=== PATIENT | male | born 1940 | race Caucasian/White ===

== ENCOUNTER 2016-08-01 16:20 | Inpatient (IN) | payer OTHER ==
[~2016-08-01] VITALS: Ht 190.5 cm; Wt 120.7 kg
[~2016-08-01 16:20] MED LIST: ACET325T96 PO; APIX1TAB3 PO; BISA1TAB15 PO; CALC0.2510 PO; CHOL2000 PO; CINA0.42 PO; CLR10 PO; CYAN500T13 PO; DOCU-94 PO; FEBU40TA PO; FRS/40 PO; FURO-85 PO; HMLNPUC INJ; HMLNPUC SC; HYDR-4079 PO; METO-217 PO; NVLGIPEN SC; OMEG10007 PO; POLY335019 PO; ROSU5TAB PO; SODI650T8 PO; VITA400C28 PO
[2016-08-01] MEDS ORDERED: MoRPHine SULFATE 4 MG/ML 1 ML CARP\\VIAL IV STA (17:16)
[2016-08-01] MEDS ORDERED: ONDANSETRON INJ 2 MG/ML 2 ML VIAL IV STA (17:16)
[2016-08-01 17:59] LABS: HEMATOCRIT 30.2 % (42-52); MEAN CELL VOLUME 81.6 fL (80-100); MEAN CORPUSCULAR HEMOGLOBIN 26.2 pg (25-34); MEAN CORPUSCULAR HGB CONC 32.1 g/dl (32-36); MEAN PLATELET VOLUME 8.9 fL (7.4-10.4); PLATELET COUNT 185 K/uL (130-400); WHITE BLOOD COUNT 4.37 K/uL (4.8-10.8)
[2016-08-01 18:07] LABS: INR 1.1 (0.9-1.1); PROTHROMBIN TIME (PATIENT) 11.9 SECONDS (9.0-12.0)
[2016-08-01] MEDS ORDERED: HYDROmorphone INJ 1 MG/ML SYR IV STA (18:24)
[2016-08-01 18:43] LABS: BASO % 0.2 %; BASO ABS # 0.01 K/uL (0-0.2); COMPLETE YES; EOS % 0.9 %; HYPOCHROMIA PRESENT; IG% 0.2 %; LYMPH % 17.8 %; LYMPH ABS # 0.78 K/uL (1.2-3.4); MONO % 12.1 %; NEUT % 68.8 %
[2016-08-01 18:52] LABS: BUN/CREATININE RATIO 12.7 (10-20); CREATININE 5.5 mg/dl (0.60-1.40); POTASSIUM 4.1 mmol/L (3.5-5.1)
[2016-08-01 19:00] LABS: CALCIUM 12.1 mg/dl (8.5-10.1)
[2016-08-01] MEDS ORDERED: KETOROLAC TROMETHAMINE 15 MG/ML VIAL IV SCH (19:00)
[2016-08-01] MEDS ORDERED: ONDANSETRON INJ 2 MG/ML 2 ML VIAL IV PRN ×2 (19:00→20:00)
[2016-08-01] MEDS ORDERED: PROMETHAZINE HCL INJ 12.5 MG in SODIUM CHLORIDE 0.9% 50ML 50 ML IV PRN (19:00)
[2016-08-01] MEDS ORDERED: SODIUM CHLORIDE 0.9% 1000ML 1,000 ML IV STA (19:01)
[2016-08-01] MEDS: HYDROmorphone INJ 1 MG/ML SYR IV PRN ×2 (19:33→23:34)
[2016-08-01] MEDS ORDERED: DEXTROSE 50% 50 ML SYR IV PRN (19:45)
[2016-08-01] MEDS ORDERED: GLUCAGON FOR INJ 1 MG VIAL SQ PRN (19:45)
[2016-08-01] MEDS ORDERED: GLUCOSE 10 TABS/TUBE PO PRN (19:45)
[2016-08-01] MEDS ORDERED: GLUCOSE 40% GEL 15 GM TUBE PO PRN (19:45)
--- NOTE | 2016-08-01 19:59 | HISTORY & PHYSICAL EXAMINATION ---
DATE OF ADMISSION: 08/01/2016 CHIEF COMPLAINT: Back pain, lower extremity difficulty, inability to walk, some difficulty with voiding. HISTORY: Reginaldo is a pleasant gentleman I am meeting for the first time. He is 76 years of age, he is a male. He is labored here a little bit with his breathing. He evidently had surgery set up with Dr. Juarez coming up in approximately 15-16 days. Because the pain overtook the gentleman, he came to our Emergency Room for evaluation and treatment, optimistic that something could be done sooner. My brief assessment here this evening is he is not tuned up or ready for surgical intervention at this point in time. MEDICAL HISTORY: Positive for obesity, hypertension, diabetes mellitus, prostate CA. No myocardial infarction. No CVA. No stroke. SURGICAL HISTORY: Negative. ALLERGIES: Denied. REVIEW OF SYSTEMS: Denies any blurred vision, double vision, tinnitus, vertigo. No chest pain, but some shortness of breath. Denies nausea or vomiting. Had some urgency. Had some retention. Has difficulty with walking. MEDICINES: We are trying to round up and summarize. They are listed on his initial patient inquiry. PHYSICAL EXAMINATION: GENERAL: He is alert, oriented. He is in distress. He has some pulmonary issues. HEENT: Essentially benign. VITAL SIGNS: Blood pressure 175/80, pulse slightly irregular at 80 beats per minute, 20 respirations for a minute. LUNGS: He has some wheezing with inhalation and exhalation. ABDOMEN: Obese, although no organomegaly, essentially nontender. EXTREMITIES: Vascular structure is intact. He has 2 or 3+ pitting edema to lower extremities. He has an ulcer on his right knee, he has an ulcer on his great toe. I left the dressings intact. LABORATORY DATA: Hemoglobin 9.7, hematocrit 30.2. INR 1.1. Images from an outpatient demonstrate severe multilevel stenosis from about 6 months ago. Chest x-ray relatively clear. ASSESSMENT: A 76-year-old male with spinal stenosis, degenerative spine disease. He is also anemic. He is also in renal failure. Appears to be possibly in heart failure with edema and some diabetic ulcers. He is also a diabetic male. DISPOSITION: At this point in time, I am admitting him to my service, orthopedic spine surgery. Surgery is contraindicated at this point in time. He is not healthy enough to undergo even a small procedure. We will have medicine see him and Dr. Sullivan has been gracious enough to see him for medical management. He may even need telemetry. We will try to control his pain as best as we can along with the medical management, surgery being on hold, and I will follow him daily.
[2016-08-01] MEDS ORDERED: ALUMINUM/MAGNESIUM/SIMETH (MAALOX MAX) 30 ML UDC PO PRN (20:00)
[2016-08-01] MEDS ORDERED: ACETAMINOPHEN 325 MG TAB PO PRN (20:00)
[2016-08-01 20:21] LABS: CKMB/CK RATIO 1.6 (0-3.0)
--- NOTE | 2016-08-01 20:36 | DIAGNOSTIC IMAGING REPORT ---
MRI LUMBAR SPINE WITHOUT IV CONTRAST CLINICAL HISTORY: Low back pain. Lower extremity numbness. COMPARISON STUDY: No priors. TECHNIQUE: MRI of lumbar spine is performed utilizing various T1 and T2 weighted sequences in the axial and sagittal planes. IV contrast was not administered for this examination. FINDINGS: Lumbar spine: Vertebral body height is maintained about the lumbar spine. There is minimal anterolisthesis at L4-L5. Alignment is otherwise preserved. Mild hyperlordosis is noted. The transverse and spinous processes are intact as visualized. There is no evidence of spondylolysis. No destructive bony lesion is seen. A small hemangioma is noted in the body of L1. Intervertebral discs: There is degenerative disc desiccation throughout the lumbar spine. Mild loss of height is noted at L4-L5 and L5-S1. Spinal cord: The visualized spinal cord is normal in morphology and signal intensity. The conus medullaris terminates at the level of L1. The nerve roots of the cauda equina are normal in morphology. Epidural lipomatosis is seen at L4 and L5. T12-L1: There is minimal posterior disc bulge and annular fissure. The central canal appears clear. L1-L2: Unremarkable. L2-L3: There is minimal posterior disc bulge with annular fissure. In conjunction with hypertrophy of the ligamentum flavum there is minimal acquired compromise of the central canal at this level with a minimum AP diameter of 9 mm. There is bilateral subarticular stenosis. There may be impingement on the transiting left-sided nerve roots and the exiting left L2 nerve root. The neural foramina are patent. L3-L4: There is minimal posterior disc bulge. In conjunction with hypertrophy of the ligamentum flavum, there is minimal acquired compromise of the central canal with a minimum AP diameter of 9.5 mm. There is bilateral subarticular stenosis with possible impingement on the exiting bilateral L3 nerve roots. This also abuts the transiting nerve roots. The neural foramina are patent. Facet arthropathy is of no consequence. L4-L5: There is posterior disc bulge eccentric to the left. In conjunction with hypertrophy of the ligamentum flavum, there is moderate central canal stenosis at this level with a minimum AP diameter of 6.5 mm. There is bilateral subarticular stenosis, with probable impingement of the exiting bilateral L4 nerve roots. This also abuts the transiting L5 nerve roots. Facet arthropathy causes mild bilateral neural foraminal stenosis. There is a left facet joint effusion at this level. L5-S1: There is minimal posterior disc bulge and annular fissure. There is no significant acquired compromise of the central canal at this level. The central canal is narrowed secondary to epidural lipomatosis. Facet arthropathy causes moderate right greater than left neural foraminal stenosis. Sacrum: Visualized sacrum is normal in morphology and signal intensity. Soft tissues: There is fatty atrophy of the paraspinous musculature. The visualized kidneys demonstrate cortical atrophy. The retroperitoneal structures are not well assessed. IMPRESSION: 1. Lumbosacral spondylosis with multilevel acquired compromise of the central canal as detailed above. This is greatest at L4-L5. See discussion for detailed level by level analysis. 2. No destructive bony lesion is seen. 3. Epidural lipomatosis is noted at L4 and L5. Dictated: 08/01/2016 8:22 PM Transcribed: 08/01/2016 8:36 PM Hossein Electronically signed by: Joseph Gonzalez M.D. 08/01/2016 8:45 PM Dictated Date/Time: 08/01/2016 8:22 PM
--- NOTE | 2016-08-01 20:38 | Medical Consult ---
Consultation Date of Consultation: Aug 01, 2016. Attending Physician: Julian Pena Reason for Consultation: Medical Management History of Present Illness Mr. Ferro is a 76 y/o male with PMHx of Atrial Fibrillation (anticoagulated), HTN, CAMI on night CPAP, T2DM, Chronic Kidney Disease with Secondary Hyperparathyroidism, and Prostate CA who presents to the ED complaining of worsening lower back pain and ambulation difficulty 2 weeks. Hospitalists consulted for medical management. HPI limited due to uncontrolled pain and difficulty hearing. 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 His PCP is Dr. Martinez with [facility]. At times, patient responds with inappropriate answers and it is hard to determine if this is due to hearing difficulty versus AMS. However, patient is alert and oriented to person , place, time. Patient does report CKD and prior history of hypercalcemia. Patient does not receive dialysis. Patient currently resides at the [facility] since his recent discharge from [facility] approximately 10 days ago. This is due to the ambulatory dysfunction. Prior to this he resides at home with his . Of note, patient was performing preoperative testing today for his back surgery scheduled with Dr. Juarez on 08/18/2016. Patient reports an intermittently productive cough with wheezing that started yesterday. Denies all other URI symptoms. He denies fever/chills, chest pain, N/V, abdominal pain, constipation/diarrhea. Past Medical/Surgical History Medical Problems: (1) Atrial fibrillation (2) Chronic kidney disease (CKD) (3) Diabetes (4) Intractable back pain (5) spinal stenosis (6) Stenosis, spinal, lumbar (7) Wears hearing aid in both ears Family History Diabetes mellitus Social History Smoking Status: Never Smoker Smokeless Tobacco Use: No Alcohol Use: none Drug Use: none Marital Status: Housing Status: lives with significant other Allergies Coded Allergies: Atorvastatin (Unverified Allergy, Unknown, UNKNOWN, 08/01/16) Gabapentin (Unverified Allergy, Unknown, UNKNOWN, 08/01/16) Pioglitazone (Unverified Allergy, Unknown, UNKNOWN, 08/01/16) Simvastatin (Unverified Allergy, Unknown, UNKNOWN, 08/01/16) Current Inpatient Medications Current Inpatient Medications Medications (Trade) Dose Ordered Sig/Elliott Route Start Time Stop Time Status Last Admin Dose Admin Acetaminophen 650 mg 650 mg Q6H PRN PO 08/01/16 19:00 4/5/17 18:59 Promethazine HCl/ Sodium Chloride (Phenergan Inj/ Nss 50ml) 50.5 ml @ 202 mls/hr Q6H PRN IV 08/01/16 19:00 08/31/16 18:59 Ondansetron HCl (Zofran Inj) 4 mg Q6H PRN IV 08/01/16 19:00 08/31/16 18:59 Lorazepam (Ativan Tab) 1 mg Q6H PRN PO 08/01/16 19:00 08/31/16 18:59 Oxycodone/ Acetaminophen (Percocet 5-325mg Tab) Moderate to Severe naseem... Q4H PRN PO 08/01/16 19:00 08/15/16 18:59 Acetaminophen/ Hydrocodone Bitart ([place] 5/325 Tab) Moderate to Severe Naseem... Q4H PRN PO 08/01/16 19:00 08/15/16 18:59 Hydromorphone HCl (Dilaudid Inj) 1 mg Q2HWA PRN IV 08/01/16 19:00 08/15/16 18:59 08/01/16 19:33 1 MG Ciprofloxacin (Cipro Tab) 500 mg BID PO 08/01/16 21:00 08/31/16 20:59 UNV Cyanocobalamin (Vitamin B-12 Tab) 1,000 mcg QAM PO 08/02/16 09:00 09/01/16 08:59 Docusate Sodium (coLACE CAP) 100 mg BID PO 08/01/16 21:00 08/31/16 20:59 Loratadine (Claritin Tab) 10 mg QAM PO 08/02/16 09:00 09/01/16 08:59 Metoprolol Succinate (Toprol Xl Tab) 50 mg BID PO 08/01/16 21:00 08/31/16 20:59 Non-Formulary Medication (Cinacalcet (Sensipar)) 30 mg QAM PO 08/02/16 09:00 09/01/16 08:59 UNV Albuterol/ Ipratropium 3 ml 3 ml QIDR INH 08/01/16 20:00 08/31/16 19:59 Sodium Chloride (Nss 1000ml) 1,000 ml @ 50 mls/hr Q20H IV 08/01/16 19:45 08/31/16 19:44 Insulin Aspart (novoLOG ASPART) SLIDING SCALE G... ACHS SC 08/01/16 21:00 08/31/16 20:59 Glucose (Glucose 40% Gel) 15-30 GRAMS 15 GRAMS... UD PRN PO 08/01/16 19:45 08/31/16 19:44 Glucose (Glucose Chew Tab) 4-8 Tablets 4 Tabl... UD PRN PO 08/01/16 19:45 08/31/16 19:44 Dextrose (Dextrose 50% 50ML Syringe) 25-50ML OF 50% DW IV FOR... UD PRN IV 08/01/16 19:45 08/31/16 19:44 Glucagon (Glucagon Inj) 1 mg UD PRN SQ 08/01/16 19:45 08/31/16 19:44 Al Hydrox/Mg Hydrox/Simethicone (Maalox Max Susp) 15 ml Q4H PRN PO 08/01/16 20:00 08/31/16 19:59 Magnesium Hydroxide (Milk Of Magnesia Susp) 30 ml Q12H PRN PO 08/01/16 20:00 08/31/16 19:59 Polyethylene (Miralax Powder Packet) 17 gm DAILY PRN PO 08/01/16 20:00 08/31/16 19:59 Review of Systems Constitutional: No chills, No fever Eyes: No worsening of vision ENT: + hearing loss (chronic), No nasal symptoms, No sore throat Respiratory: + cough, + shortness of breath (reports chronic), + sputum, + wheezing Cardiovascular: No chest pain Abdomen: No constipation, No diarrhea, No nausea, No pain, No vomiting Musculoskeletal: + swelling Genitourinary - Male: + urinary hesitancy, No dysuria Neurologic: + numbness/tingling (bilateral lower extremities), + weakness ( bilateral lower extremities) Hematologic / Lymphatic: No abnormal bleeding/bruising, No clotting problems Physical Exam Date Time Temp Pulse Resp B/P Pulse Ox O2 Delivery O2 Flow Rate FiO2 08/01/16 19:10 84 24 158/78 98 Room Air 08/01/16 18:28 138/90 08/01/16 17:56 84 20 175/81 100 08/01/16 16:30 36.3 71 20 176/76 99 Room Air General Appearance: WD/WN, + mild distress (pain) Head: normocephalic, atraumatic Eyes: sclerae normal ENT: + pertinent finding (COUNCIL; bilateral hearing aids) Neck: supple, no JVD, trachea midline Respiratory/Chest: no respiratory distress, no accessory muscle use, + rhonchi (bases bilat), + wheezing (diffuse in all lung toscano) Cardiovascular: no gallop, no murmur, + irregularly irregular Abdomen/GI: normal bowel sounds, non tender, soft Back: normal inspection, no CVA tenderness Extremities/Musculoskelatal: + swelling (bilat lower extremity edema 1+; superficial abrasions of lower extremities bilat) Neurologic/Psych: alert, oriented x 3 Skin: normal color Laboratory Results Last 24 Hours Test 08/01/16 17:44 White Blood Count 4.37 K/uL Red Blood Count 3.70 M/uL Hemoglobin 9.7 g/dL Hematocrit 30.2 % Mean Corpuscular Volume 81.6 fL Mean Corpuscular Hemoglobin 26.2 pg Mean Corpuscular Hemoglobin Concent 32.1 g/dl Platelet Count 185 K/uL Mean Platelet Volume 8.9 fL Neutrophils (%) (Auto) 68.8 % Lymphocytes (%) (Auto) 17.8 % Monocytes (%) (Auto) 12.1 % Eosinophils (%) (Auto) 0.9 % Basophils (%) (Auto) 0.2 % Neutrophils # (Auto) 3.00 K/uL Lymphocytes # (Auto) 0.78 K/uL Monocytes # (Auto) 0.53 K/uL Eosinophils # (Auto) 0.04 K/uL Basophils # (Auto) 0.01 K/uL RDW Standard Deviation 53.1 fL RDW Coefficient of Variation 17.6 % Immature Granulocyte % (Auto) 0.2 % Immature Granulocyte # (Auto) 0.01 K/uL Hypochromasia PRESENT Prothrombin Time 11.9 SECONDS Prothromb Time International Ratio 1.1 Activated Partial Thromboplast Time 26.4 SECONDS Partial Thromboplastin Ratio 1.0 Sodium Level 142 mmol/L Potassium Level 4.1 mmol/L Chloride Level 101 mmol/L Carbon Dioxide Level 27 mmol/L Anion Gap 14.0 mmol/L Blood Urea Nitrogen 70 mg/dl Creatinine 5.50 mg/dl Est Creatinine Clear Calc Drug Dose 16.0 ml/min Estimated GFR () 10.6 Estimated GFR (Non- 9.1 BUN/Creatinine Ratio 12.7 Random Glucose 159 mg/dl Calcium Level 12.1 mg/dl Total Creatine Kinase 282 U/L Creatine Kinase MB 4.5 ng/ml Creatine Kinase MB Ratio 1.6 Troponin I 0.083 ng/ml Assessment & Plan Mr. Ferro is a 76 y/o male with PMHx of Atrial Fibrillation (anticoagulated), HTN, CAMI on night CPAP, T2DM, Chronic Kidney Disease with Secondary Hyperparathyroidism, and Prostate CA who presents to the ED complaining of worsening lower back pain and ambulation difficulty 2 weeks. Mr. Ferro is a 76 y/o male with PMHx of Atrial Fibrillation (anticoagulated), HTN, CAMI on night CPAP, T2DM, Chronic Kidney Disease with Secondary Hyperparathyroidism, and Prostate CA who presents to the ED complaining of worsening lower back pain and ambulation difficulty 2 weeks. Due to severe pain, cooperation was limited in obtaining more details of PMHx Back Pain with Ambulatory Dysfunction: - Pain management and PT/OT per primary - Ciprofloxacin 500 mg twice a day initiated per primary Possible Bronchitis?: - Outpatient CXR (08/01/16) - images and report reviewed - without evidence of consolidation or pleural effusions - Duonebs QID and Q2H PRN T2DM: - HbA1c - Hold home insulin regimen - SSI with goal 120-160; correction factor 35 Acute on Chronic Kidney Disease with Secondary Hyperparathyroidism: Baseline Unknown - Creatinine 5.5 and Ca 12.1 on admission - will trend with daily BMP - Gentle hydration of NSS at 75 mL/hr -- Noted peripheral edema -will assess additional IVF in AM - Renal U/S - R/O obstruction - Sensipar 30 mg daily - Consult nephrology - appreciate recommendations Lower Extremity Edema: - Venous U/S - R/O DVT - unlikely given Eliquis - Hold Lasix due to creatinine - Echo - evaluated for CHF Atrial Fibrillation: Unknown Type: Rate Controlled - Serial cardiac enzymes - initial troponin 0.083 likely secondary to kidney function - Hold Eliquis - per primary, patient not suitable for surgery at this time however possible surgical intervention may be necessary -- May possibly reinstitute in AM - Metoprolol Succ 50 mg BID CAMI on Night CPAP: - Set up CPAP per respiratory DVT Prophylaxis: - AIDA/SCDs - Hold Eliquis - possible resume in AM pending further surgical intervention Disposition: - Patient currently at [facility] due to ambulatory dysfunction but plans to return home with - Of note, patient reports that he has a girlfriend Alicia who he allows to be updated on his current condition -- (Martita) is aware of Alicia however believes this is an old affair.
--- NOTE | 2016-08-01 20:53 | EMERGENCY ROOM VISIT NOTE ---
History Report prepared by Juli: Carol Lin Under the Supervision of: Dr. Kamron Rice M.D. First contact with patient: 16:36 Chief Complaint: PAIN (GENERALIZED) Stated Complaint: PAIN ALL OVER History of Present Illness The patient is a 76 year old male who presents to the Emergency Room with complaints of worsening lower back pain for the past 2 weeks. He had prostate cancer last spring and received radiation treatment at that time. He states that is when his back problems initially began. He started having a difficult time standing up straight. The patient had an MRI in January that revealed some bulging discs. He has been following up with Dr. Riggs in [place] for injections in his back. He has received injections twice and states that they have not been helping to manage his pain. He has back surgery scheduled with Dr. Juarez on 08/18/16, but he has not seen Dr. Juarez yet. He had pre-surgery testing today. The patient states that his pain has been worsening over the past 2 weeks. His pain radiates into both of his legs. He notes numbness in his legs for the past 2 weeks that is worse in his left leg. He states that two weeks ago he was able to ambulate with a walker. His symptoms have progressed to the point where he is no longer able to ambulate at all. His legs are much weaker. He cannot lift his legs on his own. He has been using a wheelchair for the past two weeks and currently is living in [place] [facility]. He rates his current pain as a 9/10 in severity. The patient denies fever, abdominal pain, and urinary or fecal incontinence. He does have urinary hesitancy despite being on Lasix. He has been staying in a [place] [facility] [place] for the past week due to his worsening symptoms. The patient is taking hydrocodone for pain. Source of History: patient, spouse/significant other Onset: 2 weeks ago Position: back (lower) Symptom Intensity: 9/10 Quality: other (radiating) Timing: worsening Modifying Factors (Worsening): other (ambulation) Modifying Factors (Relieving): narcotics Associated Symptoms: + numbness (bilateral legs), + weakness (bilateral legs ), No abdominal pain, No fevers, No urinary symptoms Review of Systems See HPI for pertinent positives & negatives. A total of 10 systems reviewed and were otherwise negative. Past Medical & Surgical Medical Problems: (1) Intractable back pain (2) spinal stenosis (3) Stenosis, spinal, lumbar (4) Wears hearing aid in both ears Family History Non-pertinent due to advanced age. Social History Smoking Status: Never Smoker Marital Status: Housing Status[place] [facility] Occupation Status: retired Current/Historical Medications Scheduled Apixaban (Eliquis), 5 MG PO BID Bisacodyl (Bisacodyl), 2 TAB PO UD Calcitriol (Rocaltrol Cap), 0.5 MCG PO QAM Cholecalciferol (Vitamin D3), 1 CAP PO TID Cinacalcet (Sensipar), 30 MG PO QAM Cyanocobalamin (Vitamin B12 500MCG), 1,000 MCG PO QAM Docusate Sodium (Colace), 1 CAP PO BID Febuxostat (Uloric), 1 TAB PO HS Fish Oil ([place]-3), 1 CAP PO QAM Furosemide (Lasix), 20 MG PO NOON Insulin Human NPH (Humulin N), 42 UNITS INJ QAM Insulin Human NPH (Humulin N), 78 UNITS SC HS Loratadine (Claritin), 10 MG PO QAM Metoprolol Succinate (Toprol Xl), 50 MG PO BID Polyethylene Glycol 3350 (Miralax), 17 GM PO BID Rosuvastatin Calcium (Crestor), 5 MG PO HS Vitamin E (Alph-E), 400 UNITS PO QAM Scheduled PRN Acetaminophen Tab (Tylenol), 650 MG PO Q6H PRN for RN Hydrocodone/Acetaminophen 10MG/325MG ([place] 10MG/325MG), 1 TAB PO Q4H PRN for Pain Insulin Aspart (Novolog Flexpen), 10 UNITS SC QAM PRN for PRN Sodium Bicarbonate (Sodium Bicarbonate), 1,300 MG PO QID PRN for 00 Allergies Coded Allergies: Atorvastatin (Unverified Allergy, Unknown, UNKNOWN, 08/01/16) Gabapentin (Unverified Allergy, Unknown, UNKNOWN, 08/01/16) Pioglitazone (Unverified Allergy, Unknown, UNKNOWN, 08/01/16) Simvastatin (Unverified Allergy, Unknown, UNKNOWN, 08/01/16) Physical Exam Vital Signs Date Time Temp Pulse Resp B/P Pulse Ox O2 Delivery O2 Flow Rate FiO2 08/01/16 20:47 84 26 150/74 98 08/01/16 19:10 84 24 158/78 98 Room Air 08/01/16 18:28 138/90 08/01/16 17:56 84 20 175/81 100 08/01/16 16:30 36.3 71 20 176/76 99 Room Air Physical Exam Constitutional: Vital signs reviewed. Eyes: Pupils are equal round reactive to light. Conjunctiva are noninjected. ENT: Pharynx is clear without erythema or exudate. Mucous membranes are moist. Neck supple without meningeal signs. Respiratory: Clear to auscultation bilaterally. Breath sounds are equal bilaterally. Cardiovascular: Regular rate and rhythm. No rubs or gallops. GI: Soft, nondistended and nontender. Bowel sounds are present. Musculoskeletal: Bilateral lower extremity edema. No lower extremity tenderness. Integumentary: No cyanosis. Neurological: The patient is awake and alert. He is able to flex and extend his ankles but I am unable to assess the more proximal portions of his legs secondary to pain. Sensation is intact throughout the lower extremities. Psychiatric: Normal affect. Medical Decision & Procedures Laboratory Results 08/01/16 17:44 Red Blood Count 3.70, Mean Corpuscular Volume 81.6, Mean Corpuscular Hemoglobin 26.2, Mean Corpuscular Hemoglobin Concent 32.1, Mean Platelet Volume 8.9, Neutrophils (%) (Auto) 68.8, Lymphocytes (%) (Auto) 17.8, Monocytes (%) (Auto) 12.1, Eosinophils (%) (Auto) 0.9, Basophils (%) (Auto) 0.2, Neutrophils # (Auto ) 3.00, Lymphocytes # (Auto) 0.78, Monocytes # (Auto) 0.53, Eosinophils # (Auto ) 0.04, Basophils # (Auto) 0.01 08/01/16 17:44 Test 08/01/16 17:44 White Blood Count 4.37 K/uL (4.8-10.8) Red Blood Count 3.70 M/uL (4.7-6.1) Hemoglobin 9.7 g/dL (14.0-18.0) Hematocrit 30.2 % (42-52) Mean Corpuscular Volume 81.6 fL (80-100) Mean Corpuscular Hemoglobin 26.2 pg (25-34) Mean Corpuscular Hemoglobin Concent 32.1 g/dl (32-36) Platelet Count 185 K/uL (130-400) Mean Platelet Volume 8.9 fL (7.4-10.4) Neutrophils (%) (Auto) 68.8 % Lymphocytes (%) (Auto) 17.8 % Monocytes (%) (Auto) 12.1 % Eosinophils (%) (Auto) 0.9 % Basophils (%) (Auto) 0.2 % Neutrophils # (Auto) 3.00 K/uL (1.4-6.5) Lymphocytes # (Auto) 0.78 K/uL (1.2-3.4) Monocytes # (Auto) 0.53 K/uL (0.11-0.59) Eosinophils # (Auto) 0.04 K/uL (0-0.5) Basophils # (Auto) 0.01 K/uL (0-0.2) RDW Standard Deviation 53.1 fL (36.4-46.3) RDW Coefficient of Variation 17.6 % (11.5-14.5) Immature Granulocyte % (Auto) 0.2 % Immature Granulocyte # (Auto) 0.01 K/uL (0.00-0.02) Hypochromasia PRESENT Prothrombin Time 11.9 SECONDS (9.0-12.0) Prothromb Time International Ratio 1.1 (0.9-1.1) Activated Partial Thromboplast Time 26.4 SECONDS (21.0-31.0) Partial Thromboplastin Ratio 1.0 Anion Gap 14.0 mmol/L (3-11) Est Creatinine Clear Calc Drug Dose 16.0 ml/min Estimated GFR () 10.6 Estimated GFR (Non- 9.1 BUN/Creatinine Ratio 12.7 (10-20) Calcium Level 12.1 mg/dl (8.5-10.1) Total Creatine Kinase 282 U/L (39-308) Creatine Kinase MB 4.5 ng/ml (0.5-3.6) Creatine Kinase MB Ratio 1.6 (0-3.0) Troponin I 0.083 ng/ml (0-0.045) Laboratory results as reviewed by me. Medications Administered Medications (Trade) Dose Ordered Sig/Elliott Route Start Time Stop Time Status Last Admin Dose Admin Morphine Sulfate (MoRPHine SULFATE INJ) 4 mg NOW STAT IV 08/01/16 17:16 08/01/16 17:18 DC 08/01/16 17:33 4 MG Ondansetron HCl (Zofran Inj) 4 mg NOW STAT IV 08/01/16 17:16 08/01/16 17:18 DC 08/01/16 17:33 4 MG Hydromorphone HCl (Dilaudid Inj) 0.5 mg NOW STAT IV 08/01/16 18:24 08/01/16 18:25 DC 08/01/16 18:36 0.5 MG Hydromorphone HCl (Dilaudid Inj) 1 mg Q2HWA PRN IV 08/01/16 19:00 08/15/16 18:59 08/01/16 19:33 1 MG ED Course 1636: The patient was evaluated in room A11B. A complete history and physical exam was performed. 171: At this time I spoke with Dr. Pena of [facility]. We discussed the patient's case and he will come to the ED to evaluate the patient. He agreed with the plan to get a second MRI given the patient's worsening symptoms. 1716: Zofran 4 mg IV, Morphine sulfate 4 mg IV 171: I updated the patient on the treatment plan. He verbalized agreement. 182: Dilaudid 0.5 mg IV 190: NSS 1000 ml @ 125 mls/hr IV 190: I reassessed the patient at this time. He is feeling better and resting comfortably. I updated him on the results and treatment plan. The patient expressed understanding and verbalized agreement. 1904: I spoke with Dr. Pena. He will admit the patient for further evaluation but he consulted the [facility] Hospitalist to manage the medical issues. Medical Decision This is a 76-year-old male who presents with low back pain. Differential diagnosis includes lumbar disc disease, radiculopathy, spinal stenosis, compression fracture, cauda equina syndrome. I did perform a limited focused review of portions of the patient's old chart on the electronic medical record. The patient had pre-admission blood tests earlier today which are not resulted yet. I did evaluate the patient as noted above. The patient is presenting with worsening of his chronic back pain since last year. He has recently developed numbness and worsening weakness to his legs over the past several weeks. He feels he cannot wait to see Dr. Juarez on the and requested to see possibly another surgeon that might be able to help him sooner. IV access was established. I did treat the patient with IV morphine and Zofran. He had continued pain and was given Dilaudid IV. I did order and review the patient's blood work as noted in the electronic medical record. He has anemia, and elevated creatinine and hypercalcemia. I did order an MRI of the lumbar spine. I did order a CT of the abdomen and pelvis. I did review the images myself as well as the radiology report as described above. I did discuss the case with Dr. Pena of orthopedic spine. He was kind enough to come in and see the patient. He did evaluate him in the emergency department and hospitalized him. He did consult the [facility] medical service for his medical issues. I did discuss the blood test results with the patient. Consults Time Called: 1709 Consulting Physician: Dr. Pena Returned Call: 1712 At this time I spoke with Dr. Pena of [facility]. We discussed the patient's case and he will come to the ED to evaluate the patient. He agreed with the plan to get a second MRI given the patient's worsening symptoms. Additional Consults: Time Called: 1904 Consulted Physician: Dr. Pena Returned Call: 1904 Additional Comments: I spoke with Dr. Pena. He will admit the patient for further evaluation but he consulted the [facility] Hospitalist to manage the medical issues. Impression Primary Impression: Intractable back pain Additional Impressions: BARB (acute kidney injury) Hypercalcemia Scribe Attestation The scribe's documentation has been prepared under my direct and personally reviewed by me in its entirety. I confirm that the note above accurately reflects all work, treatment, procedures, and medical decision making performed by me. Departure Information Dispostion Being Evaluated By Hospitalist Referrals No Doctor, Assigned (PCP) Patient Instructions [facility] Problem Qualifiers
--- NOTE | 2016-08-01 20:56 | DIAGNOSTIC IMAGING REPORT ---
ULTRASOUND BILATERAL LOWER EXTREMITY VENOUS CLINICAL HISTORY: Lower extremity edema. COMPARISON STUDY: No priors. TECHNIQUE: Real-time, grayscale, and color Doppler sonography of the deep veins of the right and left lower extremity was performed from the inguinal crease to the calf. Compression and augmentation were utilized. FINDINGS: There is no sonographic evidence of deep venous thrombosis identified in the right or left lower extremity. The common femoral, superficial femoral, and popliteal veins are patent and normally compressible bilaterally. The greater saphenous vein and the profunda femoris vein at the junction with the common femoral vein are clear in both legs. The visualized calf veins are patent bilaterally. Soft tissue edema is present in both legs. IMPRESSION: There is no sonographic evidence of deep venous thrombosis identified in the right or left lower extremity. Electronically signed by: Joseph Gonzalez M.D. 08/01/2016 8:54 PM Dictated Date/Time: 08/01/2016 8:54 PM
--- NOTE | 2016-08-01 20:57 | DIAGNOSTIC IMAGING REPORT ---
ULTRASOUND KIDNEYS AND BLADDER CLINICAL HISTORY: Elevated serum creatinine. COMPARISON STUDY: No priors. TECHNIQUE: Real-time, grayscale, and color flow sonography of the kidneys and bladder is performed. Images are reviewed in the transverse and longitudinal planes. FINDINGS: Kidneys: The kidneys are atrophic and demonstrate increased cortical echotexture consistent with medical renal disease. The right kidney measures 13.5 x 7.4 x 7.9 cm and the left kidney measures 10.6 x 5.3 x 4.9 cm. There is no hydronephrosis. No shadowing renal calculi are identified. There is no sonographic evidence of contour deforming renal mass lesion. No perinephric fluid is identified. Bladder: The partially decompressed bladder is grossly normal in appearance. Ureteral jets were not seen. IMPRESSION: 1. The kidneys are atrophic and echogenic consistent with medical renal disease. There is no hydronephrosis. 2. The partially decompressed bladder is grossly unremarkable. Electronically signed by: Joseph Gonzalez M.D. 08/01/2016 8:56 PM Dictated Date/Time: 08/01/2016 8:54 PM
--- NOTE | 2016-08-01 21:10 | History and Physical ---
History & Physical Date of Service Aug 01, 2016. History & Physical pt seen and examed, d/w PA about hernandez points of dignosis and care plan, agreed current management, for details please referral to PA's note S: LBP, uncomfortable, anxious, cough/wheezing, frustrated, O: VS reviewed, stable, obesity, anxious, uncomfortable, color good, no resp dystress Lungs: rhonchi, rale, wheezing in vero lower lungs, decreased breathing sound , no respiratory distress, no accessory muscle use Cardiovascular: irregular rate, rhythm, no edema, normal peripheral pulses Abdomen / GI: obesity, normal bowel sounds, non tender, soft Extremities: mild vero lower ext warmer, erythema, several area superficial skin abrasion, no calf tenderness, 2-3 + pedal edema Neurologic/Psychiatric: alert, normal mood/affect, oriented x 3, CNII-XII intact All labs, images, reviewed A/P: 76 yo new ot [facility], H&P is limited b/c no med record, and pt is a poor historian, reported was in [facility] 10 days ago, with LBP, kidney failure, was sent [facility], now "fighting out" from there to this hospital, primary team Dr. Pena will take care of LBP, MRI was done. Pulm: possible copd/bronchitis with wheezing/rale, pt is on cipro per 1st team, will order duo neb CV: afib, possible chf, mild elevated tn, pt dowd sno chest pain, likely b/c acute on chronic renal failure, tn leakage, on Lasix, will hold lasix b/c possible acute kidney failure, check ekg, f/u ce and tn, echo, very gentle ivf, watch for pulm edema, check echo Renal: possible acute kidney failure, very gentle ivf, renal US, f/u Bun/Cr, I&O , renal consult, pt's renal in [place] is Dr. Camacho, will request med record ID: possible bronchitis, and vero lower ext cellulitis, GI: PPI for px DM: ISS, and cont home meds, DVT Prophylax: is on eliquis, will hold for today has requested med record from pcp and renal
[2016-08-01] MEDS ORDERED: CIPROFLOXACIN CONSULT ACTIVE PRN ×2 (21:15)
[2016-08-01] MEDS ORDERED: CIPROFLOXACIN 500 MG TAB PO SCH (21:30)
[2016-08-01] MEDS: SODIUM CHLORIDE 0.9% 1000ML 1,000 ML IV SCH (21:39)
[2016-08-01] MEDS: DOCUSATE SODIUM 100 MG CAP PO SCH (21:40)
[2016-08-01] MEDS: METOPROLOL SUCC 50MG EXT REL TAB PO SCH (21:41)
[2016-08-01] MEDS: INSULIN ASPART 100 UNITS/ML 3 ML PEN SC SCH (21:43)
[2016-08-01 21:44] VITALS: BP 154/80; PULSE 88; TEMP 36.8; O2SAT 96; BMI 36.2
[2016-08-01] MEDS: CIPROFLOXACIN 250 MG TAB PO SCH (21:58)
[2016-08-01] MEDS: ALBUT/IPRATROP 3MG/0.5MG NEB 3 ML VIAL INH SCH (22:00)
[2016-08-01 22:02] VITALS: PULSE 84; O2SAT 100
[2016-08-01 22:04] VITALS: PULSE 80; O2SAT 98
[2016-08-01 23:25] VITALS: BP 116/63; PULSE 78; TEMP 36.5; O2SAT 98
[2016-08-02] VITALS (13 sets, daily range): BP systolic 141–175; BP diastolic 64–90; PULSE 70–80; TEMP 36–36.9; O2SAT 90–100
[2016-08-02 00:05] LABS: ALB/GLOB RATIO 0.9 (0.9-2); BUN/CREATININE RATIO 12.5 (10-20); CALCIUM 11.6 mg/dl (8.5-10.1); CREATININE 5.7 mg/dl (0.60-1.40); POTASSIUM 3.9 mmol/L (3.5-5.1)
[2016-08-02 01:25] LABS: URINE APPEARANCE CLEAR (CLEAR); URINE BILIRUBIN NEG (NEG); URINE COLOR YELLOW; URINE EPITHELIAL CELL AUTO >30 /lpf (0-5); URINE NITRITE NEG (NEG); URINE SPECIFIC GRAVITY 1.013 (1.000-1.030); UROBILINOGEN NEG (NEG); ZZUR CULT IF INDIC CLEAN CATCH NO
[2016-08-02] MEDS: HYDROmorphone INJ 1 MG/ML SYR IV PRN ×2 (01:39→10:44)
[2016-08-02 01:48] LABS: MANUAL MICROSCOPIC REQUIRED? NO; REVIEW REQ? YES
[2016-08-02 06:18] LABS: HEMATOCRIT 26.7 % (42-52); MEAN CELL VOLUME 84.5 fL (80-100); MEAN CORPUSCULAR HEMOGLOBIN 26.3 pg (25-34); MEAN CORPUSCULAR HGB CONC 31.1 g/dl (32-36); MEAN PLATELET VOLUME 9.4 fL (7.4-10.4); PLATELET COUNT 172 K/uL (130-400); RED BLOOD COUNT 3.16 M/uL (4.7-6.1); WHITE BLOOD COUNT 3.42 K/uL (4.8-10.8)
[2016-08-02 06:52] LABS: BUN/CREATININE RATIO 12.3 (10-20); CALCIUM 11.2 mg/dl (8.5-10.1); CREATININE 5.8 mg/dl (0.60-1.40); MAGNESIUM 2.9 mg/dl (1.8-2.4); PHOSPHORUS 7.9 mg/dl (2.5-4.9); POTASSIUM 4.2 mmol/L (3.5-5.1)
[2016-08-02] MEDS: ALBUT/IPRATROP 3MG/0.5MG NEB 3 ML VIAL INH SCH ×4 (07:00→21:05)
[2016-08-02] MEDS ORDERED: PERFLUTREN LIPID MICROSPHERE (DEFINITY) IV ONE (07:02)
[2016-08-02 07:47] LABS: ESTIMATED AVERAGE GLUCOSE 126 mg/dl; HA1C FLAG Normal (Normal)
[2016-08-02] MEDS ORDERED: CINACALCET 30 MG TAB PO SCH (09:00)
[2016-08-02] MEDS: METOPROLOL SUCC 50MG EXT REL TAB PO SCH ×2 (09:18→21:07)
[2016-08-02] MEDS: OXYCODONE/ACETAMINOPHEN 5-325 TAB PO PRN (09:18)
[2016-08-02] MEDS: DOCUSATE SODIUM 100 MG CAP PO SCH ×2 (09:18→21:06)
[2016-08-02] MEDS: CYANOCOBALAMIN 500 MCG TAB (VIT B-12) PO SCH (09:19)
[2016-08-02] MEDS: LORATADINE 10 MG TAB PO SCH (09:19)
[2016-08-02] MEDS: INSULIN ASPART 100 UNITS/ML 3 ML PEN SC SCH ×4 (09:21→21:02)
[2016-08-02] MEDS: CIPROFLOXACIN 250 MG TAB PO SCH ×2 (09:22→21:06)
[2016-08-02] MEDS: SODIUM CHLORIDE 0.9% 1000ML 1,000 ML IV SCH ×2 (09:26→23:14)
[2016-08-02] MEDS ORDERED: FUROSEMIDE INJ 40 MG in SYRINGE 0 ML IV ONE (10:15)
--- NOTE | 2016-08-02 10:25 | Clinical Documentation Query ---
MELLO Duarte : CLINICAL DOCUMENTATION QUERIES QUERY 1 OF 2 Patient is a 76 year old male admitted for evaluation and treatment of spinal stenosis, acute renal failure on CKD, and possible bronchitis. H&P documentation includes "appears to be possibly in heart failure " and medical consultation notes include "possible CHF". Due to BARB, no diuretics were administered initially but subsequent to this patient has been ordered IV Lasix. Records from [facility] include a diagnosis of chronic diastolic CHF. He is being monitored on telemetry is to have a repeat echocardiogram, and will be monitored with I/O, daily weights, and serial labs. In your clinical opinion is this patient being managed for: ( X ) Acute on chronic diastolic congestive heart failure ( ) Other explanation of clinical findings (Please Explain) ( ) Unable to determine (Please Define) ( ) Need to Discuss ( ) Not Agree The medical record reflects the following clinical findings, treatment, and risk factors. Clinical Indicators: As above Treatment:He is being monitored on telemetry is to have a repeat echocardiogram, and will be monitored with I/O, daily weights, and serial labs. Risk Factors: Age, CKD stage IV, hypertension QUERY 2 OF 2 Documentation includes "acute kidney failure on CKD" not otherwise specified. Documentation from [facility] records includes a history of CKD stage IV. Estimated GFR on admission < 15 ml/min, consistent then with BARB on CKD stage IV. Please clarify as clinically appropriate. Thank you. In your clinical opinion is this patient being managed for: ( X ) Chronic kidney disease, stage 4 ( ) Other explanation of clinical findings (Please Explain) ( ) Unable to determine (Please Define) ( ) Need to Discuss ( ) Not Agree The medical record reflects the following clinical findings, treatment, and risk factors. Clinical Indicators: As above Treatment: IVF, serial chemistries, nephrology consultation Risk Factors: Age, hypertension, chronic diastolic CHF. Please clarify and document your clinical opinion in the progress notes and discharge summary. Terms such as "probable", "suspected", "likely", "questionable", "possible", or "still to be ruled out" are acceptable. IF IN AGREEMENT, YOU MUST DOCUMENT ABOVE DIAGNOSTIC STATEMENT IN DAILY PROGRESS NOTES AND DISCHARGE SUMMARY. This document is not part of the patient's record. Thank You, Barney Bonilla, ERICA [id number]
--- NOTE | 2016-08-02 12:50 | ECHOCARDIOGRAM REPORT ---
*NOTICE TO RECEIVING [employer] This information is strictly Confidential and protected under [place] law. [place] law prohibits you from making any further disclosure of this information unless further disclosure is expressly permitted by the written consent of the person to whom it pertains or is authorized by law. A general authorization for the release of medical or other information is not sufficient for this purpose. Hospital accepts no responsibility if the information is made available to any other person, INCLUDING THE PATIENT. Interpretation Summary * Name: JOSE QUEEN Study Date: 08/02/2016 07:38 AM BP: 141/90 mmHg * Patient Location: .2E\S\E201\S\1 HR: 73 * : 1940 (M/d/yyyy) Gender: Male Height: 75 in * Age: 76 yrs Ethnicity: [place] Weight: 282 lb * Ordering Physician: Dylon Sullivan * Referring Physician: Self, Referred * Performed By: Negrita Murrell * * Reason For Study: EDEMA * BSA: 2.5 m2 * -- Conclusions -- * The left ventricle is hyperdynamic. * No regional wall motion abnormalities noted. * Ejection Fraction = >70 %. * There is moderate concentric left ventricular hypertrophy. * Grade I diastolic dysfunction, (abnormal relaxation pattern). * There is mild mitral regurgitation. Procedure Details * A complete two-dimensional transthoracic echocardiogram was performed (2D, M-mode, Doppler and color flow Doppler). * There were technical limitations due to patient'spoor positioning * A contrast injection of Definity was performed to improve assessment of LV function. * Contrast was injected into an intravenous site in the right arm. * One vial of Definity ultrasound contrast was diluted in normal saline to a total volume of 10 ml. A total of '2' ml of solution was administered during imaging. * Lot # [id number] of Definity utilized for procedure. * Expiration date 06/15. * The attending nurse who injected the contrast agent was GIANNA GARCIA RN. Left Ventricle * The left ventricle is normal in size. * There is moderate concentric left ventricular hypertrophy. * Ejection Fraction = >70 %. * The left ventricle is hyperdynamic. * No regional wall motion abnormalities noted. Right Ventricle * The right ventricle is not well visualized. * The right ventricular systolic function is normal as assessed by tricuspid annular plane systolic excursion (TAPSE) (normal >1.5 cm). Atria * The left atrium is moderately dilated. * Right atrium not well visualized. * No ASD detected; PFO is not assessed. Mitral Valve * The mitral valve is grossly normal. * There is mild mitral regurgitation. Tricuspid Valve * The tricuspid valve is not well visualized, but is grossly normal. * Significant tricuspid regurgitation is absent. Aortic Valve * The aortic valve is tricuspid. The leaflet thickness if normal. There is no aortic stenosis, and no significant insufficiency. * The aortic valve opens well. * Aortic valve sclerosis mild, without significant aortic valvular stenosis. * There is no significant aortic regurgitation. Pulmonic Valve * The pulmonary valve is not well seen, but the Doppler examination is normal without significant regurgitation or stenosis. Great Vessels * The aortic root is normal size. * The pulmonary is not well visualized. Pericardium/Pleural * There is no pericardial effusion. Great Vessels * IVC not well seen. Left Ventricular Diastolic Function * Grade I diastolic dysfunction, (abnormal relaxation pattern). MMode 2D Measurements and Calculations IVSd 1.9 cm IVSs 2.7 cm LVIDd 5.1 cm LVIDs 2.9 cm LVPWd 1.7 cm LVPWs 3.1 cm IVS/LVPW 1.2 FS 43.5 % EDV(Teich) 123.4 ml ESV(Teich) 31.6 ml EF(Teich) 74.4 % EDV(cubed) 132.1 ml ESV(cubed) 23.8 ml EF(cubed) 82.0 % % IVS thick 37.6 % % LVPW thick 85.1 % LV mass(C)d 435.6 grams LV mass(C)dI 171.5 grams/m\S\2 LV mass(C)s 511.3 grams LV mass(C)sI 201.4 grams/m\S\2 SV(Teich) 91.8 ml SI(Teich) 36.1 ml/m\S\2 SV(cubed) 108.3 ml SI(cubed) 42.6 ml/m\S\2 ACS 1.6 cm LA dimension 5.0 cm asc Aorta Diam 3.2 cm LVOT diam 1.9 cm LVOT area 2.7 cm\S\2 LVAd ap4 42.0 cm\S\2 LVLd ap4 9.4 cm EDV(MOD-sp4) 154.5 ml EDV(sp4-el) 158.6 ml LVAs ap4 16.2 cm\S\2 LVLs ap4 7.8 cm ESV(MOD-sp4) 27.7 ml ESV(sp4-el) 28.6 ml EF(MOD-sp4) 82.1 % EF(sp4-el) 82.0 % LVAd ap2 40.6 cm\S\2 LVLd ap2 9.2 cm EDV(MOD-sp2) 148.2 ml EDV(sp2-el) 152.2 ml LVAs ap2 18.7 cm\S\2 LVLs ap2 7.7 cm ESV(MOD-sp2) 37.4 ml ESV(sp2-el) 38.7 ml EF(MOD-sp2) 74.8 % EF(sp2-el) 74.6 % LVLd %diff -2.53 % EDV(MOD-bp) 152.9 ml LVLs %diff -1.33 % ESV(MOD-bp) 32.1 ml EF(MOD-bp) 79.0 % SV(MOD-sp4) 126.8 ml SI(MOD-sp4) 49.9 ml/m\S\2 SV(MOD-sp2) 110.8 ml SI(MOD-sp2) 43.6 ml/m\S\2 SV(MOD-bp) 120.8 ml SI(MOD-bp) 47.6 ml/m\S\2 SV(sp4-el) 130.0 ml SI(sp4-el) 51.2 ml/m\S\2 SV(sp2-el) 113.5 ml SI(sp2-el) 44.7 ml/m\S\2 Doppler Measurements and Calculations MV E max romain 79.1 cm/sec MV A max romain 96.4 cm/sec MV E/A 0.82 MV dec time 0.38 sec Ao V2 max 173.8 cm/sec Ao max PG 12.1 mmHg Ao max PG (full) 6.2 mmHg CINTHIA(V,A) 1.9 cm\S\2 CINTHIA(V,D) 1.9 cm\S\2 LV V1 max PG 5.8 mmHg LV V1 mean PG 2.5 mmHg LV V1 max 120.8 cm/sec LV V1 mean 71.0 cm/sec LV V1 VTI 31.2 cm SV(LVOT) 85.6 ml SI(LVOT) 33.7 ml/m\S\2 PA V2 max 134.3 cm/sec PA max PG 7.2 mmHg TR max romain 209.7 cm/sec
[2016-08-02 13:03] LABS: HEMATOCRIT 25.7 % (42-52)
--- NOTE | 2016-08-02 14:07 | Nephrology Consultation ---
Nephrology Consultation Date & Providers Date of Consultation: Aug 02, 2016. Primary Care Provider: No Doctor, Assigned Referring Provider: Reason for Consultation Acute on chronic kidney disease History of Present Illness Mr. Reginaldo Ferro is a 76-year-old male admitted to [facility] yesterdy with intractable back pain. Laboratory studies on admission notable for acute on chronic renal insufficiency and hypercalcemia (12.2). Mr. Ferro has baseline CKD class IV. Creatinine at the end of June 2015 was 2.6 mg/dL. [facility] July [facility]-, [facility]. Creatinine peaked at 3.68 during admission. BARB attributed to volume overload. Mr. Ferro has followed with Dr. Ivan Delcid regarding his CKD. Records have been requested. Records from hospitalization in [place] were reviewed in detail today. Transthoracic echocardiogram is notable for moderate LVH with grade 1 diastolic dysfunction. Hyperdynamic LV function noted with an EF of >70%. No significant valvular heart disease noted. Renal ultrasound shows a bilateral atrophic kidneys: 10.6 cm left kidney and 13.5 cm right kidney. Urine analysis is notable for 3+ protein. Microscopy is acellular. There were hyaline casts. The patient was in notable discomfort during my evaluation. He is very irritable and tired from chronic back pain. Jean is draining clear yellow urine. He denies shortness of breath. He has not been taking TUMs. Appetite is good. No recent weight loss. Mr. Ferro states that he has not previously discussed dialysis. His initial response was that he has several friends on dialysis and he cannot imagine the associated quality of life. His primary concern right now is to improve his back pain so he can return to his baseline activities. Past Medical/Surgical History Medical: Osteoarthritis with spinal stenosis. Iron deficiency anemia with colonoscopy in May revealing several polyps which were removed. There is a history of GI bleed in 2009. Hypertension. Obesity. Diastolic CHF. CKD IV. Atrial fibrillation. CKD/MBD with secondary hyperparathyroidism. Prostate cancer treated with radiation. Unable to tolerate Lupron due to accelerated hypertension. CAMI on nocturnal CPAP. Diabetes mellitus. Surgical: None reported Allergies Coded Allergies: Atorvastatin (Unverified Allergy, Unknown, UNKNOWN, 08/01/16) Gabapentin (Unverified Allergy, Unknown, UNKNOWN, 08/01/16) Pioglitazone (Unverified Allergy, Unknown, UNKNOWN, 08/01/16) Simvastatin (Unverified Allergy, Unknown, UNKNOWN, 08/01/16) Inpatient Medications Current Inpatient Medications Medications (Trade) Dose Ordered Sig/Elliott Route Start Time Stop Time Status Last Admin Dose Admin Acetaminophen 650 mg 650 mg Q6H PRN PO 08/01/16 19:00 08/31/16 18:59 Promethazine HCl/ Sodium Chloride (Phenergan Inj/ Nss 50ml) 50.5 ml @ 202 mls/hr Q6H PRN IV 08/01/16 19:00 08/31/16 18:59 Ondansetron HCl (Zofran Inj) 4 mg Q6H PRN IV 08/01/16 19:00 08/31/16 18:59 Lorazepam (Ativan Tab) 1 mg Q6H PRN PO 08/01/16 19:00 08/31/16 18:59 Oxycodone/ Acetaminophen (Percocet 5-325mg Tab) Moderate to Severe naseem... Q4H PRN PO 08/01/16 19:00 08/15/16 18:59 08/02/16 09:18 1 TAB Acetaminophen/ Hydrocodone Bitart ([place] 5/325 Tab) Moderate to Severe Naseem... Q4H PRN PO 08/01/16 19:00 08/15/16 18:59 Hydromorphone HCl (Dilaudid Inj) 1 mg Q2HWA PRN IV 08/01/16 19:00 08/15/16 18:59 08/02/16 10:44 1 MG Cyanocobalamin (Vitamin B-12 Tab) 1,000 mcg QAM PO 08/02/16 09:00 09/01/16 08:59 08/02/16 09:19 1,000 MCG Docusate Sodium (coLACE CAP) 100 mg BID PO 08/01/16 21:00 08/31/16 20:59 08/02/16 09:18 100 MG Loratadine (Claritin Tab) 10 mg QAM PO 08/02/16 09:00 09/01/16 08:59 08/02/16 09:19 10 MG Metoprolol Succinate (Toprol Xl Tab) 50 mg BID PO 08/01/16 21:00 08/31/16 20:59 08/02/16 09:18 50 MG Albuterol/ Ipratropium 3 ml 3 ml QIDR INH 08/01/16 20:00 08/31/16 19:59 08/02/16 11:09 3 ML Sodium Chloride (Nss 1000ml) 1,000 ml @ 75 mls/hr [id number] IV 08/01/16 19:45 08/31/16 19:44 08/02/16 09:26 75 MLS/HR Insulin Aspart (novoLOG ASPART) SLIDING SCALE G... ACHS SC 08/01/16 21:00 08/31/16 20:59 08/02/16 11:17 3 UNITS Glucose (Glucose 40% Gel) 15-30 GRAMS 15 GRAMS... UD PRN PO 08/01/16 19:45 08/31/16 19:44 Glucose (Glucose Chew Tab) 4-8 Tablets 4 Tabl... UD PRN PO 08/01/16 19:45 08/31/16 19:44 Dextrose (Dextrose 50% 50ML Syringe) 25-50ML OF 50% DW IV FOR... UD PRN IV 08/01/16 19:45 08/31/16 19:44 Glucagon (Glucagon Inj) 1 mg UD PRN SQ 08/01/16 19:45 08/31/16 19:44 Al Hydrox/Mg Hydrox/Simethicone (Maalox Max Susp) 15 ml Q4H PRN PO 08/01/16 20:00 08/31/16 19:59 Magnesium Hydroxide (Milk Of Magnesia Susp) 30 ml Q12H PRN PO 08/01/16 20:00 08/31/16 19:59 Polyethylene (Miralax Powder Packet) 17 gm DAILY PRN PO 08/01/16 20:00 08/31/16 19:59 Ciprofloxacin (Consult) 1 ea UD PRN N/A 08/01/16 21:15 08/31/16 21:14 Ciprofloxacin (Ciprofloxacin Tab) 250 mg BID PO 08/01/16 21:30 08/31/16 21:29 08/02/16 09:22 250 MG Miscellaneous Information (Order Awaiting Action) 1 ea QS N/A 08/02/16 00:00 09/01/16 00:00 Family History Diabetes mellitus Social History Smoking Status: Never Smoker Smokeless Tobacco Use: No Alcohol Use: none Drug Use: none Marital Status: Occupation: retired Review of Systems A complete review of systems was performed. Pertinent positives are noted above. All other systems are negative. Physical Exam Date Time Temp Pulse Resp B/P Pulse Ox O2 Delivery O2 Flow Rate FiO2 08/02/16 12:00 Nasal Cannula 1.0 CPAP 08/02/16 11:20 36.9 76 22 166/64 90 2.0 08/02/16 11:09 71 20 98 Nasal Cannula 2.0 08/02/16 08:00 Nasal Cannula 4.0 CPAP 08/02/16 07:58 36.8 75 22 152/85 94 08/02/16 07:02 73 20 100 BiPAP/CPAP 4.0 08/02/16 04:00 96 CPAP 4.0 08/02/16 03:13 36.0 80 22 141/90 94 CPAP 4.0 08/02/16 00:00 93 CPAP 4.0 08/01/16 23:25 36.5 78 22 116/63 98 CPAP 4.0 08/01/16 22:04 80 98 4.0 08/01/16 22:02 84 20 100 Nasal Cannula 4.0 08/01/16 21:44 36.8 88 22 154/80 96 Room Air 08/01/16 20:47 84 26 150/74 98 08/01/16 19:10 84 24 158/78 98 Room Air 08/01/16 18:28 138/90 08/01/16 17:56 84 20 175/81 100 08/01/16 16:30 36.3 71 20 176/76 99 Room Air General Appearance: + mild distress, + obese Head: normocephalic, atraumatic Eyes: normal inspection, sclerae normal ENT: normal ENT inspection, pharynx normal, + pertinent finding (oral mucosa slightly dry; hearing loss) Neck: supple, no JVD Respiratory/Chest: lungs clear, no respiratory distress, no accessory muscle use, + rales (bibasilar) Cardiovascular: no gallop, + irregularly irregular Abdomen/GI: non tender, soft Extremities/Musculoskelatal: normal inspection, + pedal edema (+2 edema to the knees bilaterally) Neurologic/Psych: alert, oriented x 3 Skin: normal color Laboratory Results Last 24 Hours Test 08/01/16 17:44 08/01/16 21:19 08/01/16 23:11 08/02/16 01:15 White Blood Count 4.37 K/uL Red Blood Count 3.70 M/uL Hemoglobin 9.7 g/dL Hematocrit 30.2 % Mean Corpuscular Volume 81.6 fL Mean Corpuscular Hemoglobin 26.2 pg Mean Corpuscular Hemoglobin Concent 32.1 g/dl Platelet Count 185 K/uL Mean Platelet Volume 8.9 fL Neutrophils (%) (Auto) 68.8 % Lymphocytes (%) (Auto) 17.8 % Monocytes (%) (Auto) 12.1 % Eosinophils (%) (Auto) 0.9 % Basophils (%) (Auto) 0.2 % Neutrophils # (Auto) 3.00 K/uL Lymphocytes # (Auto) 0.78 K/uL Monocytes # (Auto) 0.53 K/uL Eosinophils # (Auto) 0.04 K/uL Basophils # (Auto) 0.01 K/uL RDW Standard Deviation 53.1 fL RDW Coefficient of Variation 17.6 % Immature Granulocyte % (Auto) 0.2 % Immature Granulocyte # (Auto) 0.01 K/uL Hypochromasia PRESENT Prothrombin Time 11.9 SECONDS Prothromb Time International Ratio 1.1 Activated Partial Thromboplast Time 26.4 SECONDS Partial Thromboplastin Ratio 1.0 Sodium Level 142 mmol/L 147 mmol/L Potassium Level 4.1 mmol/L 3.9 mmol/L Chloride Level 101 mmol/L 102 mmol/L Carbon Dioxide Level 27 mmol/L 30 mmol/L Anion Gap 14.0 mmol/L 15.0 mmol/L Blood Urea Nitrogen 70 mg/dl 71 mg/dl Creatinine 5.50 mg/dl 5.70 mg/dl Est Creatinine Clear Calc Drug Dose 16.0 ml/min 15.4 ml/min Estimated GFR () 10.6 10.1 Estimated GFR (Non- 9.1 8.8 BUN/Creatinine Ratio 12.7 12.5 Random Glucose 159 mg/dl 156 mg/dl Calcium Level 12.1 mg/dl 11.6 mg/dl Total Creatine Kinase 282 U/L Creatine Kinase MB 4.5 ng/ml Creatine Kinase MB Ratio 1.6 Troponin I 0.083 ng/ml Bedside Glucose 168 mg/dl Total Bilirubin 0.3 mg/dl Aspartate Amino Transf (AST/SGOT) 27 U/L Alanine Aminotransferase (ALT/SGPT) 24 U/L Alkaline Phosphatase 94 U/L Total Protein 6.4 gm/dl Albumin 3.1 gm/dl Globulin 3.3 gm/dl Albumin/Globulin Ratio 0.9 Urine Color YELLOW Urine Appearance CLEAR Urine pH 7.0 Urine Specific [place] 1.013 Urine Protein 3+ Urine Glucose (UA) TRACE Urine Ketones NEG Urine Occult Blood 1+ Urine Nitrite NEG Urine Bilirubin NEG Urine Urobilinogen NEG Urine Leukocyte Esterase NEG Urine WBC (Auto) 1-5 /hpf Urine RBC (Auto) 0-4 /hpf Urine Hyaline Casts (Auto) 1-5 /lpf Urine Epithelial Cells (Auto) >30 /lpf Urine Bacteria (Auto) NEG Urine Renal Epithelial Cells /lpf Urine Random Creatinine 93.0 mg/dl Urine Random Sodium 23 mEq/L Test 08/02/16 01:49 08/02/16 05:42 08/02/16 06:56 08/02/16 10:56 Total Creatine Kinase 338 U/L Creatine Kinase MB 6.7 ng/ml Creatine Kinase MB Ratio 2.0 Troponin I 0.264 ng/ml 0.364 ng/ml White Blood Count 3.42 K/uL Red Blood Count 3.16 M/uL Hemoglobin 8.3 g/dL Hematocrit 26.7 % Mean Corpuscular Volume 84.5 fL Mean Corpuscular Hemoglobin 26.3 pg Mean Corpuscular Hemoglobin Concent 31.1 g/dl RDW Standard Deviation 55.2 fL RDW Coefficient of Variation 17.7 % Platelet Count 172 K/uL Mean Platelet Volume 9.4 fL Sodium Level 144 mmol/L Potassium Level 4.2 mmol/L Chloride Level 103 mmol/L Carbon Dioxide Level 28 mmol/L Anion Gap 13.0 mmol/L Blood Urea Nitrogen 71 mg/dl Creatinine 5.80 mg/dl Est Creatinine Clear Calc Drug Dose 15.3 ml/min Estimated GFR () 9.9 Estimated GFR (Non- 8.6 BUN/Creatinine Ratio 12.3 Random Glucose 154 mg/dl Estimated Average Glucose 126 mg/dl Hemoglobin A1c 6.0 % Calcium Level 11.2 mg/dl Phosphorus Level 7.9 mg/dl Magnesium Level 2.9 mg/dl 25-Hydroxy Vitamin D Total 37.0 ng/ml Bedside Glucose 166 mg/dl 246 mg/dl Test 08/02/16 12:55 Hemoglobin 8.1 g/dL Hematocrit 25.7 % Impression (1) Chronic kidney disease, stage IV (severe) (2) BARB (acute kidney injury) (3) Hypercalcemia (4) Stenosis, spinal, lumbar (5) Intractable back pain (6) Atrial fibrillation (7) Anemia Mr. Reginaldo FerroIs a 76-year-old male with chronic kidney disease class 4 associated with hypertension, diabetes and obesity. He has notable proteinuria. Renal ultrasound is consistent with advanced chronic kidney disease strong bilateral atrophic kidneys. There are no acute changes appreciated on this study. Urinalysis documenting proteinuria. Urine microscopy is acellular. Hyaline casts were appreciated. Metabolic profile also notable for hypercalcemia. The patient was taking senna callus that had at home. Serum calcium is improving with hydration. He has also noted that he was taking Sensipar for hyperparathyroidism. Records from the primary nephrologists have been requested. Laboratory studies are also notable for acute on chronic anemia. Patient has a longstanding history of iron deficiency anemia. Overall Mr. Ferro does not endorse any significant symptoms of renal dysfunction. He does have some evidence of fluid retention. As well as evidence of intravascular volume depletion. The like to continue IV fluids to help with serum potassium. Pending review of labs from his primary care physician also start an evaluation for hypercalcemia. SPEP and immunofixation have been requested. Cinacalcet will be held. Serum calcium will be monitored. Have additionally given a dose of furosemide this morning to help maintain an even fluid balance all encouraging improvement serum calcium level. I discussed in detail today the potential implications of his advanced renal dysfunction and the potential indications for dialysis. Specifically, we discussed potential incenter hemodialysis in [place] if there is no renal recovery. Repeat laboratory studies have been ordered for this afternoon to closely follow his renal function. Overall blood pressure volume status and electrolytes are acceptable. Certainly given his history of malignancy, intractable back pain and recent prostate cancer, I would consider checking a PSA. Recommendations 1. Medications appropriate for renal function 2. Continue IV saline @ 75 ml/hr 3. Furosemide 40 mg x 1 dose 4. Repeat metabolic profile with intact PTH this afternoon 5. Document I/O's 6. Avoid NSAIDs 7. Obtain records from Dr. Delcid 8. Consider vascular consult for vein mapping 9. Monitor metabolic profile QAM
--- NOTE | 2016-08-02 15:52 | Progress Note ---
Subjective Date of Service: Aug 02, 2016. Subjective Pt evaluation today including: conversation w/ patient, physical exam, chart review, lab review, review of studies, review of inpatient medication list Problem List Medical Problems: (1) BARB (acute kidney injury) Status: Acute (2) Hypercalcemia Status: Acute Review of Systems Constitutional: No chills, No fever Respiratory: No cough, No dyspnea on exertion, No shortness of breath, No sputum, No wheezing Cardiac: No chest pain, No orthopnea Abdomen: No constipation, No diarrhea, No nausea, No pain, No vomiting Musculoskeletal: + joint pain, No muscle pain Male : No dysuria, No urinary frequency Objective Vital Signs Date Time Temp Pulse Resp B/P Pulse Ox O2 Delivery O2 Flow Rate FiO2 08/02/16 15:09 70 20 100 Nasal Cannula 2.0 08/02/16 12:00 Nasal Cannula 1.0 CPAP 08/02/16 11:20 36.9 76 22 166/64 90 2.0 08/02/16 11:09 71 20 98 Nasal Cannula 2.0 08/02/16 08:00 Nasal Cannula 4.0 CPAP 08/02/16 07:58 36.8 75 22 152/85 94 08/02/16 07:02 73 20 100 BiPAP/CPAP 4.0 08/02/16 04:00 96 CPAP 4.0 08/02/16 03:13 36.0 80 22 141/90 94 CPAP 4.0 08/02/16 00:00 93 CPAP 4.0 08/01/16 23:25 36.5 78 22 116/63 98 CPAP 4.0 08/01/16 22:04 80 98 4.0 08/01/16 22:02 84 20 100 Nasal Cannula 4.0 08/01/16 21:44 36.8 88 22 154/80 96 Room Air 08/01/16 20:47 84 26 150/74 98 08/01/16 19:10 84 24 158/78 98 Room Air 08/01/16 18:28 138/90 08/01/16 17:56 84 20 175/81 100 08/01/16 16:30 36.3 71 20 176/76 99 Room Air Physical Exam General Appearance: WD/WN, + mild distress Neck: supple, no adenopathy Respiratory/Chest: lungs clear, normal breath sounds Cardiovascular: no gallop, no JVD Abdomen: non tender, soft Neurologic/Psychiatric: alert, normal mood/affect Laboratory Results Last 24 Hours Test 08/01/16 17:44 08/01/16 21:19 08/01/16 23:11 08/02/16 01:15 White Blood Count 4.37 K/uL Red Blood Count 3.70 M/uL Hemoglobin 9.7 g/dL Hematocrit 30.2 % Mean Corpuscular Volume 81.6 fL Mean Corpuscular Hemoglobin 26.2 pg Mean Corpuscular Hemoglobin Concent 32.1 g/dl Platelet Count 185 K/uL Mean Platelet Volume 8.9 fL Neutrophils (%) (Auto) 68.8 % Lymphocytes (%) (Auto) 17.8 % Monocytes (%) (Auto) 12.1 % Eosinophils (%) (Auto) 0.9 % Basophils (%) (Auto) 0.2 % Neutrophils # (Auto) 3.00 K/uL Lymphocytes # (Auto) 0.78 K/uL Monocytes # (Auto) 0.53 K/uL Eosinophils # (Auto) 0.04 K/uL Basophils # (Auto) 0.01 K/uL RDW Standard Deviation 53.1 fL RDW Coefficient of Variation 17.6 % Immature Granulocyte % (Auto) 0.2 % Immature Granulocyte # (Auto) 0.01 K/uL Hypochromasia PRESENT Prothrombin Time 11.9 SECONDS Prothromb Time International Ratio 1.1 Activated Partial Thromboplast Time 26.4 SECONDS Partial Thromboplastin Ratio 1.0 Sodium Level 142 mmol/L 147 mmol/L Potassium Level 4.1 mmol/L 3.9 mmol/L Chloride Level 101 mmol/L 102 mmol/L Carbon Dioxide Level 27 mmol/L 30 mmol/L Anion Gap 14.0 mmol/L 15.0 mmol/L Blood Urea Nitrogen 70 mg/dl 71 mg/dl Creatinine 5.50 mg/dl 5.70 mg/dl Est Creatinine Clear Calc Drug Dose 16.0 ml/min 15.4 ml/min Estimated GFR () 10.6 10.1 Estimated GFR (Non- 9.1 8.8 BUN/Creatinine Ratio 12.7 12.5 Random Glucose 159 mg/dl 156 mg/dl Calcium Level 12.1 mg/dl 11.6 mg/dl Total Creatine Kinase 282 U/L Creatine Kinase MB 4.5 ng/ml Creatine Kinase MB Ratio 1.6 Troponin I 0.083 ng/ml Bedside Glucose 168 mg/dl Total Bilirubin 0.3 mg/dl Aspartate Amino Transf (AST/SGOT) 27 U/L Alanine Aminotransferase (ALT/SGPT) 24 U/L Alkaline Phosphatase 94 U/L Total Protein 6.4 gm/dl Albumin 3.1 gm/dl Globulin 3.3 gm/dl Albumin/Globulin Ratio 0.9 Urine Color YELLOW Urine Appearance CLEAR Urine pH 7.0 Urine Specific [place] 1.013 Urine Protein 3+ Urine Glucose (UA) TRACE Urine Ketones NEG Urine Occult Blood 1+ Urine Nitrite NEG Urine Bilirubin NEG Urine Urobilinogen NEG Urine Leukocyte Esterase NEG Urine WBC (Auto) 1-5 /hpf Urine RBC (Auto) 0-4 /hpf Urine Hyaline Casts (Auto) 1-5 /lpf Urine Epithelial Cells (Auto) >30 /lpf Urine Bacteria (Auto) NEG Urine Renal Epithelial Cells /lpf Urine Random Creatinine 93.0 mg/dl Urine Random Sodium 23 mEq/L Test 08/02/16 01:49 08/02/16 05:42 08/02/16 06:56 08/02/16 10:56 Total Creatine Kinase 338 U/L Creatine Kinase MB 6.7 ng/ml Creatine Kinase MB Ratio 2.0 Troponin I 0.264 ng/ml 0.364 ng/ml White Blood Count 3.42 K/uL Red Blood Count 3.16 M/uL Hemoglobin 8.3 g/dL Hematocrit 26.7 % Mean Corpuscular Volume 84.5 fL Mean Corpuscular Hemoglobin 26.3 pg Mean Corpuscular Hemoglobin Concent 31.1 g/dl RDW Standard Deviation 55.2 fL RDW Coefficient of Variation 17.7 % Platelet Count 172 K/uL Mean Platelet Volume 9.4 fL Sodium Level 144 mmol/L Potassium Level 4.2 mmol/L Chloride Level 103 mmol/L Carbon Dioxide Level 28 mmol/L Anion Gap 13.0 mmol/L Blood Urea Nitrogen 71 mg/dl Creatinine 5.80 mg/dl Est Creatinine Clear Calc Drug Dose 15.3 ml/min Estimated GFR () 9.9 Estimated GFR (Non- 8.6 BUN/Creatinine Ratio 12.3 Random Glucose 154 mg/dl Estimated Average Glucose 126 mg/dl Hemoglobin A1c 6.0 % Calcium Level 11.2 mg/dl Phosphorus Level 7.9 mg/dl Magnesium Level 2.9 mg/dl 25-Hydroxy Vitamin D Total 37.0 ng/ml Bedside Glucose 166 mg/dl 246 mg/dl Test 08/02/16 12:55 08/02/16 15:10 Hemoglobin 8.1 g/dL Hematocrit 25.7 % Assessment and Plan Mr. Ferro is a 76 y/o male with PMHx of Atrial Fibrillation (anticoagulated), HTN, CAMI on night CPAP, T2DM, Chronic Kidney Disease with Secondary Hyperparathyroidism, and Prostate CA who presents to the ED complaining of worsening lower back pain and ambulation difficulty 2 weeks. Back Pain with Ambulatory Dysfunction: - Pain management and PT/OT per primary - Ciprofloxacin 500 mg twice a day initiated per primary Possible Bronchitis?: - Outpatient CXR (08/01/16) - images and report reviewed - without evidence of consolidation or pleural effusions - Duonebs QID and Q2H PRN T2DM: - HbA1c 6.0 - Hold home insulin regimen - SSI with goal 120-160; correction factor 35 Acute on Chronic Kidney Disease stage 4 with Secondary Hyperparathyroidism: Baseline Unknown - Creatinine 5.5 and Ca 12.1 on admission - will trend with daily BMP - Gentle hydration of NSS at 75 mL/hr -- Noted peripheral edema - lasix 40 mg IV x 1 dose given - Renal U/S - bilateral atrophy - Sensipar 30 mg daily - Consult nephrology - appreciate recommendations, SPEP, immunofixation ordered , ?dialysis needed Lower Extremity Edema, chronic diastolic CHF - Venous U/S - R/O DVT - unlikely given Eliquis - Hold Lasix due to creatinine - Echo - evaluated for CHF Atrial Fibrillation: Unknown Type: Rate Controlled - Serial cardiac enzymes - initial troponin 0.083 likely secondary to kidney function - Hold Eliquis - per primary, patient not suitable for surgery at this time however possible surgical intervention may be necessary -- May possibly reinstitute in AM - Metoprolol Succ 50 mg BID CAMI on Night CPAP: - Set up CPAP per respiratory DVT Prophylaxis: - AIDA/SCDs - Hold Eliquis - possible resume in AM pending further surgical intervention Disposition: - Patient currently at [facility] due to ambulatory dysfunction but plans to return home with - Of note, patient reports that he has a girlfriend Alicia who he allows to be updated on his current condition -- (Martita) is aware of Alicia however believes this is an old affair.
[2016-08-02 16:05] LABS: CALCIUM 11.3 mg/dl (8.5-10.1); CREATININE 6.2 mg/dl (0.60-1.40); PHOSPHORUS 8.3 mg/dl (2.5-4.9); POTASSIUM 4.6 mmol/L (3.5-5.1)
--- NOTE | 2016-08-02 17:54 | PROGRESS NOTE ---
DATE: 08/02/2016 SUBJECTIVE: He is improving significantly better strength to his lower extremities. Denies shortness breath or chest pain. Still is in atrial fibrillation. OBJECTIVE: Vital signs stable, afebrile. LABORATORY DATA: Hemoglobin 8.1, hematocrit 25.7 and white cell count 3.42. DATA: front desk monitor shows atrial fibrillation. IMAGING: Spine MRI review demonstrated spondylolisthesis and stenosis, lumbar spine. ASSESSMENT: A pleasant gentleman, 76 years of age, multiple medical problems including hypertension, diabetes mellitus, atrial fibrillation, earlier kidney disease, cellulitis and edema. He also from a spinal standpoint, which led to his admission with pain control and spinal stenosis. DISPOSITION: Surgery will not be done electively during this hospital stay. In my opinion, he needs to be in much better shape. Right now, the medical team is doing a superb job and I am very thankful for their efforts. I would recommend placement more than likely in a rehab type center for maybe a week or two and come back in for elective surgery, would be an appropriate pathway. The patient is a patient of Dr. Rinku Juarez so whose opinion expertise I respect. When Dr. Juarez does return town, he will probably take over care of our patient. I will get a psychiatric social worker supervisor involved to see if we can get placement for our patient.
[2016-08-02] MEDS ORDERED: PHARMACY GLYCEMIC MGMT CONSULT PRN (21:15)
[2016-08-02] MEDS ORDERED: INSULIN GLARGINE SOLOSTAR 100 UNITS/ML 3 ML PEN SC ONE (21:15)
[2016-08-02] MEDS: HYDROCODONE/ACETAMOPHEN 5/325MG TAB PO PRN (21:17)
[2016-08-03] VITALS (11 sets, daily range): BP systolic 154–176; BP diastolic 61–95; PULSE 59–73; TEMP 36.5–36.9; O2SAT 92–98; Ht 190.5 cm; Wt 120.7 kg
[2016-08-03] MEDS: HYDROmorphone INJ 1 MG/ML SYR IV PRN ×2 (00:02→23:36)
[2016-08-03] MEDS: INSULIN ASPART 100 UNITS/ML 3 ML PEN SC SCH ×6 (00:09→20:53)
[2016-08-03 06:05] LABS: MEAN CELL VOLUME 83.3 fL (80-100); MEAN CORPUSCULAR HEMOGLOBIN 25.9 pg (25-34); MEAN CORPUSCULAR HGB CONC 31.1 g/dl (32-36); MEAN PLATELET VOLUME 9.4 fL (7.4-10.4); PLATELET COUNT 185 K/uL (130-400); RED BLOOD COUNT 3.24 M/uL (4.7-6.1); WHITE BLOOD COUNT 3.94 K/uL (4.8-10.8)
[2016-08-03 06:48] LABS: BUN/CREATININE RATIO 11.5 (10-20); CALCIUM 10.7 mg/dl (8.5-10.1); CREATININE 6.5 mg/dl (0.60-1.40); MAGNESIUM 2.9 mg/dl (1.8-2.4); POTASSIUM 4.8 mmol/L (3.5-5.1)
[2016-08-03] MEDS: ALBUT/IPRATROP 3MG/0.5MG NEB 3 ML VIAL INH SCH ×4 (07:53→19:39)
[2016-08-03] MEDS ORDERED: EPOETIN ALFA 10,000 UNITS/ML VIAL IV SCH (09:00)
--- NOTE | 2016-08-03 09:03 | Pharmacy Progress Note ---
Glycemic Control Intl Consult Date of Service Aug 03, 2016. Scope Glycemic Pharmacist consulted by Dr Gamble on 08/02/16 for glycemic control and to write orders per [facility] inpatient glycemic control protocol Objective Weight (Kilograms): 134.300 Accuchecks BSG (last 24hrs): Test 08/02/16 10:56 08/02/16 15:10 08/02/16 16:08 08/02/16 20:34 Bedside Glucose 246 mg/dl (70-99) 329 mg/dl (70-99) 267 mg/dl (70-99) Random Glucose 267 mg/dl (70-99) Test 08/02/16 23:57 08/03/16 04:40 08/03/16 05:25 08/03/16 06:50 Bedside Glucose 259 mg/dl (70-99) 234 mg/dl (70-99) 202 mg/dl (70-99) Random Glucose 201 mg/dl (70-99) Laboratory Data (last 24hrs) Test 08/02/16 15:10 08/03/16 05:25 Anion Gap 14.0 mmol/L 12.0 mmol/L BUN/Creatinine Ratio 12.0 11.5 Blood Urea Nitrogen 74 mg/dl 76 mg/dl Creatinine 6.20 mg/dl 6.50 mg/dl Potassium Level 4.6 mmol/L 4.8 mmol/L Sodium Level 140 mmol/L 143 mmol/L White Blood Count 3.94 K/uL HbA1c Test 08/02/16 05:42 Hemoglobin A1c 6.0 % (4.5-5.6) H Recent Pertinent Medications Outpatient Anti-diabetic Regimen: * NPH 42 units QAM, 78 units HS * Novolog 10 units QAM prn * A1c = 6.0 % 08/02/16 The patient is currently receiving: * Basal insulin: NONE since 3/6 AM * Correctional Insulin: Novolog Correction per scale ACHS Goal Range: Low 120 mg/dL - High 160 mg/dL Correction Factor: 35 mg/dL/unit Risk Factors for Insulin Resistance: * Infection: Cipro PO * Diet: Type 2 DM Assessment & Plan ASSESSMENT: * 76 year old type 2 diabetic admitted with back pain * A1c 6% at home, unknown if due to hypoglycemia too, since patient is on NPH as outpatient. * Patient hyperglycemic when pharmacy was consulted last night due to no basal insulin for over 24 hours, will start patient on Lantus. * Patient also without prandial coverage, will add. * ADA & AACE recommend a goal blood sugar range 140-180 mg/dl for the majority of critically ill & non-critically ill patients. However, more stringent targets may be selected in individual cases. For patient's A1c, will use 120- 160mg/dL, but not as low as 100-140mg/dL for patient's age and to prevent hypoglycemia. PLAN FOR INPATIENT GLYCEMIC CONTROL: * Basal insulin with LANTUS 20 units SQ x 1 last night, then SQ BID starting this morning: * BSG < 100 - 0 units * BSG 100-180 - 20 units * BSG > 180 - 30 units * Correctional Insulin with NOVOLOG per scale ACHS or Q6hrs while NPO * Goal Range: Low 120 mg/dL - High 160 mg/dL * CHANGE: Correction Factor: 20 mg/dL/unit * ADD: Nutritional / Prandial insulin per carb ratio of 1 unit per 6 grams CHO consumed * Please note that the plan above was derived based on current level of insulin resistance and hospital stress. These recommendations are appropriate for inpatient admission only. Plan of care upon discharge will need to be reassessed to avoid potential outpatient hypo/hyperglycemia. Thank you.
[2016-08-03] MEDS: LORATADINE 10 MG TAB PO SCH (09:08)
[2016-08-03] MEDS: CIPROFLOXACIN 250 MG TAB PO SCH (09:08)
[2016-08-03] MEDS: HYDROCODONE/ACETAMOPHEN 5/325MG TAB PO PRN ×2 (09:09→18:01)
[2016-08-03] MEDS: DOCUSATE SODIUM 100 MG CAP PO SCH ×2 (09:09→20:05)
[2016-08-03] MEDS: CYANOCOBALAMIN 500 MCG TAB (VIT B-12) PO SCH (09:09)
[2016-08-03] MEDS: METOPROLOL SUCC 50MG EXT REL TAB PO SCH ×2 (09:09→20:06)
[2016-08-03] MEDS ORDERED: FUROSEMIDE INJ 40 MG in SYRINGE 0 ML IV STA (09:09)
[2016-08-03] MEDS: INSULIN GLARGINE SOLOSTAR 100 UNITS/ML 3 ML PEN SC SCH ×2 (09:12→20:55)
--- NOTE | 2016-08-03 09:23 | Nephrology Progress Note ---
Nephrology Progress Note Date of Service Aug 03, 2016. Chief Complaint Acute on chronic kidney disease Subjective No acute events overnight. Mr. Ferro is more comfortable this morning. He reports that his primary goal is to have an operation to improve his back pain. Pain control is reasonable at this time but activity tolerance is very limited. Jean is draining clear yellow urine. He denies shortness of breath. Edema is notably increasing. Appetite good. No nausea. I spoke with Dr. Delcid yesterday. Review of Systems A complete review of systems was performed. Pertinent positives are noted above. All other systems are negative. Vital Signs Last 8 Hrs Date Time Temp Pulse Resp B/P Pulse Ox O2 Delivery O2 Flow Rate FiO2 08/03/16 07:57 36.7 69 18 165/95 92 Room Air 08/03/16 07:46 63 94 21 08/03/16 07:46 63 20 94 BiPAP/CPAP 08/03/16 04:37 36.5 64 18 155/72 97 CPAP 08/03/16 04:30 Room Air I & O 24-Hour Column 08/03/16 08:00 Intake Total 2193 ml Output Total 925 ml Balance 1268 ml Last Recorded Weight Weight (Kilograms): 134.300 Physical Exam General Appearance: WD/WN, + obese Head: normocephalic, atraumatic Eyes: normal inspection, sclerae normal ENT: normal ENT inspection, pharynx normal Neck: supple, no JVD Respiratory/Chest: no respiratory distress, no accessory muscle use, + rales ( Bibasilar crackles) Cardiovascular: regular rate, rhythm, no murmur Abdomen/GI: non tender, soft Extremities/Musculoskelatal: normal inspection, + pedal edema Neurologic/Psych: alert, oriented x 3 Family History Diabetes mellitus Social History Smokeless Tobacco Use: No Alcohol Use: none Drug Use: none Marital Status: Occupation: retired Laboratory Results Past 24 Hours 08/02/16 12:55 08/03/16 05:25 08/02/16 15:10 08/03/16 05:25 Test 08/02/16 10:56 08/02/16 15:10 08/02/16 16:08 08/02/16 20:34 Bedside Glucose 246 mg/dl (70-99) 329 mg/dl (70-99) 267 mg/dl (70-99) Anion Gap 14.0 mmol/L (3-11) Est Creatinine Clear Calc Drug Dose 14.3 ml/min Estimated GFR () 9.2 Estimated GFR (Non- 7.9 BUN/Creatinine Ratio 12.0 (10-20) Calcium Level 11.3 mg/dl (8.5-10.1) Phosphorus Level 8.3 mg/dl (2.5-4.9) Albumin 2.9 gm/dl (3.4-5.0) Parathyroid Hormone (Intact) 122.0 pg/mL (11.1-79.5) Test 08/02/16 23:57 08/03/16 04:40 08/03/16 05:25 08/03/16 06:50 Bedside Glucose 259 mg/dl (70-99) 234 mg/dl (70-99) 202 mg/dl (70-99) Red Blood Count 3.24 M/uL (4.7-6.1) Mean Corpuscular Volume 83.3 fL (80-100) Mean Corpuscular Hemoglobin 25.9 pg (25-34) Mean Corpuscular Hemoglobin Concent 31.1 g/dl (32-36) RDW Standard Deviation 54.4 fL (36.4-46.3) RDW Coefficient of Variation 17.6 % (11.5-14.5) Mean Platelet Volume 9.4 fL (7.4-10.4) Anion Gap 12.0 mmol/L (3-11) Est Creatinine Clear Calc Drug Dose 13.8 ml/min Estimated GFR () 8.7 Estimated GFR (Non- 7.5 BUN/Creatinine Ratio 11.5 (10-20) Calcium Level 10.7 mg/dl (8.5-10.1) Magnesium Level 2.9 mg/dl (1.8-2.4) Allergies Coded Allergies: Atorvastatin (Unverified Allergy, Unknown, UNKNOWN, 08/01/16) Gabapentin (Unverified Allergy, Unknown, UNKNOWN, 08/01/16) Pioglitazone (Unverified Allergy, Unknown, UNKNOWN, 08/01/16) Simvastatin (Unverified Allergy, Unknown, UNKNOWN, 08/01/16) Medications Current Inpatient Medications Medications (Trade) Dose Ordered Sig/Elliott Route Start Time Stop Time Status Last Admin Dose Admin Acetaminophen 650 mg 650 mg Q6H PRN PO 08/01/16 19:00 08/31/16 18:59 Promethazine HCl/ Sodium Chloride (Phenergan Inj/ Nss 50ml) 50.5 ml @ 202 mls/hr Q6H PRN IV 08/01/16 19:00 08/31/16 18:59 Ondansetron HCl (Zofran Inj) 4 mg Q6H PRN IV 08/01/16 19:00 08/31/16 18:59 Lorazepam (Ativan Tab) 1 mg Q6H PRN PO 08/01/16 19:00 08/31/16 18:59 Oxycodone/ Acetaminophen (Percocet 5-325mg Tab) Moderate to Severe naseem... Q4H PRN PO 08/01/16 19:00 08/15/16 18:59 08/02/16 09:18 1 TAB Acetaminophen/ Hydrocodone Bitart ([place] 5/325 Tab) Moderate to Severe Naseem... Q4H PRN PO 08/01/16 19:00 08/15/16 18:59 08/02/16 21:17 1 TAB Hydromorphone HCl (Dilaudid Inj) 1 mg Q2HWA PRN IV 08/01/16 19:00 08/15/16 18:59 08/03/16 00:02 1 MG Cyanocobalamin (Vitamin B-12 Tab) 1,000 mcg QAM PO 08/02/16 09:00 09/01/16 08:59 08/02/16 09:19 1,000 MCG Docusate Sodium (coLACE CAP) 100 mg BID PO 08/01/16 21:00 08/31/16 20:59 08/02/16 21:06 100 MG Loratadine (Claritin Tab) 10 mg QAM PO 08/02/16 09:00 09/01/16 08:59 08/02/16 09:19 10 MG Metoprolol Succinate (Toprol Xl Tab) 50 mg BID PO 08/01/16 21:00 08/31/16 20:59 08/02/16 21:07 50 MG Albuterol/ Ipratropium (Duoneb) 3 ml QIDR INH 08/01/16 20:00 08/31/16 19:59 08/03/16 07:53 3 ML Insulin Aspart (novoLOG ASPART) SLIDING SCALE G... ACHS SC 08/01/16 21:00 08/31/16 20:59 08/02/16 21:02 4 UNITS Glucose (Glucose 40% Gel) 15-30 GRAMS 15 GRAMS... UD PRN PO 08/01/16 19:45 08/31/16 19:44 Glucose (Glucose Chew Tab) 4-8 Tablets 4 Tabl... UD PRN PO 08/01/16 19:45 08/31/16 19:44 Dextrose (Dextrose 50% 50ML Syringe) 25-50ML OF 50% DW IV FOR... UD PRN IV 08/01/16 19:45 08/31/16 19:44 Glucagon (Glucagon Inj) 1 mg UD PRN SQ 08/01/16 19:45 08/31/16 19:44 Al Hydrox/Mg Hydrox/Simethicone (Maalox Max Susp) 15 ml Q4H PRN PO 08/01/16 20:00 08/31/16 19:59 Magnesium Hydroxide (Milk Of Magnesia Susp) 30 ml Q12H PRN PO 08/01/16 20:00 08/31/16 19:59 Polyethylene (Miralax Powder Packet) 17 gm DAILY PRN PO 08/01/16 20:00 08/31/16 19:59 Ciprofloxacin (Consult) 1 ea UD PRN N/A 08/01/16 21:15 08/31/16 21:14 Ciprofloxacin (Ciprofloxacin Tab) 250 mg BID PO 08/01/16 21:30 08/31/16 21:29 08/02/16 21:06 250 MG Miscellaneous Information (Order Awaiting Action) 1 ea QS N/A 08/02/16 00:00 09/01/16 00:00 Miscellaneous Information (Consult Glycemic Management Pharmacy) 1 ea UD PRN N/A 08/02/16 21:15 09/01/16 21:14 Insulin Glargine SEE SCALE BID SC 08/03/16 09:00 09/02/16 08:59 Furosemide/Syringe (Lasix Inj/ Syringe) 4 ml @ 4 mls/min NOW IV 08/03/16 09:00 09/02/16 08:59 UNV Epoetin Teddy (Procrit Inj) 10,000 units ONE IV 08/03/16 09:00 09/02/16 08:59 UNV Sevelamer HCl (Renagel Tab) 800 mg TIDM PO 08/03/16 11:30 09/02/16 11:29 UNV Impression (1) Chronic kidney disease, stage IV (severe) (2) BARB (acute kidney injury) (3) Hypercalcemia (4) Stenosis, spinal, lumbar (5) Intractable back pain (6) Atrial fibrillation (7) Anemia Mr. Reginaldo Ferro is a 76-year-old male with chronic kidney disease class IV A3 associated with hypertension, diabetes and obesity. Renal ultrasound is consistent with advanced chronic kidney disease strong bilateral atrophic kidneys. Urinalysis documenting proteinuria. Urine microscopy is acellular. Hyaline casts were appreciated. Chronic hypercalcemia with hyperparathyroidism noted. Reasonable control with Sensipar at home. Serum calcium improved with hydration and furosemide. Laboratory studies are also notable for acute on chronic anemia. Patient has a longstanding history of iron deficiency anemia. He continues to deny uremic symptoms. He has increasing evidence of fluid retention. I reviewed the potential implications of his advanced renal dysfunction and the potential indications for dialysis. Specifically, we discussed potential incenter hemodialysis in [place]. Imaging studies were reviewed including MRI of the lumbar spine. No bony lesions are appreciated. SPEP and immunofixation pending. Recommendations 1. Medications appropriate for renal function 2. Stop IV saline 3. Furosemide 40 mg x 1 now 4. Start sevelamer 800 QAC for hyperphosphatemia 5. Document I/O's 6. Procrit 76858 IU for anemia x 1 dose now 7. Continue dialysis education and vascular access planning discussion 8. Check iron profile tomorrow AM
[2016-08-03] MEDS: SEVELAMER HYDROCH 800 MG TAB PO SCH ×2 (12:44→17:53)
--- NOTE | 2016-08-03 14:07 | Progress Note ---
Subjective Date of Service: Aug 03, 2016. Subjective Pt evaluation today including: conversation w/ patient, physical exam, chart review, lab review, review of studies, review of inpatient medication list Problem List Medical Problems: (1) BARB (acute kidney injury) Status: Acute (2) Hypercalcemia Status: Acute Review of Systems Constitutional: No chills, No fever Respiratory: No cough, No dyspnea on exertion, No shortness of breath, No sputum, No wheezing Cardiac: No chest pain, No orthopnea Abdomen: No constipation, No diarrhea, No nausea, No pain, No vomiting Musculoskeletal: + joint pain, No muscle pain Male : No dysuria, No urinary frequency Objective Vital Signs Date Time Temp Pulse Resp B/P Pulse Ox O2 Delivery O2 Flow Rate FiO2 08/03/16 12:00 Room Air 08/03/16 11:50 67 20 98 Room Air 08/03/16 10:58 66 18 160/74 93 Room Air 08/03/16 08:00 Room Air 08/03/16 07:57 36.7 69 18 165/95 92 Room Air 08/03/16 07:46 63 94 21 08/03/16 07:46 63 20 94 BiPAP/CPAP 08/03/16 04:37 36.5 64 18 155/72 97 CPAP 08/03/16 04:30 Room Air 08/03/16 00:15 CPAP 08/02/16 23:52 36.6 70 19 175/75 94 Room Air 08/02/16 22:27 76 98 08/02/16 21:15 Room Air 08/02/16 21:05 79 20 96 Room Air 08/02/16 19:27 36.4 77 20 167/83 91 Room Air 08/02/16 16:25 36.8 74 18 148/69 92 08/02/16 16:00 Nasal Cannula 1.0 CPAP 08/02/16 15:09 70 20 100 Nasal Cannula 2.0 Physical Exam General Appearance: WD/WN, + mild distress Neck: supple, no adenopathy Respiratory/Chest: lungs clear, normal breath sounds Cardiovascular: no edema, no gallop Abdomen: non tender, soft Neurologic/Psychiatric: alert, oriented x 3 Laboratory Results Last 24 Hours Test 08/02/16 15:10 08/02/16 16:08 08/02/16 20:34 08/02/16 23:57 Sodium Level 140 mmol/L Potassium Level 4.6 mmol/L Chloride Level 100 mmol/L Carbon Dioxide Level 26 mmol/L Anion Gap 14.0 mmol/L Blood Urea Nitrogen 74 mg/dl Creatinine 6.20 mg/dl Est Creatinine Clear Calc Drug Dose 14.3 ml/min Estimated GFR () 9.2 Estimated GFR (Non- 7.9 BUN/Creatinine Ratio 12.0 Random Glucose 267 mg/dl Calcium Level 11.3 mg/dl Phosphorus Level 8.3 mg/dl Albumin 2.9 gm/dl Parathyroid Hormone (Intact) 122.0 pg/mL Bedside Glucose 329 mg/dl 267 mg/dl 259 mg/dl Test 08/03/16 04:40 08/03/16 05:25 08/03/16 06:50 08/03/16 11:09 Bedside Glucose 234 mg/dl 202 mg/dl 247 mg/dl White Blood Count 3.94 K/uL Red Blood Count 3.24 M/uL Hemoglobin 8.4 g/dL Hematocrit 27.0 % Mean Corpuscular Volume 83.3 fL Mean Corpuscular Hemoglobin 25.9 pg Mean Corpuscular Hemoglobin Concent 31.1 g/dl RDW Standard Deviation 54.4 fL RDW Coefficient of Variation 17.6 % Platelet Count 185 K/uL Mean Platelet Volume 9.4 fL Sodium Level 143 mmol/L Potassium Level 4.8 mmol/L Chloride Level 103 mmol/L Carbon Dioxide Level 28 mmol/L Anion Gap 12.0 mmol/L Blood Urea Nitrogen 76 mg/dl Creatinine 6.50 mg/dl Est Creatinine Clear Calc Drug Dose 13.8 ml/min Estimated GFR () 8.7 Estimated GFR (Non- 7.5 BUN/Creatinine Ratio 11.5 Random Glucose 201 mg/dl Calcium Level 10.7 mg/dl Magnesium Level 2.9 mg/dl Assessment and Plan Pt is a 76 y/o male with PMHx of Atrial Fibrillation (anticoagulated), HTN, CAMI on night CPAP, T2DM, Chronic Kidney Disease with Secondary Hyperparathyroidism, and Prostate CA who presents to the ED complaining of worsening lower back pain and ambulation difficulty 2 weeks. Back Pain with Ambulatory Dysfunction: - Pain management and PT/OT per primary - WILL STOP CIPRO AT THIS TIME - Need to stabilize before surgery can be attempted - MRI neg for any metastatic lesions Possible Bronchitis: - Outpatient CXR (08/01/16) - images and report reviewed - without evidence of consolidation or pleural effusions - Duonebs QID and Q2H PRN T2DM: - HbA1c 6.0 - Hold home insulin regimen - SSI with goal 120-160; correction factor 35 Acute on Chronic Kidney Disease stage 4 with Secondary Hyperparathyroidism: Baseline Unknown - Creatinine 5.5 and Ca 12.1 on admission -worsening with daily BMP - Gentle hydration of NSS at 75 mL/hr discontinued due to worsening edema -- Noted peripheral edema - lasix 40 mg IV PRN - Renal U/S - bilateral atrophy - Sensipar 30 mg daily - Consult nephrology - appreciate recommendations, SPEP, immunofixation ordered , likely dialysis needed Lower Extremity Edema, chronic diastolic CHF - Venous U/S - R/O DVT - unlikely given Eliquis - Hold Lasix due to creatinine - Echo - evaluated for CHF Atrial Fibrillation: Unknown Type: Rate Controlled - Serial cardiac enzymes - initial troponin 0.083 likely secondary to kidney function - Hold Eliquis - per primary, patient not suitable for surgery at this time however possible surgical intervention may be necessary -- May possibly reinstitute in AM - Metoprolol Succ 50 mg BID CAMI on Night CPAP: - Set up CPAP per respiratory DVT Prophylaxis: - AIDA/SCDs - Hold Eliquis - possible resume if no further surgical intervention Disposition: - Patient currently at [facility] due to ambulatory dysfunction but plans to return home with - Of note, patient reports that he has a girlfriend Alicia who he allows to be updated on his current condition -- (Martita) is aware of Alicia however believes this is an old affair.
[2016-08-03] MEDS ORDERED: NURSING VERBAL MED ORDER ONE (19:00)
[2016-08-04] VITALS (9 sets, daily range): BP systolic 160–186; BP diastolic 70–81; PULSE 62–87; TEMP 36.4–36.9; O2SAT 93–100
[2016-08-04] MEDS ORDERED: INSULIN ASPART 100 UNITS/ML 3 ML PEN SC SCH (02:00)
[2016-08-04] MEDS: HYDROCODONE/ACETAMOPHEN 5/325MG TAB PO PRN ×2 (05:59→21:39)
[2016-08-04 06:41] LABS: MEAN CELL VOLUME 82.6 fL (80-100); MEAN CORPUSCULAR HGB CONC 31.5 g/dl (32-36); MEAN PLATELET VOLUME 9.2 fL (7.4-10.4); PLATELET COUNT 183 K/uL (130-400); RED BLOOD COUNT 3.27 M/uL (4.7-6.1); WHITE BLOOD COUNT 4.36 K/uL (4.8-10.8)
[2016-08-04 07:20] LABS: BUN/CREATININE RATIO 11.4 (10-20); CALCIUM 10.1 mg/dl (8.5-10.1); CREATININE 7.1 mg/dl (0.60-1.40); FERRITIN 91.5 ng/ml (8.0-388.0); MAGNESIUM 2.8 mg/dl (1.8-2.4); PHOSPHORUS 8.2 mg/dl (2.5-4.9); POTASSIUM 4.4 mmol/L (3.5-5.1)
[2016-08-04] MEDS: SEVELAMER HYDROCH 800 MG TAB PO SCH ×3 (07:30→17:44)
[2016-08-04] MEDS: ALBUT/IPRATROP 3MG/0.5MG NEB 3 ML VIAL INH SCH ×4 (08:02→19:54)
[2016-08-04] MEDS: INSULIN ASPART 100 UNITS/ML 3 ML PEN SC SCH ×4 (08:36→21:31)
[2016-08-04] MEDS: INSULIN GLARGINE SOLOSTAR 100 UNITS/ML 3 ML PEN SC SCH ×2 (08:40→21:32)
[2016-08-04] MEDS: METOPROLOL SUCC 50MG EXT REL TAB PO SCH ×2 (08:40→21:23)
[2016-08-04] MEDS: CYANOCOBALAMIN 500 MCG TAB (VIT B-12) PO SCH (08:40)
[2016-08-04] MEDS: LORATADINE 10 MG TAB PO SCH (08:41)
[2016-08-04] MEDS: DOCUSATE SODIUM 100 MG CAP PO SCH ×2 (08:41→21:23)
--- NOTE | 2016-08-04 09:08 | Discharge Instructions ---
Discharge Instructions Date of Service Aug 04, 2016. Admission Reason for Admission: Intractable Back Pain Discharge Discharge Diagnosis / Problem: stenosis Discharge Goals Goal(s): Improve function Activity Recommendations Activity Limitations: resume your previous activity Lifting Limitations: until after follow-up appointment Exercise/Sports Limitations: until after follow-up appointment May Resume Sexual Activity: after follow-up appointment Shower/Bathe: may shower/bathe in 3 days Driving or Machine Use: rest and recover; must see Dr. Juarez prior to surgery . Current Hospital Diet Patient's current hospital diet: Diabetes Type 2 Diet, Renal Diet Discharge Diet Recommended Diet: Diabetes Type 2 Diet Fluid Restriction: 2000 ml (8 cups) Pending Studies Studies pending at discharge: no Laboratory Results Hemoglobin A1c Test 08/02/16 05:42 Range/Units Estimated Average Glucose 126 mg/dl Hemoglobin A1c 6.0 H 4.5-5.6 % Medical Emergencies . Who to Call and When: Medical Emergencies: If at any time you feel your situation is an emergency, please call 911 immediately. . Non-Emergent Contact Non-Emergency issues call your: Surgeon Call Non-Emergent contact if: your pain is concerning you . "Provider Documentation" section prepared by Julian Pena. VTE Core Measure Inpt VTE Proph given/why not?: Treatment not indicated
--- NOTE | 2016-08-04 09:48 | Nephrology Progress Note ---
Nephrology Progress Note Date of Service Aug 04, 2016. Chief Complaint Acute on chronic kidney disease Subjective No acute events overnight. No significant interval change. Pain control reasonable. Activity tolerance poor due to pain. Denies shortness of breath. Edema increasing. Appetite is good. Denies GI symptoms. Mr. Ferro states that he is ready for dialysis. He hopes that starting dialysis will enable orthopedics to proceed with surgery for his back pain. Review of Systems A complete review of systems was performed. Pertinent positives are noted above. All other systems are negative. Vital Signs Last 8 Hrs Date Time Temp Pulse Resp B/P Pulse Ox O2 Delivery O2 Flow Rate FiO2 08/04/16 07:40 81 18 95 Room Air 08/04/16 07:07 36.6 85 18 186/78 95 Room Air 08/04/16 04:00 Room Air 08/04/16 03:20 36.7 62 18 160/70 98 CPAP I & O 24-Hour Column 08/04/16 07:59 Intake Total 1600 ml Output Total 1325 ml Balance 275 ml Last Recorded Weight Weight (Kilograms): 134.600 Physical Exam General Appearance: no apparent distress, + obese Head: normocephalic, atraumatic Eyes: normal inspection, sclerae normal ENT: normal ENT inspection, pharynx normal Neck: supple, + JVD Respiratory/Chest: lungs clear, no respiratory distress, no accessory muscle use Cardiovascular: regular rate, rhythm, no gallop Abdomen/GI: non tender, soft Extremities/Musculoskelatal: normal inspection, no pedal edema Neurologic/Psych: alert, oriented x 3 Family History Diabetes mellitus Social History Smokeless Tobacco Use: No Alcohol Use: none Drug Use: none Marital Status: Occupation: retired Laboratory Results Past 24 Hours 08/04/16 06:25 08/04/16 06:28 Test 08/03/16 11:09 08/03/16 16:05 08/03/16 20:11 08/04/16 01:58 Bedside Glucose 247 mg/dl (70-99) 251 mg/dl (70-99) 139 mg/dl (70-99) 132 mg/dl (70-99) Test 08/04/16 06:25 08/04/16 06:28 08/04/16 06:46 Red Blood Count 3.27 M/uL (4.7-6.1) Mean Corpuscular Volume 82.6 fL (80-100) Mean Corpuscular Hemoglobin 26.0 pg (25-34) Mean Corpuscular Hemoglobin Concent 31.5 g/dl (32-36) RDW Standard Deviation 53.3 fL (36.4-46.3) RDW Coefficient of Variation 17.5 % (11.5-14.5) Mean Platelet Volume 9.2 fL (7.4-10.4) Anion Gap 12.0 mmol/L (3-11) Est Creatinine Clear Calc Drug Dose 12.7 ml/min Estimated GFR () 7.8 Estimated GFR (Non- 6.7 BUN/Creatinine Ratio 11.4 (10-20) Calcium Level 10.1 mg/dl (8.5-10.1) Phosphorus Level 8.2 mg/dl (2.5-4.9) Magnesium Level 2.8 mg/dl (1.8-2.4) Iron Level 25 mcg/dl (35-175) Total Iron Binding Capacity 261 mcg/dl (250-450) Transferrin 192 mg/dl (200-360) Transferrin % Saturation 9 % (20-50) Ferritin 91.5 ng/ml (8.0-388.0) Albumin 2.8 gm/dl (3.4-5.0) Bedside Glucose 155 mg/dl (70-99) Allergies Coded Allergies: Atorvastatin (Unverified Allergy, Unknown, UNKNOWN, 08/01/16) Gabapentin (Unverified Allergy, Unknown, UNKNOWN, 08/01/16) Pioglitazone (Unverified Allergy, Unknown, UNKNOWN, 08/01/16) Simvastatin (Unverified Allergy, Unknown, UNKNOWN, 08/01/16) Medications Current Inpatient Medications Medications (Trade) Dose Ordered Sig/Elliott Route Start Time Stop Time Status Last Admin Dose Admin Acetaminophen 650 mg 650 mg Q6H PRN PO 08/01/16 19:00 08/31/16 18:59 Promethazine HCl/ Sodium Chloride (Phenergan Inj/ Nss 50ml) 50.5 ml @ 202 mls/hr Q6H PRN IV 08/01/16 19:00 08/31/16 18:59 Ondansetron HCl (Zofran Inj) 4 mg Q6H PRN IV 08/01/16 19:00 08/31/16 18:59 Lorazepam (Ativan Tab) 1 mg Q6H PRN PO 08/01/16 19:00 08/31/16 18:59 Oxycodone/ Acetaminophen (Percocet 5-325mg Tab) Moderate to Severe naseem... Q4H PRN PO 08/01/16 19:00 08/15/16 18:59 08/02/16 09:18 1 TAB Acetaminophen/ Hydrocodone Bitart ([place] 5/325 Tab) Moderate to Severe Naseem... Q4H PRN PO 08/01/16 19:00 08/15/16 18:59 08/04/16 05:59 2 TAB Hydromorphone HCl (Dilaudid Inj) 1 mg Q2HWA PRN IV 08/01/16 19:00 08/15/16 18:59 08/03/16 23:36 1 MG Cyanocobalamin (Vitamin B-12 Tab) 1,000 mcg QAM PO 08/02/16 09:00 09/01/16 08:59 08/04/16 08:40 1,000 MCG Docusate Sodium (coLACE CAP) 100 mg BID PO 08/01/16 21:00 08/31/16 20:59 08/04/16 08:41 100 MG Loratadine (Claritin Tab) 10 mg QAM PO 08/02/16 09:00 09/01/16 08:59 08/04/16 08:41 10 MG Metoprolol Succinate (Toprol Xl Tab) 50 mg BID PO 08/01/16 21:00 08/31/16 20:59 08/04/16 08:40 50 MG Albuterol/ Ipratropium (Duoneb) 3 ml QIDR INH 08/01/16 20:00 08/31/16 19:59 08/04/16 08:02 3 ML Insulin Aspart (novoLOG ASPART) SLIDING SCALE G... ACHS SC 08/01/16 21:00 08/31/16 20:59 08/04/16 08:36 6 UNITS Glucose (Glucose 40% Gel) 15-30 GRAMS 15 GRAMS... UD PRN PO 08/01/16 19:45 08/31/16 19:44 Glucose (Glucose Chew Tab) 4-8 Tablets 4 Tabl... UD PRN PO 08/01/16 19:45 08/31/16 19:44 Dextrose (Dextrose 50% 50ML Syringe) 25-50ML OF 50% DW IV FOR... UD PRN IV 08/01/16 19:45 08/31/16 19:44 Glucagon (Glucagon Inj) 1 mg UD PRN SQ 08/01/16 19:45 08/31/16 19:44 Al Hydrox/Mg Hydrox/Simethicone (Maalox Max Susp) 15 ml Q4H PRN PO 08/01/16 20:00 08/31/16 19:59 Magnesium Hydroxide (Milk Of Magnesia Susp) 30 ml Q12H PRN PO 08/01/16 20:00 08/31/16 19:59 Polyethylene (Miralax Powder Packet) 17 gm DAILY PRN PO 08/01/16 20:00 08/31/16 19:59 Ciprofloxacin (Consult) 1 ea UD PRN N/A 08/01/16 21:15 08/31/16 21:14 Miscellaneous Information (Order Awaiting Action) 1 ea QS N/A 08/02/16 00:00 09/01/16 00:00 Miscellaneous Information (Consult Glycemic Management Pharmacy) 1 ea UD PRN N/A 08/02/16 21:15 09/01/16 21:14 Insulin Glargine (Lantus Solostar Pen) SEE SCALE BID SC 08/03/16 09:00 09/02/16 08:59 08/04/16 08:40 20 UNIT Sevelamer HCl 800 mg 800 mg TIDM PO 08/03/16 11:30 09/02/16 11:29 08/03/16 17:53 800 MG Iron Sucrose/ Sodium Chloride (Venofer Inj/Nss 100ml) 110 ml @ 145 mls/hr DAILY IV 08/04/16 09:00 08/08/16 09:46 Impression (1) Chronic kidney disease, stage IV (severe) (2) BARB (acute kidney injury) (3) Hypercalcemia (4) Stenosis, spinal, lumbar (5) Intractable back pain (6) Atrial fibrillation (7) Anemia Mr. Reginaldo Ferro is a 76-year-old male with chronic kidney disease class IV A3 associated with hypertension, diabetes and obesity. He has evidence of progression of CKD in the setting of hypercalcemia and hyperglycemia. Renal ultrasound is consistent with advanced chronic kidney disease strong bilateral atrophic kidneys. Urinalysis documenting proteinuria. Urine microscopy is acellular. Hyaline casts were appreciated. Chronic hypercalcemia with hyperparathyroidism noted. Reasonable control with Sensipar at home. Serum calcium improved with hydration and furosemide. Laboratory studies are also notable for acute on chronic anemia. Patient has a longstanding history of iron deficiency anemia. He continues to deny uremic symptoms. He has increasing evidence of fluid retention. We reviewed indications for dialysis. Specifically, we discussed potential incenter hemodialysis in [place]. I will discuss with Dr. Spencer today. Ortho consult reviewed. Plan of care discussed with Dr. Ricardo. SPEP and immunofixation pending. Recommendations 1. Medications appropriate for renal function 2. Furosemide 80 mg BID to encourage negative fluid balance 3. Will discuss with vascular surgery 4. Continue sevelamer 800 QAC for hyperphosphatemia 5. Document I/O's 6. Start venofer 200 mg daily x 5 days 7. Continue dialysis education 8. Repeat renal panel tomorrow AM
--- NOTE | 2016-08-04 10:07 | PROGRESS NOTE ---
DATE: 08/04/2016 SUBJECTIVE: He is sitting in bed, he is upright. He appears to be comfortably. No bowel or bladder incontinence issues on today's rounds. He denies any shortness of breath or chest pain. He still has some atrial fibrillation. OBJECTIVE: His vital signs are stable, he is afebrile. LABORATORY DATA: His hemoglobin is 8.1, hematocrit 25.7, white cell count 3.42. rewards consultant still shows atrial fibrillation, he is being treated for that. IMAGING: MRI of his spine reviewed, demonstrates spondylolisthesis and stenosis of the lumbar spine at multiple levels. ASSESSMENT: Pleasant gentleman, 76 years of age, with multiple medical problems. He is being monitored in a tele unit for atrial fibrillation. He is being stabilized for that. He is being consulted by Dr. Hodgson with nephrology. His kidney functions are deteriorating and need to be stabilized. Talking about dialysis with vascular access here in the next day or two. DISPOSITION AND PLAN: We will just monitor him from a spinal standpoint. He is a nonsurgical case in the short-term at this point. He has been followed by nephrology by Dr. Hodsgon with regard to his knee functions. We will follow him to make sure that he is stable from a spine standpoint. At this point, we would appreciate Dr. Hodgson with nephrology take over his case for his care. We will check in every day.
[2016-08-04] MEDS: IRON SUCROSE INJ 200 MG in SODIUM CHLORIDE 0.9% 100ML 100 ML IV SCH (10:21)
--- NOTE | 2016-08-04 13:11 | Progress Note ---
Subjective Date of Service: Aug 04, 2016. Subjective Pt evaluation today including: conversation w/ patient, physical exam, chart review, lab review, review of studies, review of inpatient medication list Problem List Medical Problems: (1) BARB (acute kidney injury) Status: Acute (2) Hypercalcemia Status: Acute Review of Systems Constitutional: No chills, No fever Respiratory: No cough, No sputum Cardiac: No chest pain, No orthopnea Abdomen: No constipation, No diarrhea, No nausea, No pain, No vomiting Musculoskeletal: + joint pain, + muscle pain Male : No dysuria, No urinary frequency Objective Vital Signs Date Time Temp Pulse Resp B/P Pulse Ox O2 Delivery O2 Flow Rate FiO2 08/04/16 12:08 36.4 75 18 174/81 95 Room Air 08/04/16 12:00 Room Air 08/04/16 08:00 Room Air 08/04/16 07:40 81 18 95 Room Air 08/04/16 07:07 36.6 85 18 186/78 95 Room Air 08/04/16 04:00 Room Air 08/04/16 03:20 36.7 62 18 160/70 98 CPAP 08/03/16 23:59 CPAP 08/03/16 23:29 36.8 68 176/80 95 CPAP 08/03/16 20:00 96 Room Air 1.0 21 08/03/16 19:45 36.8 73 18 154/70 96 08/03/16 19:39 59 18 95 Room Air 08/03/16 19:00 Room Air 08/03/16 16:00 Room Air 08/03/16 15:42 36.9 68 18 156/61 96 08/03/16 15:37 66 18 97 Room Air Physical Exam General Appearance: WD/WN, + mild distress Neck: supple, no adenopathy Respiratory/Chest: lungs clear, normal breath sounds Cardiovascular: no edema, no gallop Abdomen: non tender, soft, no organomegaly Neurologic/Psychiatric: alert, oriented x 3 Laboratory Results Last 24 Hours Test 08/03/16 16:05 08/03/16 20:11 08/04/16 01:58 08/04/16 06:25 Bedside Glucose 251 mg/dl 139 mg/dl 132 mg/dl White Blood Count 4.36 K/uL Red Blood Count 3.27 M/uL Hemoglobin 8.5 g/dL Hematocrit 27.0 % Mean Corpuscular Volume 82.6 fL Mean Corpuscular Hemoglobin 26.0 pg Mean Corpuscular Hemoglobin Concent 31.5 g/dl RDW Standard Deviation 53.3 fL RDW Coefficient of Variation 17.5 % Platelet Count 183 K/uL Mean Platelet Volume 9.2 fL Test 08/04/16 06:28 08/04/16 06:46 08/04/16 11:02 Sodium Level 141 mmol/L Potassium Level 4.4 mmol/L Chloride Level 103 mmol/L Carbon Dioxide Level 26 mmol/L Anion Gap 12.0 mmol/L Blood Urea Nitrogen 81 mg/dl Creatinine 7.10 mg/dl Est Creatinine Clear Calc Drug Dose 12.7 ml/min Estimated GFR () 7.8 Estimated GFR (Non- 6.7 BUN/Creatinine Ratio 11.4 Random Glucose 130 mg/dl Calcium Level 10.1 mg/dl Phosphorus Level 8.2 mg/dl Magnesium Level 2.8 mg/dl Iron Level 25 mcg/dl Total Iron Binding Capacity 261 mcg/dl Transferrin 192 mg/dl Transferrin % Saturation 9 % Ferritin 91.5 ng/ml Albumin 2.8 gm/dl Bedside Glucose 155 mg/dl 191 mg/dl Assessment and Plan Pt is a 76 y/o male with PMHx of Atrial Fibrillation (anticoagulated), HTN, CAMI on night CPAP, T2DM, Chronic Kidney Disease with Secondary Hyperparathyroidism, and Prostate CA who presents to the ED complaining of worsening lower back pain and ambulation difficulty 2 weeks. Back Pain with Ambulatory Dysfunction: - Pain management and PT/OT per primary - WILL STOP CIPRO AT THIS TIME - Need to stabilize before surgery can be attempted - MRI neg for any metastatic lesions Possible Bronchitis: - Outpatient CXR (08/01/16) - images and report reviewed - without evidence of consolidation or pleural effusions - Duonebs QID and Q2H PRN T2DM: - HbA1c 6.0 - Hold home insulin regimen - SSI with goal 120-160; correction factor 35 Acute on Chronic Kidney Disease stage 4 with Secondary Hyperparathyroidism: Baseline Unknown - Creatinine 5.5 and Ca 12.1 on admission - Gentle hydration of NSS at 75 mL/hr discontinued due to worsening edema -- Noted peripheral edema - lasix 40 mg IV PRN - Renal U/S - bilateral atrophy - Sensipar 30 mg daily - Consult nephrology - appreciate recommendations, SPEP, immunofixation ordered , likely dialysis needed - Vascular surgery consulted for TDC placement and dialysis Lower Extremity Edema, chronic diastolic CHF - Venous U/S - R/O DVT - unlikely given Eliquis - Hold Lasix due to creatinine - Echo - evaluated for CHF Atrial Fibrillation: Unknown Type: Rate Controlled - Serial cardiac enzymes - initial troponin 0.083 likely secondary to kidney function - Hold Eliquis - per primary, patient not suitable for surgery at this time however possible surgical intervention may be necessary -- May possibly reinstitute in AM - Metoprolol Succ 50 mg BID CAMI on Night CPAP: - Set up CPAP per respiratory DVT Prophylaxis: - AIDA/SCDs - Hold Eliquis - possible resume if no further surgical intervention Disposition: - Patient currently at [facility] due to ambulatory dysfunction but plans to return home with - Of note, patient reports that he has a girlfriend Alicia who he allows to be updated on his current condition -- (Martita) is aware of Alicia however believes this is an old affair.
[2016-08-04 16:36] LABS: ALBUMIN 2.9 G/DL (3.8-4.8); GAMMA GLOBULIN 0.6 G/DL (0.8-1.7); TOTAL PROTEIN 5.4 G/DL (6.2-8.3)
[2016-08-04] MEDS: FUROSEMIDE 80 MG TAB PO SCH (17:45)
[2016-08-05] VITALS (30 sets, daily range): BP systolic 83–195; BP diastolic 52–110; PULSE 66–92; TEMP 36.7–37.1; O2SAT 92–98
[2016-08-05] MEDS: FUROSEMIDE 80 MG TAB PO SCH ×3 (04:11→18:04)
[2016-08-05 06:00] LABS: HEMATOCRIT 24.8 % (42-52); MEAN CELL VOLUME 83.2 fL (80-100); MEAN CORPUSCULAR HEMOGLOBIN 26.5 pg (25-34); MEAN CORPUSCULAR HGB CONC 31.9 g/dl (32-36); MEAN PLATELET VOLUME 9.7 fL (7.4-10.4); PLATELET COUNT 198 K/uL (130-400); RED BLOOD COUNT 2.98 M/uL (4.7-6.1); WHITE BLOOD COUNT 4.18 K/uL (4.8-10.8)
[2016-08-05] MEDS ORDERED: CEFAZOLIN IV 3,000 MG/65 ML D5W IV SCH (06:00)
[2016-08-05 06:46] LABS: BUN/CREATININE RATIO 11.5 (10-20); CREATININE 7.4 mg/dl (0.60-1.40); PHOSPHORUS 7.9 mg/dl (2.5-4.9); POTASSIUM 4.3 mmol/L (3.5-5.1)
[2016-08-05] MEDS: ALBUT/IPRATROP 3MG/0.5MG NEB 3 ML VIAL INH SCH ×3 (06:59→14:26)
[2016-08-05] MEDS: SEVELAMER HYDROCH 800 MG TAB PO SCH ×3 (07:30→18:04)
[2016-08-05] MEDS: METOPROLOL SUCC 50MG EXT REL TAB PO SCH ×2 (08:08→19:37)
[2016-08-05] MEDS: HydrALAZINE HCL 20 MG/ML VIAL IV. PRN ×2 (08:08→12:31)
[2016-08-05] MEDS: INSULIN ASPART 100 UNITS/ML 3 ML PEN SC SCH ×4 (08:15→20:20)
[2016-08-05] MEDS: INSULIN GLARGINE SOLOSTAR 100 UNITS/ML 3 ML PEN SC SCH ×2 (08:16→20:20)
--- NOTE | 2016-08-05 09:08 | Nephrology Progress Note ---
Nephrology Progress Note Date of Service Aug 05, 2016. Chief Complaint Acute on chronic kidney disease Subjective No acute events overnight. No complaints this morning. Denies shortness of breath. Pain tolerable at this time. Mr. Ferro states that he is ready for his catheter and to start dialysis. Review of Systems A complete review of systems was performed. Pertinent positives are noted above. All other systems are negative. Vital Signs Last 8 Hrs Date Time Temp Pulse Resp B/P Pulse Ox O2 Delivery O2 Flow Rate FiO2 08/05/16 08:00 94 Room Air 08/05/16 07:00 36.8 86 14 174/72 93 08/05/16 06:59 66 18 95 BiPAP/CPAP 08/05/16 04:00 CPAP 08/05/16 04:00 37.1 71 18 191/82 97 184/86 I & O 24-Hour Column 08/05/16 08:00 Intake Total 875 ml Output Total 1500 ml Balance -625 ml Last Recorded Weight Weight (Kilograms): 134.000 Physical Exam General Appearance: no apparent distress, + obese Head: normocephalic, atraumatic Eyes: normal inspection, sclerae normal ENT: normal ENT inspection, pharynx normal Neck: supple, + pertinent finding (thick, unable to appreciate JVP) Respiratory/Chest: lungs clear, no respiratory distress, no accessory muscle use, + rales (bibasilar) Cardiovascular: no gallop, no murmur, + irregularly irregular Back: normal inspection, no CVA tenderness Abdomen/GI: non tender, soft Extremities/Musculoskelatal: normal inspection, + pedal edema (+3 BL pitting) Neurologic/Psych: alert, oriented x 3 Family History Diabetes mellitus Social History Smokeless Tobacco Use: No Alcohol Use: none Drug Use: none Marital Status: Occupation: retired Laboratory Results Past 24 Hours 08/05/16 05:10 08/05/16 05:10 Test 08/04/16 11:02 08/04/16 15:54 08/04/16 20:24 08/05/16 05:10 Bedside Glucose 191 mg/dl (70-99) 203 mg/dl (70-99) 205 mg/dl (70-99) Red Blood Count 2.98 M/uL (4.7-6.1) Mean Corpuscular Volume 83.2 fL (80-100) Mean Corpuscular Hemoglobin 26.5 pg (25-34) Mean Corpuscular Hemoglobin Concent 31.9 g/dl (32-36) RDW Standard Deviation 54.5 fL (36.4-46.3) RDW Coefficient of Variation 17.6 % (11.5-14.5) Mean Platelet Volume 9.7 fL (7.4-10.4) Anion Gap 15.0 mmol/L (3-11) Est Creatinine Clear Calc Drug Dose 12.1 ml/min Estimated GFR () 7.4 Estimated GFR (Non- 6.4 BUN/Creatinine Ratio 11.5 (10-20) Calcium Level 10.0 mg/dl (8.5-10.1) Phosphorus Level 7.9 mg/dl (2.5-4.9) Albumin 2.6 gm/dl (3.4-5.0) Test 08/05/16 07:10 Bedside Glucose 182 mg/dl (70-99) Allergies Coded Allergies: Atorvastatin (Unverified Allergy, Unknown, UNKNOWN, 08/01/16) Gabapentin (Unverified Allergy, Unknown, UNKNOWN, 08/01/16) Pioglitazone (Unverified Allergy, Unknown, UNKNOWN, 08/01/16) Simvastatin (Unverified Allergy, Unknown, UNKNOWN, 08/01/16) Medications Current Inpatient Medications Medications (Trade) Dose Ordered Sig/Elliott Route Start Time Stop Time Status Last Admin Dose Admin Acetaminophen 650 mg 650 mg Q6H PRN PO 08/01/16 19:00 08/31/16 18:59 Promethazine HCl/ Sodium Chloride (Phenergan Inj/ Nss 50ml) 50.5 ml @ 202 mls/hr Q6H PRN IV 08/01/16 19:00 08/31/16 18:59 Ondansetron HCl (Zofran Inj) 4 mg Q6H PRN IV 08/01/16 19:00 08/31/16 18:59 Lorazepam (Ativan Tab) 1 mg Q6H PRN PO 08/01/16 19:00 08/31/16 18:59 Oxycodone/ Acetaminophen (Percocet 5-325mg Tab) Moderate to Severe naseem... Q4H PRN PO 08/01/16 19:00 08/15/16 18:59 08/02/16 09:18 1 TAB Acetaminophen/ Hydrocodone Bitart ([place] 5/325 Tab) Moderate to Severe Naseem... Q4H PRN PO 08/01/16 19:00 08/15/16 18:59 08/04/16 21:39 2 TAB Hydromorphone HCl (Dilaudid Inj) 1 mg Q2HWA PRN IV 08/01/16 19:00 08/15/16 18:59 08/03/16 23:36 1 MG Cyanocobalamin (Vitamin B-12 Tab) 1,000 mcg QAM PO 08/02/16 09:00 09/01/16 08:59 08/04/16 08:40 1,000 MCG Docusate Sodium (coLACE CAP) 100 mg BID PO 08/01/16 21:00 08/31/16 20:59 08/04/16 21:23 100 MG Loratadine (Claritin Tab) 10 mg QAM PO 08/02/16 09:00 09/01/16 08:59 08/04/16 08:41 10 MG Metoprolol Succinate (Toprol Xl Tab) 50 mg BID PO 08/01/16 21:00 08/31/16 20:59 08/05/16 08:08 50 MG Albuterol/ Ipratropium (Duoneb) 3 ml QIDR INH 08/01/16 20:00 08/31/16 19:59 08/05/16 06:59 3 ML Insulin Aspart (novoLOG ASPART) SLIDING SCALE G... ACHS SC 08/01/16 21:00 08/31/16 20:59 08/05/16 08:15 2 UNITS Glucose (Glucose 40% Gel) 15-30 GRAMS 15 GRAMS... UD PRN PO 08/01/16 19:45 08/31/16 19:44 Glucose (Glucose Chew Tab) 4-8 Tablets 4 Tabl... UD PRN PO 08/01/16 19:45 08/31/16 19:44 Dextrose (Dextrose 50% 50ML Syringe) 25-50ML OF 50% DW IV FOR... UD PRN IV 08/01/16 19:45 08/31/16 19:44 Glucagon (Glucagon Inj) 1 mg UD PRN SQ 08/01/16 19:45 08/31/16 19:44 Al Hydrox/Mg Hydrox/Simethicone (Maalox Max Susp) 15 ml Q4H PRN PO 08/01/16 20:00 08/31/16 19:59 Magnesium Hydroxide (Milk Of Magnesia Susp) 30 ml Q12H PRN PO 08/01/16 20:00 08/31/16 19:59 Polyethylene (Miralax Powder Packet) 17 gm DAILY PRN PO 08/01/16 20:00 08/31/16 19:59 Miscellaneous Information (Order Awaiting Action) 1 ea QS N/A 08/02/16 00:00 09/01/16 00:00 Miscellaneous Information (Consult Glycemic Management Pharmacy) 1 ea UD PRN N/A 08/02/16 21:15 09/01/16 21:14 Insulin Glargine (Lantus Solostar Pen) SEE SCALE BID SC 08/03/16 09:00 09/02/16 08:59 08/05/16 08:16 20 UNIT Sevelamer HCl 800 mg 800 mg TIDM PO 08/03/16 11:30 09/02/16 11:29 08/04/16 17:44 800 MG Iron Sucrose/ Sodium Chloride (Venofer Inj/Nss 100ml) 110 ml @ 145 mls/hr DAILY IV 08/04/16 09:00 08/08/16 09:46 08/04/16 10:21 145 MLS/HR Furosemide (Lasix Tab) 80 mg BID17 PO 08/04/16 17:00 09/03/16 16:59 08/05/16 04:11 80 MG Cefazolin Sodium (Ancef 3000 Mg/ 65 ml D5W) 3,000 mg PREOP IV 08/05/16 06:00 08/05/16 18:00 Hydralazine HCl (HydrALAZINE INJ) 10 mg Q4 PRN IV. 08/05/16 07:30 09/04/16 07:29 08/05/16 08:08 10 MG Impression (1) Chronic kidney disease, stage IV (severe) (2) BARB (acute kidney injury) (3) Hypercalcemia (4) Stenosis, spinal, lumbar (5) Intractable back pain (6) Atrial fibrillation (7) Anemia Mr. Reginaldo Ferro is a 76-year-old male with ESRD associated with hypertension, diabetes and obesity. He will start hemodialysis today for UF/ clearance. His soil conservation technician is Dr. Ivan Delcid in [place]. He would like to start outpatient HD at [facility] [place] after discharge. Renal ultrasound showed bilateral atrophic kidneys. Urinalysis documenting proteinuria. Urine microscopy is acellular. Chronic hypercalcemia with hyperparathyroidism noted. Reasonable control with Sensipar at home. Serum calcium improved with hydration and furosemide. Laboratory studies are also notable for acute on chronic anemia. Patient has a longstanding history of iron deficiency anemia. He has been started on Procrit and venofer as an inpatient. SPEP consistent with nonselective protein loss and immunofixation showed multiple indistinct bands suggestive of reactive changes or oligoclonal process. Recommendations 1. HD orders entered for today for first treatment 2. Furosemide 80 mg BID to encourage negative fluid balance 3. Plan HD permcath this morning followed by first hemodialysis treatment 4. Continue sevelamer 800 QAC for hyperphosphatemia 5. Procrit 4000 with HD 6. Venofer 200 mg daily, day 2 of 5 days 7. Medications appropriate for renal function 8. Repeat renal panel tomorrow AM
[2016-08-05] MEDS ORDERED: EPOETIN ALFA 4000 UNITS/ML VIAL IV SCH (10:00)
--- NOTE | 2016-08-05 10:01 | Surgery Consultation ---
Consultation Date of Service Aug 05, 2016. (Octavia Major, LAUREEN) Chief Complaint ESRD, need permcath for HD (Octavia Major PA-C) History of Present Illness The patient is a 76 year old male with hx of HTN, A fib, IDDM, CKD, admitted with acute on chronic renal failure, intractable back pain, and hypercalcemia, seen in consultation today for permcath insertion to initiate HD. Pt states LBP severe, but more controlled with medications since admission. Denies FORTUNE, fever, chills, chest pain, SOB, abd pain, N/V, rest pain, claudication, other complaints. Anticoagulation has been held since admission d/t anemia and possibility of back surgery. (Octavia Major, LAUREEN) Vitals Vital Signs Past 12 Hours Date Time Temp Pulse Resp B/P Pulse Ox O2 Delivery O2 Flow Rate FiO2 08/05/16 08:00 94 Room Air 08/05/16 07:00 36.8 86 14 174/72 93 08/05/16 06:59 66 18 95 BiPAP/CPAP 08/05/16 04:00 CPAP 08/05/16 04:00 37.1 71 18 191/82 97 184/86 08/05/16 00:11 36.8 77 18 177/85 96 08/05/16 00:00 CPAP (Octavia Major, LAUREEN) Allergies Coded Allergies: Atorvastatin (Unverified Allergy, Unknown, UNKNOWN, 08/01/16) Gabapentin (Unverified Allergy, Unknown, UNKNOWN, 08/01/16) Pioglitazone (Unverified Allergy, Unknown, UNKNOWN, 08/01/16) Simvastatin (Unverified Allergy, Unknown, UNKNOWN, 08/01/16) Home Medications Scheduled Apixaban (Eliquis), 5 MG PO BID Bisacodyl (Bisacodyl), 2 TAB PO UD Calcitriol (Rocaltrol Cap), 0.5 MCG PO QAM Cholecalciferol (Vitamin D3), 1 CAP PO TID Cinacalcet (Sensipar), 30 MG PO QAM Cyanocobalamin (Vitamin B12 500MCG), 1,000 MCG PO QAM Docusate Sodium (Colace), 1 CAP PO BID Febuxostat (Uloric), 1 TAB PO HS Fish Oil (Foley-3), 1 CAP PO QAM Furosemide (Lasix), 20 MG PO NOON Insulin Human NPH (Humulin N), 42 UNITS INJ QAM Insulin Human NPH (Humulin N), 78 UNITS SC HS Loratadine (Claritin), 10 MG PO QAM Metoprolol Succinate (Toprol Xl), 50 MG PO BID Polyethylene Glycol 3350 (Miralax), 17 GM PO BID Rosuvastatin Calcium (Crestor), 5 MG PO HS Vitamin E (Alph-E), 400 UNITS PO QAM Scheduled PRN Acetaminophen Tab (Tylenol), 650 MG PO Q6H PRN for RN Hydrocodone/Acetaminophen 10MG/325MG ([place] 10MG/325MG), 1 TAB PO Q4H PRN for Pain Insulin Aspart (Novolog Flexpen), 10 UNITS SC QAM PRN for PRN Sodium Bicarbonate (Sodium Bicarbonate), 1,300 MG PO QID PRN for 00 Problem List Medical Problems: (1) Anemia (2) Atrial fibrillation (3) Chronic kidney disease (CKD) (4) Chronic kidney disease, stage IV (severe) (5) Diabetes (6) Intractable back pain (7) spinal stenosis (8) Stenosis, spinal, lumbar (9) Wears hearing aid in both ears (Octavia Major PA-C) Surgical / Medical History Hx Cardiac Surgery: No Hx Abdominal Surgery: No Hx Cancer Surgery: No Hx Thoracic Surgery: No Hx Orthopedic: No Hx Urinary Tract Surgery: No Past Medical/Surgical History: Diabetes, High Cholesterol, Hypertension, Kidney Disease (Octavia Major PA-C) Family History Diabetes mellitus (Octavia Major PA-C) Diabetes mellitus (Amado Brito M.D.) Social History Smoking Status: Never Smoker Hx Tobacco Use In Past Year?: No Hx Alcohol Use - Type & Amnt: No Hx Substance Use -Type & Amnt: No (Octavia Major PA-C) Review of Systems Constitutional: + malaise, No chills, No fever Skin: No change in color Eyes: No visual changes ENMT: No sore throat Respiratory: No POWELL, No cough, No hemoptysis, No short of breath Cardiovascular: + edema (chronic), No chest pain, No intermittent claudication , No palpitations, No syncope Gastrointestinal: No abdominal pain, No nausea, No vomiting Genitourinary - Male: No hematuria Musculoskeletal: + back pain Neurologic: + numbness, + tingling, No dizziness, No headache, No lethargy ( Octavia Major, LAUREEN) Physical Exam Constitutional: General Apperance: well-nourished, well-developed, obese (morbidly) Level of Distress: NAD, chronically ill Psychiatric: Mental Status: active & alert, normal mood, normal affect Orientation: oriented except where noted, to time, to place, to person Memory: recent memory normal, remote memory normal Head: normocephalic, atraumatic Eyes: EOM: EOMI ENMT: normal ENT inspection, hearing grossly normal Neck: supple, trachea midline Lungs: Respiratory effort: no dyspnea Auscultation: no rales/crackles, no rhonchi, decreased breath sounds, expiratory wheezing Cardiovascular: Apical Impulse: not displaced Heart Auscultation: no rubs, no gallops, pertinent finding (irregular) Peripheral Pulses: Pulses: full and equal, in all extremities except if noted Bruits: none appreciated Carotid Pulse: normal on the left, normal on the right Brachial Pulses: normal on the left, normal on the right Radial Pulse: normal on the left, normal on the right Femoral Pulse: decreased on the left, decreased on the right Posterior Tibialis Pulse: pertinent finding (nonpalpable) Dorsalis Pedis Pulse: pertinent finding (nonpalpable) Abdomen: Bowel Sounds: normal Inspection & Palpation: soft, no tenderness, guarding & rebound, distended ( secondary to body habitus) Musculoskeletal: normal strength (5/5 throughout), normal tone Extremities: Upper Right: no cyanosis, no edema, no varicosities Upper Left: no cyanosis, no edema, no varicosities Lower Right: no cyanosis, no varicosities, no palpable cord, edema Lower Left: no cyanosis, no varicosities, no palpable cord, edema Neurologic: Cranial Nerves: grossly intact Sensation: grossly intact (Octavia Major, LAUREEN) Assessment and Plan ASSESSMENT and PLAN: ESRD Pt for permcath insertion later this AM by Dr Brito. Procedure, risks, benefits, and alternatives discussed with pt, he expresses understanding and agreement. (Octavia Major, PA-C) Patient was seen, examined, and chart reviewed. Agree with exam and treatment plan of the Vascular PA. Patient for insertion of permcath for dialysis I have discussed the risks options and benefits of the procedure with the patient. The patient understands the risks options and benefits and agrees to the procedure. (Amado Brito M.D.)
--- NOTE | 2016-08-05 10:30 | Procedure Note ---
Pre-Mod Sedation Assessment General Date of Moderate Sedation: Aug 05, 2016. Vital Signs: Vital Signs Past 12 Hours Date Time Temp Pulse Resp B/P Pulse Ox O2 Delivery O2 Flow Rate FiO2 08/05/16 08:00 94 Room Air 08/05/16 07:00 36.8 86 14 174/72 93 08/05/16 06:59 66 18 95 BiPAP/CPAP 08/05/16 04:00 CPAP 08/05/16 04:00 37.1 71 18 191/82 97 184/86 08/05/16 00:11 36.8 77 18 177/85 96 08/05/16 00:00 CPAP Review Cardiovascular: no gallop, no murmur, + irregularly irregular Abdomen: non tender, soft Lungs: lungs clear, no respiratory distress, no accessory muscle use, + rales ( bibasilar) Pre-Sedation Airway Assessment Oral Cavity: WNL Smoking Status: Never Smoker Mallampati Classification: Class I ASA Classification: Class II Notes The planned sedation has been discussed with the patient and consent obtained. I have identified the patient, determined the appropriateness of sedation and have assessed the patient immediately prior to the procedure. All medicine(s) and interventions are by my order.
--- NOTE | 2016-08-05 11:01 | Progress Note ---
Subjective Date of Service: Aug 05, 2016. Subjective Pt evaluation today including: conversation w/ patient, physical exam, chart review, lab review, review of studies, review of inpatient medication list Pt resting in bed comfortably Denies any worsening symptoms Problem List Medical Problems: (1) BARB (acute kidney injury) Status: Acute (2) Hypercalcemia Status: Acute Review of Systems Constitutional: No chills, No fever Respiratory: No cough, No dyspnea on exertion, No shortness of breath, No sputum, No wheezing Cardiac: + edema, No chest pain, No orthopnea Abdomen: No constipation, No nausea, No pain Musculoskeletal: + joint pain, No muscle pain Male : No dysuria, No urinary frequency Psychiatric: No anhedonism, No depression symptoms Objective Vital Signs Date Time Temp Pulse Resp B/P Pulse Ox O2 Delivery O2 Flow Rate FiO2 08/05/16 08:00 94 Room Air 08/05/16 07:00 36.8 86 14 174/72 93 08/05/16 06:59 66 18 95 BiPAP/CPAP 08/05/16 04:00 CPAP 08/05/16 04:00 37.1 71 18 191/82 97 184/86 08/05/16 00:11 36.8 77 18 177/85 96 08/05/16 00:00 CPAP 08/04/16 20:00 Room Air 08/04/16 19:05 80 18 93 Room Air 08/04/16 19:05 36.9 66 22 173/71 98 Room Air 08/04/16 16:00 95 Room Air 08/04/16 15:12 72 12 95 Room Air 08/04/16 15:00 36.8 72 20 173/80 100 Room Air 08/04/16 12:08 36.4 75 18 174/81 95 Room Air 08/04/16 12:00 Room Air 08/04/16 11:21 87 12 95 Room Air Physical Exam General Appearance: WD/WN, no apparent distress, + obese Neck: supple, no adenopathy Respiratory/Chest: lungs clear, normal breath sounds Cardiovascular: no gallop, no JVD Abdomen: non tender, soft Neurologic/Psychiatric: alert, normal mood/affect Laboratory Results Last 24 Hours Test 08/04/16 11:02 08/04/16 15:54 08/04/16 20:24 08/05/16 05:10 Bedside Glucose 191 mg/dl 203 mg/dl 205 mg/dl White Blood Count 4.18 K/uL Red Blood Count 2.98 M/uL Hemoglobin 7.9 g/dL Hematocrit 24.8 % Mean Corpuscular Volume 83.2 fL Mean Corpuscular Hemoglobin 26.5 pg Mean Corpuscular Hemoglobin Concent 31.9 g/dl RDW Standard Deviation 54.5 fL RDW Coefficient of Variation 17.6 % Platelet Count 198 K/uL Mean Platelet Volume 9.7 fL Sodium Level 142 mmol/L Potassium Level 4.3 mmol/L Chloride Level 103 mmol/L Carbon Dioxide Level 24 mmol/L Anion Gap 15.0 mmol/L Blood Urea Nitrogen 85 mg/dl Creatinine 7.40 mg/dl Est Creatinine Clear Calc Drug Dose 12.1 ml/min Estimated GFR () 7.4 Estimated GFR (Non- 6.4 BUN/Creatinine Ratio 11.5 Random Glucose 165 mg/dl Calcium Level 10.0 mg/dl Phosphorus Level 7.9 mg/dl Albumin 2.6 gm/dl Test 08/05/16 07:10 Bedside Glucose 182 mg/dl Assessment and Plan Pt is a 76 y/o male with PMHx of Atrial Fibrillation (anticoagulated), HTN, CAMI on night CPAP, T2DM, Chronic Kidney Disease with Secondary Hyperparathyroidism, and Prostate CA who presents to the ED complaining of worsening lower back pain and ambulation difficulty 2 weeks. Back Pain with Ambulatory Dysfunction: - Pain management and PT/OT per primary - Need to stabilize before surgery can be attempted, general surgery has signed off at this time - MRI neg for any metastatic lesions, back will be reevaluated at a later time Possible Bronchitis: - Outpatient CXR (08/01/16) - images and report reviewed - without evidence of consolidation or pleural effusions - Duonebs QID and Q2H PRN T2DM: - HbA1c 6.0 - Hold home insulin regimen - SSI with goal 120-160; correction factor 35 Acute on Chronic Kidney Disease stage 4 with Secondary Hyperparathyroidism: Baseline Unknown - Creatinine 5.5 and Ca 12.1 on admission and worsening with subsequent BMPs - Gentle hydration of NSS at 75 mL/hr discontinued due to worsening edema -- Noted peripheral edema - lasix PO continued - Renal U/S - bilateral atrophy - Sensipar 30 mg daily, EPO started - Consult nephrology - appreciate recommendations, SPEP, immunofixation ordered , likely dialysis needed - Vascular surgery consulted for TDC placement and dialysis - Calcium level improving HTN - Cont metoprolol and hydralazine PRN Lower Extremity Edema, chronic diastolic CHF - Venous U/S - R/O DVT - unlikely given Eliquis - Echo - * Ejection Fraction = >70 %. * There is moderate concentric left ventricular hypertrophy. * Grade I diastolic dysfunction, (abnormal relaxation pattern). * There is mild mitral regurgitation. Atrial Fibrillation: Unknown Type: Rate Controlled - Serial cardiac enzymes - initial troponin 0.083 likely secondary to kidney function - Hold Eliquis - per primary, patient not suitable for surgery at this time however possible surgical intervention may be necessary -- May possibly reinstitute in AM - Metoprolol Succ 50 mg BID Anemia multifactorial from CKD, iron and b12 def - Cont EPO, B12 and IV iron tx CAMI on Night CPAP: - Set up CPAP per respiratory DVT Prophylaxis: - AIDA/SCDs - Hold Eliquis - possible resume if no further surgical intervention Disposition: - Patient currently at [facility] due to ambulatory dysfunction but plans to return home with - Of note, patient reports that he has a girlfriend Alicia who he allows to be updated on his current condition -- (Martita) is aware of Alicia however believes this is an old affair.
[2016-08-05] MEDS ORDERED: FENTANYL CITRATE INJ 50 MCG/1 ML 2 ML VIAL ONE (11:10)
[2016-08-05] MEDS ORDERED: MIDAZOLAM HCL 1 MG/ML 2ML VIAL ONE (11:11)
[2016-08-05] MEDS ORDERED: HEPARIN SOD (PORCINE) 5000 UNIT/ML 1 ML VIAL ONE (11:12)
[2016-08-05] MEDS ORDERED: MIDAZOLAM HCL 1 MG/ML 2ML VIAL IV ONE (11:46)
[2016-08-05] MEDS ORDERED: FENTANYL CITRATE INJ 50 MCG/1 ML 2 ML VIAL IV ONE (11:47)
[2016-08-05] MEDS ORDERED: LIDOCAINE HCL 1% 20 ML VIAL INJ ONE ×2 (11:50→12:01)
--- NOTE | 2016-08-05 11:58 | Pharmacy Progress Note ---
Glycemic Control: Progress Nt Date of Service Aug 05, 2016. Scope Glycemic Pharmacist consulted by Dr Gamble on 08/02/16 for glycemic control and to write orders per [facility], [facility] inpatient glycemic control protocol. Objective Accuchecks BSG (last 24hrs): Test 08/04/16 15:54 08/04/16 20:24 08/05/16 05:10 08/05/16 07:10 Bedside Glucose 203 mg/dl (70-99) 205 mg/dl (70-99) 182 mg/dl (70-99) Random Glucose 165 mg/dl (70-99) Laboratory Data (last 24hrs) Test 08/05/16 05:10 Anion Gap 15.0 mmol/L BUN/Creatinine Ratio 11.5 Blood Urea Nitrogen 85 mg/dl Creatinine 7.40 mg/dl Potassium Level 4.3 mmol/L Sodium Level 142 mmol/L White Blood Count 4.18 K/uL HbA1c: Test 08/02/16 05:42 Hemoglobin A1c 6.0 % (4.5-5.6) H Recent Pertinent Medications Outpatient Anti-diabetic Regimen: * NPH 42 units QAM, 78 units HS * Novolog 10 units QAM prn * A1c = 6.0 % 08/02/16 Risk Factors for Insulin Resistance: * Recent Surgery: POD #0, perm cath placement * Diet: NPO this AM, likely back to T2DM this afternoon Risk Factors for Insulin Sensitivity: * Initiation of HD this afternoon Assessment & Plan ASSESSMENT: 08/03/16 * 76 year old type 2 diabetic admitted with back pain * A1c 6% at home, unknown if due to hypoglycemia too, since patient is on NPH as outpatient. * Patient hyperglycemic when pharmacy was consulted last night due to no basal insulin for over 24 hours, will start patient on Lantus. * Patient also without prandial coverage, will add. * ADA & AACE recommend a goal blood sugar range 140-180 mg/dl for the majority of critically ill & non-critically ill patients. However, more stringent targets may be selected in individual cases. For patient's A1c, will use 120- 160mg/dL, but not as low as 100-140mg/dL for patient's age and to prevent hypoglycemia. 08/05/16 * Patient received a total of 77 units of insulin over the past 24 hours * He is NPO this AM for surgery, and I assume diet should advance back to T2DM/ renal this afternoon * Plan for today is to have a PermCath placed and then receive first HD treatment * Given HD is a risk factor for increased insulin sensitivity, I hesitate to make any changes to regimen * Continue current regimen X 24 hours and see how patient tolerates HD/BSGs react PLAN FOR INPATIENT GLYCEMIC CONTROL: * Basal insulin with LANTUS SQ BID * BSG < 100 - 0 units * BSG 100-180 - 20 units * BSG > 180 - 30 units * Correctional Insulin with NOVOLOG per scale ACHS or Q6hrs while NPO * Goal Range: Low 120 mg/dL - High 160 mg/dL * Correction Factor: 20 mg/dL/unit * Nutritional / Prandial insulin per carb ratio of 1 unit per 6 grams CHO consumed * Please note that the plan above was derived based on current level of insulin resistance and hospital stress. These recommendations are appropriate for inpatient admission only. Plan of care upon discharge will need to be reassessed to avoid potential outpatient hypo/hyperglycemia. Thank you.
[2016-08-05] MEDS ORDERED: HEPARIN SOD (PORCINE) 5000 UNIT/ML 1 ML VIAL IV ONE (12:05)
--- NOTE | 2016-08-05 12:08 | [facility] Post Operative Brief Note ---
Immediate Operative Summary Operative Date Aug 05, 2016. Pre-Operative Diagnosis end stage renal disease Post-Operative Diagnosis same Procedure(s) Performed Insertion of Perm Catheter, Right Internal Jugular Approach, Ultrasound Localization Of Right Internal Jugular Vein, Fluoroscopy For Positioning, Moderate Concious Sedation [id number] Brito Machine Heddle Cleaner Surgeon(s) Dr. Reed Estimated Blood Loss 3 ml Findings tip in distal SVC Specimens none Anesthesia Local with moderate conscious sedation Complication(s) None Disposition
--- NOTE | 2016-08-05 12:09 | Procedure Note ---
Post-Moderate Sedation Plan General Date of Moderate Sedation Aug 05, 2016. Vital Signs: Vital Signs Past 12 Hours Date Time Temp Pulse Resp B/P Pulse Ox O2 Delivery O2 Flow Rate FiO2 08/05/16 11:22 36.8 86 14 174/72 94 Room Air 1.0 21 08/05/16 08:00 94 Room Air 08/05/16 07:00 36.8 86 14 174/72 93 08/05/16 06:59 66 18 95 BiPAP/CPAP 08/05/16 04:00 CPAP 08/05/16 04:00 37.1 71 18 191/82 97 184/86 08/05/16 00:11 36.8 77 18 177/85 96 Review - Discharge Plan Post Moderate Sedation Plan: On clinical assessment, the patient appears to have tolerated the conscious sedation without complications. Patient is recovering as anticipated. Patient will continue to be monitored by nursing and may be discharged when conscious sedation discharge criteria are met.
--- NOTE | 2016-08-05 12:24 | DIAGNOSTIC IMAGING REPORT ---
DATE OF PROCEDURE: 08/05/2016 PREOPERATIVE DIAGNOSIS: Endstage renal disease with impending need for dialysis. POSTOPERATIVE DIAGNOSIS: Same. PROCEDURE: Insertion of right internal jugular tunneled dialysis catheter. SURGEON: Dr. Amado Brito M.D. SEPARATOR TENDER: Dr. Tyler Reed M.D. ANESTHESIA: Local plus conscious sedation.(22min) ESTIMATED BLOOD LOSS: 5 mL. COMPLICATIONS: None. INDICATIONS: This is a 76-year-old gentleman who was planned for orthopedic spine procedure. However, he presented to Emergency Room recently with a new onset of heart failure and renal failure. He was seen by the medical service and it was deemed he would need dialysis. A tunneled infusion catheter was indicated for dialysis access. The patient understood the risks, benefits, alternatives to the above procedure and agreed to proceed. PROCEDURE: The patient was brought to the endovascular suite, placed in supine position. The right neck and chest were prepped and draped in normal sterile fashion. A time-out was performed and all parties agreed to correct patient and procedure to be performed. Under ultrasound guidance, the right internal jugular vein was accessed on the first attempt. This was done after installation of local anesthetic throughout the right chest and neck. The wire was passed to the level of the superior vena cava. An 11 blade was used to make a small counter incision in the right chest. A 19 cm tunneled dialysis catheter was brought onto the field. It was passed from the right chest out through the right neck. Next, the sheath was advanced over the guidewire in the neck under fluoroscopic guidance. The catheter was then passed through the peel away sheath. There was a small minor kink after passage of the catheter and therefore the wire was reinserted. This helped to straighten out the kink. Final fluoroscopic imaging showed the catheter to be in good position. The catheter was sutured to the chest wall. A single 4-0 stitch was placed in the neck incision. All sheaths, wires and catheters were removed. The patient was awakened and transferred to recovery room in satisfactory condition. IDr. Brito was present and scurbbed for the entire procedure. [facility]
[2016-08-05] MEDS: LORATADINE 10 MG TAB PO SCH (12:35)
[2016-08-05] MEDS: CYANOCOBALAMIN 500 MCG TAB (VIT B-12) PO SCH (12:35)
[2016-08-05] MEDS: DOCUSATE SODIUM 100 MG CAP PO SCH ×2 (12:35→19:37)
[2016-08-05] MEDS: HYDROmorphone INJ 1 MG/ML SYR IV PRN (12:42)
[2016-08-05] MEDS: IRON SUCROSE INJ 200 MG in SODIUM CHLORIDE 0.9% 100ML 100 ML IV SCH (12:49)
[2016-08-05 14:07] LABS: HEPATITIS B AB NEG
--- NOTE | 2016-08-05 22:28 | DIAGNOSTIC IMAGING REPORT ---
BILATERAL UPPER EXTREMITY VENOUS MAPPING CLINICAL HISTORY: end stage renal disease. Preop. COMPARISON STUDY: None. FINDINGS: No DVT within the right or left upper extremity. The bilateral internal jugular veins appear patent. Please refer to the dedicated worksheet provided on PACS for the sizes and depths of the cephalic and basilic veins. The cephalic and basilic veins appear to be normal in caliber. IMPRESSION: No DVT within the right or left upper extremity. Electronically signed by: Yoni Cook M.D. 08/05/2016 10:27 PM Dictated Date/Time: 08/05/2016 10:25 PM
[2016-08-06] VITALS (23 sets, daily range): BP systolic 106–169; BP diastolic 54–89; PULSE 66–95; TEMP 36.3–37.1; O2SAT 94–98
[2016-08-06] MEDS: HYDROCODONE/ACETAMOPHEN 5/325MG TAB PO PRN ×3 (01:27→17:09)
[2016-08-06] MEDS: HYDROmorphone INJ 1 MG/ML SYR IV PRN ×2 (03:55→22:10)
[2016-08-06 06:14] LABS: HEMATOCRIT 25.9 % (42-52); MEAN CELL VOLUME 80.9 fL (80-100); MEAN CORPUSCULAR HEMOGLOBIN 25.6 pg (25-34); MEAN CORPUSCULAR HGB CONC 31.7 g/dl (32-36); MEAN PLATELET VOLUME 9.9 fL (7.4-10.4); PLATELET COUNT 212 K/uL (130-400); WHITE BLOOD COUNT 4.19 K/uL (4.8-10.8)
[2016-08-06 07:01] LABS: BUN/CREATININE RATIO 9.9 (10-20); CALCIUM 9.4 mg/dl (8.5-10.1); CREATININE 6.5 mg/dl (0.60-1.40); POTASSIUM 3.7 mmol/L (3.5-5.1)
[2016-08-06 07:11] LABS: PHOSPHORUS 4.8 mg/dl (2.5-4.9)
[2016-08-06] MEDS: FUROSEMIDE 80 MG TAB PO SCH ×2 (07:11→17:06)
[2016-08-06] MEDS: DOCUSATE SODIUM 100 MG CAP PO SCH ×2 (07:11→21:00)
[2016-08-06] MEDS: LORATADINE 10 MG TAB PO SCH (07:11)
[2016-08-06] MEDS: SEVELAMER HYDROCH 800 MG TAB PO SCH ×3 (07:11→17:06)
[2016-08-06] MEDS: METOPROLOL SUCC 50MG EXT REL TAB PO SCH ×2 (07:12→20:59)
[2016-08-06] MEDS: CYANOCOBALAMIN 500 MCG TAB (VIT B-12) PO SCH (07:12)
[2016-08-06] MEDS: ALBUT/IPRATROP 3MG/0.5MG NEB 3 ML VIAL INH SCH ×4 (07:22→19:12)
[2016-08-06] MEDS: POLYETHYLENE (MIRALAX) 17 GM PACK PO PRN (07:26)
[2016-08-06] MEDS: INSULIN ASPART 100 UNITS/ML 3 ML PEN SC SCH ×4 (08:10→21:03)
[2016-08-06] MEDS: INSULIN GLARGINE SOLOSTAR 100 UNITS/ML 3 ML PEN SC SCH ×2 (08:11→21:04)
[2016-08-06] MEDS: IRON SUCROSE INJ 200 MG in SODIUM CHLORIDE 0.9% 100ML 100 ML IV SCH (08:13)
--- NOTE | 2016-08-06 09:44 | PROGRESS NOTE ---
DATE: 08/06/2016 I had an excellent conversation with the patient this morning at approximately 9 a.m. I reviewed his chart information, lab information and CT scan and MRI scan. ____ now, he was in pain about 30 minutes ago. His pain is controlled. PAST MEDICAL HISTORY: His medical problem list is significant for kidney disease, dialysis, heart failure, AFib, obesity, hyperparathyroidism, prostate CA by history, hypertension. He also has spinal stenosis of lumbar spine, a low grade spondylolisthesis of the spine but no metastatic lesions. PLAN: At this point in time, I would recommend, as we are doing here very well, medical stabilization and then may be discharged to a rehab type facility if possible. The patient is a longstanding patient of Dr. Librado Juarez and Dr. Juarez will probably see him early this coming week and he will get his opinion. It may be the kind of case where he will need surgery prior to leaving to the [facility]. In summary, although we are going to try and stabilize him medically, I would not advise any acute surgical intervention. In all likelihood, he may not be an excellent surgical candidate as we try to control his pain.
--- NOTE | 2016-08-06 12:18 | Nephrology Progress Note ---
Nephrology Progress Note Date of Service Aug 06, 2016. Chief Complaint Follow-up for end-stage renal disease on hemodialysis. Subjective Reginaldo was seen and examined during dialysis this morning, has been tolerating dialysis well, vital sign including blood pressure and heart rate normal. Denies any shortness of breath leg cramp. Has been tolerating ultra filtration. This is his 2nd treatment, 1st treatment was yesterday and had 1.5 L ultra filtration. Review of Systems A complete review of systems was performed. Pertinent positives are noted above. All other systems are negative. Vital Signs Last 8 Hrs Date Time Temp Pulse Resp B/P Pulse Ox O2 Delivery O2 Flow Rate FiO2 08/06/16 07:43 37.1 75 18 124/54 97 CPAP 08/06/16 07:22 70 18 95 Room Air 08/06/16 04:23 36.7 72 19 133/57 96 Room Air 08/06/16 04:04 Room Air CPAP I & O 24-Hour Column 08/06/16 07:59 Intake Total 595 ml Output Total 3150 ml Balance -2555 ml Last Recorded Weight Weight (Kilograms): 131.800 Physical Exam GENERAL: Elderly male, AAA x 3, obese, pleasant, healthy-appearing, not in any distress. NECK: Supple, no JVD. RESPIRATORY: Normal breathing efforts, no accessory muscle use, clear to auscultation bilaterally, no wheezes or rales. CARDIOVASCULAR: S1, S2 normal, rate rhythm regular. EXTREMITY: trace bilateral lower extremity edema NEURO: speech fluent. PSYCHIATRY: Normal mood and judgment Family History Diabetes mellitus Social History Smokeless Tobacco Use: No Alcohol Use: none Drug Use: none Marital Status: Occupation: retired Laboratory Results Past 24 Hours 08/06/16 05:26 08/06/16 05:26 Test 08/05/16 12:48 08/05/16 18:02 08/05/16 20:06 08/06/16 05:26 Bedside Glucose 179 mg/dl (70-99) 166 mg/dl (70-99) 176 mg/dl (70-99) Red Blood Count 3.20 M/uL (4.7-6.1) Mean Corpuscular Volume 80.9 fL (80-100) Mean Corpuscular Hemoglobin 25.6 pg (25-34) Mean Corpuscular Hemoglobin Concent 31.7 g/dl (32-36) RDW Standard Deviation 51.4 fL (36.4-46.3) RDW Coefficient of Variation 17.3 % (11.5-14.5) Mean Platelet Volume 9.9 fL (7.4-10.4) Anion Gap 14.0 mmol/L (3-11) Est Creatinine Clear Calc Drug Dose 13.7 ml/min Estimated GFR () 8.7 Estimated GFR (Non- 7.5 BUN/Creatinine Ratio 9.9 (10-20) Calcium Level 9.4 mg/dl (8.5-10.1) Phosphorus Level 4.8 mg/dl (2.5-4.9) Albumin 2.6 gm/dl (3.4-5.0) Test 08/06/16 06:43 Bedside Glucose 144 mg/dl (70-99) Allergies Coded Allergies: Atorvastatin (Unverified Allergy, Unknown, UNKNOWN, 08/01/16) Gabapentin (Unverified Allergy, Unknown, UNKNOWN, 08/01/16) Pioglitazone (Unverified Allergy, Unknown, UNKNOWN, 08/01/16) Simvastatin (Unverified Allergy, Unknown, UNKNOWN, 08/01/16) Medications Current Inpatient Medications Medications (Trade) Dose Ordered Sig/Elliott Route Start Time Stop Time Status Last Admin Dose Admin Acetaminophen 650 mg 650 mg Q6H PRN PO 08/01/16 19:00 08/31/16 18:59 Promethazine HCl/ Sodium Chloride (Phenergan Inj/ Nss 50ml) 50.5 ml @ 202 mls/hr Q6H PRN IV 08/01/16 19:00 08/31/16 18:59 Ondansetron HCl (Zofran Inj) 4 mg Q6H PRN IV 08/01/16 19:00 08/31/16 18:59 Lorazepam (Ativan Tab) 1 mg Q6H PRN PO 08/01/16 19:00 08/31/16 18:59 Oxycodone/ Acetaminophen (Percocet 5-325mg Tab) Moderate to Severe naseem... Q4H PRN PO 08/01/16 19:00 08/15/16 18:59 08/02/16 09:18 1 TAB Acetaminophen/ Hydrocodone Bitart ([place] 5/325 Tab) Moderate to Severe Naseem... Q4H PRN PO 08/01/16 19:00 08/15/16 18:59 08/06/16 07:12 1 TAB Hydromorphone HCl (Dilaudid Inj) 1 mg Q2HWA PRN IV 08/01/16 19:00 08/15/16 18:59 08/06/16 03:55 1 MG Cyanocobalamin (Vitamin B-12 Tab) 1,000 mcg QAM PO 08/02/16 09:00 09/01/16 08:59 08/06/16 07:12 1,000 MCG Docusate Sodium (coLACE CAP) 100 mg BID PO 08/01/16 21:00 08/31/16 20:59 08/06/16 07:11 100 MG Loratadine (Claritin Tab) 10 mg QAM PO 08/02/16 09:00 09/01/16 08:59 08/06/16 07:11 10 MG Metoprolol Succinate (Toprol Xl Tab) 50 mg BID PO 08/01/16 21:00 08/31/16 20:59 08/06/16 07:12 50 MG Albuterol/ Ipratropium (Duoneb) 3 ml QIDR INH 08/01/16 20:00 08/31/16 19:59 08/06/16 07:22 3 ML Insulin Aspart (novoLOG ASPART) SLIDING SCALE G... ACHS SC 08/01/16 21:00 08/31/16 20:59 08/06/16 08:10 12 UNITS Glucose (Glucose 40% Gel) 15-30 GRAMS 15 GRAMS... UD PRN PO 08/01/16 19:45 08/31/16 19:44 Glucose (Glucose Chew Tab) 4-8 Tablets 4 Tabl... UD PRN PO 08/01/16 19:45 08/31/16 19:44 Dextrose (Dextrose 50% 50ML Syringe) 25-50ML OF 50% DW IV FOR... UD PRN IV 08/01/16 19:45 08/31/16 19:44 Glucagon (Glucagon Inj) 1 mg UD PRN SQ 08/01/16 19:45 08/31/16 19:44 Al Hydrox/Mg Hydrox/Simethicone (Maalox Max Susp) 15 ml Q4H PRN PO 08/01/16 20:00 08/31/16 19:59 Magnesium Hydroxide (Milk Of Magnesia Susp) 30 ml Q12H PRN PO 08/01/16 20:00 08/31/16 19:59 Polyethylene (Miralax Powder Packet) 17 gm DAILY PRN PO 08/01/16 20:00 08/31/16 19:59 08/06/16 07:26 17 GM Miscellaneous Information (Order Awaiting Action) 1 ea QS N/A 08/02/16 00:00 09/01/16 00:00 Miscellaneous Information (Consult Glycemic Management Pharmacy) 1 ea UD PRN N/A 08/02/16 21:15 09/01/16 21:14 Insulin Glargine (Lantus Solostar Pen) SEE SCALE BID SC 08/03/16 09:00 09/02/16 08:59 08/06/16 08:11 20 UNIT Sevelamer HCl 800 mg 800 mg TIDM PO 08/03/16 11:30 09/02/16 11:29 08/06/16 07:11 800 MG Iron Sucrose/ Sodium Chloride (Venofer Inj/Nss 100ml) 110 ml @ 145 mls/hr DAILY IV 08/04/16 09:00 08/08/16 09:46 08/06/16 08:13 145 MLS/HR Furosemide (Lasix Tab) 80 mg BID17 PO 08/04/16 17:00 09/03/16 16:59 08/06/16 07:11 80 MG Hydralazine HCl (HydrALAZINE INJ) 10 mg Q4 PRN IV. 08/05/16 07:30 09/04/16 07:29 08/05/16 12:31 10 MG Impression (1) Chronic kidney disease, stage IV (severe) (2) BARB (acute kidney injury) (3) Hypercalcemia (4) Stenosis, spinal, lumbar (5) Intractable back pain (6) Atrial fibrillation (7) Anemia Mr. Reginaldo Ferro is a 76-year-old male with ESRD associated with hypertension, diabetes and obesity. His wood floor refinisher is Dr. Ivan Delcid in [place]. He would like to start outpatient HD at [facility] in [place] after discharge. he was started on hemodialysis yesterday has been tolerating well. Renal ultrasound showed bilateral atrophic kidneys. Urinalysis documenting proteinuria. Urine microscopy is acellular. Chronic hypercalcemia with hyperparathyroidism noted. Reasonable control with Sensipar at home. Serum calcium improved with hydration and furosemide. Laboratory studies are also notable for acute on chronic anemia. Patient has a longstanding history of iron deficiency anemia. He has been started on Procrit and venofer as an inpatient. SPEP consistent with nonselective protein loss and immunofixation showed multiple indistinct bands suggestive of reactive changes or oligoclonal process. Recommendations -- Second dialysis treatment today, plan for ultra filtration 2 L as tolerated, 3 hours treatment, next treatment on Monday for 4 hours then continue on intermittent hemodialysis. He will go to renal care in [place] for chronic intermittent hemodialysis --continue Furosemide 80 mg BID to encourage negative fluid balance --Continue sevelamer as phosphate binder, Nephrocaps daily, Venofer 200 mg daily , day 2 of 5 days --Dose medications for GFR less than 10 will follow
--- NOTE | 2016-08-06 12:45 | Progress Note ---
Subjective Date of Service: Aug 06, 2016. Subjective Pt evaluation today including: conversation w/ patient, physical exam, chart review, lab review, review of studies, review of inpatient medication list Problem List Medical Problems: (1) BARB (acute kidney injury) Status: Acute (2) Hypercalcemia Status: Acute Review of Systems Constitutional: No chills, No fever Respiratory: No cough, No shortness of breath, No sputum, No wheezing Cardiac: + edema, No chest pain, No orthopnea Abdomen: No diarrhea, No nausea, No pain, No vomiting Musculoskeletal: No joint pain, No muscle pain Male : No dysuria, No urinary frequency Objective Vital Signs Date Time Temp Pulse Resp B/P Pulse Ox O2 Delivery O2 Flow Rate FiO2 08/06/16 12:19 Room Air CPAP 08/06/16 11:44 36.9 73 22 165/79 96 CPAP 08/06/16 11:08 36.7 71 169/77 08/06/16 08:01 Room Air CPAP 08/06/16 07:43 37.1 75 18 124/54 97 CPAP 08/06/16 07:22 70 18 95 Room Air 08/06/16 04:23 36.7 72 19 133/57 96 Room Air 08/06/16 04:04 Room Air CPAP 08/05/16 23:59 Room Air CPAP 08/05/16 23:56 36.9 74 16 138/66 97 CPAP 08/05/16 20:00 Room Air CPAP 08/05/16 18:01 36.7 74 18 141/77 95 Room Air 08/05/16 18:00 78 141/77 08/05/16 18:00 94 Room Air 08/05/16 17:30 36.9 72 152/78 08/05/16 17:15 72 112/67 08/05/16 17:00 72 113/70 08/05/16 16:45 80 114/73 08/05/16 16:30 74 135/73 08/05/16 16:15 70 83/52 08/05/16 16:00 72 113/58 08/05/16 15:45 72 105/62 08/05/16 15:30 72 133/70 08/05/16 15:17 70 165/76 08/05/16 15:05 36.7 77 166/82 08/05/16 14:30 74 21 157/74 98 Room Air 08/05/16 14:26 72 18 95 Room Air 08/05/16 14:00 72 21 178/100 92 Room Air 08/05/16 13:30 73 16 138/65 94 Room Air 08/05/16 13:15 76 14 166/60 96 Room Air 08/05/16 13:00 76 16 188/100 95 Room Air 08/05/16 12:45 73 16 185/80 94 Room Air Physical Exam General Appearance: WD/WN, no apparent distress Neck: supple, no adenopathy Respiratory/Chest: lungs clear, normal breath sounds Cardiovascular: no gallop, no JVD Abdomen: non tender, soft Neurologic/Psychiatric: alert, oriented x 3 Laboratory Results Last 24 Hours Test 08/05/16 12:48 08/05/16 18:02 08/05/16 20:06 08/06/16 05:26 Bedside Glucose 179 mg/dl 166 mg/dl 176 mg/dl White Blood Count 4.19 K/uL Red Blood Count 3.20 M/uL Hemoglobin 8.2 g/dL Hematocrit 25.9 % Mean Corpuscular Volume 80.9 fL Mean Corpuscular Hemoglobin 25.6 pg Mean Corpuscular Hemoglobin Concent 31.7 g/dl RDW Standard Deviation 51.4 fL RDW Coefficient of Variation 17.3 % Platelet Count 212 K/uL Mean Platelet Volume 9.9 fL Sodium Level 141 mmol/L Potassium Level 3.7 mmol/L Chloride Level 104 mmol/L Carbon Dioxide Level 23 mmol/L Anion Gap 14.0 mmol/L Blood Urea Nitrogen 64 mg/dl Creatinine 6.50 mg/dl Est Creatinine Clear Calc Drug Dose 13.7 ml/min Estimated GFR () 8.7 Estimated GFR (Non- 7.5 BUN/Creatinine Ratio 9.9 Random Glucose 140 mg/dl Calcium Level 9.4 mg/dl Phosphorus Level 4.8 mg/dl Albumin 2.6 gm/dl Test 08/06/16 06:43 Bedside Glucose 144 mg/dl Assessment and Plan Pt is a 76 y/o male with PMHx of Atrial Fibrillation (anticoagulated), HTN, CAMI on night CPAP, T2DM, Chronic Kidney Disease with Secondary Hyperparathyroidism, and Prostate CA who presents to the ED complaining of worsening lower back pain and ambulation difficulty 2 weeks. Back Pain with Ambulatory Dysfunction: - Pain management and PT/OT per primary - Need to stabilize before surgery can be attempted, general surgery has signed off at this time - MRI neg for any metastatic lesions, back will be reevaluated at a later time Possible Bronchitis: - Outpatient CXR (08/01/16) - images and report reviewed - without evidence of consolidation or pleural effusions - Duonebs QID and Q2H PRN T2DM: - HbA1c 6.0 - Hold home insulin regimen - SSI with goal 120-160; correction factor 35 Acute on Chronic Kidney Disease stage 4 with Secondary Hyperparathyroidism: Baseline Unknown - Creatinine 5.5 and Ca 12.1 on admission and worsening with subsequent BMPs - Gentle hydration of NSS at 75 mL/hr discontinued due to worsening edema -- Noted peripheral edema - lasix PO continued - Renal U/S - bilateral atrophy - Sensipar 30 mg daily, EPO started - SPEP consistent with nonselective protein loss and immunofixation showed multiple indistinct bands suggestive of reactive changes or oligoclonal process. - Consult nephrology - appreciate recommendations, immunofixation ordered, likely dialysis needed - Vascular surgery consulted for TDC placement and dialysis, 2 sessions completed - Calcium level improving HTN - Cont metoprolol and hydralazine PRN Lower Extremity Edema, chronic diastolic CHF - Venous U/S - R/O DVT - unlikely given Eliquis - Echo - * Ejection Fraction = >70 %. * There is moderate concentric left ventricular hypertrophy. * Grade I diastolic dysfunction, (abnormal relaxation pattern). * There is mild mitral regurgitation. Atrial Fibrillation: Unknown Type: Rate Controlled - Serial cardiac enzymes - initial troponin 0.083 likely secondary to kidney function - Hold Eliquis - per primary, patient not suitable for surgery at this time however possible surgical intervention may be necessary -- May possibly reinstitute in AM - Metoprolol Succ 50 mg BID Anemia multifactorial from CKD, iron and b12 def - Cont EPO, B12 and IV iron tx CAMI on Night CPAP: - Set up CPAP per respiratory DVT Prophylaxis: - AIDA/SCDs - Hold Eliquis - possible resume if no further surgical intervention Disposition: - Patient currently at [facility] due to ambulatory dysfunction but plans to return home with - Of note, patient reports that he has a girlfriend Alicia who he allows to be updated on his current condition -- (Martita) is aware of Alicia however believes this is an old affair.
[2016-08-06] MEDS: OXYCODONE/ACETAMINOPHEN 5-325 TAB PO PRN (19:46)
[2016-08-06] MEDS: MAGNESIUM HYDROXIDE SUSP 30 ML UDC PO PRN (21:05)
[2016-08-06] MEDS: LORAZEPAM 1 MG TAB PO PRN (22:09)
[2016-08-07] VITALS (10 sets, daily range): BP systolic 116–184; BP diastolic 60–84; PULSE 71–85; TEMP 36.6–37.5; O2SAT 82–100
[2016-08-07] MEDS: HYDROCODONE/ACETAMOPHEN 5/325MG TAB PO PRN ×4 (00:06→17:21)
[2016-08-07 05:57] LABS: HEMATOCRIT 27.8 % (42-52); MEAN CELL VOLUME 82.2 fL (80-100); MEAN CORPUSCULAR HEMOGLOBIN 25.7 pg (25-34); MEAN CORPUSCULAR HGB CONC 31.3 g/dl (32-36); MEAN PLATELET VOLUME 10.7 fL (7.4-10.4); PLATELET COUNT 196 K/uL (130-400); RED BLOOD COUNT 3.38 M/uL (4.7-6.1); WHITE BLOOD COUNT 4.89 K/uL (4.8-10.8)
[2016-08-07] MEDS: ALBUT/IPRATROP 3MG/0.5MG NEB 3 ML VIAL INH SCH ×4 (07:01→19:09)
[2016-08-07 07:03] LABS: BUN/CREATININE RATIO 8.3 (10-20); CALCIUM 9.2 mg/dl (8.5-10.1); CREATININE 5.2 mg/dl (0.60-1.40); POTASSIUM 3.8 mmol/L (3.5-5.1)
[2016-08-07] MEDS: LORATADINE 10 MG TAB PO SCH (07:45)
[2016-08-07] MEDS: SEVELAMER HYDROCH 800 MG TAB PO SCH ×3 (07:45→17:21)
[2016-08-07] MEDS: FUROSEMIDE 80 MG TAB PO SCH ×2 (07:45→17:21)
[2016-08-07] MEDS: DOCUSATE SODIUM 100 MG CAP PO SCH ×2 (07:45→20:52)
[2016-08-07] MEDS: METOPROLOL SUCC 50MG EXT REL TAB PO SCH ×2 (07:45→20:52)
[2016-08-07] MEDS: NEPHROCAPS PO SCH (07:45)
[2016-08-07] MEDS: CYANOCOBALAMIN 500 MCG TAB (VIT B-12) PO SCH (07:46)
[2016-08-07] MEDS: HYDROmorphone INJ 1 MG/ML SYR IV PRN (07:46)
[2016-08-07] MEDS: IRON SUCROSE INJ 200 MG in SODIUM CHLORIDE 0.9% 100ML 100 ML IV SCH (07:48)
[2016-08-07] MEDS: MAGNESIUM HYDROXIDE SUSP 30 ML UDC PO PRN ×2 (08:45→20:55)
[2016-08-07] MEDS: INSULIN ASPART 100 UNITS/ML 3 ML PEN SC SCH ×4 (08:49→20:51)
[2016-08-07] MEDS: INSULIN GLARGINE SOLOSTAR 100 UNITS/ML 3 ML PEN SC SCH ×2 (08:49→20:55)
--- NOTE | 2016-08-07 10:50 | Nephrology Progress Note ---
Nephrology Progress Note Date of Service Aug 07, 2016. Chief Complaint Follow-up for end-stage renal disease on hemodialysis. Subjective Reginaldo was seen and examined this morning. He still ahs the back pain, but denies SOB, anorexia, nausea. Has been tolerating HD well. BP, electrolytes acceptable. Review of Systems A complete review of systems was performed. Pertinent positives are noted above. All other systems are negative. Vital Signs Last 8 Hrs Date Time Temp Pulse Resp B/P Pulse Ox O2 Delivery O2 Flow Rate FiO2 08/07/16 08:33 Room Air CPAP 08/07/16 07:41 37.2 82 18 149/68 91 Room Air 08/07/16 07:01 79 18 95 Room Air 08/07/16 04:13 94 Nasal Cannula 3.0 08/07/16 04:10 37.5 85 18 167/84 82 Room Air 08/07/16 04:00 Room Air CPAP I & O 24-Hour Column 08/07/16 08:00 Intake Total 440 ml Output Total 900 ml Balance -460 ml Last Recorded Weight Weight (Kilograms): 131.200 Physical Exam GENERAL:elderly male, , AAA x 3, pleasant, healthy-appearing, not in any distress. NECK: Supple, no JVD. RESPIRATORY: Normal breathing efforts, no accessory muscle use, clear to auscultation bilaterally, no wheezes or rales. CARDIOVASCULAR: S1, S2 normal, rate rhythm regular. EXTREMITY: 1+ B/L lower extremity edema NEURO: speech fluent. PSYCHIATRY: Normal mood and judgment Family History Diabetes mellitus Social History Smokeless Tobacco Use: No Alcohol Use: none Drug Use: none Marital Status: Occupation: retired Laboratory Results Past 24 Hours 08/07/16 05:22 08/07/16 05:22 Test 08/06/16 14:38 08/06/16 16:41 08/06/16 20:34 08/07/16 05:22 Bedside Glucose 90 mg/dl (70-99) 129 mg/dl (70-99) 166 mg/dl (70-99) Red Blood Count 3.38 M/uL (4.7-6.1) Mean Corpuscular Volume 82.2 fL (80-100) Mean Corpuscular Hemoglobin 25.7 pg (25-34) Mean Corpuscular Hemoglobin Concent 31.3 g/dl (32-36) RDW Standard Deviation 53.5 fL (36.4-46.3) RDW Coefficient of Variation 17.6 % (11.5-14.5) Mean Platelet Volume 10.7 fL (7.4-10.4) Anion Gap 13.0 mmol/L (3-11) Est Creatinine Clear Calc Drug Dose 17.1 ml/min Estimated GFR () 11.3 Estimated GFR (Non- 9.8 BUN/Creatinine Ratio 8.3 (10-20) Calcium Level 9.2 mg/dl (8.5-10.1) Phosphorus Level 4.0 mg/dl (2.5-4.9) Albumin 2.6 gm/dl (3.4-5.0) Chemistry Specimen Hemolysis Test 08/07/16 06:44 Bedside Glucose 137 mg/dl (70-99) Allergies Coded Allergies: Atorvastatin (Unverified Allergy, Unknown, UNKNOWN, 08/01/16) Gabapentin (Unverified Allergy, Unknown, UNKNOWN, 08/01/16) Pioglitazone (Unverified Allergy, Unknown, UNKNOWN, 08/01/16) Simvastatin (Unverified Allergy, Unknown, UNKNOWN, 08/01/16) Medications Current Inpatient Medications Medications (Trade) Dose Ordered Sig/Elliott Route Start Time Stop Time Status Last Admin Dose Admin Acetaminophen 650 mg 650 mg Q6H PRN PO 08/01/16 19:00 08/31/16 18:59 Promethazine HCl/ Sodium Chloride (Phenergan Inj/ Nss 50ml) 50.5 ml @ 202 mls/hr Q6H PRN IV 08/01/16 19:00 08/31/16 18:59 Ondansetron HCl (Zofran Inj) 4 mg Q6H PRN IV 08/01/16 19:00 08/31/16 18:59 Lorazepam (Ativan Tab) 1 mg Q6H PRN PO 08/01/16 19:00 08/31/16 18:59 08/06/16 22:09 1 MG Oxycodone/ Acetaminophen (Percocet 5-325mg Tab) Moderate to Severe naseem... Q4H PRN PO 08/01/16 19:00 08/15/16 18:59 08/06/16 19:46 2 TAB Acetaminophen/ Hydrocodone Bitart ([place] 5/325 Tab) Moderate to Severe Naseem... Q4H PRN PO 08/01/16 19:00 08/15/16 18:59 08/07/16 07:46 2 TAB Hydromorphone HCl (Dilaudid Inj) 1 mg Q2HWA PRN IV 08/01/16 19:00 08/15/16 18:59 08/07/16 07:46 1 MG Cyanocobalamin (Vitamin B-12 Tab) 1,000 mcg QAM PO 08/02/16 09:00 09/01/16 08:59 08/07/16 07:46 1,000 MCG Docusate Sodium (coLACE CAP) 100 mg BID PO 08/01/16 21:00 08/31/16 20:59 08/07/16 07:45 100 MG Loratadine (Claritin Tab) 10 mg QAM PO 08/02/16 09:00 09/01/16 08:59 08/07/16 07:45 10 MG Metoprolol Succinate (Toprol Xl Tab) 50 mg BID PO 08/01/16 21:00 08/31/16 20:59 08/07/16 07:45 50 MG Albuterol/ Ipratropium (Duoneb) 3 ml QIDR INH 08/01/16 20:00 08/31/16 19:59 08/07/16 07:01 3 ML Insulin Aspart (novoLOG ASPART) SLIDING SCALE G... ACHS SC 08/01/16 21:00 08/31/16 20:59 08/07/16 08:49 7 UNITS Glucose (Glucose 40% Gel) 15-30 GRAMS 15 GRAMS... UD PRN PO 08/01/16 19:45 08/31/16 19:44 Glucose (Glucose Chew Tab) 4-8 Tablets 4 Tabl... UD PRN PO 08/01/16 19:45 08/31/16 19:44 Dextrose (Dextrose 50% 50ML Syringe) 25-50ML OF 50% DW IV FOR... UD PRN IV 08/01/16 19:45 08/31/16 19:44 Glucagon (Glucagon Inj) 1 mg UD PRN SQ 08/01/16 19:45 08/31/16 19:44 Al Hydrox/Mg Hydrox/Simethicone (Maalox Max Susp) 15 ml Q4H PRN PO 08/01/16 20:00 08/31/16 19:59 Magnesium Hydroxide (Milk Of Magnesia Susp) 30 ml Q12H PRN PO 08/01/16 20:00 08/31/16 19:59 08/07/16 08:45 30 ML Polyethylene (Miralax Powder Packet) 17 gm DAILY PRN PO 08/01/16 20:00 08/31/16 19:59 08/06/16 07:26 17 GM Miscellaneous Information (Order Awaiting Action) 1 ea QS N/A 08/02/16 00:00 09/01/16 00:00 Miscellaneous Information (Consult Glycemic Management Pharmacy) 1 ea UD PRN N/A 08/02/16 21:15 09/01/16 21:14 Insulin Glargine (Lantus Solostar Pen) SEE SCALE BID SC 08/03/16 09:00 09/02/16 08:59 08/07/16 08:49 20 UNIT Sevelamer HCl 800 mg 800 mg TIDM PO 08/03/16 11:30 09/02/16 11:29 08/07/16 07:45 800 MG Iron Sucrose/ Sodium Chloride (Venofer Inj/Nss 100ml) 110 ml @ 145 mls/hr DAILY IV 08/04/16 09:00 08/08/16 09:46 08/07/16 07:48 145 MLS/HR Furosemide (Lasix Tab) 80 mg BID17 PO 08/04/16 17:00 09/03/16 16:59 08/07/16 07:45 80 MG Hydralazine HCl (HydrALAZINE INJ) 10 mg Q4 PRN IV. 08/05/16 07:30 09/04/16 07:29 08/05/16 12:31 10 MG Vitamin B Complex/ Vit C/Folic Acid (Nephrocaps) 1 cap QAM PO 08/07/16 09:00 09/06/16 08:59 08/07/16 07:45 1 CAP Impression (1) Chronic kidney disease, stage IV (severe) (2) BARB (acute kidney injury) (3) Hypercalcemia (4) Stenosis, spinal, lumbar (5) Intractable back pain (6) Atrial fibrillation (7) Anemia Mr. Reginaldo Ferro is a 76-year-old male with ESRD associated with hypertension, diabetes and obesity. His teacher hearing impaired is Dr. Ivan Delcid in [place]. He would like to start outpatient HD at [facility] in [place] after discharge. He was started on hemodialysis on Monday ( 08/05/16 ) has been tolerating well. Renal ultrasound showed bilateral atrophic kidneys. Urinalysis documenting proteinuria. Urine microscopy is acellular. Chronic hypercalcemia with hyperparathyroidism noted. Reasonable control with Sensipar at home. Serum calcium improved with hydration and furosemide. Laboratory studies are also notable for acute on chronic anemia. Patient has a longstanding history of iron deficiency anemia. He has been started on Procrit and venofer as an inpatient. SPEP consistent with nonselective protein loss and immunofixation showed multiple indistinct bands suggestive of reactive changes or oligoclonal process. Recommendations -- Had Second dialysis treatment yesterday had ultra filtration 1 L, 3 hours treatment, now clinically stable, BP, volume status, electrolyte stable, next treatment on Monday for 4 hours then continue on intermittent hemodialysis. He will go to renal care in [place] for chronic intermittent hemodialysis --continue Furosemide 80 mg BID to encourage negative fluid balance --Continue sevelamer as phosphate binder, Nephrocaps daily, Venofer 200 mg daily , day 4 of 5 days --Dose medications for GFR less than 10 will follow
--- NOTE | 2016-08-07 12:00 | Pharmacy Progress Note ---
Glycemic Control: Progress Nt Date of Service Aug 07, 2016. Scope Glycemic Pharmacist consulted by Dr Gamble on 08/02/16 for glycemic control and to write orders per [facility] inpatient glycemic control protocol. Objective Accuchecks BSG (last 24hrs): Test 08/06/16 14:38 08/06/16 16:41 08/06/16 20:34 08/07/16 05:22 Bedside Glucose 90 mg/dl (70-99) 129 mg/dl (70-99) 166 mg/dl (70-99) Random Glucose 120 mg/dl (70-99) Test 08/07/16 06:44 08/07/16 11:21 Bedside Glucose 137 mg/dl (70-99) 159 mg/dl (70-99) Laboratory Data (last 24hrs) Test 08/07/16 05:22 Anion Gap 13.0 mmol/L BUN/Creatinine Ratio 8.3 Blood Urea Nitrogen 44 mg/dl Creatinine 5.20 mg/dl Potassium Level 3.8 mmol/L Sodium Level 141 mmol/L White Blood Count 4.89 K/uL HbA1c: Test 08/02/16 05:42 Hemoglobin A1c 6.0 % (4.5-5.6) H Recent Pertinent Medications Outpatient Anti-diabetic Regimen: * NPH 42 units QAM, 78 units HS * Novolog 10 units QAM prn * A1c = 6.0 % 08/02/16 The patient is currently receiving: * Basal insulin: Lantus 20 units SQ BID * Correctional Insulin: Novolog Correction per scale ACHS Goal Range: Low 120 mg/dL - High 160 mg/dL Correction Factor: 20 mg/dL/unit * Nutritional / Prandial insulin per carb ratio of 1 unit per 6 grams CHO consumed Outpatient Anti-diabetic Regimen: * NPH 42 units QAM, 78 units HS * Novolog 10 units QAM prn * A1c = 6.0 % 08/02/16 Risk Factors for Insulin Resistance: * Recent Surgery: POD #2, perm cath placement * Diet: T2DM / renal Risk Factors for Insulin Sensitivity: * Initiation of HD this afternoon Assessment & Plan ASSESSMENT: 08/03/16 * 76 year old type 2 diabetic admitted with back pain * A1c 6% at home, unknown if due to hypoglycemia too, since patient is on NPH as outpatient. * Patient hyperglycemic when pharmacy was consulted last night due to no basal insulin for over 24 hours, will start patient on Lantus. * Patient also without prandial coverage, will add. * ADA & AACE recommend a goal blood sugar range 140-180 mg/dl for the majority of critically ill & non-critically ill patients. However, more stringent targets may be selected in individual cases. For patient's A1c, will use 120- 160mg/dL, but not as low as 100-140mg/dL for patient's age and to prevent hypoglycemia. 08/05/16 * Patient received a total of 77 units of insulin over the past 24 hours * He is NPO this AM for surgery, and I assume diet should advance back to T2DM/ renal this afternoon * Plan for today is to have a PermCath placed and then receive first HD treatment * Given HD is a risk factor for increased insulin sensitivity, I hesitate to make any changes to regimen * Continue current regimen X 24 hours and see how patient tolerates HD/BSGs react 08/07/16 * Blood sugars well controlled over the past 48 hours, no changes needed PLAN FOR INPATIENT GLYCEMIC CONTROL: * Basal insulin with LANTUS SQ BID * BSG < 100 - 0 units * BSG 100-180 - 20 units * BSG > 180 - 30 units * Correctional Insulin with NOVOLOG per scale ACHS or Q6hrs while NPO * Goal Range: Low 120 mg/dL - High 160 mg/dL * Correction Factor: 20 mg/dL/unit * Nutritional / Prandial insulin per carb ratio of 1 unit per 6 grams CHO consumed * Please note that the plan above was derived based on current level of insulin resistance and hospital stress. These recommendations are appropriate for inpatient admission only. Plan of care upon discharge will need to be reassessed to avoid potential outpatient hypo/hyperglycemia. Thank you.
--- NOTE | 2016-08-07 14:06 | Progress Note ---
Subjective Date of Service: Aug 07, 2016. Subjective Pt evaluation today including: conversation w/ patient, physical exam, chart review, lab review, review of studies, review of inpatient medication list Resting in bed comfortably Confused at times but difficult to ascertain with hearing loss No worsening back pain noted Asking "when will they fix my back" Problem List Medical Problems: (1) BARB (acute kidney injury) Status: Acute (2) Hypercalcemia Status: Acute Review of Systems Constitutional: No chills, No fever Respiratory: No cough, No shortness of breath, No sputum, No wheezing Cardiac: No chest pain, No orthopnea Abdomen: No diarrhea, No nausea, No pain, No vomiting Musculoskeletal: No joint pain, No muscle pain Male : No dysuria, No urinary frequency Neurologic: No memory loss, No paralysis, No weakness Objective Vital Signs Date Time Temp Pulse Resp B/P Pulse Ox O2 Delivery O2 Flow Rate FiO2 08/07/16 12:16 Room Air CPAP 08/07/16 11:44 75 18 97 Nasal Cannula 2.0 08/07/16 10:40 36.7 78 18 116/60 94 2.0 08/07/16 08:33 Room Air CPAP 08/07/16 07:41 37.2 82 18 149/68 91 Room Air 08/07/16 07:01 79 18 95 Room Air 08/07/16 04:13 94 Nasal Cannula 3.0 08/07/16 04:10 37.5 85 18 167/84 82 Room Air 08/07/16 04:00 Room Air CPAP 08/07/16 00:00 Room Air CPAP 08/06/16 23:35 36.8 95 24 144/78 94 Room Air 08/06/16 20:00 Room Air CPAP 08/06/16 19:51 36.3 85 29 146/54 98 Room Air 08/06/16 19:19 83 18 98 Room Air 08/06/16 16:42 Room Air CPAP 08/06/16 16:04 77 12 95 Room Air 08/06/16 15:57 36.7 68 20 120/62 96 Room Air 08/06/16 14:29 36.5 66 139/72 Physical Exam General Appearance: WD/WN, + mild distress, + obese Neck: supple, no adenopathy Respiratory/Chest: lungs clear, normal breath sounds Cardiovascular: no gallop, no JVD Abdomen: non tender, soft Neurologic/Psychiatric: alert, normal mood/affect Laboratory Results Last 24 Hours Test 08/06/16 14:38 08/06/16 16:41 08/06/16 20:34 08/07/16 05:22 Bedside Glucose 90 mg/dl 129 mg/dl 166 mg/dl White Blood Count 4.89 K/uL Red Blood Count 3.38 M/uL Hemoglobin 8.7 g/dL Hematocrit 27.8 % Mean Corpuscular Volume 82.2 fL Mean Corpuscular Hemoglobin 25.7 pg Mean Corpuscular Hemoglobin Concent 31.3 g/dl RDW Standard Deviation 53.5 fL RDW Coefficient of Variation 17.6 % Platelet Count 196 K/uL Mean Platelet Volume 10.7 fL Sodium Level 141 mmol/L Potassium Level 3.8 mmol/L Chloride Level 104 mmol/L Carbon Dioxide Level 24 mmol/L Anion Gap 13.0 mmol/L Blood Urea Nitrogen 44 mg/dl Creatinine 5.20 mg/dl Est Creatinine Clear Calc Drug Dose 17.1 ml/min Estimated GFR () 11.3 Estimated GFR (Non- 9.8 BUN/Creatinine Ratio 8.3 Random Glucose 120 mg/dl Calcium Level 9.2 mg/dl Phosphorus Level 4.0 mg/dl Albumin 2.6 gm/dl Chemistry Specimen Hemolysis Test 08/07/16 06:44 08/07/16 11:21 Bedside Glucose 137 mg/dl 159 mg/dl Assessment and Plan Pt is a 76 y/o male with PMHx of Atrial Fibrillation (anticoagulated), HTN, CAMI on night CPAP, T2DM, Chronic Kidney Disease with Secondary Hyperparathyroidism, and Prostate CA who presents to the ED complaining of worsening lower back pain and ambulation difficulty 2 weeks. Back Pain with Ambulatory Dysfunction: - Pain management and PT/OT per primary - Need to stabilize before surgery can be attempted, general surgery has signed off at this time - MRI neg for any metastatic lesions, back will be reevaluated at a later time Possible Bronchitis: - Outpatient CXR (08/01/16) - images and report reviewed - without evidence of consolidation or pleural effusions - Duonebs QID and Q2H PRN T2DM: - HbA1c 6.0 - Hold home insulin regimen - SSI with goal 120-160; correction factor 35 Acute on Chronic Kidney Disease stage 4 with Secondary Hyperparathyroidism: Baseline Unknown - Creatinine 5.5 and Ca 12.1 on admission and worsening with subsequent BMPs - Gentle hydration of NSS at 75 mL/hr discontinued due to worsening edema -- Noted peripheral edema - lasix PO continued - Renal U/S - bilateral atrophy - Sensipar 30 mg daily, EPO started - SPEP consistent with nonselective protein loss and immunofixation showed multiple indistinct bands suggestive of reactive changes or oligoclonal process. -Hepatitis serolgy neg - Consult nephrology - appreciate recommendations, immunofixation ordered - Vascular surgery consulted for TDC placement and dialysis initiated - Calcium level improving HTN - Cont metoprolol and hydralazine PRN Lower Extremity Edema, chronic diastolic CHF - Venous U/S - R/O DVT - unlikely given Eliquis - Echo - * Ejection Fraction = >70 %. * There is moderate concentric left ventricular hypertrophy. * Grade I diastolic dysfunction, (abnormal relaxation pattern). * There is mild mitral regurgitation. Atrial Fibrillation: Unknown Type: Rate Controlled - Serial cardiac enzymes - initial troponin 0.083 likely secondary to kidney function - Metoprolol Succ 50 mg BID - Restart on eliquis as no surgery at this time Anemia multifactorial from CKD, iron and b12 def - Cont EPO, B12 and IV iron tx CAMI on Night CPAP: - Set up CPAP per respiratory DVT Prophylaxis: - AIDA/SCDs - Hold Eliquis - possible resume if no further surgical intervention Disposition: - Patient currently at [facility] due to ambulatory dysfunction but now plans on rehab at [facility] - Of note, patient reports that he has a girlfriend Alicia who he allows to be updated on his current condition -- (Martita) is aware of Alicia however believes this is an old affair.
[2016-08-07] MEDS: POLYETHYLENE (MIRALAX) 17 GM PACK PO PRN (17:21)
[2016-08-07] MEDS: APIXABAN 2.5 MG TAB PO SCH (20:53)
[2016-08-08] VITALS (28 sets, daily range): BP systolic 90–173; BP diastolic 38–100; PULSE 73–85; TEMP 36.6–37.1; O2SAT 93–100
[2016-08-08] MEDS: HYDROCODONE/ACETAMOPHEN 5/325MG TAB PO PRN ×2 (00:08→08:30)
[2016-08-08] MEDS: OXYCODONE/ACETAMINOPHEN 5-325 TAB PO PRN (04:09)
[2016-08-08] MEDS: ALBUT/IPRATROP 3MG/0.5MG NEB 3 ML VIAL INH SCH ×4 (06:58→19:25)
[2016-08-08 07:07] LABS: HEMATOCRIT 27.8 % (42-52); MEAN CELL VOLUME 84.5 fL (80-100); MEAN CORPUSCULAR HEMOGLOBIN 25.8 pg (25-34); MEAN CORPUSCULAR HGB CONC 30.6 g/dl (32-36); MEAN PLATELET VOLUME 8.6 fL (7.4-10.4); PLATELET COUNT 169 K/uL (130-400); RED BLOOD COUNT 3.29 M/uL (4.7-6.1); WHITE BLOOD COUNT 4.34 K/uL (4.8-10.8)
[2016-08-08 07:51] LABS: BUN/CREATININE RATIO 8.3 (10-20); CALCIUM 9.4 mg/dl (8.5-10.1); CREATININE 6.1 mg/dl (0.60-1.40); PHOSPHORUS 5.9 mg/dl (2.5-4.9); POTASSIUM 4.1 mmol/L (3.5-5.1)
[2016-08-08] MEDS: DOCUSATE SODIUM 100 MG CAP PO SCH ×2 (08:23→19:33)
[2016-08-08] MEDS: NEPHROCAPS PO SCH (08:23)
[2016-08-08] MEDS: SEVELAMER HYDROCH 800 MG TAB PO SCH ×3 (08:23→15:41)
[2016-08-08] MEDS: METOPROLOL SUCC 50MG EXT REL TAB PO SCH ×2 (08:23→19:32)
[2016-08-08] MEDS: FUROSEMIDE 80 MG TAB PO SCH ×2 (08:23→15:41)
[2016-08-08] MEDS: LORATADINE 10 MG TAB PO SCH (08:23)
[2016-08-08] MEDS: CYANOCOBALAMIN 500 MCG TAB (VIT B-12) PO SCH (08:23)
[2016-08-08] MEDS: APIXABAN 2.5 MG TAB PO SCH ×2 (08:23→19:32)
[2016-08-08] MEDS: INSULIN ASPART 100 UNITS/ML 3 ML PEN SC SCH ×4 (08:28→19:41)
[2016-08-08] MEDS: INSULIN GLARGINE SOLOSTAR 100 UNITS/ML 3 ML PEN SC SCH ×2 (08:29→20:18)
[2016-08-08] MEDS: MAGNESIUM HYDROXIDE SUSP 30 ML UDC PO PRN (08:30)
[2016-08-08] MEDS: IRON SUCROSE INJ 200 MG in SODIUM CHLORIDE 0.9% 100ML 100 ML IV SCH (08:34)
[2016-08-08] MEDS ORDERED: SOD PHOSPHATE/SOD BIPHOSPHATE ENEMA 132 ML BTL PR PRN (09:00)
--- NOTE | 2016-08-08 09:44 | Dialysis Progress Note ---
Hemodialysis Note Date of Service Aug 08, 2016. Chief Complaint Follow-up for end-stage renal disease on hemodialysis. Subjective Reginaldo was seen and examined during dialysis this morning, has been tolerating dialysis well, vital sign including blood pressure and heart rate normal. Denies any shortness of breath leg cramp. Has been tolerating ultra filtration. This is his 3rd treatment for 4 hours. Review of Systems A complete review of systems was performed. Pertinent positives are noted above. All other systems are negative. Vital Signs Last 8 Hrs Date Time Temp Pulse Resp B/P Pulse Ox O2 Delivery O2 Flow Rate FiO2 08/08/16 07:56 36.7 77 21 165/86 96 Room Air 08/08/16 06:58 74 16 95 BiPAP/CPAP 21 08/08/16 04:00 Room Air CPAP 08/08/16 04:00 36.6 77 17 173/78 98 I & O 24-Hour Column 08/08/16 08:00 Intake Total 240 ml Output Total 650 ml Balance -410 ml Last Recorded Weight Weight (Kilograms): 127.600 Physical Exam GENERAL:elderly male, , AAA x 3, obese, not in any distress. NECK: Supple, no JVD. RESPIRATORY: Normal breathing efforts, no accessory muscle use, clear to auscultation bilaterally, no wheezes or rales. CARDIOVASCULAR: S1, S2 normal, rate rhythm regular. EXTREMITY: 1+ B/L lower extremity edema NEURO: speech fluent. PSYCHIATRY: Normal mood and judgment Social History Smokeless Tobacco Use: No Alcohol Use: none Drug Use: none Marital Status: Occupation: retired Laboratory Results Past 24 Hours 08/08/16 06:54 08/08/16 06:45 Test 08/07/16 11:21 08/07/16 16:01 08/07/16 20:15 08/08/16 06:27 Bedside Glucose 159 mg/dl (70-99) 123 mg/dl (70-99) 142 mg/dl (70-99) 111 mg/dl (70-99) Test 08/08/16 06:45 08/08/16 06:54 Anion Gap 8.0 mmol/L (3-11) Est Creatinine Clear Calc Drug Dose 14.4 ml/min Estimated GFR () 9.3 Estimated GFR (Non- 8.1 BUN/Creatinine Ratio 8.3 (10-20) Calcium Level 9.4 mg/dl (8.5-10.1) Phosphorus Level 5.9 mg/dl (2.5-4.9) Albumin 2.6 gm/dl (3.4-5.0) Red Blood Count 3.29 M/uL (4.7-6.1) Mean Corpuscular Volume 84.5 fL (80-100) Mean Corpuscular Hemoglobin 25.8 pg (25-34) Mean Corpuscular Hemoglobin Concent 30.6 g/dl (32-36) RDW Standard Deviation 55.8 fL (36.4-46.3) RDW Coefficient of Variation 17.8 % (11.5-14.5) Mean Platelet Volume 8.6 fL (7.4-10.4) Allergies Coded Allergies: Atorvastatin (Unverified Allergy, Unknown, UNKNOWN, 08/01/16) Gabapentin (Unverified Allergy, Unknown, UNKNOWN, 08/01/16) Pioglitazone (Unverified Allergy, Unknown, UNKNOWN, 08/01/16) Simvastatin (Unverified Allergy, Unknown, UNKNOWN, 08/01/16) Medications Current Inpatient Medications Medications (Trade) Dose Ordered Sig/Elliott Route Start Time Stop Time Status Last Admin Dose Admin Acetaminophen 650 mg 650 mg Q6H PRN PO 08/01/16 19:00 08/31/16 18:59 Promethazine HCl/ Sodium Chloride (Phenergan Inj/ Nss 50ml) 50.5 ml @ 202 mls/hr Q6H PRN IV 08/01/16 19:00 08/31/16 18:59 Ondansetron HCl (Zofran Inj) 4 mg Q6H PRN IV 08/01/16 19:00 08/31/16 18:59 Lorazepam (Ativan Tab) 1 mg Q6H PRN PO 08/01/16 19:00 08/31/16 18:59 08/06/16 22:09 1 MG Cyanocobalamin (Vitamin B-12 Tab) 1,000 mcg QAM PO 08/02/16 09:00 09/01/16 08:59 08/08/16 08:23 1,000 MCG Docusate Sodium (coLACE CAP) 100 mg BID PO 08/01/16 21:00 08/31/16 20:59 08/08/16 08:23 100 MG Loratadine (Claritin Tab) 10 mg QAM PO 08/02/16 09:00 09/01/16 08:59 08/08/16 08:23 10 MG Metoprolol Succinate (Toprol Xl Tab) 50 mg BID PO 08/01/16 21:00 08/31/16 20:59 08/08/16 08:23 50 MG Albuterol/ Ipratropium (Duoneb) 3 ml QIDR INH 08/01/16 20:00 08/31/16 19:59 08/08/16 06:58 3 ML Insulin Aspart (novoLOG ASPART) SLIDING SCALE G... ACHS SC 08/01/16 21:00 08/31/16 20:59 08/08/16 08:28 6 UNITS Glucose (Glucose 40% Gel) 15-30 GRAMS 15 GRAMS... UD PRN PO 08/01/16 19:45 08/31/16 19:44 Glucose (Glucose Chew Tab) 4-8 Tablets 4 Tabl... UD PRN PO 08/01/16 19:45 08/31/16 19:44 Dextrose (Dextrose 50% 50ML Syringe) 25-50ML OF 50% DW IV FOR... UD PRN IV 08/01/16 19:45 08/31/16 19:44 Glucagon (Glucagon Inj) 1 mg UD PRN SQ 08/01/16 19:45 08/31/16 19:44 Al Hydrox/Mg Hydrox/Simethicone (Maalox Max Susp) 15 ml Q4H PRN PO 08/01/16 20:00 08/31/16 19:59 Magnesium Hydroxide (Milk Of Magnesia Susp) 30 ml Q12H PRN PO 08/01/16 20:00 08/31/16 19:59 08/08/16 08:30 30 ML Polyethylene (Miralax Powder Packet) 17 gm DAILY PRN PO 08/01/16 20:00 08/31/16 19:59 08/07/16 17:21 17 GM Miscellaneous Information (Order Awaiting Action) 1 ea QS N/A 08/02/16 00:00 09/01/16 00:00 Miscellaneous Information (Consult Glycemic Management Pharmacy) 1 ea UD PRN N/A 08/02/16 21:15 09/01/16 21:14 Insulin Glargine (Lantus Solostar Pen) SEE SCALE BID SC 08/03/16 09:00 09/02/16 08:59 08/08/16 08:29 20 UNIT Sevelamer HCl 800 mg 800 mg TIDM PO 08/03/16 11:30 09/02/16 11:29 08/08/16 08:23 800 MG Iron Sucrose/ Sodium Chloride (Venofer Inj/Nss 100ml) 110 ml @ 145 mls/hr DAILY IV 08/04/16 09:00 08/08/16 09:46 08/08/16 08:34 145 MLS/HR Furosemide (Lasix Tab) 80 mg BID17 PO 08/04/16 17:00 09/03/16 16:59 08/08/16 08:23 80 MG Hydralazine HCl (HydrALAZINE INJ) 10 mg Q4 PRN IV. 08/05/16 07:30 09/04/16 07:29 08/05/16 12:31 10 MG Vitamin B Complex/ Vit C/Folic Acid (Nephrocaps) 1 cap QAM PO 08/07/16 09:00 09/06/16 08:59 08/08/16 08:23 1 CAP Apixaban (Eliquis Tab) 5 mg BID PO 08/07/16 21:00 09/06/16 20:59 08/08/16 08:23 5 MG Hydralazine HCl (Apresoline Tab) 10 mg Q8 PO 08/08/16 14:00 09/07/16 13:59 Acetaminophen/ Hydrocodone Bitart ([place] 5/325 Tab) 1 tab Q4H PRN PO 08/08/16 11:00 08/22/16 10:59 UNV Acetaminophen/ Hydrocodone Bitart ([place] 10/325 Tab) 1 tab Q6 PRN PO 08/08/16 08:45 08/22/16 08:44 UNV Sodium Biphosphate/ Sodium Phosphate (Fleet Enema) 132 ml NOW STAT OK 08/08/16 08:46 08/08/16 08:47 UNV Sodium Biphosphate/ Sodium Phosphate (Fleet Enema) 132 ml DAILY PRN OK 08/08/16 09:00 09/07/16 08:59 UNV Impression (1) Chronic kidney disease, stage IV (severe) (2) BARB (acute kidney injury) (3) Hypercalcemia (4) Stenosis, spinal, lumbar (5) Intractable back pain (6) Atrial fibrillation (7) Anemia Mr. Reginaldo Ferro is a 76-year-old male with ESRD associated with hypertension, diabetes and obesity. His human resources coordinator is Dr. Ivan Delcid in [place]. He would like to start outpatient HD at [facility] in [place] after discharge. He was started on hemodialysis on Monday ( 08/05/16 ) has been tolerating well. Renal ultrasound showed bilateral atrophic kidneys. Urinalysis documenting proteinuria. Urine microscopy is acellular. Chronic hypercalcemia with hyperparathyroidism noted. Reasonable control with Sensipar at home. Serum calcium improved with hydration and furosemide. Laboratory studies are also notable for acute on chronic anemia. Patient has a longstanding history of iron deficiency anemia. He has been started on Procrit and venofer as an inpatient. SPEP consistent with nonselective protein loss and immunofixation showed multiple indistinct bands suggestive of reactive changes or oligoclonal process. Recommendations -- 3rd dialysis treatment, tolerating well, BP stable. Stable to be discharged from renal stand point, will continue on IHD inpatient or at [facility] if discharged. He will go to renal care in [place] for chronic intermittent hemodialysis --continue Furosemide 80 mg BID to encourage negative fluid balance --Continue sevelamer as phosphate binder, Nephrocaps daily, Venofer 200 mg daily , day 4 of 5 days --Dose medications for GFR less than 10 will follow
--- NOTE | 2016-08-08 09:45 | Progress Note ---
Subjective Date of Service: Aug 08, 2016. Subjective Pt evaluation today including: conversation w/ patient, physical exam, chart review, lab review, review of studies, review of inpatient medication list Voiding: maradiaga catheter in place Looks much better, complaining above lower back pain, no bowel movement for several days, still on Maradiaga catheter, reported eating okay, no fever and chill Problem List Medical Problems: (1) BARB (acute kidney injury) Status: Acute (2) Hypercalcemia Status: Acute Review of Systems Constitutional: No chills, No fatigue, No fever, No problem reported, No sweats , No weakness, No weight loss Eyes: No diplopia, No discharge, No eye pain, No redness, No worsening of vision ENT: No dental problems, No hearing loss, No nasal symptoms, No sore throat, No tinnitus, No trouble swallowing, No unusual epistaxis Respiratory: No cough, No dyspnea at rest, No dyspnea on exertion, No hemoptysis, No shortness of breath, No sputum, No wheezing Cardiac: No PND, No chest pain, No claudication, No edema, No orthopnea, No palpitations Abdomen: + constipation, No diarrhea, No nausea, No pain, No vomiting Musculoskeletal: + joint pain (no more back pain), No calf pain, No muscle pain , No swelling Male : No dysuria, No hematuria, No incontinence, No nocturia more than once/ night, No slowing stream, No urinary frequency Neurologic: No balance problems, No memory loss, No numbness/tingling, No paralysis, No vertigo, No weakness Psychiatric: No anhedonism, No anxiety, No depression symptoms, No insomnia, No substance abuse Heme: No abnormal bleeding/bruising, No clotting problems, No night sweats, No swollen lymph nodes Endo: No excessive thirst, No excessive urination, No fatigue Skin: No bleeding, No color change, No itch, No new/changing skin lesions, No rash Objective Vital Signs Date Time Temp Pulse Resp B/P Pulse Ox O2 Delivery O2 Flow Rate FiO2 08/08/16 08:01 Room Air CPAP 08/08/16 07:56 36.7 77 21 165/86 96 Room Air 08/08/16 06:58 74 16 95 BiPAP/CPAP 21 08/08/16 04:00 Room Air CPAP 08/08/16 04:00 36.6 77 17 173/78 98 08/08/16 00:00 36.6 79 17 169/74 93 CPAP 08/08/16 00:00 Room Air CPAP 08/07/16 20:00 Room Air CPAP 08/07/16 19:28 36.8 71 10 155/81 100 CPAP 08/07/16 19:13 74 18 90 Room Air 08/07/16 16:04 Room Air CPAP 08/07/16 15:00 36.6 72 13 184/80 93 CPAP 08/07/16 14:22 75 18 95 Room Air 08/07/16 12:16 Room Air CPAP 08/07/16 11:44 75 18 97 Nasal Cannula 2.0 08/07/16 10:40 36.7 78 18 116/60 94 2.0 Physical Exam General Appearance: WD/WN, no apparent distress, + obese Eyes: normal inspection, PERRL, EOMI, sclerae normal ENT: normal ENT inspection, hearing grossly normal, pharynx normal Neck: supple, no adenopathy, thyroid normal, no JVD, no carotid bruits, trachea midline Respiratory/Chest: chest non-tender, normal breath sounds, no respiratory distress, no accessory muscle use, + decreased breath sounds Cardiovascular: regular rate, rhythm, no edema, no gallop, no JVD, no murmur Abdomen: normal bowel sounds, soft, no organomegaly, no pulsatile mass, + distended Extremities: normal range of motion, non-tender, normal inspection, no pedal edema, no calf tenderness, normal capillary refill, pelvis stable, + swelling (1 +) Neurologic/Psychiatric: barrel drum cutter II-XII nml as tested, no motor/sensory deficits, alert, normal mood/affect, oriented x 3 Skin: normal color, warm/dry, no rash Lymphatic: no adenopathy Laboratory Results Last 24 Hours Test 08/07/16 11:21 08/07/16 16:01 08/07/16 20:15 08/08/16 06:27 Bedside Glucose 159 mg/dl 123 mg/dl 142 mg/dl 111 mg/dl Test 08/08/16 06:45 08/08/16 06:54 Sodium Level 142 mmol/L Potassium Level 4.1 mmol/L Chloride Level 106 mmol/L Carbon Dioxide Level 28 mmol/L Anion Gap 8.0 mmol/L Blood Urea Nitrogen 51 mg/dl Creatinine 6.10 mg/dl Est Creatinine Clear Calc Drug Dose 14.4 ml/min Estimated GFR () 9.3 Estimated GFR (Non- 8.1 BUN/Creatinine Ratio 8.3 Random Glucose 113 mg/dl Calcium Level 9.4 mg/dl Phosphorus Level 5.9 mg/dl Albumin 2.6 gm/dl White Blood Count 4.34 K/uL Red Blood Count 3.29 M/uL Hemoglobin 8.5 g/dL Hematocrit 27.8 % Mean Corpuscular Volume 84.5 fL Mean Corpuscular Hemoglobin 25.8 pg Mean Corpuscular Hemoglobin Concent 30.6 g/dl RDW Standard Deviation 55.8 fL RDW Coefficient of Variation 17.8 % Platelet Count 169 K/uL Mean Platelet Volume 8.6 fL Assessment and Plan Pt is a 76 y/o male with PMHx of Atrial Fibrillation (anticoagulated), HTN, CAIM on night CPAP, T2DM, Chronic Kidney Disease with Secondary Hyperparathyroidism, and Prostate CA who presents to the ED complaining of worsening lower back pain and ambulation difficulty 2 weeks on 08/01/2016 Back Pain with Ambulatory Dysfunction: - Pain management and PT/OT per primary - Need to stabilize before surgery can be attempted, orthopedics surgeon who is Dr. Pena has signed off at this time, Dr. Pena recommend may be discharged to a rehab type facility. The patient is a longstanding patient of Dr. Librado Juarez and Dr. Juarez will probably see him early this coming week and he will get his opinion. Dr. Pena not advise any acute surgical intervention for now. - MRI neg for any metastatic lesions, back will be reevaluated at a later time Possible Bronchitis: - Outpatient CXR (08/01/16) - images and report reviewed - without evidence of consolidation or pleural effusions - Duonebs QID and Q2H PRN T2DM: - HbA1c 6.0 - Hold home insulin regimen - SSI with goal 120-160; correction factor 35 Acute on Chronic Kidney Disease stage 4 with Secondary Hyperparathyroidism: Baseline Unknown Creatinine 5.5 and Ca 12.1 on admission and worsening with subsequent BMPs Gentle hydration of NSS at 75 mL/hr discontinued due to worsening edema Noted peripheral edema - lasix PO continued - Renal U/S - bilateral atrophy - Sensipar 30 mg daily, EPO started - SPEP consistent with nonselective protein loss and immunofixation showed multiple indistinct bands suggestive of reactive changes or oligoclonal process. -Hepatitis serolgy neg -Caponizer on the case, appreciate recommendations, immunofixation ordered - Vascular surgery consulted for TDC placement and dialysis, we'll continue dialysis today - Calcium level improving - We'll discuss renal to DC Maradiaga catheter HTN, uncontrolled, I added hydralazine by mouth scheduled - Cont metoprolol , hydralazine scheduled and hydralazine PRN Lower Extremity Edema, chronic diastolic CHF, stable Venous U/S - R/O DVT - unlikely given Eliquis Echo - * Ejection Fraction = >70 %. * There is moderate concentric left ventricular hypertrophy. * Grade I diastolic dysfunction, (abnormal relaxation pattern). * There is mild mitral regurgitation. Atrial Fibrillation: Unknown Type: Rate Controlled - Serial cardiac enzymes - initial troponin 0.083 likely secondary to kidney function - Metoprolol Succ 50 mg BID - Restart on eliquis as no surgery at this time, which is the renal dose per recommendation which is 5 mg by mouth twice a day Anemia multifactorial from CKD, iron and b12 def - Cont EPO, B12 and IV iron tx CAMI on Night CPAP: - Set up CPAP per respiratory DVT Prophylaxis: - AIDA/SCDs - Eliquis Disposition: - Patient currently at [facility] due to ambulatory dysfunction but now plans on rehab at [facility] - Of note, patient reports that he has a girlfriend Alicia who he allows to be updated on his current condition -- (Martita) is aware of Alicia however believes this is an old affair. Continued [facility] stay due to: home environment unsafe for pt Discharge planning: rehab hospital
[2016-08-08] MEDS ORDERED: SOD PHOSPHATE/SOD BIPHOSPHATE ENEMA 132 ML BTL PR SCH (12:00)
[2016-08-08] MEDS: HYDROCODONE/ACETAMI 10/325 TAB PO PRN ×2 (13:47→19:35)
[2016-08-08] MEDS: HydrALAZINE 10 MG TAB PO SCH ×2 (13:48→19:31)
--- NOTE | 2016-08-08 15:46 | Pharmacy Progress Note ---
Glycemic: Assessment & Plan Date of Service Aug 08, 2016. Assessment & Plan The patient received 55 units of insulin on 08/06, 47 units on 08/07. BSGs ranging 95-142 mg/dl over the past 24hrs. Hemodialysis today. Variable po intake. BSG's still trending down, and most of insulin has been Lantus. Will decrease Lantus and expect the Novolog to make up the rest. * Basal insulin: Lantus per protocol every 12 hours if BSG is less than 100, hold Lantus 100-180, give 12 units over 180, give 18 units * Correctional Insulin: Novolog Correction per scale ACHS Goal Range: Low 120 mg/dL - High 160 mg/dL Correction Factor: 20 mg/dL/unit * Prandial insulin: Per carb ratio of 1 unit per 6 grams CHO consumed BSGs continue to improve, no other changes needed to inpatient regimen at this time. Pharmacy will continue to monitor patient daily and write orders per [facility] inpatient glycemic control protocol. Thanks. * Please note that the plan above was derived based on current level of insulin resistance and hospital stress. These recommendations are appropriate for inpatient admission only. Plan of care upon discharge will need to be reassessed to avoid potential outpatient hypo/hyperglycemia.
[2016-08-08 21:51] LABS: INR 1.5 (0.9-1.1); PROTHROMBIN TIME (PATIENT) 15.9 SECONDS (9.0-12.0)
[2016-08-09] VITALS (12 sets, daily range): BP systolic 126–184; BP diastolic 65–83; PULSE 68–80; TEMP 36.3–37; O2SAT 93–99
[2016-08-09] MEDS: HYDROCODONE/ACETAMI 10/325 TAB PO PRN (05:38)
[2016-08-09] MEDS: HydrALAZINE 10 MG TAB PO SCH ×3 (05:38→21:56)
[2016-08-09] MEDS: ALBUT/IPRATROP 3MG/0.5MG NEB 3 ML VIAL INH SCH (07:00)
[2016-08-09] MEDS: LORATADINE 10 MG TAB PO SCH (07:55)
[2016-08-09] MEDS: APIXABAN 2.5 MG TAB PO SCH ×2 (07:55→19:10)
[2016-08-09] MEDS: SEVELAMER HYDROCH 800 MG TAB PO SCH ×3 (07:55→17:22)
[2016-08-09] MEDS: CYANOCOBALAMIN 500 MCG TAB (VIT B-12) PO SCH (07:56)
[2016-08-09] MEDS: DOCUSATE SODIUM 100 MG CAP PO SCH ×2 (07:56→19:09)
[2016-08-09] MEDS: FUROSEMIDE 80 MG TAB PO SCH ×2 (07:56→17:22)
[2016-08-09] MEDS: NEPHROCAPS PO SCH (07:56)
[2016-08-09] MEDS: METOPROLOL SUCC 50MG EXT REL TAB PO SCH ×2 (07:57→19:10)
[2016-08-09] MEDS: INSULIN ASPART 100 UNITS/ML 3 ML PEN SC SCH ×4 (08:06→19:17)
[2016-08-09] MEDS: INSULIN GLARGINE SOLOSTAR 100 UNITS/ML 3 ML PEN SC SCH ×2 (08:08→19:16)
[2016-08-09] MEDS: ACETAMINOPHEN 325 MG TAB PO PRN (08:41)
[2016-08-09] MEDS: HYDROCODONE/ACETAMOPHEN 5/325MG TAB PO PRN ×2 (09:46→19:11)
--- NOTE | 2016-08-09 10:27 | Progress Note ---
Subjective Date of Service: Aug 09, 2016. Subjective Pt evaluation today including: conversation w/ patient, physical exam, chart review, lab review, review of studies, conversation w/ hematology oncology consultant, review of inpatient medication list Complain about a lot of lower back pain, request frequent pain medication, however when walking to the room he was not really in pain, report has several bowel movement yesterday, he was declining to have free in edema Eating drinking okay, Jean catheter in place Problem List Medical Problems: (1) BARB (acute kidney injury) Status: Acute (2) Hypercalcemia Status: Acute Review of Systems Constitutional: + fatigue, No chills, No fever, No problem reported, No sweats , No weakness, No weight loss Eyes: No diplopia, No discharge, No eye pain, No redness, No worsening of vision ENT: + hearing loss (is not new), No dental problems, No nasal symptoms, No sore throat, No tinnitus, No trouble swallowing, No unusual epistaxis Respiratory: No cough, No dyspnea at rest, No dyspnea on exertion, No hemoptysis, No shortness of breath, No sputum, No wheezing Cardiac: No PND, No chest pain, No claudication, No edema, No orthopnea, No palpitations Abdomen: No constipation, No diarrhea, No nausea, No pain, No vomiting Musculoskeletal: + joint pain, No calf pain, No muscle pain, No swelling Male : No dysuria, No hematuria, No incontinence, No nocturia more than once/ night, No slowing stream, No urinary frequency Neurologic: No balance problems, No memory loss, No numbness/tingling, No paralysis, No vertigo, No weakness Psychiatric: No anhedonism, No anxiety, No depression symptoms, No insomnia, No substance abuse Heme: No abnormal bleeding/bruising, No clotting problems, No night sweats, No swollen lymph nodes Endo: No excessive thirst, No excessive urination, No fatigue Skin: No bleeding, No color change, No itch, No new/changing skin lesions, No rash Objective Vital Signs Date Time Temp Pulse Resp B/P Pulse Ox O2 Delivery O2 Flow Rate FiO2 08/09/16 07:47 36.6 75 18 142/65 93 Room Air 08/09/16 07:00 76 18 95 Room Air 08/09/16 04:16 37.0 75 18 126/80 95 CPAP 08/09/16 04:00 Room Air 08/09/16 00:24 36.5 77 17 132/67 93 CPAP 08/09/16 00:01 Room Air 08/08/16 20:00 Room Air CPAP 08/08/16 19:31 83 18 100 Nasal Cannula 4.0 08/08/16 19:00 36.8 84 22 127/63 97 Nasal Cannula 4.0 08/08/16 16:00 Room Air CPAP 08/08/16 15:11 83 08/08/16 15:06 76 16 98 Room Air 08/08/16 15:00 36.8 78 20 102/62 98 Room Air 08/08/16 13:30 37.1 78 115/64 08/08/16 13:15 76 92/47 08/08/16 13:00 73 93/68 08/08/16 12:59 Room Air CPAP 08/08/16 12:45 73 95/59 08/08/16 12:30 79 102/38 08/08/16 12:15 78 123/69 08/08/16 12:00 74 104/64 08/08/16 11:45 77 101/67 08/08/16 11:30 80 106/68 08/08/16 11:15 80 109/74 08/08/16 11:00 76 107/57 08/08/16 10:45 80 112/69 08/08/16 10:30 76 114/75 08/08/16 10:15 85 90/57 Physical Exam General Appearance: WD/WN, no apparent distress, + obese Eyes: normal inspection, PERRL, EOMI, sclerae normal ENT: normal ENT inspection, hearing grossly normal, pharynx normal Neck: supple, no adenopathy, thyroid normal, no JVD, no carotid bruits, trachea midline Respiratory/Chest: chest non-tender, normal breath sounds, no respiratory distress, no accessory muscle use, + decreased breath sounds Cardiovascular: regular rate, rhythm, no edema, no gallop, no JVD, no murmur Abdomen: normal bowel sounds, non tender, soft, no organomegaly, no pulsatile mass Extremities: normal range of motion, non-tender, normal inspection, no pedal edema, no calf tenderness, normal capillary refill, pelvis stable Neurologic/Psychiatric: nail galvanizer II-XII nml as tested, no motor/sensory deficits, alert, normal mood/affect, oriented x 3 Skin: normal color, warm/dry, no rash Lymphatic: no adenopathy Laboratory Results Last 24 Hours Test 08/08/16 13:53 08/08/16 15:44 08/08/16 19:41 08/08/16 21:23 Bedside Glucose 95 mg/dl 101 mg/dl 106 mg/dl Prothrombin Time 15.9 SECONDS Prothromb Time International Ratio 1.5 Test 08/09/16 06:35 Bedside Glucose 170 mg/dl Assessment and Plan Pt is a 76 y/o male with PMHx of Atrial Fibrillation (anticoagulated), HTN, CAMI on night CPAP, T2DM, Chronic Kidney Disease with Secondary Hyperparathyroidism, and Prostate CA who presents to the ED complaining of worsening lower back pain and ambulation difficulty 2 weeks on 08/01/2016 Back Pain with Ambulatory Dysfunction: Stable, possible improving - Pain management and PT/OT - Need to stabilize before surgery can be attempted, orthopedics surgeon who is Dr. Pena has signed off at this time, Dr. Pena recommend may be discharged to a rehab type facility. The patient is a longstanding patient of Dr. Librado Pena not advise any acute surgical intervention for now. Patient requests to seei Dr. Juarez to define their further care plan including surgery option before discharge, I feel this is a good idea, therefore request nurse to call to Dr. Chirinos to see patient - MRI neg for any metastatic lesions, back will be reevaluated at a later time Possible Bronchitis: Stable and improving - Outpatient CXR (08/01/16) - images and report reviewed - without evidence of consolidation or pleural effusions - Was on Duonebs QID and Q2H PRN, changed to as needed T2DM: Stable - HbA1c 6.0 - Hold home insulin regimen - SSI with goal 120-160; correction factor 35 Acute on Chronic Kidney Disease stage 4 with Secondary Hyperparathyroidism: Baseline Unknown, stable Creatinine 5.5 and Ca 12.1 on admission and worsening with subsequent BMPs Was on Gentle hydration of NSS at 75 mL/hr discontinued due to worsening edema - Renal U/S - bilateral atrophy - Sensipar 30 mg daily, EPO started - SPEP consistent with nonselective protein loss and immunofixation showed multiple indistinct bands suggestive of reactive changes or oligoclonal process. -Hepatitis serolgy neg -Teletypesetter Monitor on the case, appreciate recommendations, immunofixation ordered - Vascular surgery consulted for TDC placement and dialysis, we'll continue dialysis today - Calcium level improving - DC Jean catheter - Per renal plan to continue on IHD inpatient or at [facility] if discharged. He will go to [facility] in [place] for chronic intermittent hemodialysis --continue Furosemide 80 mg BID to encourage negative fluid balance --Continue sevelamer as phosphate binder, Nephrocaps daily, Venofer 200 mg daily , day 5 of 5 days --Dose medications for GFR less than 10 HTN, was uncontrolled better after hydralazine by mouth scheduled - Cont metoprolol , hydralazine scheduled and hydralazine PRN Lower Extremity Edema, chronic diastolic CHF, stable Venous U/S - R/O DVT - unlikely given Eliquis Echo - * Ejection Fraction = >70 %. * There is moderate concentric left ventricular hypertrophy. * Grade I diastolic dysfunction, (abnormal relaxation pattern). * There is mild mitral regurgitation. Atrial Fibrillation: Unknown Type: Rate Controlled - Serial cardiac enzymes - initial troponin 0.083 likely secondary to kidney function - Metoprolol Succ 50 mg BID -Continue eliquis as no surgery at this time, which is the renal dose per recommendation which is 5 mg by mouth twice a day Anemia multifactorial from CKD, iron and b12 def - Cont EPO, B12 and IV iron tx CAMI on Night CPAP: - Set up CPAP per respiratory DVT Prophylaxis: - AIDA/SCDs - Eliquis Disposition: - Patient was at [facility] due to ambulatory dysfunction but now plans on rehab at [facility] - Of note, patient reports that he has a girlfriend Alicia who he allows to be updated on his current condition -- (Martita) is aware of Alicia however believes this is an old affair. - MedSurg, medically ready to discharge tomorrow Continued [facility] stay due to: home environment unsafe for pt Discharge planning: rehab hospital
--- NOTE | 2016-08-09 11:11 | Nephrology Progress Note ---
Nephrology Progress Note Date of Service Aug 09, 2016. Chief Complaint Follow-up for end-stage renal disease on hemodialysis. Subjective Reginaldo was seen and examined this morning. His main complaint is the back pain and wondering when he can have the surgery. Denies SOB, anorexia, nausea. Has been tolerating HD well. BP, electrolytes acceptable. Review of Systems A complete review of systems was performed. Pertinent positives are noted above. All other systems are negative. Vital Signs Last 8 Hrs Date Time Temp Pulse Resp B/P Pulse Ox O2 Delivery O2 Flow Rate FiO2 08/09/16 08:00 93 Room Air 08/09/16 07:47 36.6 75 18 142/65 93 Room Air 08/09/16 07:00 76 18 95 Room Air 08/09/16 04:16 37.0 75 18 126/80 95 CPAP 08/09/16 04:00 Room Air I & O 24-Hour Column 08/09/16 08:00 Intake Total 600 ml Output Total 2675 ml Balance -2075 ml Last Recorded Weight Weight (Kilograms): 124.900 Physical Exam GENERAL:elderly male, obese, AAA x 3, pleasant, healthy-appearing, not in any distress. NECK: Supple, no JVD. RESPIRATORY: Normal breathing efforts, no accessory muscle use, clear to auscultation bilaterally, no wheezes or rales. CARDIOVASCULAR: S1, S2 normal, rate rhythm regular. EXTREMITY: 1+ B/L lower extremity edema NEURO: speech fluent. PSYCHIATRY: Normal mood and judgment Family History Diabetes mellitus Social History Smokeless Tobacco Use: No Alcohol Use: none Drug Use: none Marital Status: Occupation: retired Laboratory Results Past 24 Hours Test 08/08/16 13:53 08/08/16 15:44 08/08/16 19:41 08/08/16 21:23 Bedside Glucose 95 mg/dl (70-99) 101 mg/dl (70-99) 106 mg/dl (70-99) Prothrombin Time 15.9 SECONDS (9.0-12.0) Prothromb Time International Ratio 1.5 (0.9-1.1) Test 08/09/16 06:35 Bedside Glucose 170 mg/dl (70-99) Allergies Coded Allergies: Atorvastatin (Unverified Allergy, Unknown, UNKNOWN, 08/01/16) Gabapentin (Unverified Allergy, Unknown, UNKNOWN, 08/01/16) Pioglitazone (Unverified Allergy, Unknown, UNKNOWN, 08/01/16) Simvastatin (Unverified Allergy, Unknown, UNKNOWN, 08/01/16) Medications Current Inpatient Medications Medications (Trade) Dose Ordered Sig/Elliott Route Start Time Stop Time Status Last Admin Dose Admin Acetaminophen 650 mg 650 mg Q6H PRN PO 08/01/16 19:00 08/31/16 18:59 08/09/16 08:41 650 MG Promethazine HCl/ Sodium Chloride (Phenergan Inj/ Nss 50ml) 50.5 ml @ 202 mls/hr Q6H PRN IV 08/01/16 19:00 08/31/16 18:59 Ondansetron HCl (Zofran Inj) 4 mg Q6H PRN IV 08/01/16 19:00 08/31/16 18:59 Lorazepam (Ativan Tab) 1 mg Q6H PRN PO 08/01/16 19:00 08/31/16 18:59 08/06/16 22:09 1 MG Cyanocobalamin (Vitamin B-12 Tab) 1,000 mcg QAM PO 08/02/16 09:00 09/01/16 08:59 08/09/16 07:56 1,000 MCG Docusate Sodium (coLACE CAP) 100 mg BID PO 08/01/16 21:00 08/31/16 20:59 08/09/16 07:56 100 MG Loratadine (Claritin Tab) 10 mg QAM PO 08/02/16 09:00 09/01/16 08:59 08/09/16 07:55 10 MG Metoprolol Succinate (Toprol Xl Tab) 50 mg BID PO 08/01/16 21:00 08/31/16 20:59 08/09/16 07:57 50 MG Albuterol/ Ipratropium (Duoneb) 3 ml QIDR INH 08/01/16 20:00 08/31/16 19:59 08/09/16 07:00 3 ML Insulin Aspart (novoLOG ASPART) SLIDING SCALE G... ACHS SC 08/01/16 21:00 08/31/16 20:59 08/09/16 08:06 12 UNITS Glucose (Glucose 40% Gel) 15-30 GRAMS 15 GRAMS... UD PRN PO 08/01/16 19:45 4/5/17 19:44 Glucose (Glucose Chew Tab) 4-8 Tablets 4 Tabl... UD PRN PO 08/01/16 19:45 08/31/16 19:44 Dextrose (Dextrose 50% 50ML Syringe) 25-50ML OF 50% DW IV FOR... UD PRN IV 08/01/16 19:45 08/31/16 19:44 Glucagon (Glucagon Inj) 1 mg UD PRN SQ 08/01/16 19:45 08/31/16 19:44 Al Hydrox/Mg Hydrox/Simethicone (Maalox Max Susp) 15 ml Q4H PRN PO 08/01/16 20:00 08/31/16 19:59 Magnesium Hydroxide (Milk Of Magnesia Susp) 30 ml Q12H PRN PO 08/01/16 20:00 08/31/16 19:59 08/08/16 08:30 30 ML Polyethylene (Miralax Powder Packet) 17 gm DAILY PRN PO 08/01/16 20:00 08/31/16 19:59 08/07/16 17:21 17 GM Miscellaneous Information (Order Awaiting Action) 1 ea QS N/A 08/02/16 00:00 09/01/16 00:00 Miscellaneous Information (Consult Glycemic Management Pharmacy) 1 ea UD PRN N/A 08/02/16 21:15 09/01/16 21:14 Insulin Glargine (Lantus Solostar Pen) SEE SCALE BID SC 08/03/16 09:00 09/02/16 08:59 08/09/16 08:08 12 UNIT Sevelamer HCl (Renagel Tab) 800 mg TIDM PO 08/03/16 11:30 09/02/16 11:29 08/09/16 07:55 800 MG Furosemide (Lasix Tab) 80 mg BID17 PO 08/04/16 17:00 09/03/16 16:59 08/09/16 07:56 80 MG Hydralazine HCl (HydrALAZINE INJ) 10 mg Q4 PRN IV. 08/05/16 07:30 09/04/16 07:29 08/05/16 12:31 10 MG Vitamin B Complex/ Vit C/Folic Acid (Nephrocaps) 1 cap QAM PO 08/07/16 09:00 09/06/16 08:59 08/09/16 07:56 1 CAP Apixaban (Eliquis Tab) 5 mg BID PO 08/07/16 21:00 09/06/16 20:59 08/09/16 07:55 5 MG Hydralazine HCl (Apresoline Tab) 10 mg Q8 PO 08/08/16 14:00 09/07/16 13:59 08/09/16 05:38 10 MG Acetaminophen/ Hydrocodone Bitart (Sentinel 5/325 Tab) 1 tab Q4H PRN PO 08/08/16 11:00 08/22/16 10:59 08/09/16 09:46 1 TAB Acetaminophen/ Hydrocodone Bitart (Sentinel 10/325 Tab) 1 tab Q6H PRN PO 08/08/16 08:45 08/22/16 08:44 08/09/16 05:38 1 TAB Sodium Biphosphate/ Sodium Phosphate (Fleet Enema) 132 ml DAILY PRN [place] 08/08/16 09:00 09/07/16 08:59 Polyethylene (Miralax Powder Packet) 17 gm DAILY PO 08/10/16 09:00 09/09/16 08:59 Impression (1) Chronic kidney disease, stage IV (severe) (2) BARB (acute kidney injury) (3) Hypercalcemia (4) Stenosis, spinal, lumbar (5) Intractable back pain (6) Atrial fibrillation (7) Anemia Mr. Reginaldo Ferro is a 76-year-old male with ESRD associated with hypertension, diabetes and obesity. His grinding machine operator automatic is Dr. Ivan Delcid in [place]. He would like to start outpatient HD at [facility] in [place] after discharge. He was started on hemodialysis on Monday ( 08/05/16 ) has been tolerating well. Renal ultrasound showed bilateral atrophic kidneys. Urinalysis documenting proteinuria. Urine microscopy is acellular. Chronic hypercalcemia with hyperparathyroidism noted. Reasonable control with Sensipar at home. Serum calcium improved with hydration and furosemide. Laboratory studies are also notable for acute on chronic anemia. Patient has a longstanding history of iron deficiency anemia. He has been started on Procrit and venofer as an inpatient. SPEP consistent with nonselective protein loss and immunofixation showed multiple indistinct bands suggestive of reactive changes or oligoclonal process. Recommendations -- had dialysis yesterday for 4 hours tolerated well, BP stable. Stable to be discharged from renal stand point, will continue on IHD inpatient or at [facility] if discharged. He will go to renal care in [place] for chronic intermittent hemodialysis. Currently waiting on out pt dialysis set up and rehab bed availability. --patients main concern seems to be the back pain which may need to be addressed before discharge --continue Furosemide 80 mg BID to encourage negative fluid balance --Continue sevelamer as phosphate binder, Nephrocaps daily, Venofer 200 mg daily , day 4 of 5 days --Dose medications for GFR less than 10 will follow
[2016-08-09] MEDS ORDERED: ALBUT/IPRATROP 3MG/0.5MG NEB 3 ML VIAL INH PRN (12:00)
[2016-08-10] VITALS (25 sets, daily range): BP systolic 105–177; BP diastolic 57–84; PULSE 60–82; TEMP 35.9–36.7; O2SAT 96–100
[2016-08-10] MEDS: HydrALAZINE HCL 20 MG/ML VIAL IV. PRN (00:06)
[2016-08-10] MEDS: HYDROCODONE/ACETAMOPHEN 5/325MG TAB PO PRN ×2 (00:07→09:39)
[2016-08-10] MEDS: HydrALAZINE 10 MG TAB PO SCH ×3 (03:44→22:09)
[2016-08-10] MEDS ORDERED: SOD PHOSPHATE/SOD BIPHOSPHATE ENEMA 132 ML BTL PR STA (07:54)
[2016-08-10] MEDS: SEVELAMER HYDROCH 800 MG TAB PO SCH ×3 (08:00→17:41)
[2016-08-10] MEDS ORDERED: POLYETHYLENE (MIRALAX) 17 GM PACK PO SCH (08:00)
[2016-08-10] MEDS: INSULIN ASPART 100 UNITS/ML 3 ML PEN SC SCH ×4 (08:06→20:30)
[2016-08-10] MEDS: INSULIN GLARGINE SOLOSTAR 100 UNITS/ML 3 ML PEN SC SCH ×2 (08:07→20:30)
--- NOTE | 2016-08-10 09:59 | Dialysis Progress Note ---
Hemodialysis Note Date of Service Aug 10, 2016. Chief Complaint Follow-up for end-stage renal disease on hemodialysis. Subjective Reginaldo was seen and examined during dialysis this morning, has been tolerating dialysis well, vital sign including blood pressure and heart rate normal. Denies any shortness of breath leg cramp. Has been tolerating ultra filtration. Continue to be bothered by back pain and would like to have that taken care of before discharge. Review of Systems A complete review of systems was performed. Pertinent positives are noted above. All other systems are negative. Vital Signs Last 8 Hrs Date Time Temp Pulse Resp B/P Pulse Ox O2 Delivery O2 Flow Rate FiO2 08/10/16 07:30 36.7 76 138/79 08/10/16 07:19 36.7 66 16 152/68 99 Nasal Cannula 2.0 08/10/16 03:37 36.6 66 20 177/72 98 2.0 I & O 24-Hour Column 08/10/16 08:00 Intake Total 220 ml Output Total 200 ml Balance 20 ml Last Recorded Weight Weight (Kilograms): 124.000 Physical Exam GENERAL:elderly male, obese, AAA x 3, pleasant, healthy-appearing, not in any distress. NECK: Supple, no JVD. RESPIRATORY: Normal breathing efforts, no accessory muscle use, clear to auscultation bilaterally, no wheezes or rales. CARDIOVASCULAR: S1, S2 normal, rate rhythm regular. EXTREMITY: 1+ B/L lower extremity edema NEURO: speech fluent. PSYCHIATRY: Normal mood and judgment Social History Smokeless Tobacco Use: No Alcohol Use: none Drug Use: none Marital Status: Occupation: retired Laboratory Results Past 24 Hours Test 08/09/16 10:27 08/09/16 16:54 08/09/16 19:13 08/10/16 07:21 Bedside Glucose 170 mg/dl (70-99) 194 mg/dl (70-99) 176 mg/dl (70-99) 192 mg/dl (70-99) Allergies Coded Allergies: Atorvastatin (Unverified Allergy, Unknown, UNKNOWN, 08/01/16) Gabapentin (Unverified Allergy, Unknown, UNKNOWN, 08/01/16) Pioglitazone (Unverified Allergy, Unknown, UNKNOWN, 08/01/16) Simvastatin (Unverified Allergy, Unknown, UNKNOWN, 08/01/16) Medications Current Inpatient Medications Medications (Trade) Dose Ordered Sig/Elliott Route Start Time Stop Time Status Last Admin Dose Admin Acetaminophen (Tylenol Tab) 650 mg Q6H PRN PO 08/01/16 19:00 08/31/16 18:59 08/09/16 08:41 650 MG Ondansetron HCl (Zofran Inj) 4 mg Q6H PRN IV 08/01/16 19:00 08/31/16 18:59 Lorazepam (Ativan Tab) 1 mg Q6H PRN PO 08/01/16 19:00 08/31/16 18:59 08/06/16 22:09 1 MG Cyanocobalamin (Vitamin B-12 Tab) 1,000 mcg QAM PO 08/02/16 09:00 09/01/16 08:59 08/09/16 07:56 1,000 MCG Docusate Sodium (coLACE CAP) 100 mg BID PO 08/01/16 21:00 08/31/16 20:59 08/09/16 19:09 100 MG Loratadine (Claritin Tab) 10 mg QAM PO 08/02/16 09:00 09/01/16 08:59 08/09/16 07:55 10 MG Metoprolol Succinate (Toprol Xl Tab) 50 mg BID PO 08/01/16 21:00 08/31/16 20:59 08/09/16 19:10 50 MG Insulin Aspart (novoLOG ASPART) SLIDING SCALE G... ACHS SC 08/01/16 21:00 08/31/16 20:59 08/10/16 08:06 8 UNITS Glucose (Glucose 40% Gel) 15-30 GRAMS 15 GRAMS... UD PRN PO 08/01/16 19:45 08/31/16 19:44 Glucose (Glucose Chew Tab) 4-8 Tablets 4 Tabl... UD PRN PO 08/01/16 19:45 08/31/16 19:44 Dextrose (Dextrose 50% 50ML Syringe) 25-50ML OF 50% DW IV FOR... UD PRN IV 08/01/16 19:45 08/31/16 19:44 Glucagon (Glucagon Inj) 1 mg UD PRN SQ 08/01/16 19:45 08/31/16 19:44 Al Hydrox/Mg Hydrox/Simethicone (Maalox Max Susp) 15 ml Q4H PRN PO 08/01/16 20:00 08/31/16 19:59 Magnesium Hydroxide (Milk Of Magnesia Susp) 30 ml Q12H PRN PO 08/01/16 20:00 08/31/16 19:59 08/08/16 08:30 30 ML Polyethylene (Miralax Powder Packet) 17 gm DAILY PRN PO 08/01/16 20:00 08/31/16 19:59 08/07/16 17:21 17 GM Miscellaneous Information (Order Awaiting Action) 1 ea QS N/A 08/02/16 00:00 09/01/16 00:00 Miscellaneous Information (Consult Glycemic Management Pharmacy) 1 ea UD PRN N/A 08/02/16 21:15 09/01/16 21:14 Insulin Glargine (Lantus Solostar Pen) SEE SCALE BID SC 08/03/16 09:00 09/02/16 08:59 08/10/16 08:07 18 UNIT Sevelamer HCl (Renagel Tab) 800 mg TIDM PO 08/03/16 11:30 09/02/16 11:29 08/09/16 17:22 800 MG Furosemide (Lasix Tab) 80 mg BID17 PO 08/04/16 17:00 09/03/16 16:59 08/09/16 17:22 80 MG Hydralazine HCl (HydrALAZINE INJ) 10 mg Q4 PRN IV. 08/05/16 07:30 09/04/16 07:29 08/10/16 00:06 10 MG Vitamin B Complex/ Vit C/Folic Acid (Nephrocaps) 1 cap QAM PO 08/07/16 09:00 09/06/16 08:59 08/09/16 07:56 1 CAP Apixaban (Eliquis Tab) 5 mg BID PO 08/07/16 21:00 09/06/16 20:59 08/09/16 19:10 5 MG Acetaminophen/ Hydrocodone Bitart ([place] 5/325 Tab) 1 tab Q4H PRN PO 08/08/16 11:00 08/22/16 10:59 08/10/16 09:39 1 TAB Acetaminophen/ Hydrocodone Bitart ([place] 10/325 Tab) 1 tab Q6H PRN PO 08/08/16 08:45 08/22/16 08:44 08/09/16 05:38 1 TAB Sodium Biphosphate/ Sodium Phosphate (Fleet Enema) 132 ml DAILY PRN [place] 08/08/16 09:00 09/07/16 08:59 Albuterol/ Ipratropium (Duoneb) 3 ml QIDR PRN INH 08/09/16 12:00 09/08/16 11:59 Polyethylene (Miralax Powder Packet) 17 gm DAILY PO 08/10/16 08:00 09/09/16 07:59 Hydralazine HCl (Apresoline Tab) 20 mg Q8 PO 08/10/16 14:00 09/09/16 13:59 Impression (1) Chronic kidney disease, stage IV (severe) (2) BARB (acute kidney injury) (3) Hypercalcemia (4) Stenosis, spinal, lumbar (5) Intractable back pain (6) Atrial fibrillation (7) Anemia Mr. Reginaldo Ferro is a 76-year-old male with ESRD associated with hypertension, diabetes and obesity. His mesh cutter is Dr. Ivan Delcid in [place]. He would like to start outpatient HD at [facility] in [place] after discharge. He was started on hemodialysis on Monday ( 08/05/16 ) has been tolerating well. Renal ultrasound showed bilateral atrophic kidneys. Urinalysis documenting proteinuria. Urine microscopy is acellular. Chronic hypercalcemia with hyperparathyroidism noted. Reasonable control with Sensipar at home. Serum calcium improved with hydration and furosemide. Laboratory studies are also notable for acute on chronic anemia. Patient has a longstanding history of iron deficiency anemia. He has been started on Procrit and venofer as an inpatient. SPEP consistent with nonselective protein loss and immunofixation showed multiple indistinct bands suggestive of reactive changes or oligoclonal process. Recommendations -- currently tolerating HD, BP stable. Stable to be discharged from renal stand point, will continue on IHD inpatient or at [facility] if discharged. He will go to renal care in [place] for chronic intermittent hemodialysis. Currently waiting on out pt dialysis set up and rehab bed availability. --patients main concern is the back pain which may need to be addressed before discharge --continue Furosemide 80 mg BID to encourage negative fluid balance --Continue sevelamer as phosphate binder, Nephrocaps daily, Venofer 200 mg daily , day 4 of 5 days --Dose medications for GFR less than 10 will follow
--- NOTE | 2016-08-10 10:30 | Progress Note ---
Subjective Date of Service: Aug 10, 2016. Subjective Pt evaluation today including: conversation w/ patient, physical exam, chart review, lab review, review of studies, conversation w/ road consultant, review of inpatient medication list Continued to complain lower back pain, which is not unusual to him, no bowel movement for 2 days, generalized tired and weakness, no other complaint Problem List Medical Problems: (1) BARB (acute kidney injury) Status: Acute (2) Hypercalcemia Status: Acute Review of Systems Constitutional: + fatigue, + weakness, No chills, No fever, No problem reported , No sweats, No weight loss Eyes: No diplopia, No discharge, No eye pain, No redness, No worsening of vision ENT: No dental problems, No hearing loss, No nasal symptoms, No sore throat, No tinnitus, No trouble swallowing, No unusual epistaxis Respiratory: No cough, No dyspnea at rest, No dyspnea on exertion, No hemoptysis, No shortness of breath, No sputum, No wheezing Cardiac: No PND, No chest pain, No claudication, No edema, No orthopnea, No palpitations Abdomen: No constipation, No diarrhea, No nausea, No pain, No vomiting Musculoskeletal: + joint pain, No calf pain, No muscle pain, No swelling Male : No dysuria, No hematuria, No incontinence, No nocturia more than once/ night, No slowing stream, No urinary frequency Neurologic: No balance problems, No memory loss, No numbness/tingling, No paralysis, No vertigo, No weakness Psychiatric: No anhedonism, No anxiety, No depression symptoms, No insomnia, No substance abuse Heme: No abnormal bleeding/bruising, No clotting problems, No night sweats, No swollen lymph nodes Endo: No excessive thirst, No excessive urination, No fatigue Skin: No bleeding, No color change, No itch, No new/changing skin lesions, No rash Objective Vital Signs Date Time Temp Pulse Resp B/P Pulse Ox O2 Delivery O2 Flow Rate FiO2 08/10/16 10:00 63 112/70 08/10/16 09:45 69 108/57 08/10/16 09:30 71 110/65 08/10/16 09:15 71 122/66 08/10/16 09:00 65 126/77 08/10/16 08:45 72 119/71 08/10/16 08:30 70 120/68 08/10/16 08:15 65 128/70 08/10/16 08:00 68 141/68 08/10/16 07:45 72 138/66 08/10/16 07:30 36.7 76 138/79 08/10/16 07:19 36.7 66 16 152/68 99 Nasal Cannula 2.0 08/10/16 03:37 36.6 66 20 177/72 98 2.0 08/10/16 01:12 163/78 08/10/16 00:15 Nasal Cannula 2.0 21 08/09/16 23:48 36.4 68 20 184/83 99 Room Air 08/09/16 22:02 75 169/81 08/09/16 19:21 71 164/73 08/09/16 16:00 Room Air 08/09/16 15:13 36.5 74 16 139/79 97 Room Air 08/09/16 13:25 163/72 08/09/16 12:34 36.8 78 20 161/69 95 Room Air 08/09/16 11:59 36.3 80 99 148/69 99 Room Air Physical Exam General Appearance: WD/WN, no apparent distress, + obese Eyes: normal inspection, PERRL, EOMI, sclerae normal ENT: normal ENT inspection, hearing grossly normal, pharynx normal Neck: supple, no adenopathy, thyroid normal, no JVD, no carotid bruits, trachea midline Respiratory/Chest: chest non-tender, normal breath sounds, no respiratory distress, no accessory muscle use, + decreased breath sounds Cardiovascular: regular rate, rhythm, no gallop, no JVD, no murmur Abdomen: normal bowel sounds, non tender, soft, no organomegaly, no pulsatile mass Extremities: normal range of motion, non-tender, normal inspection, no pedal edema, no calf tenderness, normal capillary refill, pelvis stable, + swelling (1 +) Neurologic/Psychiatric: 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 mill 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 II-XII nml as tested, no motor/sensory deficits, alert, normal mood/affect, oriented x 3 Skin: normal color, warm/dry, no rash Lymphatic: no adenopathy Laboratory Results Last 24 Hours Test 08/09/16 10:27 08/09/16 16:54 08/09/16 19:13 08/10/16 07:21 Bedside Glucose 170 mg/dl 194 mg/dl 176 mg/dl 192 mg/dl Assessment and Plan Pt is a 76 y/o male with PMHx of Atrial Fibrillation (anticoagulated), HTN, CAMI on night CPAP, T2DM, Chronic Kidney Disease with Secondary Hyperparathyroidism, and Prostate CA who presents to the ED complaining of worsening lower back pain and ambulation difficulty 2 weeks on 08/01/2016 Back Pain with Ambulatory Dysfunction: Stable, possible improving - Pain management and PT/OT - Per spine surgeon Dr. Pena: Need to stabilize before surgery can be attempted, Dr. Pena recommend may be discharged to a rehab type facility. The patient is a longstanding patient of Dr. Librado Juarez Patient requests to see /talk with Dr. Juarez to define their further care plan including surgery option before discharge, I feel this is a good idea, therefore request nurse to call to Dr. Chirinos to see patient, request placed yesterday, not see input yet - MRI neg for any metastatic lesions, back will be reevaluated at a later time Possible Bronchitis: Stable and improving - Outpatient CXR (08/01/16) - images and report reviewed - without evidence of consolidation or pleural effusions - Was on Duonebs QID and Q2H PRN, changed to as needed T2DM: Stable - HbA1c 6.0 - Hold home insulin regimen - SSI with goal 120-160; correction factor 35 Acute on Chronic Kidney Disease stage 4 with Secondary Hyperparathyroidism: Baseline Unknown, on dialysis, stable Creatinine 5.5 and Ca 12.1 on admission and worsening with subsequent BMPs Was on Gentle hydration of NSS at 75 mL/hr discontinued due to worsening edema - Renal U/S - bilateral atrophy - Sensipar 30 mg daily, EPO started - SPEP consistent with nonselective protein loss and immunofixation showed multiple indistinct bands suggestive of reactive changes or oligoclonal process. -Hepatitis serolgy neg -Visitor Services Technician on the case, appreciate recommendations, immunofixation ordered - Vascular surgery consulted for TDC placement and dialysis, we'll continue dialysis for now - Calcium level improving - Per renal plan to continue on IHD inpatient or at [facility] if discharged. He will go to [facility] renal care in [place] for chronic intermittent hemodialysis --continue Furosemide 80 mg BID to encourage negative fluid balance --Dose medications for GFR less than 10 HTN, was uncontrolled better after hydralazine by mouth scheduled - Cont metoprolol , hydralazine scheduled and hydralazine PRN Lower Extremity Edema, chronic diastolic CHF, stable Venous U/S - R/O DVT - unlikely given Eliquis Echo - * Ejection Fraction = >70 %. * There is moderate concentric left ventricular hypertrophy. * Grade I diastolic dysfunction, (abnormal relaxation pattern). * There is mild mitral regurgitation. Atrial Fibrillation: Unknown Type: Rate Controlled - Serial cardiac enzymes - initial troponin 0.083 likely secondary to kidney function - Metoprolol Succ 50 mg BID -Continue eliquis as no surgery at this time, which is the renal dose per recommendation which is 5 mg by mouth twice a day Anemia multifactorial from CKD, iron and b12 def - Cont EPO, B12 and IV iron tx has completed for course CAMI on Night CPAP: - Set up CPAP per respiratory Constipation, cont bowel regimens include Colace, MiraLAX, and ordered a fleet enema DVT Prophylaxis: - AIDA/SCDs - Eliquis Disposition: - Patient was at [facility] [place] due to ambulatory dysfunction but now plans on rehab at [facility] - Of note, patient reports that he has a girlfriend Alicia who he allows to be updated on his current condition -- (Martita) is aware of Alicia however believes this is an old affair. - MedSurg, medically ready to discharge, rehabilitation or residential per help from corrections caseworker Continued [facility] stay due to: home environment unsafe for pt Discharge planning: rehab hospital
[2016-08-10] MEDS: POLYETHYLENE (MIRALAX) 17 GM PACK PO SCH (12:21)
[2016-08-10] MEDS: NEPHROCAPS PO SCH (12:22)
[2016-08-10] MEDS: DOCUSATE SODIUM 100 MG CAP PO SCH ×2 (12:22→20:26)
[2016-08-10] MEDS: CYANOCOBALAMIN 500 MCG TAB (VIT B-12) PO SCH (12:22)
[2016-08-10] MEDS: METOPROLOL SUCC 50MG EXT REL TAB PO SCH ×2 (12:23→20:26)
[2016-08-10] MEDS: FUROSEMIDE 80 MG TAB PO SCH ×2 (12:23→17:42)
[2016-08-10] MEDS: LORATADINE 10 MG TAB PO SCH (12:23)
[2016-08-10] MEDS: APIXABAN 2.5 MG TAB PO SCH ×2 (12:23→20:26)
--- NOTE | 2016-08-10 15:11 | ORTHOPEDIC CONSULTATION ---
DATE OF CONSULTATION: 08/10/2016 DATE OF CONSULTATION: 08/10/2016. HISTORY OF PRESENT ILLNESS: The patient has been seen in our office for spinal stenosis and we were considering surgical intervention into the lumbar spine. He was admitted to the hospital well over a week ago for multiple medical issues and exacerbation of symptoms. He does complain of back pain, progressive weakness to the lower extremities, left worse than right limiting his ability to stand and ambulate. He states today he has no pain while lying in bed, but again expresses continued concern regarding his progressive weakness and decline and ability to ambulate. MRI performed at [facility] dated 08/01/2016 is available for review and does demonstrate multilevel lumbar spondylosis bilaterally. There is evidence of anterior listhesis at L4-L5. There is significant bilateral neural foraminal disease at the L4-L5 and L5-S1 level. Axillary views demonstrate severe lateral recess stenosis, facet hypertrophy at L4-L5. L5-S1 demonstrates marked facet hypertrophy and lateral recess stenosis. PHYSICAL EXAMINATION: He has sensory to lower extremities. He demonstrates bilateral foot ulcers, has dressings in place. Reasonable motor testing. ASSESSMENT: Spinal stenosis, spondylolisthesis. PLAN: At this time, he has progressed with a decline in this motor function ambulation. He undoubtedly has significant progressive spinal stenosis lumbar spine as described above. Surgery would require at minimum lumbar decompression and fusion at the 4-5, L5-S1 level. I expressed to the patient our concerns regarding his medical status, his ability to withstand such a procedure. I have asked that he obtain an opinion from our anesthesia department regarding his candidacy for such a procedure. We will request their consultation and input in his surgical candidacy and being optimized for surgical intervention. He understands and agrees.
[2016-08-10] MEDS: BOOST BREEZE NUTRITION DRINK 1 BOX PO SCH (17:47)
[2016-08-11] VITALS (8 sets, daily range): BP systolic 115–149; BP diastolic 67–77; PULSE 70–75; TEMP 36.4–36.8; O2SAT 99–100
[2016-08-11] MEDS: HYDROCODONE/ACETAMOPHEN 5/325MG TAB PO PRN ×2 (03:35→09:34)
[2016-08-11] MEDS: HydrALAZINE 10 MG TAB PO SCH ×3 (05:28→21:22)
[2016-08-11] MEDS: BOOST BREEZE NUTRITION DRINK 1 BOX PO SCH ×2 (08:16→17:52)
[2016-08-11] MEDS: LORATADINE 10 MG TAB PO SCH (08:16)
[2016-08-11] MEDS: DOCUSATE SODIUM 100 MG CAP PO SCH ×2 (08:17→20:12)
[2016-08-11] MEDS: APIXABAN 2.5 MG TAB PO SCH ×2 (08:18→20:13)
[2016-08-11] MEDS: POLYETHYLENE (MIRALAX) 17 GM PACK PO SCH (08:19)
[2016-08-11] MEDS: SEVELAMER HYDROCH 800 MG TAB PO SCH ×3 (08:20→17:51)
[2016-08-11] MEDS: NEPHROCAPS PO SCH (08:20)
[2016-08-11] MEDS: FUROSEMIDE 80 MG TAB PO SCH ×2 (08:21→17:52)
[2016-08-11] MEDS: METOPROLOL SUCC 50MG EXT REL TAB PO SCH ×2 (08:22→20:13)
[2016-08-11] MEDS: CYANOCOBALAMIN 500 MCG TAB (VIT B-12) PO SCH (08:23)
[2016-08-11 08:44] LABS: HEMATOCRIT 31.1 % (42-52); MEAN CELL VOLUME 81.6 fL (80-100); MEAN CORPUSCULAR HEMOGLOBIN 25.7 pg (25-34); MEAN CORPUSCULAR HGB CONC 31.5 g/dl (32-36); MEAN PLATELET VOLUME 8.6 fL (7.4-10.4); PLATELET COUNT 203 K/uL (130-400); RED BLOOD COUNT 3.81 M/uL (4.7-6.1); WHITE BLOOD COUNT 5.23 K/uL (4.8-10.8)
[2016-08-11] MEDS: INSULIN GLARGINE SOLOSTAR 100 UNITS/ML 3 ML PEN SC SCH ×2 (08:50→21:19)
[2016-08-11] MEDS: INSULIN ASPART 100 UNITS/ML 3 ML PEN SC SCH ×4 (08:53→21:21)
[2016-08-11 09:22] LABS: BUN/CREATININE RATIO 6.2 (10-20); CALCIUM 9.7 mg/dl (8.5-10.1); CREATININE 4.8 mg/dl (0.60-1.40); MAGNESIUM 3.1 mg/dl (1.8-2.4); POTASSIUM 3.4 mmol/L (3.5-5.1)
--- NOTE | 2016-08-11 09:34 | Progress Note ---
Subjective Date of Service: Aug 11, 2016. Subjective Pt evaluation today including: conversation w/ patient, conversation w/ family , physical exam, chart review, lab review, review of studies, conversation w/ consultant internship, review of inpatient medication list Has 2-3 bowel movement yesterday after free in edema, Pleasant, conversational, no acute distress, smiling, Problem List Medical Problems: (1) BARB (acute kidney injury) Status: Acute (2) Hypercalcemia Status: Acute Review of Systems Constitutional: No chills, No fatigue, No fever, No problem reported, No sweats , No weakness, No weight loss Eyes: No diplopia, No discharge, No eye pain, No redness, No worsening of vision ENT: No dental problems, No hearing loss, No nasal symptoms, No sore throat, No tinnitus, No trouble swallowing, No unusual epistaxis Respiratory: No cough, No dyspnea at rest, No dyspnea on exertion, No hemoptysis, No shortness of breath, No sputum, No wheezing Cardiac: No PND, No chest pain, No claudication, No edema, No orthopnea, No palpitations Abdomen: No constipation, No diarrhea, No nausea, No pain, No vomiting Musculoskeletal: No calf pain, No joint pain, No muscle pain, No swelling Male : No dysuria, No hematuria, No incontinence, No nocturia more than once/ night, No slowing stream, No urinary frequency Neurologic: No balance problems, No memory loss, No numbness/tingling, No paralysis, No vertigo, No weakness Psychiatric: No anhedonism, No anxiety, No depression symptoms, No insomnia, No substance abuse Heme: No abnormal bleeding/bruising, No clotting problems, No night sweats, No swollen lymph nodes Endo: No excessive thirst, No excessive urination, No fatigue Skin: No bleeding, No color change, No itch, No new/changing skin lesions, No rash Objective Vital Signs Date Time Temp Pulse Resp B/P Pulse Ox O2 Delivery O2 Flow Rate FiO2 08/11/16 08:09 100 CPAP 08/11/16 07:53 74 20 115/74 100 CPAP 08/11/16 03:52 36.4 18 148/77 100 CPAP 08/11/16 02:15 Room Air 08/10/16 22:09 76 143/82 08/10/16 16:33 36.4 82 22 149/84 96 Nasal Cannula 3.0 08/10/16 16:00 Nasal Cannula 2.0 08/10/16 15:43 100 08/10/16 11:58 35.9 76 159/71 08/10/16 11:45 71 136/59 08/10/16 11:30 61 129/60 08/10/16 11:15 62 105/58 08/10/16 11:00 65 107/68 08/10/16 10:45 60 111/59 08/10/16 10:30 65 115/66 08/10/16 10:15 69 121/65 08/10/16 10:00 63 112/70 08/10/16 09:45 69 108/57 08/10/16 09:30 71 110/65 Physical Exam General Appearance: WD/WN, no apparent distress, + obese, + pertinent finding ( he looks relax, and pleasant, smiling) Eyes: normal inspection, PERRL, EOMI, sclerae normal ENT: normal ENT inspection, hearing grossly normal, pharynx normal Neck: supple, no adenopathy, thyroid normal, no JVD, no carotid bruits, trachea midline Respiratory/Chest: chest non-tender, normal breath sounds, no respiratory distress, no accessory muscle use, + decreased breath sounds, + pertinent finding (right anterior chest wall has temporary dialysis catheter) Cardiovascular: regular rate, rhythm, no gallop, no JVD, no murmur Abdomen: normal bowel sounds, non tender, soft, no organomegaly, no pulsatile mass Extremities: normal range of motion, non-tender, normal inspection, no pedal edema, no calf tenderness, normal capillary refill, pelvis stable Neurologic/Psychiatric: cloth doffer II-XII nml as tested, no motor/sensory deficits, alert, normal mood/affect, oriented x 3 Skin: normal color, warm/dry, no rash Lymphatic: no adenopathy Laboratory Results Last 24 Hours Test 08/10/16 12:06 08/10/16 17:00 08/10/16 20:24 08/11/16 07:39 Bedside Glucose 147 mg/dl 185 mg/dl 167 mg/dl 186 mg/dl Test 08/11/16 08:35 White Blood Count 5.23 K/uL Red Blood Count 3.81 M/uL Hemoglobin 9.8 g/dL Hematocrit 31.1 % Mean Corpuscular Volume 81.6 fL Mean Corpuscular Hemoglobin 25.7 pg Mean Corpuscular Hemoglobin Concent 31.5 g/dl Platelet Count 203 K/uL Mean Platelet Volume 8.6 fL RDW Standard Deviation 52.9 fL RDW Coefficient of Variation 17.9 % Sodium Level 136 mmol/L Potassium Level 3.4 mmol/L Chloride Level 99 mmol/L Carbon Dioxide Level 26 mmol/L Anion Gap 11.0 mmol/L Blood Urea Nitrogen 30 mg/dl Creatinine 4.80 mg/dl Est Creatinine Clear Calc Drug Dose 17.9 ml/min Estimated GFR () 12.5 Estimated GFR (Non- 10.8 BUN/Creatinine Ratio 6.2 Random Glucose 226 mg/dl Calcium Level 9.7 mg/dl Magnesium Level 3.1 mg/dl Assessment and Plan 76 y/o male with PMHx of Atrial Fibrillation (anticoagulated), HTN, CAMI on night CPAP, T2DM, Chronic Kidney Disease with Secondary Hyperparathyroidism, and Prostate CA who presents to the ED complaining of worsening lower back pain and ambulation difficulty 2 weeks on 08/01/2016 Back Pain with Ambulatory Dysfunction: Stable, improving - Pain management and PT/OT - Per spine surgeon Dr. Pena: Need to stabilize before surgery can be attempted, Dr. Pena recommend may be discharged to a rehab type facility. The patient is a longstanding patient of Dr. Librado Juarez Patient requests to see /talk with Dr. Juarez to define their further care plan including surgery option before discharge, I feel this is a good idea, therefore request nurse to call to Dr. Chirinos to see patient, Patient was seen by Dr. Hill yesterday which was a 08/10/2016, recommend anesthesiologist evaluation further preop optimization and risk for the procedure, Will waiting for anesthesiologist and Dr. Juarez more input Need to hold Eliquis if planning to have procedure during this hospitalization, - MRI neg for any metastatic lesions, back will be reevaluated at a later time Possible Bronchitis upon admission: Stable and improving - Outpatient CXR (08/01/16) - images and report reviewed - without evidence of consolidation or pleural effusions - Was on Duonebs QID and Q2H PRN, changed to as needed T2DM: Stable - HbA1c 6.0 - Hold home insulin regimen - SSI with goal 120-160; correction factor 35 Acute on Chronic Kidney Disease stage 4 with Secondary Hyperparathyroidism: Baseline Unknown, on dialysis, stable/no new changes Creatinine 5.5 and Ca 12.1 on admission and worsening with subsequent BMPs Was on Gentle hydration of NSS at 75 mL/hr discontinued due to worsening edema - Renal U/S - bilateral atrophy - Sensipar 30 mg daily, EPO started - SPEP consistent with nonselective protein loss and immunofixation showed multiple indistinct bands suggestive of reactive changes or oligoclonal process. -Hepatitis serolgy neg -Mule Spinner on the case, appreciate recommendations, immunofixation ordered - Vascular surgery consulted for TDC placement and dialysis, we'll continue dialysis for now - Calcium level improving - Per renal plan to continue on IHD inpatient or at [facility] if discharged. He will go to [facility] renal care in [place] for chronic intermittent hemodialysis --continue Furosemide 80 mg BID to encourage negative fluid balance --Dose medications for GFR less than 10 HTN, was uncontrolled better after hydralazine by mouth scheduled - Cont metoprolol , hydralazine scheduled and hydralazine PRN Lower Extremity Edema, chronic diastolic CHF, stable Venous U/S - R/O DVT - unlikely given Eliquis Echo - * Ejection Fraction = >70 %. * There is moderate concentric left ventricular hypertrophy. * Grade I diastolic dysfunction, (abnormal relaxation pattern). * There is mild mitral regurgitation. Atrial Fibrillation: Unknown Type: Rate Controlled - Serial cardiac enzymes - initial troponin 0.083 likely secondary to kidney function - Metoprolol Succ 50 mg BID -Continue eliquis as no surgery at this time, which is the renal dose per recommendation which is 5 mg by mouth twice a day Anemia multifactorial from CKD, iron and b12 def - Cont EPO, B12 and IV iron tx has completed for course CAMI on Night CPAP: - Set up CPAP per respiratory Constipation, cont bowel regimens include Colace, MiraLAX, and ordered a fleet enema DVT Prophylaxis: - AIDA/SCDs - Eliquis Disposition: - Patient was at [facility] due to ambulatory dysfunction but now plans on rehab at [facility] - Of note, patient reports that he has a girlfriend Alicia who he allows to be updated on his current condition -- (Martita) is aware of Alicia however believes this is an old affair. - Patient is ready to discharge to rehabilitation or half-way if orthopedic surgeon do not planning to do the procedure in this hospitalization, will touch base with Dr. Juarez today Continued [facility] stay due to: home environment unsafe for pt Discharge planning: rehab hospital
[2016-08-11] MEDS ORDERED: POTASSIUM CHLORIDE 10 MEQ TABCR PO STA (09:39)
[2016-08-11 09:52] LABS: BASO % 0.8 %; BASO ABS # 0.04 K/uL (0-0.2); COMPLETE YES; EOS % 2.5 %; IG% 0.4 %; LYMPH % 14.5 %; LYMPH ABS # 0.76 K/uL (1.2-3.4); MONO % 11.9 %; NEUT % 69.9 %
--- NOTE | 2016-08-11 10:45 | Nephrology Progress Note ---
Nephrology Progress Note Date of Service Aug 11, 2016. Chief Complaint Follow-up for end-stage renal disease on hemodialysis. Subjective Reginaldo was seen and examined this morning. His main complaint is the back pain and waiting on decision about the surgery. Denies SOB, anorexia, nausea. Has been tolerating HD well. BP, electrolytes acceptable. Review of Systems A complete review of systems was performed. Pertinent positives are noted above. All other systems are negative. Vital Signs Last 8 Hrs Date Time Temp Pulse Resp B/P Pulse Ox O2 Delivery O2 Flow Rate FiO2 08/11/16 10:15 CPAP 08/11/16 08:09 100 CPAP 08/11/16 07:53 74 20 115/74 100 CPAP 08/11/16 03:52 36.4 18 148/77 100 CPAP I & O 24-Hour Column 08/11/16 08:00 Intake Total 550 ml Output Total 3000 ml Balance -2450 ml Last Recorded Weight Weight (Kilograms): 123.200 Physical Exam GENERAL:elderly male, obese, AAA x 3, pleasant, healthy-appearing, not in any distress. NECK: Supple, no JVD. RESPIRATORY: Normal breathing efforts, no accessory muscle use, clear to auscultation bilaterally, no wheezes or rales. CARDIOVASCULAR: S1, S2 normal, rate rhythm regular. EXTREMITY: 1+ B/L lower extremity edema NEURO: speech fluent. PSYCHIATRY: Normal mood and judgment Family History Diabetes mellitus Social History Smokeless Tobacco Use: No Alcohol Use: none Drug Use: none Marital Status: Occupation: retired Laboratory Results Past 24 Hours 08/11/16 08:35 Red Blood Count 3.81, Mean Corpuscular Volume 81.6, Mean Corpuscular Hemoglobin 25.7, Mean Corpuscular Hemoglobin Concent 31.5, Mean Platelet Volume 8.6, Neutrophils (%) (Auto) 69.9, Lymphocytes (%) (Auto) 14.5, Monocytes (%) (Auto) 11.9, Eosinophils (%) (Auto) 2.5, Basophils (%) (Auto) 0.8, Neutrophils # (Auto ) 3.66, Lymphocytes # (Auto) 0.76, Monocytes # (Auto) 0.62, Eosinophils # (Auto ) 0.13, Basophils # (Auto) 0.04 08/11/16 08:35 Test 08/10/16 12:06 08/10/16 17:00 08/10/16 20:24 08/11/16 07:39 Bedside Glucose 147 mg/dl (70-99) 185 mg/dl (70-99) 167 mg/dl (70-99) 186 mg/dl (70-99) Test 08/11/16 08:35 White Blood Count 5.23 K/uL (4.8-10.8) Red Blood Count 3.81 M/uL (4.7-6.1) Hemoglobin 9.8 g/dL (14.0-18.0) Hematocrit 31.1 % (42-52) Mean Corpuscular Volume 81.6 fL (80-100) Mean Corpuscular Hemoglobin 25.7 pg (25-34) Mean Corpuscular Hemoglobin Concent 31.5 g/dl (32-36) Platelet Count 203 K/uL (130-400) Mean Platelet Volume 8.6 fL (7.4-10.4) Neutrophils (%) (Auto) 69.9 % Lymphocytes (%) (Auto) 14.5 % Monocytes (%) (Auto) 11.9 % Eosinophils (%) (Auto) 2.5 % Basophils (%) (Auto) 0.8 % Neutrophils # (Auto) 3.66 K/uL (1.4-6.5) Lymphocytes # (Auto) 0.76 K/uL (1.2-3.4) Monocytes # (Auto) 0.62 K/uL (0.11-0.59) Eosinophils # (Auto) 0.13 K/uL (0-0.5) Basophils # (Auto) 0.04 K/uL (0-0.2) RDW Standard Deviation 52.9 fL (36.4-46.3) RDW Coefficient of Variation 17.9 % (11.5-14.5) Immature Granulocyte % (Auto) 0.4 % Immature Granulocyte # (Auto) 0.02 K/uL (0.00-0.02) Anion Gap 11.0 mmol/L (3-11) Est Creatinine Clear Calc Drug Dose 17.9 ml/min Estimated GFR () 12.5 Estimated GFR (Non- 10.8 BUN/Creatinine Ratio 6.2 (10-20) Calcium Level 9.7 mg/dl (8.5-10.1) Magnesium Level 3.1 mg/dl (1.8-2.4) Allergies Coded Allergies: Atorvastatin (Unverified Allergy, Unknown, UNKNOWN, 08/01/16) Gabapentin (Unverified Allergy, Unknown, UNKNOWN, 08/01/16) Pioglitazone (Unverified Allergy, Unknown, UNKNOWN, 08/01/16) Simvastatin (Unverified Allergy, Unknown, UNKNOWN, 08/01/16) Medications Current Inpatient Medications Medications (Trade) Dose Ordered Sig/Elliott Route Start Time Stop Time Status Last Admin Dose Admin Acetaminophen (Tylenol Tab) 650 mg Q6H PRN PO 08/01/16 19:00 08/31/16 18:59 08/09/16 08:41 650 MG Ondansetron HCl (Zofran Inj) 4 mg Q6H PRN IV 08/01/16 19:00 08/31/16 18:59 Lorazepam (Ativan Tab) 1 mg Q6H PRN PO 08/01/16 19:00 08/31/16 18:59 08/06/16 22:09 1 MG Cyanocobalamin (Vitamin B-12 Tab) 1,000 mcg QAM PO 08/02/16 09:00 09/01/16 08:59 08/11/16 08:23 1,000 MCG Docusate Sodium (coLACE CAP) 100 mg BID PO 08/01/16 21:00 08/31/16 20:59 08/11/16 08:17 100 MG Loratadine (Claritin Tab) 10 mg QAM PO 08/02/16 09:00 09/01/16 08:59 08/11/16 08:16 10 MG Metoprolol Succinate (Toprol Xl Tab) 50 mg BID PO 08/01/16 21:00 08/31/16 20:59 08/11/16 08:22 50 MG Insulin Aspart (novoLOG ASPART) SLIDING SCALE G... ACHS SC 08/01/16 21:00 08/31/16 20:59 08/11/16 08:53 7 UNITS Glucose (Glucose 40% Gel) 15-30 GRAMS 15 GRAMS... UD PRN PO 08/01/16 19:45 08/31/16 19:44 Glucose (Glucose Chew Tab) 4-8 Tablets 4 Tabl... UD PRN PO 08/01/16 19:45 08/31/16 19:44 Dextrose (Dextrose 50% 50ML Syringe) 25-50ML OF 50% DW IV FOR... UD PRN IV 08/01/16 19:45 08/31/16 19:44 Glucagon (Glucagon Inj) 1 mg UD PRN SQ 08/01/16 19:45 08/31/16 19:44 Al Hydrox/Mg Hydrox/Simethicone (Maalox Max Susp) 15 ml Q4H PRN PO 08/01/16 20:00 08/31/16 19:59 08/11/16 09:34 15 ML Magnesium Hydroxide (Milk Of Magnesia Susp) 30 ml Q12H PRN PO 08/01/16 20:00 08/31/16 19:59 08/08/16 08:30 30 ML Polyethylene (Miralax Powder Packet) 17 gm DAILY PRN PO 08/01/16 20:00 08/31/16 19:59 08/07/16 17:21 17 GM Miscellaneous Information (Order Awaiting Action) 1 ea QS N/A 08/02/16 00:00 09/01/16 00:00 Miscellaneous Information (Consult Glycemic Management Pharmacy) 1 ea UD PRN N/A 08/02/16 21:15 09/01/16 21:14 Insulin Glargine (Lantus Solostar Pen) SEE SCALE BID SC 08/03/16 09:00 09/02/16 08:59 08/11/16 08:50 18 UNIT Sevelamer HCl (Renagel Tab) 800 mg TIDM PO 08/03/16 11:30 09/02/16 11:29 08/11/16 08:20 800 MG Furosemide (Lasix Tab) 80 mg BID17 PO 08/04/16 17:00 09/03/16 16:59 08/11/16 08:21 80 MG Hydralazine HCl (HydrALAZINE INJ) 10 mg Q4 PRN IV. 08/05/16 07:30 09/04/16 07:29 08/10/16 00:06 10 MG Vitamin B Complex/ Vit C/Folic Acid (Nephrocaps) 1 cap QAM PO 08/07/16 09:00 09/06/16 08:59 08/11/16 08:20 1 CAP Apixaban (Eliquis Tab) 5 mg BID PO 08/07/16 21:00 09/06/16 20:59 08/11/16 08:18 5 MG Acetaminophen/ Hydrocodone Bitart ([place] 5/325 Tab) 1 tab Q4H PRN PO 08/08/16 11:00 08/22/16 10:59 08/11/16 09:34 1 TAB Acetaminophen/ Hydrocodone Bitart ([place] 10/325 Tab) 1 tab Q6H PRN PO 08/08/16 08:45 08/22/16 08:44 08/09/16 05:38 1 TAB Sodium Biphosphate/ Sodium Phosphate (Fleet Enema) 132 ml DAILY PRN IN 08/08/16 09:00 09/07/16 08:59 Albuterol/ Ipratropium (Duoneb) 3 ml QIDR PRN INH 08/09/16 12:00 09/08/16 11:59 Polyethylene (Miralax Powder Packet) 17 gm DAILY PO 08/10/16 08:00 09/09/16 07:59 08/11/16 08:19 17 GM Hydralazine HCl (Apresoline Tab) 20 mg Q8 PO 08/10/16 14:00 09/09/16 13:59 08/11/16 05:28 20 MG Enteral Nutritional Formula (Boost Breeze Nutritional Drink) 1 box BIDM PO 08/10/16 17:00 09/09/16 16:59 08/11/16 08:16 1 BOX Impression (1) Chronic kidney disease, stage IV (severe) (2) BARB (acute kidney injury) (3) Hypercalcemia (4) Stenosis, spinal, lumbar (5) Intractable back pain (6) Atrial fibrillation (7) Anemia Mr. Reginaldo Ferro is a 76-year-old male with ESRD associated with hypertension, diabetes and obesity. His professional shopper is Dr. Ivan Delcid in [place]. He would like to start outpatient HD at [facility] in [place] after discharge. He was started on hemodialysis on Monday ( 08/05/16 ) has been tolerating well. Renal ultrasound showed bilateral atrophic kidneys. Urinalysis documenting proteinuria. Urine microscopy is acellular. Chronic hypercalcemia with hyperparathyroidism noted. Reasonable control with Sensipar at home. Serum calcium improved with hydration and furosemide. Laboratory studies are also notable for acute on chronic anemia. Patient has a longstanding history of iron deficiency anemia. He has been started on Procrit and venofer as an inpatient. SPEP consistent with nonselective protein loss and immunofixation showed multiple indistinct bands suggestive of reactive changes or oligoclonal process. Recommendations -- currently tolerating HD, BP stable. will continue on IHD inpatient or at [facility] if discharged. He will go to renal care in [place] for chronic intermittent hemodialysis. Currently waiting on out pt dialysis set up and rehab bed availability. --patients main concern is the back pain and getting evaluation for possible back surgery. --continue Furosemide 80 mg BID to encourage negative fluid balance --Continue sevelamer as phosphate binder, Nephrocaps daily. --Dose medications for GFR less than 10 will follow
[2016-08-11] MEDS: ACETAMINOPHEN 325 MG TAB PO PRN (11:38)
[2016-08-11] MEDS: HYDROCODONE/ACETAMI 10/325 TAB PO PRN ×2 (14:29→21:10)
--- NOTE | 2016-08-11 17:16 | Pharmacy Progress Note ---
Glycemic: Assessment & Plan Date of Service Aug 11, 2016. Assessment & Plan The patient received 39 units of insulin on 08/08, 54 units on 08/09, 59 units on 08/10. BSGs ranging 129-226 mg/dl over the past 24hrs. Boost Breeze added on , and hemodialysis on 08/08 and 08/10. No change for now. * Basal insulin: Lantus per protocol every 12 hours if BSG is less than 100, hold dose if BSG is 100-180, give 12 units if BSG is over 180, give 18 units * Correctional Insulin: Novolog Correction per scale ACHS Goal Range: Low 120 mg/dL - High 160 mg/dL Correction Factor: 20 mg/dL/unit * Prandial insulin: Per carb ratio of 1 unit per 6 grams CHO consumed BSGs continue to improve, no changes needed to inpatient regimen at this time. Pharmacy will continue to monitor patient daily and write orders per [facility] inpatient glycemic control protocol. Thanks. * Please note that the plan above was derived based on current level of insulin resistance and hospital stress. These recommendations are appropriate for inpatient admission only. Plan of care upon discharge will need to be reassessed to avoid potential outpatient hypo/hyperglycemia.
[2016-08-11] MEDS: LORAZEPAM 1 MG TAB PO PRN (22:18)
[2016-08-11] MEDS ORDERED: MoRPHine SULFATE 4 MG/ML 1 ML CARP\\VIAL IV STA (22:32)
[2016-08-12] VITALS (26 sets, daily range): BP systolic 106–187; BP diastolic 57–85; PULSE 60–97; TEMP 36.4–37.2; O2SAT 96–100
[2016-08-12] MEDS: HydrALAZINE 10 MG TAB PO SCH ×3 (06:01→21:26)
[2016-08-12 06:15] LABS: BASO % 0.7 %; BASO ABS # 0.04 K/uL (0-0.2); EOS % 2.4 %; HEMATOCRIT 28.4 % (42-52); IG% 0.4 %; LYMPH % 13.4 %; LYMPH ABS # 0.73 K/uL (1.2-3.4); MEAN CELL VOLUME 83.5 fL (80-100); MEAN CORPUSCULAR HEMOGLOBIN 26.2 pg (25-34); MEAN CORPUSCULAR HGB CONC 31.3 g/dl (32-36); MEAN PLATELET VOLUME 9.6 fL (7.4-10.4); MONO % 11.2 %; NEUT % 71.9 %; PLATELET COUNT 215 K/uL (130-400); WHITE BLOOD COUNT 5.43 K/uL (4.8-10.8)
[2016-08-12] MEDS: INSULIN ASPART 100 UNITS/ML 3 ML PEN SC SCH ×4 (06:30→21:39)
[2016-08-12 07:00] LABS: BUN/CREATININE RATIO 6.1 (10-20); CALCIUM 9.9 mg/dl (8.5-10.1); CREATININE 6.1 mg/dl (0.60-1.40); MAGNESIUM 3.4 mg/dl (1.8-2.4); PHOSPHORUS 5.7 mg/dl (2.5-4.9); POTASSIUM 3.7 mmol/L (3.5-5.1)
[2016-08-12 07:20] LABS: COMPLETE YES
[2016-08-12] MEDS: SEVELAMER HYDROCH 800 MG TAB PO SCH ×3 (08:00→16:09)
[2016-08-12] MEDS: BOOST BREEZE NUTRITION DRINK 1 BOX PO SCH ×2 (08:00→16:09)
[2016-08-12] MEDS: FUROSEMIDE 80 MG TAB PO SCH ×2 (09:00→16:09)
--- NOTE | 2016-08-12 10:17 | Progress Note ---
Subjective Date of Service: Aug 12, 2016. Subjective Pt evaluation today including: conversation w/ patient, conversation w/ family , physical exam, chart review, lab review, review of studies, review of inpatient medication list Reported a lot of pain last night, which need one dose of IV morphine, this morning nurse reported patient mild confused looked tired Saw patient in the dialysis unit, he is awake and alert, smiling to me, no bowel movement for 2 days, again he complained about lower back pain, Problem List Medical Problems: (1) BARB (acute kidney injury) Status: Acute (2) Hypercalcemia Status: Acute Review of Systems Constitutional: + fatigue, + weakness, No chills, No fever, No problem reported , No sweats, No weight loss Eyes: No diplopia, No discharge, No eye pain, No redness, No worsening of vision ENT: + hearing loss (decreased hearing is not new), No dental problems, No nasal symptoms, No sore throat, No tinnitus, No trouble swallowing, No unusual epistaxis Respiratory: No cough, No dyspnea at rest, No dyspnea on exertion, No hemoptysis, No shortness of breath, No sputum, No wheezing Cardiac: No PND, No chest pain, No claudication, No edema, No orthopnea, No palpitations Abdomen: No constipation, No diarrhea, No nausea, No pain, No vomiting Musculoskeletal: + joint pain, No calf pain, No muscle pain, No swelling Male : No dysuria, No hematuria, No incontinence, No nocturia more than once/ night, No slowing stream, No urinary frequency Neurologic: No balance problems, No memory loss, No numbness/tingling, No paralysis, No vertigo, No weakness Psychiatric: No anhedonism, No anxiety, No depression symptoms, No insomnia, No substance abuse Heme: No abnormal bleeding/bruising, No clotting problems, No night sweats, No swollen lymph nodes Endo: No excessive thirst, No excessive urination, No fatigue Skin: No bleeding, No color change, No itch, No new/changing skin lesions, No rash Objective Vital Signs Date Time Temp Pulse Resp B/P Pulse Ox O2 Delivery O2 Flow Rate FiO2 08/12/16 08:00 Room Air 08/12/16 07:17 36.4 65 18 133/72 98 Room Air 08/12/16 06:00 69 131/80 08/12/16 00:01 36.4 74 18 112/75 100 BiPAP 5.0 08/12/16 00:00 Room Air CPAP 08/11/16 21:00 137/77 08/11/16 20:00 Room Air CPAP 08/11/16 16:09 100 08/11/16 15:45 36.5 70 16 124/67 100 Room Air 08/11/16 15:37 Room Air 08/11/16 14:10 36.8 75 22 149/74 08/11/16 11:57 73 18 120/74 99 Room Air 08/11/16 10:15 CPAP Physical Exam General Appearance: WD/WN, no apparent distress, + obese Eyes: normal inspection, PERRL, EOMI, sclerae normal ENT: normal ENT inspection, hearing grossly normal, pharynx normal Neck: supple, no adenopathy, thyroid normal, no JVD, no carotid bruits, trachea midline Respiratory/Chest: chest non-tender, normal breath sounds, no respiratory distress, no accessory muscle use, + decreased breath sounds Cardiovascular: regular rate, rhythm, no edema, no gallop, no JVD, no murmur Abdomen: normal bowel sounds, non tender, soft, no organomegaly, no pulsatile mass Extremities: normal range of motion, non-tender, normal inspection, no pedal edema, no calf tenderness, normal capillary refill, pelvis stable Neurologic/Psychiatric: hair clipper power II-XII nml as tested, no motor/sensory deficits, alert, normal mood/affect, oriented x 3 Skin: normal color, warm/dry, + pertinent finding (bilateral lower extremity anterior dove mild red, 1+ edema, there is no open wound) Lymphatic: no adenopathy Laboratory Results Last 24 Hours Test 08/11/16 11:38 08/11/16 16:30 08/11/16 20:17 08/12/16 05:32 Bedside Glucose 158 mg/dl 129 mg/dl 180 mg/dl White Blood Count 5.43 K/uL Red Blood Count 3.40 M/uL Hemoglobin 8.9 g/dL Hematocrit 28.4 % Mean Corpuscular Volume 83.5 fL Mean Corpuscular Hemoglobin 26.2 pg Mean Corpuscular Hemoglobin Concent 31.3 g/dl Platelet Count 215 K/uL Mean Platelet Volume 9.6 fL Neutrophils (%) (Auto) 71.9 % Lymphocytes (%) (Auto) 13.4 % Monocytes (%) (Auto) 11.2 % Eosinophils (%) (Auto) 2.4 % Basophils (%) (Auto) 0.7 % Neutrophils # (Auto) 3.90 K/uL Lymphocytes # (Auto) 0.73 K/uL Monocytes # (Auto) 0.61 K/uL Eosinophils # (Auto) 0.13 K/uL Basophils # (Auto) 0.04 K/uL RDW Standard Deviation 55.4 fL RDW Coefficient of Variation 18.2 % Immature Granulocyte % (Auto) 0.4 % Immature Granulocyte # (Auto) 0.02 K/uL Red Blood Cell Morphology Unremarkable Sodium Level 139 mmol/L Potassium Level 3.7 mmol/L Chloride Level 102 mmol/L Carbon Dioxide Level 27 mmol/L Anion Gap 10.0 mmol/L Blood Urea Nitrogen 39 mg/dl Creatinine 6.10 mg/dl Est Creatinine Clear Calc Drug Dose 14.2 ml/min Estimated GFR () 9.3 Estimated GFR (Non- 8.1 BUN/Creatinine Ratio 6.1 Random Glucose 183 mg/dl Calcium Level 9.9 mg/dl Phosphorus Level 5.7 mg/dl Magnesium Level 3.4 mg/dl Albumin 2.9 gm/dl Test 08/12/16 07:38 Bedside Glucose 175 mg/dl Assessment and Plan 76 y/o male with PMHx of Atrial Fibrillation (anticoagulated), HTN, CAMI on night CPAP, T2DM, Chronic Kidney Disease with Secondary Hyperparathyroidism, and Prostate CA who presents to the ED complaining of worsening lower back pain and ambulation difficulty 2 weeks on 08/01/2016 Back Pain with Ambulatory Dysfunction: Symptoms comes and goes, fluctuation - Pain management and PT/OT - Per spine surgeon Dr. Pena: Need to stabilize before surgery can be attempted, Dr. Pena recommend may be discharged to a rehab type facility. The patient is a longstanding patient of Dr. Librado Juarez Patient requests to see /talk with Dr. Juarez to define their further care plan including surgery option before discharge, I feel this is a good idea, therefore request nurse to call to Dr. Chirinos to see patient, Patient was seen by Dr. Hill yesterday which was a 08/10/2016, recommended anesthesiologist evaluation further preop optimization and risk for the procedure, anesthesiologist consultation was requested the day before which is more than 48 hour, I did asked nurse to call to remind the anesthesiologist to see patient at noontime yesterday, patient not seen yet , I have nurse to call to any anthologist again to see the patient today Anesthesiologist needs to communication with Dr. Juarez and me about the care plan so that I can plan for discharge plan Need to hold Eliquis if planning to have procedure during this hospitalization, MRI neg for any metastatic lesions, back will be reevaluated at a later time Possible Bronchitis upon admission: Resolved - Outpatient CXR (08/01/16) - images and report reviewed - without evidence of consolidation or pleural effusions - Was on Duonebs QID and Q2H PRN, changed to as needed T2DM: Stable - HbA1c 6.0 - Hold home insulin regimen - SSI with goal 120-160; correction factor 35 Acute on Chronic Kidney Disease stage 4 with Secondary Hyperparathyroidism: Baseline Unknown, stable/no new changes, continue dialysis Creatinine 5.5 and Ca 12.1 on admission and worsening with subsequent BMPs Was on Gentle hydration of NSS at 75 mL/hr discontinued due to worsening edema - Renal U/S - bilateral atrophy - Sensipar 30 mg daily, EPO started - SPEP consistent with nonselective protein loss and immunofixation showed multiple indistinct bands suggestive of reactive changes or oligoclonal process. -Hepatitis serolgy neg -Dividend Clerk on the case, appreciate recommendations, immunofixation ordered - Vascular surgery consulted for TDC placement and dialysis, we'll continue dialysis for now - Calcium level improving - Per renal plan to continue on IHD inpatient or at [facility] if discharged. [facility] will go to [facility] in [place] for chronic intermittent hemodialysis --continue Furosemide 80 mg BID to encourage negative fluid balance --Dose medications for GFR less than 10 HTN, was uncontrolled better after hydralazine by mouth scheduled, continue stable - Cont metoprolol , hydralazine scheduled and hydralazine PRN Lower Extremity Edema, chronic diastolic CHF, stable Venous U/S - R/O DVT - unlikely given on Eliquis Echo - * Ejection Fraction = >70 %. * There is moderate concentric left ventricular hypertrophy. * Grade I diastolic dysfunction, (abnormal relaxation pattern). * There is mild mitral regurgitation. Atrial Fibrillation: Unknown Type: Rate Controlled - Serial cardiac enzymes - initial troponin 0.083 likely secondary to kidney function - Metoprolol Succ 50 mg BID -Continue eliquis as no surgery at this time, which is the renal dose per recommendation which is 5 mg by mouth twice a day Anemia multifactorial from CKD, iron and b12 def - Cont EPO, B12 and IV iron tx has completed for course CAMI on Night CPAP: - Set up CPAP per respiratory Constipation, cont bowel regimens include Colace, MiraLAX, and ordered a fleet enema DVT Prophylaxis: - AIDA/SCDs - Eliquis Disposition: - Patient was at [facility] due to ambulatory dysfunction but now plans on rehab at [facility] - Patient is ready to discharge to rehabilitation or snf if orthopedic surgeon do not planning to do the procedure in this hospitalization, will touch base with Dr. Juarez today Continued [facility] stay due to: home environment unsafe for pt Discharge planning: rehab hospital
[2016-08-12] MEDS ORDERED: NURSING VERBAL MED ORDER ONE ×2 (10:45→16:15)
[2016-08-12] MEDS ORDERED: SOD PHOSPHATE/SOD BIPHOSPHATE ENEMA 132 ML BTL PR ONE (11:00)
--- NOTE | 2016-08-12 11:50 | Dialysis Progress Note ---
Hemodialysis Note Date of Service Aug 12, 2016. Chief Complaint Follow-up for end-stage renal disease on hemodialysis. Subjective Reginaldo was seen and examined during dialysis this morning, has been tolerating dialysis well, vital sign including blood pressure and heart rate normal. Denies any shortness of breath leg cramp. Has been tolerating ultra filtration. Continue to be bothered by back pain and waiting on decision from orthopedic surgery and anesthesia about possible back surgery. Review of Systems A complete review of systems was performed. Pertinent positives are noted above. All other systems are negative. Vital Signs Last 8 Hrs Date Time Temp Pulse Resp B/P Pulse Ox O2 Delivery O2 Flow Rate FiO2 08/12/16 11:15 71 128/72 08/12/16 11:00 64 130/68 08/12/16 10:45 71 131/85 08/12/16 10:30 68 139/66 08/12/16 10:15 65 134/63 08/12/16 10:00 61 122/63 08/12/16 09:45 63 130/65 08/12/16 09:30 62 128/61 08/12/16 09:15 63 136/65 08/12/16 09:00 70 141/65 08/12/16 08:45 64 125/62 08/12/16 08:30 63 138/57 08/12/16 08:15 61 132/61 08/12/16 08:00 68 141/58 08/12/16 08:00 Room Air 08/12/16 07:45 37.2 68 141/58 08/12/16 07:17 36.4 65 18 133/72 98 Room Air 08/12/16 06:00 69 131/80 I & O 24-Hour Column 08/12/16 07:59 Intake Total 540 ml Balance 540 ml Last Recorded Weight Weight (Kilograms): 124.200 Physical Exam GENERAL:elderly male, obese, AAA x 3, pleasant, healthy-appearing, not in any distress. NECK: Supple, no JVD. RESPIRATORY: Normal breathing efforts, no accessory muscle use, clear to auscultation bilaterally, no wheezes or rales. CARDIOVASCULAR: S1, S2 normal, rate rhythm regular. EXTREMITY: 1+ B/L lower extremity edema NEURO: speech fluent. PSYCHIATRY: Normal mood and judgment Social History Smokeless Tobacco Use: No Alcohol Use: none Drug Use: none Marital Status: Occupation: retired Laboratory Results Past 24 Hours 08/12/16 05:32 Red Blood Count 3.40, Mean Corpuscular Volume 83.5, Mean Corpuscular Hemoglobin 26.2, Mean Corpuscular Hemoglobin Concent 31.3, Mean Platelet Volume 9.6, Neutrophils (%) (Auto) 71.9, Lymphocytes (%) (Auto) 13.4, Monocytes (%) (Auto) 11.2, Eosinophils (%) (Auto) 2.4, Basophils (%) (Auto) 0.7, Neutrophils # (Auto ) 3.90, Lymphocytes # (Auto) 0.73, Monocytes # (Auto) 0.61, Eosinophils # (Auto ) 0.13, Basophils # (Auto) 0.04 08/12/16 05:32 Test 08/11/16 16:30 08/11/16 20:17 08/12/16 05:32 08/12/16 07:38 Bedside Glucose 129 mg/dl (70-99) 180 mg/dl (70-99) 175 mg/dl (70-99) White Blood Count 5.43 K/uL (4.8-10.8) Red Blood Count 3.40 M/uL (4.7-6.1) Hemoglobin 8.9 g/dL (14.0-18.0) Hematocrit 28.4 % (42-52) Mean Corpuscular Volume 83.5 fL (80-100) Mean Corpuscular Hemoglobin 26.2 pg (25-34) Mean Corpuscular Hemoglobin Concent 31.3 g/dl (32-36) Platelet Count 215 K/uL (130-400) Mean Platelet Volume 9.6 fL (7.4-10.4) Neutrophils (%) (Auto) 71.9 % Lymphocytes (%) (Auto) 13.4 % Monocytes (%) (Auto) 11.2 % Eosinophils (%) (Auto) 2.4 % Basophils (%) (Auto) 0.7 % Neutrophils # (Auto) 3.90 K/uL (1.4-6.5) Lymphocytes # (Auto) 0.73 K/uL (1.2-3.4) Monocytes # (Auto) 0.61 K/uL (0.11-0.59) Eosinophils # (Auto) 0.13 K/uL (0-0.5) Basophils # (Auto) 0.04 K/uL (0-0.2) RDW Standard Deviation 55.4 fL (36.4-46.3) RDW Coefficient of Variation 18.2 % (11.5-14.5) Immature Granulocyte % (Auto) 0.4 % Immature Granulocyte # (Auto) 0.02 K/uL (0.00-0.02) Red Blood Cell Morphology Unremarkable Anion Gap 10.0 mmol/L (3-11) Est Creatinine Clear Calc Drug Dose 14.2 ml/min Estimated GFR () 9.3 Estimated GFR (Non- 8.1 BUN/Creatinine Ratio 6.1 (10-20) Calcium Level 9.9 mg/dl (8.5-10.1) Phosphorus Level 5.7 mg/dl (2.5-4.9) Magnesium Level 3.4 mg/dl (1.8-2.4) Albumin 2.9 gm/dl (3.4-5.0) Allergies Coded Allergies: Atorvastatin (Unverified Allergy, Unknown, UNKNOWN, 08/01/16) Gabapentin (Unverified Allergy, Unknown, UNKNOWN, 08/01/16) Pioglitazone (Unverified Allergy, Unknown, UNKNOWN, 08/01/16) Simvastatin (Unverified Allergy, Unknown, UNKNOWN, 08/01/16) Medications Current Inpatient Medications Medications (Trade) Dose Ordered Sig/Elliott Route Start Time Stop Time Status Last Admin Dose Admin Acetaminophen (Tylenol Tab) 650 mg Q6H PRN PO 08/01/16 19:00 08/31/16 18:59 08/11/16 11:38 650 MG Ondansetron HCl (Zofran Inj) 4 mg Q6H PRN IV 08/01/16 19:00 08/31/16 18:59 Lorazepam (Ativan Tab) 1 mg Q6H PRN PO 08/01/16 19:00 08/31/16 18:59 08/11/16 22:18 1 MG Cyanocobalamin (Vitamin B-12 Tab) 1,000 mcg QAM PO 08/02/16 09:00 09/01/16 08:59 08/11/16 08:23 1,000 MCG Docusate Sodium (coLACE CAP) 100 mg BID PO 08/01/16 21:00 08/31/16 20:59 08/11/16 20:12 100 MG Loratadine (Claritin Tab) 10 mg QAM PO 08/02/16 09:00 09/01/16 08:59 08/11/16 08:16 10 MG Metoprolol Succinate (Toprol Xl Tab) 50 mg BID PO 08/01/16 21:00 08/31/16 20:59 08/11/16 20:13 50 MG Insulin Aspart (novoLOG ASPART) SLIDING SCALE G... ACHS SC 08/01/16 21:00 08/31/16 20:59 08/11/16 21:21 1 UNITS Glucose (Glucose 40% Gel) 15-30 GRAMS 15 GRAMS... UD PRN PO 08/01/16 19:45 08/31/16 19:44 Glucose (Glucose Chew Tab) 4-8 Tablets 4 Tabl... UD PRN PO 08/01/16 19:45 08/31/16 19:44 Dextrose (Dextrose 50% 50ML Syringe) 25-50ML OF 50% DW IV FOR... UD PRN IV 08/01/16 19:45 08/31/16 19:44 Glucagon (Glucagon Inj) 1 mg UD PRN SQ 08/01/16 19:45 08/31/16 19:44 Al Hydrox/Mg Hydrox/Simethicone (Maalox Max Susp) 15 ml Q4H PRN PO 08/01/16 20:00 08/31/16 19:59 08/11/16 09:34 15 ML Magnesium Hydroxide (Milk Of Magnesia Susp) 30 ml Q12H PRN PO 08/01/16 20:00 08/31/16 19:59 08/08/16 08:30 30 ML Polyethylene (Miralax Powder Packet) 17 gm DAILY PRN PO 08/01/16 20:00 08/31/16 19:59 08/07/16 17:21 17 GM Miscellaneous Information (Order Awaiting Action) 1 ea QS N/A 08/02/16 00:00 09/01/16 00:00 Miscellaneous Information (Consult Glycemic Management Pharmacy) 1 ea UD PRN N/A 08/02/16 21:15 09/01/16 21:14 Insulin Glargine (Lantus Solostar Pen) SEE SCALE BID SC 08/03/16 09:00 08/12/16 23:59 08/11/16 21:19 12 UNIT Sevelamer HCl (Renagel Tab) 800 mg TIDM PO 08/03/16 11:30 09/02/16 11:29 08/11/16 17:51 800 MG Furosemide (Lasix Tab) 80 mg BID17 PO 08/04/16 17:00 09/03/16 16:59 08/11/16 17:52 80 MG Hydralazine HCl (HydrALAZINE INJ) 10 mg Q4 PRN IV. 08/05/16 07:30 09/04/16 07:29 08/10/16 00:06 10 MG Vitamin B Complex/ Vit C/Folic Acid (Nephrocaps) 1 cap QAM PO 08/07/16 09:00 09/06/16 08:59 08/11/16 08:20 1 CAP Apixaban (Eliquis Tab) 5 mg BID PO 08/07/16 21:00 09/06/16 20:59 08/11/16 20:13 5 MG Acetaminophen/ Hydrocodone Bitart ([place] 5/325 Tab) 1 tab Q4H PRN PO 08/08/16 11:00 08/22/16 10:59 08/11/16 09:34 1 TAB Acetaminophen/ Hydrocodone Bitart ([place] 10/325 Tab) 1 tab Q6H PRN PO 08/08/16 08:45 08/22/16 08:44 08/11/16 21:10 1 TAB Sodium Biphosphate/ Sodium Phosphate (Fleet Enema) 132 ml DAILY PRN DE 08/08/16 09:00 09/07/16 08:59 Albuterol/ Ipratropium (Duoneb) 3 ml QIDR PRN INH 08/09/16 12:00 09/08/16 11:59 Polyethylene (Miralax Powder Packet) 17 gm DAILY PO 08/10/16 08:00 09/09/16 07:59 08/11/16 08:19 17 GM Hydralazine HCl (Apresoline Tab) 20 mg Q8 PO 08/10/16 14:00 09/09/16 13:59 08/12/16 06:01 20 MG Enteral Nutritional Formula (Boost Breeze Nutritional Drink) 1 box BIDM PO 08/10/16 17:00 09/09/16 16:59 08/11/16 08:16 1 BOX Insulin Glargine (Lantus Solostar Pen) 15 unit BID SC 08/13/16 08:00 09/12/16 07:59 Impression (1) Chronic kidney disease, stage IV (severe) (2) BARB (acute kidney injury) (3) Hypercalcemia (4) Stenosis, spinal, lumbar (5) Intractable back pain (6) Atrial fibrillation (7) Anemia Mr. Reginaldo Ferro is a 76-year-old male with ESRD associated with hypertension, diabetes and obesity. His rush seater is Dr. Ivan Delcid in [place]. He would like to start outpatient HD at [facility] in [place] after discharge. He was started on hemodialysis on Monday ( 08/05/16 ) has been tolerating well. Renal ultrasound showed bilateral atrophic kidneys. Urinalysis documenting proteinuria. Urine microscopy is acellular. Chronic hypercalcemia with hyperparathyroidism noted. Reasonable control with Sensipar at home. Serum calcium improved with hydration and furosemide. Laboratory studies are also notable for acute on chronic anemia. Patient has a longstanding history of iron deficiency anemia. He has been started on Procrit and venofer as an inpatient. SPEP consistent with nonselective protein loss and immunofixation showed multiple indistinct bands suggestive of reactive changes or oligoclonal process. He was seen by Orthopedic surgery and currently waiting on an CARLI she evaluation for possible back surgery. He has outpatient setup for intermittent hemodialysis at [facility] in [place]. Initially patient will need to go to rehab either in [facility] or [facility] possibly after his back surgery Recommendations -- currently tolerating HD, BP stable. will continue on IHD inpatient or at [facility] if discharged. He will go to renal care in [place] for chronic intermittent hemodialysis. --waiting on evaluation for possible back surgery. --continue Furosemide 80 mg BID to encourage negative fluid balance --Continue sevelamer as phosphate binder, Nephrocaps daily. --Dose medications for GFR less than 10 will follow
[2016-08-12] MEDS: DOCUSATE SODIUM 100 MG CAP PO SCH ×2 (12:42→20:22)
[2016-08-12] MEDS: CYANOCOBALAMIN 500 MCG TAB (VIT B-12) PO SCH (12:42)
[2016-08-12] MEDS: NEPHROCAPS PO SCH (12:44)
[2016-08-12] MEDS: LORATADINE 10 MG TAB PO SCH (12:46)
[2016-08-12] MEDS: METOPROLOL SUCC 50MG EXT REL TAB PO SCH ×2 (12:46→20:22)
[2016-08-12] MEDS: APIXABAN 2.5 MG TAB PO SCH ×2 (12:47→20:22)
[2016-08-12] MEDS: POLYETHYLENE (MIRALAX) 17 GM PACK PO SCH (12:47)
--- NOTE | 2016-08-12 12:57 | Progress Note ---
Progress Note Date of Service Aug 12, 2016. Progress Note Attempted to discuss AVF creation with pt, he is anxious and tearful presently. Advised that L wrist cephalic v should be usable for AVF creation and L arm should be protected. Planning on L wrist AVF creation as outpt. present as well. Advised our office will contact pt after d/c to arrange.
[2016-08-12] MEDS: INSULIN GLARGINE SOLOSTAR 100 UNITS/ML 3 ML PEN SC SCH ×2 (13:30→21:41)
[2016-08-12] MEDS: HYDROCODONE/ACETAMI 10/325 TAB PO PRN ×2 (13:54→20:23)
--- NOTE | 2016-08-12 14:08 | Pharmacy Progress Note ---
Glycemic: Assessment & Plan Date of Service Aug 12, 2016. Assessment & Plan ASSESSMENT: * 76yo T2DM male with ESRD - started HD which will be continued as an outpatient * Pt is currently receiving SQ basal bolus insulin regimen with Lantus + NovoLog , average total daily dose is ~ 55 units/day * BSGs ranging 136-226mg/dl over the past 24hrs * This is adequately controlled based on age and co-morbidities * No changes need made to insulin regimen. However, Lantus is currently being dose based on BSG, this is no longer needed as we have been able to determine basal insulin needs (~ 30 units/day) * Pt uses 140 units of an insulin as an outpatient. Suspect that this will need reduced at discharge as insulin resistance has changed with progression of ESRD and starting HD. Pt will need outpatient insulin regimen reduced at discharge to prevent hypoglycemia. PLAN: Continue insulin regimen based on total daily dose of ~ 55 units of insulin per day. Pharmacy signing off of glycemic consult as none/minimal changes needed over the past few days. * Basal insulin: Lantus 15 units every 12 hours * Correctional Insulin: Novolog Correction per scale ACHS Goal Range: Low 120 mg/dL - High 160 mg/dL Correction Factor: 30 mg/dL/unit * Prandial insulin: Per carb ratio of 1 unit per 10 grams CHO consumed LOOKING AHEAD TO DISCHARGE: * May need to consider decreasing outpatient doses of insulin * Recommend: * NPH 15 units SQ BIDM * NovoLog 15 units SQ BIDM * Please note that the plan above was derived based on current level of insulin resistance and hospital stress. These recommendations are appropriate for inpatient admission only. Plan of care upon discharge will need to be reassessed to avoid potential outpatient hypo/hyperglycemia.
--- NOTE | 2016-08-12 14:20 | PROGRESS NOTE ---
DATE: 08/12/2016 SUBJECTIVE: Met with the patient today. His was at the bedside. He continues to complain of back, bilateral leg pain and weakness. He does understand that I have considerable concerns regarding his health status. I did have a conversation with the anesthesia department; they will evaluate the patient today and notify us regarding his candidacy for surgery and ____ we can perform at this institution versus possible consultation with a tertiary care center. Ultimately, he would require a lumbar decompression and fusion at the L4-L5, L5-S1 level. The patient and his understand and agree.
[2016-08-12] MEDS: LORAZEPAM 1 MG TAB PO PRN (16:09)
--- NOTE | 2016-08-12 16:48 | Anesthesiology Progress Note ---
Anesthesia Progress Note Date of Service Aug 12, 2016. Progress Notes The patient is a 76 y/o male with intractable back pain from spinal stenosis. He was admitted on 08/01/16 for progressive weakness in his lower extremities and severe back pain. He was found to have multiple comorbidities including worsening of his CKD to ESRD with hypercalcemia. Other PMH includes sleep apnea on CPAP, afib, HTN, diastolic dysfunction, dyslipidemia, DM on insulin, chronic anemia, obesity, and prostate cancer. He has been followed by nephrology and started dialysis while in the hospital. The patient has been very motivated to have surgery but there was some concern about his medical comorbidities. He has had no problems with anesthesia in the past. The patient wears hearing aides. He has no CP or SOB although he is now bed bound due to his spinal stenosis. His EKG from 08/01/16 shows NSR with incomplete RBBB , prolong QT, and lateral ST/T wave changes. His echo from 08/02/16 shows EF >70% , moderate LVH, mild MR, and grade I diastolic dysfunction. CXR from 08/01/16 shows NAD. Renal ultrasound shows bilateral atrophic kidneys. MRI shows bilateral foraminal disease in L4-S1. Labs are significant for hgb 8.9, BUN 39 , and Cr 6.1. He had an INR of 1.5 on 08/08/16. A troponin peak of 0.36 on is thought to be due to renal failure. Vitals SpO2 99 on RA, BP 138/81, RR 20, T 36.5, HR 97. On exam the patient was sitting in bed and appeared to be in pain. He has a R SC dialysis catheter. He has a mccloud and a thick neck but good neck extension. He was a MP 2 with TMD of 3 fb. Teeth were intact. Breath sounds were decreased bilaterally. Heart was RRR. Carotids were negative for bruits. The patient had compression boots on his feet. The patient is very motivated to have surgery. I spoke with Dr. Juarez who states that the patient needs to have surgery whether it be done here or at a tertiary center. I spoke with Dr. Sullivan as well as Dr. Sharp who both thought that the patient would be acceptable for surgery here. Dr. Sharp stated that the patient is now in ESRD and will require dialysis whether he has the surgery or not so she had no concern about the effects of anesthesia on his kidneys. The plan will be for the patient to receive a unit of PRBC and receive dialysis on . If the patient remains stable then Dr. Juarez will perform the surgery on 08/16/16. The patient was agreeable to this plan. He was counseled to remain NPO after midnight on 08/15/16. He was consented to general anesthesia with the possibility of invasive monitoring.
[2016-08-13] MEDS: HYDROCODONE/ACETAMI 10/325 TAB PO PRN ×3 (05:10→17:24)
[2016-08-13 06:00] VITALS: BP 150/77; PULSE 67
[2016-08-13] MEDS: HydrALAZINE 10 MG TAB PO SCH ×3 (06:26→20:52)
[2016-08-13 06:50] LABS: BUN/CREATININE RATIO 5.3 (10-20); CALCIUM 9.4 mg/dl (8.5-10.1); CREATININE 4.4 mg/dl (0.60-1.40); PHOSPHORUS 4.1 mg/dl (2.5-4.9); POTASSIUM 3.3 mmol/L (3.5-5.1)
[2016-08-13 07:26] VITALS: BP 116/70; PULSE 70; TEMP 36.7; O2SAT 95
[2016-08-13] MEDS: INSULIN ASPART 100 UNITS/ML 3 ML PEN SC SCH ×4 (09:12→20:49)
[2016-08-13] MEDS: BOOST BREEZE NUTRITION DRINK 1 BOX PO SCH ×2 (09:16→17:00)
[2016-08-13] MEDS: DOCUSATE SODIUM 100 MG CAP PO SCH ×2 (09:17→20:46)
[2016-08-13] MEDS: LORATADINE 10 MG TAB PO SCH (09:17)
[2016-08-13] MEDS: SEVELAMER HYDROCH 800 MG TAB PO SCH ×3 (09:18→17:23)
[2016-08-13] MEDS: NEPHROCAPS PO SCH (09:18)
[2016-08-13] MEDS: METOPROLOL SUCC 50MG EXT REL TAB PO SCH ×2 (09:19→20:52)
[2016-08-13] MEDS: FUROSEMIDE 80 MG TAB PO SCH ×2 (09:19→17:22)
[2016-08-13] MEDS: CYANOCOBALAMIN 500 MCG TAB (VIT B-12) PO SCH (09:19)
[2016-08-13] MEDS: INSULIN GLARGINE SOLOSTAR 100 UNITS/ML 3 ML PEN SC SCH ×2 (09:28→20:47)
[2016-08-13] MEDS ORDERED: POTASSIUM CHLORIDE 20 MEQ TABCR PO STA (09:56)
[2016-08-13] MEDS: POLYETHYLENE (MIRALAX) 17 GM PACK PO SCH (10:29)
[2016-08-13] MEDS ORDERED: NURSING VERBAL MED ORDER ONE (10:30)
[2016-08-13] MEDS ORDERED: HYDROCODONE/ACETAMOPHEN 5/325MG TAB PO PRN ×2 (10:45→12:00)
--- NOTE | 2016-08-13 11:02 | Nephrology Progress Note ---
Nephrology Progress Note Date of Service Aug 13, 2016. Chief Complaint Follow up evaluation of this patient w/ ESRD on HD admitted for evaluation of intractable back pain Subjective Mr. Ferro was seen & examined in his hospital room this morning. He has ESRD due to DM and HTN. He was started on HD 08/05/16. His last dialysis treatment was yesterday. He currently denies angina, dyspnea or uremic symptoms. He had several questions concerning permanent HD access. These were discussed at length. The patient was admitted with intractable low back pain. He was found to have lumbar stenosis. He is scheduled for surgery on Monday08/16/16. His discomfort persists this am. Mr. Ferro has anemia. He has completed 1 g IV iron infusion. He has been receiving LESVIA w/ HD treatments. He denies overt blood loss this morning. Review of Systems Constitutional: No fever Cardiovascular: No chest pain Respiratory: No dyspnea at rest Abdomen: No nausea, No pain Extremities: No leg edema A complete review of systems was performed. Pertinent positives are noted above. All other systems are negative. Vital Signs Last 8 Hrs Date Time Temp Pulse Resp B/P Pulse Ox O2 Delivery O2 Flow Rate FiO2 08/13/16 07:26 36.7 70 18 116/70 95 Room Air 08/13/16 06:00 67 150/77 I & O 24-Hour Column 08/13/16 08:00 Intake Total 340 ml Output Total 2000 ml Balance -1660 ml Last Recorded Weight Weight (Kilograms): 119.200 Physical Exam General Appearance: no apparent distress Head: atraumatic Eyes: PERRL Neck: no adenopathy Respiratory/Chest: lungs clear Cardiovascular: regular rate, rhythm Abdomen/GI: normal bowel sounds, non tender, soft Extremities/Musculoskelatal: no calf tenderness, no pedal edema Neurologic/Psych: alert, oriented x 3 Family History Diabetes mellitus Social History Smokeless Tobacco Use: No Alcohol Use: none Drug Use: none Marital Status: Occupation: retired Laboratory Results Past 24 Hours 08/13/16 05:20 Test 08/12/16 12:30 08/12/16 16:19 08/12/16 20:53 08/13/16 05:20 Bedside Glucose 136 mg/dl (70-99) 187 mg/dl (70-99) 180 mg/dl (70-99) Anion Gap 10.0 mmol/L (3-11) Est Creatinine Clear Calc Drug Dose 19.3 ml/min Estimated GFR () 13.9 Estimated GFR (Non- 12.0 BUN/Creatinine Ratio 5.3 (10-20) Calcium Level 9.4 mg/dl (8.5-10.1) Phosphorus Level 4.1 mg/dl (2.5-4.9) Albumin 3.2 gm/dl (3.4-5.0) Test 08/13/16 07:35 Bedside Glucose 188 mg/dl (70-99) Allergies Coded Allergies: Atorvastatin (Unverified Allergy, Unknown, UNKNOWN, 08/01/16) Gabapentin (Unverified Allergy, Unknown, UNKNOWN, 08/01/16) Pioglitazone (Unverified Allergy, Unknown, UNKNOWN, 08/01/16) Simvastatin (Unverified Allergy, Unknown, UNKNOWN, 08/01/16) Medications Current Inpatient Medications Medications (Trade) Dose Ordered Sig/Elliott Route Start Time Stop Time Status Last Admin Dose Admin Acetaminophen (Tylenol Tab) 650 mg Q6H PRN PO 08/01/16 19:00 08/31/16 18:59 08/11/16 11:38 650 MG Ondansetron HCl (Zofran Inj) 4 mg Q6H PRN IV 08/01/16 19:00 08/31/16 18:59 Lorazepam (Ativan Tab) 1 mg Q6H PRN PO 08/01/16 19:00 08/31/16 18:59 08/12/16 16:09 1 MG Cyanocobalamin (Vitamin B-12 Tab) 1,000 mcg QAM PO 08/02/16 09:00 09/01/16 08:59 08/13/16 09:19 1,000 MCG Docusate Sodium (coLACE CAP) 100 mg BID PO 08/01/16 21:00 08/31/16 20:59 08/13/16 09:17 100 MG Loratadine (Claritin Tab) 10 mg QAM PO 08/02/16 09:00 09/01/16 08:59 08/13/16 09:17 10 MG Metoprolol Succinate (Toprol Xl Tab) 50 mg BID PO 08/01/16 21:00 08/31/16 20:59 08/13/16 09:19 50 MG Insulin Aspart (novoLOG ASPART) SLIDING SCALE G... ACHS SC 08/01/16 21:00 08/31/16 20:59 08/12/16 21:39 1 UNITS Glucose (Glucose 40% Gel) 15-30 GRAMS 15 GRAMS... UD PRN PO 08/01/16 19:45 08/31/16 19:44 Glucose (Glucose Chew Tab) 4-8 Tablets 4 Tabl... UD PRN PO 08/01/16 19:45 08/31/16 19:44 Dextrose (Dextrose 50% 50ML Syringe) 25-50ML OF 50% DW IV FOR... UD PRN IV 08/01/16 19:45 08/31/16 19:44 Glucagon (Glucagon Inj) 1 mg UD PRN SQ 08/01/16 19:45 08/31/16 19:44 Al Hydrox/Mg Hydrox/Simethicone (Maalox Max Susp) 15 ml Q4H PRN PO 08/01/16 20:00 08/31/16 19:59 08/11/16 09:34 15 ML Magnesium Hydroxide (Milk Of Magnesia Susp) 30 ml Q12H PRN PO 08/01/16 20:00 08/31/16 19:59 08/08/16 08:30 30 ML Polyethylene (Miralax Powder Packet) 17 gm DAILY PRN PO 08/01/16 20:00 08/31/16 19:59 08/07/16 17:21 17 GM Miscellaneous Information (Order Awaiting Action) 1 ea QS N/A 08/02/16 00:00 09/01/16 00:00 Sevelamer HCl (Renagel Tab) 800 mg TIDM PO 08/03/16 11:30 09/02/16 11:29 08/13/16 09:18 800 MG Furosemide (Lasix Tab) 80 mg BID17 PO 08/04/16 17:00 09/03/16 16:59 08/13/16 09:19 80 MG Hydralazine HCl (HydrALAZINE INJ) 10 mg Q4 PRN IV. 08/05/16 07:30 09/04/16 07:29 08/10/16 00:06 10 MG Vitamin B Complex/ Vit C/Folic Acid (Nephrocaps) 1 cap QAM PO 08/07/16 09:00 09/06/16 08:59 08/13/16 09:18 1 CAP Apixaban (Eliquis Tab) 5 mg BID PO 08/07/16 21:00 09/06/16 20:59 Future hold 08/12/16 20:22 5 MG Acetaminophen/ Hydrocodone Bitart ([place] 5/325 Tab) 1 tab Q4H PRN PO 08/08/16 11:00 08/22/16 10:59 08/11/16 09:34 1 TAB Sodium Biphosphate/ Sodium Phosphate (Fleet Enema) 132 ml DAILY PRN SD 08/08/16 09:00 09/07/16 08:59 Albuterol/ Ipratropium (Duoneb) 3 ml QIDR PRN INH 08/09/16 12:00 09/08/16 11:59 Polyethylene (Miralax Powder Packet) 17 gm DAILY PO 08/10/16 08:00 09/09/16 07:59 08/13/16 10:29 17 GM Hydralazine HCl (Apresoline Tab) 20 mg Q8 PO 08/10/16 14:00 09/09/16 13:59 08/13/16 06:26 20 MG Enteral Nutritional Formula (Boost Breeze Nutritional Drink) 1 box BIDM PO 08/10/16 17:00 09/09/16 16:59 08/11/16 08:16 1 BOX Insulin Glargine (Lantus Solostar Pen) 15 unit BID SC 08/13/16 08:00 09/12/16 07:59 08/13/16 09:28 15 UNIT Acetaminophen/ Hydrocodone Bitart ([place] 5/325 Tab) 1 tab Q6H PRN PO 08/13/16 10:45 08/27/16 10:44 Impression (1) Chronic kidney disease, stage IV (severe) (2) BARB (acute kidney injury) (3) Hypercalcemia (4) Stenosis, spinal, lumbar (5) Intractable back pain (6) Atrial fibrillation (7) Anemia Mr. Reginaldo Ferro is a 76-year-old male with ESRD due to hypertension, diabetes and obesity. His documentation clerk is Dr. Ivan Delcid in [place]. He was started on hemodialysis on 08/05/16. Renal ultrasound showed bilateral atrophic kidneys. Urinalysis documenting proteinuria. Urine microscopy is acellular. Chronic hypercalcemia with hyperparathyroidism noted. Reasonable control with Sensipar at home. Serum calcium improved with hydration and furosemide. Laboratory studies are also notable for acute on chronic anemia. Patient has a longstanding history of iron deficiency anemia. He has been started on Procrit and venofer as an inpatient. SPEP consistent with nonselective protein loss and immunofixation showed multiple indistinct bands suggestive of reactive changes or oligoclonal process. Patient has lumbar stenosis and is scheduled for laminectomy. He will likely require stay at [facility] following his surgery. Recommendations END STAGE RENAL DISEASE: -- Volume status and electrolyte balance are acceptable. No acute indication for HD today -- Will schedule next HD for Monday08/14/16 -- Continue Furosemide 80 mg BID to encourage negative fluid balance -- Continue Sevelamer as phosphate binder -- Continue Nephrocaps daily -- Will need AVF creation as outpatient ANEMIA: -- Patient has completed 1 g IV iron infusion -- Will continue LESVIA w/ HD treatments -- Anesthesiology note reviewed. Will provide one unit PRBC w/ HD Monday in preparation for lumbar spine surgery next week LUMBAR STENOSIS: -- Surgery scheduled for Monday08/16/16
[2016-08-13] MEDS ORDERED: MAGNESIUM CITRATE 296 ML/BTL PO ONE (11:15)
--- NOTE | 2016-08-13 11:25 | PROGRESS NOTE ---
DATE: 08/13/2016 SUBJECTIVE: Mr. Ferro continues to complain of back and bilateral leg pain. We had a lengthy discussion today regarding the results of his anesthetic evaluation. He understands we may be able to proceed with surgery Monday. The plan at this time would be for him to undergo dialysis Monday, require 1-2 units of blood transfusion and surgery Monday a.m. Risks, benefits, pros, cons again were outlined in detail. The patient understands and agrees. We are hoping to move forward Monday.
--- NOTE | 2016-08-13 11:25 | Progress Note ---
Subjective Date of Service: Aug 13, 2016. Subjective Pt evaluation today including: conversation w/ patient, physical exam, chart review, lab review, review of studies, conversation w/ contract consultant, review of inpatient medication list Voiding: no voiding problems Complaining about back pain and the pain is not well controlled by pain medication No bowel movement for 2-3 days however declined free in edema, only want to try some prune juice or miralax Otherwise pleasant, conversational, smiling Problem List Medical Problems: (1) BARB (acute kidney injury) Status: Acute (2) Hypercalcemia Status: Acute Review of Systems Constitutional: No chills, No fatigue, No fever, No problem reported, No sweats , No weakness, No weight loss Eyes: No diplopia, No discharge, No eye pain, No redness, No worsening of vision ENT: No dental problems, No hearing loss, No nasal symptoms, No sore throat, No tinnitus, No trouble swallowing, No unusual epistaxis Respiratory: No cough, No dyspnea at rest, No dyspnea on exertion, No hemoptysis, No shortness of breath, No sputum, No wheezing Cardiac: No PND, No chest pain, No claudication, No edema, No orthopnea, No palpitations Abdomen: + constipation, No diarrhea, No nausea, No pain, No vomiting Musculoskeletal: + joint pain, No calf pain, No muscle pain, No swelling Male : No dysuria, No hematuria, No incontinence, No nocturia more than once/ night, No slowing stream, No urinary frequency Neurologic: No balance problems, No memory loss, No numbness/tingling, No paralysis, No vertigo, No weakness Psychiatric: No anhedonism, No anxiety, No depression symptoms, No insomnia, No substance abuse Heme: No abnormal bleeding/bruising, No clotting problems, No night sweats, No swollen lymph nodes Endo: No excessive thirst, No excessive urination, No fatigue Skin: No bleeding, No color change, No itch, No new/changing skin lesions, No rash Objective Vital Signs Date Time Temp Pulse Resp B/P Pulse Ox O2 Delivery O2 Flow Rate FiO2 08/13/16 07:26 36.7 70 18 116/70 95 Room Air 08/13/16 06:00 67 150/77 08/13/16 00:00 Room Air CPAP 08/12/16 23:38 36.5 76 20 132/75 96 Room Air 08/12/16 20:20 78 158/80 08/12/16 20:18 80 187/73 08/12/16 16:00 Room Air 08/12/16 15:49 36.5 97 20 138/81 99 Room Air 08/12/16 12:16 36.9 72 124/62 08/12/16 12:00 65 106/61 08/12/16 11:45 75 107/62 08/12/16 11:30 60 116/69 08/12/16 11:15 71 128/72 Physical Exam General Appearance: WD/WN, no apparent distress, + obese Eyes: normal inspection, PERRL, EOMI, sclerae normal ENT: normal ENT inspection, hearing grossly normal, pharynx normal Neck: supple, no adenopathy, thyroid normal, no JVD, no carotid bruits, trachea midline Respiratory/Chest: chest non-tender, normal breath sounds, no respiratory distress, no accessory muscle use, + decreased breath sounds Cardiovascular: regular rate, rhythm, no edema, no gallop, no JVD, no murmur Abdomen: normal bowel sounds, non tender, soft, no organomegaly, no pulsatile mass, + distended Extremities: normal range of motion, non-tender, normal inspection, no pedal edema, no calf tenderness, normal capillary refill, pelvis stable, + pertinent finding 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, no motor/sensory deficits, alert, normal mood/affect, oriented x 3 Skin: normal color, warm/dry, no rash Lymphatic: no adenopathy Laboratory Results Last 24 Hours Test 08/12/16 12:30 08/12/16 16:19 08/12/16 20:53 08/13/16 05:20 Bedside Glucose 136 mg/dl 187 mg/dl 180 mg/dl Sodium Level 138 mmol/L Potassium Level 3.3 mmol/L Chloride Level 98 mmol/L Carbon Dioxide Level 30 mmol/L Anion Gap 10.0 mmol/L Blood Urea Nitrogen 24 mg/dl Creatinine 4.40 mg/dl Est Creatinine Clear Calc Drug Dose 19.3 ml/min Estimated GFR () 13.9 Estimated GFR (Non- 12.0 BUN/Creatinine Ratio 5.3 Random Glucose 175 mg/dl Calcium Level 9.4 mg/dl Phosphorus Level 4.1 mg/dl Albumin 3.2 gm/dl Test 3/18/17 07:35 Bedside Glucose 188 mg/dl Assessment and Plan 76 y/o male with PMHx of Atrial Fibrillation (anticoagulated), HTN, CAMI on night CPAP, T2DM, Chronic Kidney Disease with Secondary Hyperparathyroidism, and Prostate CA who presents to the ED complaining of worsening lower back pain and ambulation difficulty 2 weeks on 08/01/2016 Back Pain with Ambulatory Dysfunction: Symptoms comes and goes, fluctuation, but generally I feel possible a little better - Pain management and PT/OT -Was initially seen spine surgeon Dr. Pena: Need to stabilize before surgery can be attempted, Dr. Pena recommend may be discharged to a rehab type facility. The patient is a longstanding patient of Dr. Librado Hill saw patient 08/10/2016, recommended anesthesiologist evaluation further preop optimization and risk for the procedure, Anesthesiologist saw patient , recommended to optimized conditions and can planning to have procedure next Monday MRI neg for any metastatic lesions, back will be reevaluated at a later time Patient is in moderate to high risk of cardiopulmonary complication for the spine procedure because of his comorbidities Possible Bronchitis upon admission: Resolved T2DM: Stable Acute on Chronic Kidney Disease stage 4 with Secondary Hyperparathyroidism: Baseline Unknown, stable/no new changes, continue dialysis --continue Furosemide 80 mg BID to encourage negative fluid balance HTN, , better after hydralazine by mouth scheduled, continue stable - Cont metoprolol , hydralazine scheduled and hydralazine PRN Lower Extremity Edema, chronic diastolic CHF, stable Venous U/S - R/O DVT - unlikely given on Eliquis Echo - * Ejection Fraction = >70 %. * There is moderate concentric left ventricular hypertrophy. * Grade I diastolic dysfunction, (abnormal relaxation pattern). * There is mild mitral regurgitation. Atrial Fibrillation: Unknown Type: Rate Controlled - Metoprolol Succ 50 mg BID - Eliquis currently is on hold Anemia multifactorial from CKD, iron and b12 def - Cont EPO, B12 and IV iron tx has completed for course CAMI on Night CPAP: - Set up CPAP per respiratory Constipation, cont bowel regimens include Colace, MiraLAX, and ordered a fleet enema, patient declined fleet enema plan to have procedure on Monday after dialysis, discussed with patient about the risk and benefit, and options, he understands and willing to take on the risk Continued [facility] stay due to: home environment unsafe for pt Discharge planning: rehab hospital
[2016-08-13 15:25] VITALS: BP 130/72; PULSE 70; TEMP 36.3; O2SAT 99
[2016-08-13] MEDS ORDERED: MAGNESIUM CITRATE 296 ML/BTL ONE (17:56)
[2016-08-13 20:00] VITALS: BP 134/87; PULSE 80
[2016-08-13 23:47] VITALS: BP 136/79; PULSE 73; TEMP 36.3; O2SAT 99
[2016-08-14] MEDS: HYDROCODONE/ACETAMI 10/325 TAB PO PRN ×4 (00:59→22:16)
[2016-08-14 05:42] LABS: HEMATOCRIT 30.9 % (42-52); MEAN CELL VOLUME 84.9 fL (80-100); MEAN CORPUSCULAR HEMOGLOBIN 26.1 pg (25-34); MEAN CORPUSCULAR HGB CONC 30.7 g/dl (32-36); MEAN PLATELET VOLUME 9.1 fL (7.4-10.4); PLATELET COUNT 201 K/uL (130-400); RED BLOOD COUNT 3.64 M/uL (4.7-6.1); WHITE BLOOD COUNT 4.02 K/uL (4.8-10.8)
[2016-08-14] MEDS: HydrALAZINE 10 MG TAB PO SCH ×3 (05:47→22:16)
[2016-08-14 06:22] LABS: BUN/CREATININE RATIO 5.7 (10-20); CALCIUM 10.3 mg/dl (8.5-10.1); CREATININE 5.8 mg/dl (0.60-1.40); MAGNESIUM 3.5 mg/dl (1.8-2.4); POTASSIUM 3.9 mmol/L (3.5-5.1)
[2016-08-14 07:08] VITALS: BP 134/81; PULSE 70; TEMP 36.5; O2SAT 97
[2016-08-14] MEDS: INSULIN ASPART 100 UNITS/ML 3 ML PEN SC SCH ×4 (08:44→20:27)
[2016-08-14] MEDS: INSULIN GLARGINE SOLOSTAR 100 UNITS/ML 3 ML PEN SC SCH ×2 (08:45→20:30)
[2016-08-14] MEDS: BOOST BREEZE NUTRITION DRINK 1 BOX PO SCH ×2 (08:45→17:00)
[2016-08-14] MEDS: LORATADINE 10 MG TAB PO SCH (08:50)
[2016-08-14] MEDS: DOCUSATE SODIUM 100 MG CAP PO SCH ×2 (08:51→19:41)
[2016-08-14] MEDS: NEPHROCAPS PO SCH (08:51)
[2016-08-14] MEDS: SEVELAMER HYDROCH 800 MG TAB PO SCH ×4 (08:52→17:31)
[2016-08-14] MEDS: METOPROLOL SUCC 50MG EXT REL TAB PO SCH ×2 (08:52→19:41)
[2016-08-14] MEDS: POLYETHYLENE (MIRALAX) 17 GM PACK PO SCH (08:52)
[2016-08-14] MEDS: FUROSEMIDE 80 MG TAB PO SCH ×2 (08:53→17:30)
[2016-08-14] MEDS: CYANOCOBALAMIN 500 MCG TAB (VIT B-12) PO SCH (08:53)
--- NOTE | 2016-08-14 09:16 | Progress Note ---
Subjective Date of Service: Aug 14, 2016. Subjective Pt evaluation today including: conversation w/ patient, physical exam, chart review, lab review, review of studies, conversation w/ operations consultant, review of inpatient medication list Voiding: no voiding problems Continue doing the same, pain fairly controlled, however no bowel movement for 3 days although with the stool softener include mag Citrucel. Problem List Medical Problems: (1) BARB (acute kidney injury) Status: Acute (2) Hypercalcemia Status: Acute Review of Systems Constitutional: No chills, No fatigue, No fever, No problem reported, No see HPI, No sweats, No weakness, No weight loss Eyes: No diplopia, No discharge, No eye pain, No problem reported, No redness, No see HPI, No worsening of vision ENT: No dental problems, No hearing loss, No nasal symptoms, No problem reported, No see HPI, No sore throat, No tinnitus, No trouble swallowing, No unusual epistaxis Respiratory: No cough, No dyspnea at rest, No dyspnea on exertion, No hemoptysis, No problem reported, No see HPI, No shortness of breath, No sputum, No wheezing Cardiac: No PND, No chest pain, No claudication, No edema, No orthopnea, No palpitations, No problem reported, No see HPI Abdomen: + constipation, No nausea, No pain, No vomiting Musculoskeletal: + joint pain Male : No dysuria, No hematuria, No incontinence, No nocturia more than once/ night, No problem reported, No see HPI, No sexual dysfunction, No slowing stream , No urinary frequency Neurologic: No balance problems, No memory loss, No numbness/tingling, No paralysis, No problem reported, No see HPI, No vertigo, No weakness Psychiatric: No anhedonism, No anxiety, No depression symptoms, No insomnia, No problem reported, No see HPI, No substance abuse Heme: No abnormal bleeding/bruising, No clotting problems, No night sweats, No problem reported, No see HPI, No swollen lymph nodes Endo: No excessive thirst, No excessive urination, No fatigue, No problem reported, No see HPI Skin: No bleeding, No color change, No itch, No new/changing skin lesions, No problem reported, No rash, No see HPI Objective Vital Signs Date Time Temp Pulse Resp B/P Pulse Ox O2 Delivery O2 Flow Rate FiO2 08/14/16 07:08 36.5 70 18 134/81 97 Room Air 08/14/16 00:00 CPAP 08/13/16 23:47 36.3 73 18 136/79 99 CPAP 08/13/16 20:00 Room Air CPAP 08/13/16 20:00 80 134/87 08/13/16 16:00 Room Air 08/13/16 15:25 36.3 70 18 130/72 99 Room Air Physical Exam General Appearance: WD/WN, no apparent distress, + obese Eyes: normal inspection, PERRL, EOMI, sclerae normal ENT: normal ENT inspection, hearing grossly normal, pharynx normal Neck: supple, no adenopathy, thyroid normal, no JVD, no carotid bruits, trachea midline Respiratory/Chest: chest non-tender, lungs clear, normal breath sounds, no respiratory distress, no accessory muscle use Cardiovascular: regular rate, rhythm, no edema, no gallop, no JVD, no murmur Abdomen: normal bowel sounds, no organomegaly, no pulsatile mass, + distended Extremities: normal range of motion, non-tender, normal inspection, no pedal edema, no calf tenderness, normal capillary refill, pelvis stable 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, no motor/sensory deficits, alert, normal mood/affect, oriented x 3 Skin: normal color, warm/dry, no rash Lymphatic: no adenopathy Laboratory Results Last 24 Hours Test 08/13/16 11:34 08/13/16 16:29 08/13/16 20:13 08/14/16 05:14 Bedside Glucose 337 mg/dl 148 mg/dl 191 mg/dl White Blood Count 4.02 K/uL Red Blood Count 3.64 M/uL Hemoglobin 9.5 g/dL Hematocrit 30.9 % Mean Corpuscular Volume 84.9 fL Mean Corpuscular Hemoglobin 26.1 pg Mean Corpuscular Hemoglobin Concent 30.7 g/dl RDW Standard Deviation 56.8 fL RDW Coefficient of Variation 18.3 % Platelet Count 201 K/uL Mean Platelet Volume 9.1 fL Sodium Level 140 mmol/L Potassium Level 3.9 mmol/L Chloride Level 98 mmol/L Carbon Dioxide Level 30 mmol/L Anion Gap 12.0 mmol/L Blood Urea Nitrogen 33 mg/dl Creatinine 5.80 mg/dl Est Creatinine Clear Calc Drug Dose 14.9 ml/min Estimated GFR () 9.9 Estimated GFR (Non- 8.6 BUN/Creatinine Ratio 5.7 Random Glucose 200 mg/dl Calcium Level 10.3 mg/dl Magnesium Level 3.5 mg/dl Test 08/14/16 07:26 Bedside Glucose 201 mg/dl Assessment and Plan 76 y/o male with PMHx of Atrial Fibrillation (anticoagulated), HTN, CAMI on night CPAP, T2DM, Chronic Kidney Disease with Secondary Hyperparathyroidism, and Prostate CA who presents to the ED complaining of worsening lower back pain and ambulation difficulty 2 weeks on 08/01/2016 Back Pain with Ambulatory Dysfunction: Symptoms comes and goes, fluctuation, but generally possible a little better with pain meds - Pain management and PT/OT -Was initially seen spine surgeon Dr. Pena: Need to stabilize before surgery can be attempted, - The patient is a longstanding patient of Dr. Librado Juarez saw patient 08/10/2016, recommended anesthesiologist evaluation further preop optimization and risk for the procedure, Anesthesiologist saw patient , recommended to optimized conditions and can planning to have procedure next Monday Patient is in moderate to high risk of cardiopulmonary complication for the spine procedure because of his comorbidities Possible Bronchitis upon admission: Resolved T2DM: Stable Acute on Chronic Kidney Disease stage 4 with Secondary Hyperparathyroidism: Baseline Unknown, stable/no new changes, continue dialysis --continue Furosemide 80 mg BID to encourage negative fluid balance, 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 * There is moderate concentric left ventricular hypertrophy. * Grade I diastolic dysfunction, (abnormal relaxation pattern). * There is mild mitral regurgitation. Atrial Fibrillation: Unknown Type: Rate Controlled - Metoprolol Succ 50 mg BID - Eliquis currently is on hold Anemia multifactorial from CKD, iron and b12 def - Cont EPO, B12 and IV iron tx , iron has completed for course CAMI on Night CPAP: - Set up CPAP per respiratory Constipation, cont bowel regimens include Colace, MiraLAX, and ordered a fleet enema, patient declined fleet enema, has no bowel movement again for 3 days, counseling him really need fleet enema The plan: dialysis Monday, may require 1-2 units of blood transfusion? (today' s HB is 9.5), and surgery Monday a.m. will discussed with Dr. Marquis to give blood during HD Continued [facility] stay due to: home environment unsafe for pt Discharge planning: rehab hospital
--- NOTE | 2016-08-14 10:44 | Nephrology Progress Note ---
Nephrology Progress Note Date of Service Aug 14, 2016. Chief Complaint Follow up evaluation of this patient w/ ESRD on HD admitted for evaluation of intractable back pain Subjective Mr. Ferro was seen & examined in his hospital room this morning. He has ESRD due to DM and HTN. He was started on HD 08/05/16. His last dialysis treatment was 08/12/16. He currently denies angina, dyspnea or uremic symptoms. He understands the need for AVF creation following discharge from the hospital. This was discussed with him yesterday. The patient was admitted with intractable low back pain. He was found to have lumbar stenosis. He is scheduled for surgery on Monday08/16/16. His discomfort persists this am. Mr. Ferro has anemia. He has completed 1 g IV iron infusion. He has been receiving LESVIA w/ HD treatments. He denies overt blood loss this morning. Surgery has requested blood transfusion w/ HD 08/15/16 in preparation for his operation on Monday. Review of Systems Constitutional: No fever Cardiovascular: No chest pain Respiratory: No dyspnea at rest Abdomen: No nausea, No pain, No vomiting Extremities: No leg edema A complete review of systems was performed. Pertinent positives are noted above. All other systems are negative. Vital Signs Last 8 Hrs Date Time Temp Pulse Resp B/P Pulse Ox O2 Delivery O2 Flow Rate FiO2 08/14/16 07:08 36.5 70 18 134/81 97 Room Air I & O 24-Hour Column 08/14/16 08:00 Intake Total 320 ml Balance 320 ml Last Recorded Weight Weight (Kilograms): 124.500 Physical Exam General Appearance: no apparent distress Head: normocephalic, atraumatic Eyes: PERRL, EOMI Neck: no adenopathy, no JVD Respiratory/Chest: lungs clear, no respiratory distress Cardiovascular: regular rate, rhythm Abdomen/GI: normal bowel sounds, non tender, soft Extremities/Musculoskelatal: no calf tenderness, no pedal edema Neurologic/Psych: alert, oriented x 3 Family History Diabetes mellitus Social History Smokeless Tobacco Use: No Alcohol Use: none Drug Use: none Marital Status: Occupation: retired Laboratory Results Past 24 Hours 08/14/16 05:14 08/14/16 05:14 Test 08/13/16 11:34 08/13/16 16:29 08/13/16 20:13 08/14/16 05:14 Bedside Glucose 337 mg/dl (70-99) 148 mg/dl (70-99) 191 mg/dl (70-99) Red Blood Count 3.64 M/uL (4.7-6.1) Mean Corpuscular Volume 84.9 fL (80-100) Mean Corpuscular Hemoglobin 26.1 pg (25-34) Mean Corpuscular Hemoglobin Concent 30.7 g/dl (32-36) RDW Standard Deviation 56.8 fL (36.4-46.3) RDW Coefficient of Variation 18.3 % (11.5-14.5) Mean Platelet Volume 9.1 fL (7.4-10.4) Anion Gap 12.0 mmol/L (3-11) Est Creatinine Clear Calc Drug Dose 14.9 ml/min Estimated GFR () 9.9 Estimated GFR (Non- 8.6 BUN/Creatinine Ratio 5.7 (10-20) Calcium Level 10.3 mg/dl (8.5-10.1) Magnesium Level 3.5 mg/dl (1.8-2.4) Test 08/14/16 07:26 Bedside Glucose 201 mg/dl (70-99) Allergies Coded Allergies: Atorvastatin (Unverified Allergy, Unknown, UNKNOWN, 08/01/16) Gabapentin (Unverified Allergy, Unknown, UNKNOWN, 08/01/16) Pioglitazone (Unverified Allergy, Unknown, UNKNOWN, 08/01/16) Simvastatin (Unverified Allergy, Unknown, UNKNOWN, 08/01/16) Medications Current Inpatient Medications Medications (Trade) Dose Ordered Sig/Elliott Route Start Time Stop Time Status Last Admin Dose Admin Acetaminophen (Tylenol Tab) 650 mg Q6H PRN PO 08/01/16 19:00 08/31/16 18:59 08/11/16 11:38 650 MG Ondansetron HCl (Zofran Inj) 4 mg Q6H PRN IV 08/01/16 19:00 08/31/16 18:59 Lorazepam (Ativan Tab) 1 mg Q6H PRN PO 08/01/16 19:00 08/31/16 18:59 08/12/16 16:09 1 MG Cyanocobalamin (Vitamin B-12 Tab) 1,000 mcg QAM PO 08/02/16 09:00 09/01/16 08:59 08/14/16 08:53 1,000 MCG Docusate Sodium (coLACE CAP) 100 mg BID PO 08/01/16 21:00 08/31/16 20:59 08/14/16 08:51 100 MG Loratadine (Claritin Tab) 10 mg QAM PO 08/02/16 09:00 09/01/16 08:59 08/14/16 08:50 10 MG Metoprolol Succinate (Toprol Xl Tab) 50 mg BID PO 08/01/16 21:00 08/31/16 20:59 08/14/16 08:52 50 MG Insulin Aspart (novoLOG ASPART) SLIDING SCALE G... ACHS SC 08/01/16 21:00 08/31/16 20:59 08/14/16 08:44 10 UNITS Glucose (Glucose 40% Gel) 15-30 GRAMS 15 GRAMS... UD PRN PO 08/01/16 19:45 08/31/16 19:44 Glucose (Glucose Chew Tab) 4-8 Tablets 4 Tabl... UD PRN PO 08/01/16 19:45 08/31/16 19:44 Dextrose (Dextrose 50% 50ML Syringe) 25-50ML OF 50% DW IV FOR... UD PRN IV 08/01/16 19:45 08/31/16 19:44 Glucagon (Glucagon Inj) 1 mg UD PRN SQ 08/01/16 19:45 08/31/16 19:44 Al Hydrox/Mg Hydrox/Simethicone (Maalox Max Susp) 15 ml Q4H PRN PO 08/01/16 20:00 08/31/16 19:59 08/11/16 09:34 15 ML Magnesium Hydroxide (Milk Of Magnesia Susp) 30 ml Q12H PRN PO 08/01/16 20:00 08/31/16 19:59 08/08/16 08:30 30 ML Polyethylene (Miralax Powder Packet) 17 gm DAILY PRN PO 08/01/16 20:00 08/31/16 19:59 08/07/16 17:21 17 GM Miscellaneous Information (Order Awaiting Action) 1 ea QS N/A 08/02/16 00:00 09/01/16 00:00 Sevelamer HCl (Renagel Tab) 800 mg TIDM PO 08/03/16 11:30 09/02/16 11:29 08/14/16 08:52 800 MG Furosemide (Lasix Tab) 80 mg BID17 PO 08/04/16 17:00 09/03/16 16:59 08/14/16 08:53 80 MG Hydralazine HCl (HydrALAZINE INJ) 10 mg Q4 PRN IV. 08/05/16 07:30 09/04/16 07:29 08/10/16 00:06 10 MG Vitamin B Complex/ Vit C/Folic Acid (Nephrocaps) 1 cap QAM PO 08/07/16 09:00 09/06/16 08:59 08/14/16 08:51 1 CAP Apixaban (Eliquis Tab) 5 mg BID PO 08/07/16 21:00 09/06/16 20:59 Future hold 08/12/16 20:22 5 MG Acetaminophen/ Hydrocodone Bitart (Copen 5/325 Tab) 1 tab Q4H PRN PO 08/08/16 11:00 08/22/16 10:59 08/11/16 09:34 1 TAB Sodium Biphosphate/ Sodium Phosphate (Fleet Enema) 132 ml DAILY PRN [place] 08/08/16 09:00 09/07/16 08:59 08/14/16 08:56 132 ML Albuterol/ Ipratropium (Duoneb) 3 ml QIDR PRN INH 08/09/16 12:00 09/08/16 11:59 Polyethylene (Miralax Powder Packet) 17 gm DAILY PO 08/10/16 08:00 09/09/16 07:59 08/13/16 10:29 17 GM Hydralazine HCl (Apresoline Tab) 20 mg Q8 PO 08/10/16 14:00 09/09/16 13:59 08/14/16 05:47 20 MG Enteral Nutritional Formula (Boost Breeze Nutritional Drink) 1 box BIDM PO 08/10/16 17:00 09/09/16 16:59 08/11/16 08:16 1 BOX Insulin Glargine (Lantus Solostar Pen) 15 unit BID SC 08/13/16 08:00 09/12/16 07:59 08/14/16 08:45 15 UNIT Acetaminophen/ Hydrocodone Bitart (Copen 10/325 Tab) 1 tab Q4H PRN PO 08/13/16 11:15 08/27/16 11:14 08/14/16 10:19 1 TAB Heparin Sodium (Porcine) (Heparin Iv Bolus) 2,000 unit 0600 IV 08/15/16 06:00 08/15/16 11:00 Heparin Sodium (Porcine) (Heparin Iv Bolus) 500 unit Q1H IV 08/15/16 06:00 08/15/16 11:00 Epoetin Teddy (Procrit Inj) 10,000 units 1015 IV. 08/15/16 10:15 08/15/16 16:00 Impression (1) Chronic kidney disease, stage IV (severe) (2) BARB (acute kidney injury) (3) Hypercalcemia (4) Stenosis, spinal, lumbar (5) Intractable back pain (6) Atrial fibrillation (7) Anemia Mr. Reginaldo Ferro is a 76-year-old male with ESRD due to hypertension, diabetes and obesity. His metallurgical specialist is Dr. Ivan Delcid in [place]. He was started on hemodialysis on 08/05/16. Renal ultrasound showed bilateral atrophic kidneys. Urinalysis documenting proteinuria. Urine microscopy is acellular. Chronic hypercalcemia with hyperparathyroidism noted. Reasonable control with Sensipar at home. Serum calcium improved with hydration and furosemide. Laboratory studies are also notable for acute on chronic anemia. Patient has a longstanding history of iron deficiency anemia. He has been started on Procrit and venofer as an inpatient. SPEP consistent with nonselective protein loss and immunofixation showed multiple indistinct bands suggestive of reactive changes or oligoclonal process. Patient has lumbar stenosis and is scheduled for laminectomy. He will likely require stay at [facility] following his surgery. Recommendations END STAGE RENAL DISEASE: -- Volume status and electrolyte balance are acceptable. No acute indication for HD today -- Will schedule next HD for Monday am 08/15/16 -- Continue Furosemide 80 mg BID to encourage negative fluid balance -- Continue Sevelamer as phosphate binder -- Continue Nephrocaps daily -- Will need AVF creation as outpatient ANEMIA: -- Patient has completed 1 g IV iron infusion -- Will continue LESVIA w/ HD treatments -- Anesthesiology note reviewed. Will provide 2 units PRBC w/ HD Monday in preparation for lumbar spine surgery next week. Blood consent form reviewed w/ patient, signed and placed on paper chart today LUMBAR STENOSIS: -- Surgery scheduled for Monday08/16/16
[2016-08-14 15:20] VITALS: BP 123/75; PULSE 79; TEMP 36.2; O2SAT 95
[2016-08-14 19:39] VITALS: BP 136/77; PULSE 71
[2016-08-14 23:44] VITALS: BP 154/76; PULSE 70; TEMP 36.2; O2SAT 99
[2016-08-15] VITALS (23 sets, daily range): BP systolic 96–174; BP diastolic 36–98; PULSE 64–86; TEMP 36.4–37; O2SAT 97–98
[2016-08-15] MEDS: ACETAMINOPHEN 325 MG TAB PO PRN (01:41)
[2016-08-15] MEDS: LORAZEPAM 1 MG TAB PO PRN (01:41)
[2016-08-15] MEDS: HYDROCODONE/ACETAMI 10/325 TAB PO PRN ×3 (04:34→17:01)
[2016-08-15] MEDS: HydrALAZINE 10 MG TAB PO SCH ×3 (05:35→21:59)
[2016-08-15 05:39] LABS: HEMATOCRIT 31.3 % (42-52); MEAN CELL VOLUME 84.8 fL (80-100); MEAN CORPUSCULAR HGB CONC 30.7 g/dl (32-36); MEAN PLATELET VOLUME 9.1 fL (7.4-10.4); PLATELET COUNT 210 K/uL (130-400); RED BLOOD COUNT 3.69 M/uL (4.7-6.1); WHITE BLOOD COUNT 4.17 K/uL (4.8-10.8)
[2016-08-15] MEDS ORDERED: HEPARIN SOD (PORCINE) 1000 UNIT/ML 10 ML VIAL IV SCH (06:00)
[2016-08-15] MEDS: HEPARIN SOD (PORCINE) 1000 UNIT/ML 10 ML VIAL IV SCH ×3 (06:00→07:25)
[2016-08-15 06:22] LABS: BUN/CREATININE RATIO 6.3 (10-20); CALCIUM 10.6 mg/dl (8.5-10.1); POTASSIUM 3.8 mmol/L (3.5-5.1)
[2016-08-15 06:23] LABS: CREATININE 6.8 mg/dl (0.60-1.40)
[2016-08-15] MEDS: DOCUSATE SODIUM 100 MG CAP PO SCH ×3 (08:00→20:29)
[2016-08-15] MEDS: BOOST BREEZE NUTRITION DRINK 1 BOX PO SCH (08:00)
[2016-08-15] MEDS: POLYETHYLENE (MIRALAX) 17 GM PACK PO SCH (08:00)
[2016-08-15] MEDS: METOPROLOL SUCC 50MG EXT REL TAB PO SCH ×2 (08:00→20:30)
[2016-08-15] MEDS: CYANOCOBALAMIN 500 MCG TAB (VIT B-12) PO SCH (08:33)
[2016-08-15] MEDS: NEPHROCAPS PO SCH (08:33)
[2016-08-15] MEDS: LORATADINE 10 MG TAB PO SCH (08:34)
[2016-08-15] MEDS: SEVELAMER HYDROCH 800 MG TAB PO SCH ×3 (08:34→17:09)
[2016-08-15] MEDS: FUROSEMIDE 80 MG TAB PO SCH ×2 (08:34→17:09)
[2016-08-15] MEDS: INSULIN ASPART 100 UNITS/ML 3 ML PEN SC SCH ×4 (08:50→20:31)
[2016-08-15] MEDS: INSULIN GLARGINE SOLOSTAR 100 UNITS/ML 3 ML PEN SC SCH (08:51)
--- NOTE | 2016-08-15 10:03 | Nephrology Progress Note ---
Nephrology Progress Note Date of Service Aug 15, 2016. Chief Complaint Acute on chronic kidney disease Subjective No acute events overnight. Sleeping comfortably with CPAP this morning. Pain control reasonable at this time. Remains hopeful that surgery will provide significant improvement. Denies shortness of breath. No fevers or chills. Voiding urine without difficulty. Review of Systems A complete review of systems was performed. Pertinent positives are noted above. All other systems are negative. Vital Signs Last 8 Hrs Date Time Temp Pulse Resp B/P Pulse Ox O2 Delivery O2 Flow Rate FiO2 08/15/16 08:00 97 Room Air 08/15/16 07:34 36.4 71 19 138/74 97 Room Air I & O 24-Hour Column 08/15/16 07:59 Output Total 100 ml Balance -100 ml Last Recorded Weight Weight (Kilograms): 123.200 Physical Exam General Appearance: no apparent distress, + obese Head: normocephalic, atraumatic Eyes: normal inspection, sclerae normal ENT: normal ENT inspection, pharynx normal Neck: supple, no JVD, + pertinent finding ([facility]) Respiratory/Chest: lungs clear, no respiratory distress, no accessory muscle use Cardiovascular: regular rate, rhythm Abdomen/GI: non tender, soft Extremities/Musculoskelatal: normal inspection, + pedal edema Neurologic/Psych: alert, oriented x 3 Family History Diabetes mellitus Social History Smokeless Tobacco Use: No Alcohol Use: none Drug Use: none Marital Status: Occupation: retired Laboratory Results Past 24 Hours 08/15/16 05:20 08/15/16 05:20 Test 08/14/16 11:47 08/14/16 16:43 08/14/16 19:56 08/15/16 05:20 Bedside Glucose 227 mg/dl (70-99) 127 mg/dl (70-99) 149 mg/dl (70-99) Red Blood Count 3.69 M/uL (4.7-6.1) Mean Corpuscular Volume 84.8 fL (80-100) Mean Corpuscular Hemoglobin 26.0 pg (25-34) Mean Corpuscular Hemoglobin Concent 30.7 g/dl (32-36) RDW Standard Deviation 57.4 fL (36.4-46.3) RDW Coefficient of Variation 18.4 % (11.5-14.5) Mean Platelet Volume 9.1 fL (7.4-10.4) Anion Gap 13.0 mmol/L (3-11) Est Creatinine Clear Calc Drug Dose 12.7 ml/min Estimated GFR () 8.2 Estimated GFR (Non- 7.1 BUN/Creatinine Ratio 6.3 (10-20) Calcium Level 10.6 mg/dl (8.5-10.1) Test 08/15/16 07:55 Bedside Glucose 178 mg/dl (70-99) Allergies Coded Allergies: Atorvastatin (Unverified Allergy, Unknown, UNKNOWN, 08/01/16) Gabapentin (Unverified Allergy, Unknown, UNKNOWN, 08/01/16) Pioglitazone (Unverified Allergy, Unknown, UNKNOWN, 08/01/16) Simvastatin (Unverified Allergy, Unknown, UNKNOWN, 08/01/16) Medications Current Inpatient Medications Medications (Trade) Dose Ordered Sig/Elliott Route Start Time Stop Time Status Last Admin Dose Admin Acetaminophen (Tylenol Tab) 650 mg Q6H PRN PO 08/01/16 19:00 08/31/16 18:59 08/15/16 01:41 650 MG Ondansetron HCl (Zofran Inj) 4 mg Q6H PRN IV 08/01/16 19:00 08/31/16 18:59 Lorazepam (Ativan Tab) 1 mg Q6H PRN PO 08/01/16 19:00 08/31/16 18:59 08/15/16 01:41 1 MG Cyanocobalamin (Vitamin B-12 Tab) 1,000 mcg QAM PO 08/02/16 09:00 09/01/16 08:59 08/15/16 08:33 1,000 MCG Docusate Sodium (coLACE CAP) 100 mg BID PO 08/01/16 21:00 08/31/16 20:59 08/14/16 19:41 100 MG Loratadine (Claritin Tab) 10 mg QAM PO 08/02/16 09:00 09/01/16 08:59 08/15/16 08:34 10 MG Metoprolol Succinate (Toprol Xl Tab) 50 mg BID PO 08/01/16 21:00 08/31/16 20:59 08/14/16 19:41 50 MG Insulin Aspart (novoLOG ASPART) SLIDING SCALE G... ACHS SC 08/01/16 21:00 08/31/16 20:59 08/15/16 08:50 1 UNITS Glucose (Glucose 40% Gel) 15-30 GRAMS 15 GRAMS... UD PRN PO 08/01/16 19:45 08/31/16 19:44 Glucose (Glucose Chew Tab) 4-8 Tablets 4 Tabl... UD PRN PO 08/01/16 19:45 08/31/16 19:44 Dextrose (Dextrose 50% 50ML Syringe) 25-50ML OF 50% DW IV FOR... UD PRN IV 08/01/16 19:45 08/31/16 19:44 Glucagon (Glucagon Inj) 1 mg UD PRN SQ 08/01/16 19:45 08/31/16 19:44 Al Hydrox/Mg Hydrox/Simethicone (Maalox Max Susp) 15 ml Q4H PRN PO 08/01/16 20:00 08/31/16 19:59 08/11/16 09:34 15 ML Magnesium Hydroxide (Milk Of Magnesia Susp) 30 ml Q12H PRN PO 08/01/16 20:00 08/31/16 19:59 08/08/16 08:30 30 ML Polyethylene (Miralax Powder Packet) 17 gm DAILY PRN PO 08/01/16 20:00 08/31/16 19:59 08/07/16 17:21 17 GM Miscellaneous Information (Order Awaiting Action) 1 ea QS N/A 08/02/16 00:00 09/01/16 00:00 Sevelamer HCl (Renagel Tab) 800 mg TIDM PO 08/03/16 11:30 09/02/16 11:29 08/15/16 08:34 800 MG Furosemide (Lasix Tab) 80 mg BID17 PO 08/04/16 17:00 09/03/16 16:59 08/15/16 08:34 80 MG Hydralazine HCl (HydrALAZINE INJ) 10 mg Q4 PRN IV. 08/05/16 07:30 09/04/16 07:29 08/10/16 00:06 10 MG Vitamin B Complex/ Vit C/Folic Acid (Nephrocaps) 1 cap QAM PO 08/07/16 09:00 09/06/16 08:59 08/15/16 08:33 1 CAP Apixaban (Eliquis Tab) 5 mg BID PO 08/07/16 21:00 09/06/16 20:59 Future hold 08/12/16 20:22 5 MG Acetaminophen/ Hydrocodone Bitart ([place] 5/325 Tab) 1 tab Q4H PRN PO 08/08/16 11:00 08/22/16 10:59 08/11/16 09:34 1 TAB Sodium Biphosphate/ Sodium Phosphate (Fleet Enema) 132 ml DAILY PRN [place] 08/08/16 09:00 09/07/16 08:59 08/14/16 08:56 132 ML Albuterol/ Ipratropium (Duoneb) 3 ml QIDR PRN INH 08/09/16 12:00 09/08/16 11:59 Polyethylene (Miralax Powder Packet) 17 gm DAILY PO 08/10/16 08:00 09/09/16 07:59 08/13/16 10:29 17 GM Hydralazine HCl (Apresoline Tab) 20 mg Q8 PO 08/10/16 14:00 09/09/16 13:59 08/15/16 05:35 20 MG Enteral Nutritional Formula (Boost Breeze Nutritional Drink) 1 box BIDM PO 08/10/16 17:00 09/09/16 16:59 08/11/16 08:16 1 BOX Insulin Glargine (Lantus Solostar Pen) 15 unit BID SC 08/13/16 08:00 09/12/16 07:59 08/15/16 08:51 8 UNIT Acetaminophen/ Hydrocodone Bitart ([place] 10/325 Tab) 1 tab Q4H PRN PO 08/13/16 11:15 08/27/16 11:14 08/15/16 04:34 1 TAB Heparin Sodium (Porcine) (Heparin Iv Bolus) 2,000 unit 0600 IV 08/15/16 06:00 08/15/16 11:00 Heparin Sodium (Porcine) (Heparin Iv Bolus) 500 unit Q1H IV 08/15/16 06:00 08/15/16 11:00 Epoetin Teddy (Procrit Inj) 10,000 units 1015 IV. 08/15/16 10:15 08/15/16 16:00 Impression (1) Chronic kidney disease, stage IV (severe) (2) BARB (acute kidney injury) (3) Hypercalcemia (4) Stenosis, spinal, lumbar (5) Intractable back pain (6) Atrial fibrillation (7) Anemia Mr. Reginaldo Ferro is a 76-year-old male with ESRD due to hypertension, diabetes and obesity. His bottling attendant is Dr. Ivan Delcid in [place]. He was started on hemodialysis on 08/05/16. Renal ultrasound showed bilateral atrophic kidneys. Urinalysis documenting proteinuria. Urine microscopy is acellular. Chronic hypercalcemia with hyperparathyroidism noted. Reasonable control with Sensipar at home. Serum calcium improved with hydration and furosemide. Laboratory studies are also notable for acute on chronic anemia. Patient has a longstanding history of iron deficiency anemia. He has been started on Procrit and venofer as an inpatient. SPEP consistent with nonselective protein loss and immunofixation showed multiple indistinct bands suggestive of reactive changes or oligoclonal process. Patient has lumbar stenosis and is scheduled for laminectomy tomorrow. He will likely require stay at [facility] following his surgery. Recommendations END STAGE RENAL DISEASE: -- H today per MWF schedule. Orders entered into EMR. UF goal 2-3 kg. -- Continue Furosemide 80 mg BID to encourage negative fluid balance -- Continue Sevelamer as phosphate binder -- Continue Nephrocaps daily -- Will need AVF creation as outpatient ANEMIA: -- Patient has completed 1 g IV iron infusion -- Will provide 2 units PRBC w/ HD today in preparation for lumbar spine surgery tomorrow. -- Will continue LESVIA w/ HD treatments LUMBAR STENOSIS: -- Surgery scheduled for Monday08/16/16
[2016-08-15] MEDS ORDERED: EPOETIN ALFA 10,000 UNITS/ML VIAL IV. SCH (10:15)
--- NOTE | 2016-08-15 17:33 | Progress Note ---
Subjective Date of Service: Aug 15, 2016. Subjective Pt evaluation today including: conversation w/ patient, conversation w/ family (, son), physical exam, lab review, conversation w/ career consultant, review of inpatient medication list Pain: back pain, constant PO Intake: tolerating, NPO after midnight Voiding: no voiding problems patient doing okay, has back pain and waiting for pain pill tolerated HD today, had 2 units PRBC transfused in preparation for surgery he feels ready for OR, had large BM today, breathing well, no chest pain Problem List Medical Problems: (1) BARB (acute kidney injury) Status: Acute (2) Hypercalcemia Status: Acute Review of Systems Constitutional: + fatigue, + weakness Musculoskeletal: + joint pain (back) Neurologic: + balance problems, + weakness All Other Systems: Reviewed and Negative Medications Current Inpatient Medications Medications (Trade) Dose Ordered Sig/Elliott Route Start Time Stop Time Status Last Admin Dose Admin Acetaminophen (Tylenol Tab) 650 mg Q6H PRN PO 08/01/16 19:00 08/31/16 18:59 08/15/16 01:41 650 MG Ondansetron HCl (Zofran Inj) 4 mg Q6H PRN IV 08/01/16 19:00 08/31/16 18:59 Lorazepam (Ativan Tab) 1 mg Q6H PRN PO 08/01/16 19:00 08/31/16 18:59 08/15/16 01:41 1 MG Cyanocobalamin (Vitamin B-12 Tab) 1,000 mcg QAM PO 08/02/16 09:00 09/01/16 08:59 08/15/16 08:33 1,000 MCG Docusate Sodium (coLACE CAP) 100 mg BID PO 08/01/16 21:00 08/31/16 20:59 08/14/16 19:41 100 MG Loratadine (Claritin Tab) 10 mg QAM PO 08/02/16 09:00 09/01/16 08:59 08/15/16 08:34 10 MG Metoprolol Succinate (Toprol Xl Tab) 50 mg BID PO 08/01/16 21:00 08/31/16 20:59 08/14/16 19:41 50 MG Insulin Aspart (novoLOG ASPART) SLIDING SCALE G... ACHS SC 08/01/16 21:00 08/31/16 20:59 08/15/16 11:32 2 UNITS Glucose (Glucose 40% Gel) 15-30 GRAMS 15 GRAMS... UD PRN PO 08/01/16 19:45 08/31/16 19:44 Glucose (Glucose Chew Tab) 4-8 Tablets 4 Tabl... UD PRN PO 08/01/16 19:45 08/31/16 19:44 Dextrose (Dextrose 50% 50ML Syringe) 25-50ML OF 50% DW IV FOR... UD PRN IV 08/01/16 19:45 08/31/16 19:44 Glucagon (Glucagon Inj) 1 mg UD PRN SQ 08/01/16 19:45 08/31/16 19:44 Al Hydrox/Mg Hydrox/Simethicone (Maalox Max Susp) 15 ml Q4H PRN PO 08/01/16 20:00 08/31/16 19:59 08/11/16 09:34 15 ML Magnesium Hydroxide (Milk Of Magnesia Susp) 30 ml Q12H PRN PO 08/01/16 20:00 08/31/16 19:59 08/08/16 08:30 30 ML Polyethylene (Miralax Powder Packet) 17 gm DAILY PRN PO 08/01/16 20:00 08/31/16 19:59 08/07/16 17:21 17 GM Miscellaneous Information (Order Awaiting Action) 1 ea QS N/A 08/02/16 00:00 09/01/16 00:00 Sevelamer HCl (Renagel Tab) 800 mg TIDM PO 08/03/16 11:30 09/02/16 11:29 08/15/16 17:09 800 MG Furosemide (Lasix Tab) 80 mg BID17 PO 08/04/16 17:00 09/03/16 16:59 08/15/16 17:09 80 MG Hydralazine HCl (HydrALAZINE INJ) 10 mg Q4 PRN IV. 08/05/16 07:30 09/04/16 07:29 08/10/16 00:06 10 MG Vitamin B Complex/ Vit C/Folic Acid (Nephrocaps) 1 cap QAM PO 08/07/16 09:00 09/06/16 08:59 08/15/16 08:33 1 CAP Apixaban (Eliquis Tab) 5 mg BID PO 08/07/16 21:00 09/06/16 20:59 Future hold 08/12/16 20:22 5 MG Acetaminophen/ Hydrocodone Bitart ([place] 5/325 Tab) 1 tab Q4H PRN PO 08/08/16 11:00 08/22/16 10:59 08/11/16 09:34 1 TAB Sodium Biphosphate/ Sodium Phosphate (Fleet Enema) 132 ml DAILY PRN [place] 08/08/16 09:00 09/07/16 08:59 08/14/16 08:56 132 ML Albuterol/ Ipratropium (Duoneb) 3 ml QIDR PRN INH 08/09/16 12:00 09/08/16 11:59 Polyethylene (Miralax Powder Packet) 17 gm DAILY PO 08/10/16 08:00 09/09/16 07:59 08/13/16 10:29 17 GM Hydralazine HCl (Apresoline Tab) 20 mg Q8 PO 08/10/16 14:00 09/09/16 13:59 08/15/16 05:35 20 MG Insulin Glargine (Lantus Solostar Pen) 15 unit BID SC 08/13/16 08:00 09/12/16 07:59 08/15/16 08:51 8 UNIT Acetaminophen/ Hydrocodone Bitart ([place] 10/325 Tab) 1 tab Q4H PRN PO 08/13/16 11:15 08/27/16 11:14 08/15/16 17:01 1 TAB Objective Vital Signs Date Time Temp Pulse Resp B/P Pulse Ox O2 Delivery O2 Flow Rate FiO2 08/15/16 16:31 36.9 82 20 168/91 98 Nasal Cannula 4.0 08/15/16 14:45 74 169/96 08/15/16 14:30 70 127/96 08/15/16 14:15 77 142/83 08/15/16 13:58 77 142/83 08/15/16 13:45 77 156/83 08/15/16 13:30 82 122/79 08/15/16 13:15 69 145/84 08/15/16 13:00 71 130/83 08/15/16 12:45 80 130/74 08/15/16 12:30 76 96/36 08/15/16 12:15 73 123/71 08/15/16 12:00 67 129/76 08/15/16 11:55 67 163/82 08/15/16 08:00 97 Room Air 08/15/16 07:34 36.4 71 19 138/74 97 Room Air 08/15/16 00:00 CPAP 08/14/16 23:44 36.2 70 20 154/76 99 CPAP 08/14/16 19:39 71 136/77 Physical Exam General Appearance: no apparent distress, + obese ENT: normal ENT inspection, hearing grossly normal, pharynx normal Neck: supple, no adenopathy, no JVD, trachea midline Respiratory/Chest: chest non-tender, lungs clear, normal breath sounds, no respiratory distress, no accessory muscle use Cardiovascular: no edema, no gallop, no JVD, no murmur, + irregularly irregular Abdomen: normal bowel sounds, non tender, soft, no organomegaly Extremities: normal inspection, no pedal edema, no calf tenderness, + pertinent finding (decreased ROM of back, tender to palpation) Neurologic/Psychiatric: ophthalmic tech II-XII nml as tested, alert, normal mood/affect, oriented x 3, + motor weakness (generalized, cannot stand or transfer independently) Skin: normal color, warm/dry, no rash Laboratory Results Last 24 Hours Test 08/14/16 19:56 08/15/16 05:20 08/15/16 07:55 08/15/16 11:06 Bedside Glucose 149 mg/dl 178 mg/dl 200 mg/dl White Blood Count 4.17 K/uL Red Blood Count 3.69 M/uL Hemoglobin 9.6 g/dL Hematocrit 31.3 % Mean Corpuscular Volume 84.8 fL Mean Corpuscular Hemoglobin 26.0 pg Mean Corpuscular Hemoglobin Concent 30.7 g/dl RDW Standard Deviation 57.4 fL RDW Coefficient of Variation 18.4 % Platelet Count 210 K/uL Mean Platelet Volume 9.1 fL Sodium Level 138 mmol/L Potassium Level 3.8 mmol/L Chloride Level 98 mmol/L Carbon Dioxide Level 27 mmol/L Anion Gap 13.0 mmol/L Blood Urea Nitrogen 43 mg/dl Creatinine 6.80 mg/dl Est Creatinine Clear Calc Drug Dose 12.7 ml/min Estimated GFR () 8.2 Estimated GFR (Non- 7.1 BUN/Creatinine Ratio 6.3 Random Glucose 161 mg/dl Calcium Level 10.6 mg/dl Test 08/15/16 17:06 Bedside Glucose 122 mg/dl Assessment and Plan 76 y/o male with PMHx of Atrial Fibrillation (anticoagulated), HTN, CAMI on night CPAP, T2DM, Chronic Kidney Disease with Secondary Hyperparathyroidism, and Prostate CA who presents to the ED complaining of worsening lower back pain and ambulation difficulty 2 weeks on 08/01/2016 Back Pain with Ambulatory Dysfunction: plan for OR tomorrow 08/16, medically optimized with HD today and 2 units PRBC transfused - Pain management and PT/OT - recommend continuing metoprolol perioperatively, should go to tele post op - will decrease Lantus to 8 units in the AM since he will be NPO Possible Bronchitis upon admission: Resolved, no wheezing today, no cough, breathing well T2DM: Stable, as above, will decrease Lantus to 8 units in the AM, continue Novolog Acute on Chronic Kidney Disease stage 4 with Secondary Hyperparathyroidism: Baseline Unknown, stable/no new changes, continue dialysis --continue Furosemide 80 mg BID to encourage negative fluid balance, per records from patient registration representative -- had HD on 08/15, tolerated well, euvolemic currently and electrolytes stable --check labs in the AM HTN, better control after hydralazine by mouth scheduled, - Cont metoprolol , hydralazine scheduled and hydralazine PRN Lower Extremity Edema, chronic diastolic CHF, stable Venous U/S - R/O DVT - unlikely given on Eliquis Echo - Ejection Fraction = >70 %. There is moderate concentric left ventricular hypertrophy. Grade I diastolic dysfunction, (abnormal relaxation pattern). There is mild mitral regurgitation. Atrial Fibrillation: Unknown Type: Rate Controlled - Metoprolol Succ 50 mg BID - Eliquis currently is on hold Anemia multifactorial from CKD, iron and b12 def - Cont EPO, B12 and IV iron tx , iron has completed for course CAMI on Night CPAP: - Set up CPAP per respiratory Constipation, cont bowel regimens include Colace, MiraLAX, and ordered a fleet enema, patient declined fleet enema, has no bowel movement again for 3 days, counseling him really need fleet enema -- moved bowels on 08/15 Medically optimized for surgery tomorrow, again, recommend that he go to telemetry post op Continued [facility] stay due to: home environment unsafe for pt Discharge planning: rehab hospital
[2016-08-15] MEDS ORDERED: NURSING VERBAL MED ORDER ONE (17:45)
[2016-08-15 18:06] LABS: INR 1.2 (0.9-1.1); PROTHROMBIN TIME (PATIENT) 13.3 SECONDS (9.0-12.0)
[2016-08-15] MEDS: HYDROCODONE/ACETAMOPHEN 5/325MG TAB PO PRN (18:18)
[2016-08-15] MEDS: HydrALAZINE HCL 20 MG/ML VIAL IV. PRN (18:19)
[2016-08-15] MEDS ORDERED: BOOST BREEZE NUTRITION DRINK 1 BOX PO SCH (20:00)
[2016-08-16] VITALS (9 sets, daily range): BP systolic 137–172; BP diastolic 75–92; PULSE 71–80; TEMP 36.3–37; O2SAT 98–100
[2016-08-16] MEDS: HydrALAZINE 10 MG TAB PO SCH ×3 (05:56→22:02)
[2016-08-16] MEDS: INSULIN ASPART 100 UNITS/ML 3 ML PEN SC SCH ×4 (06:30→21:00)
[2016-08-16 06:47] LABS: BUN/CREATININE RATIO 5.4 (10-20); CALCIUM 10.1 mg/dl (8.5-10.1); CREATININE 4.6 mg/dl (0.60-1.40); MAGNESIUM 3.4 mg/dl (1.8-2.4); PHOSPHORUS 4.5 mg/dl (2.5-4.9); POTASSIUM 4.4 mmol/L (3.5-5.1)
[2016-08-16 07:40] LABS: HEMATOCRIT 36.2 % (42-52); MEAN CELL VOLUME 80.3 fL (80-100); MEAN CORPUSCULAR HEMOGLOBIN 26.2 pg (25-34); MEAN CORPUSCULAR HGB CONC 32.6 g/dl (32-36); MEAN PLATELET VOLUME 9.3 fL (7.4-10.4); PLATELET COUNT 196 K/uL (130-400); RED BLOOD COUNT 4.51 M/uL (4.7-6.1); WHITE BLOOD COUNT 4.09 K/uL (4.8-10.8)
[2016-08-16] MEDS: METOPROLOL SUCC 50MG EXT REL TAB PO SCH ×2 (07:48→20:53)
[2016-08-16] MEDS: HYDROCODONE/ACETAMOPHEN 5/325MG TAB PO PRN (07:49)
[2016-08-16] MEDS: NEPHROCAPS PO SCH (07:50)
[2016-08-16] MEDS: DOCUSATE SODIUM 100 MG CAP PO SCH ×2 (07:50→20:54)
[2016-08-16] MEDS: LORATADINE 10 MG TAB PO SCH (07:50)
[2016-08-16] MEDS: FUROSEMIDE 80 MG TAB PO SCH ×3 (07:50→18:00)
[2016-08-16] MEDS: SEVELAMER HYDROCH 800 MG TAB PO SCH ×5 (07:50→18:06)
[2016-08-16] MEDS: POLYETHYLENE (MIRALAX) 17 GM PACK PO SCH (07:50)
[2016-08-16] MEDS: CYANOCOBALAMIN 500 MCG TAB (VIT B-12) PO SCH (07:50)
[2016-08-16] MEDS ORDERED: INSULIN GLARGINE SOLOSTAR 100 UNITS/ML 3 ML PEN SC SCH (08:00)
[2016-08-16 08:03] LABS: BASO % 0.7 %; BASO ABS # 0.03 K/uL (0-0.2); COMPLETE YES; EOS % 2.4 %; IG% 0.5 %; LYMPH % 16.9 %; LYMPH ABS # 0.69 K/uL (1.2-3.4); MONO % 11.7 %; NEUT % 67.8 %; POLYCHROMASIA 1+
--- NOTE | 2016-08-16 09:34 | Nephrology Progress Note ---
Nephrology Progress Note Date of Service Aug 16, 2016. Chief Complaint Acute on chronic kidney disease Subjective No acute events overnight. Unable to sleep overnight. Tolerated HD with some cramps in legs yesterday; net UF 500 ml. 2u PRBC with HD. No shortness of breath this morning. Denies chest pain or palpitations. Review of Systems A complete review of systems was performed. Pertinent positives are noted above. All other systems are negative. Vital Signs Last 8 Hrs Date Time Temp Pulse Resp B/P Pulse Ox O2 Delivery O2 Flow Rate FiO2 08/16/16 08:00 Nasal Cannula 2.0 I & O 24-Hour Column 08/16/16 08:00 Intake Total 980 ml Output Total 500 ml Balance 480 ml Last Recorded Weight Weight (Kilograms): 120.700 Physical Exam General Appearance: no apparent distress, + obese Head: normocephalic, atraumatic Eyes: normal inspection, sclerae normal ENT: normal ENT inspection, pharynx normal Neck: supple, no JVD, + pertinent finding ([facility] HD permcath) Respiratory/Chest: lungs clear, no respiratory distress, no accessory muscle use Cardiovascular: regular rate, rhythm, no murmur Abdomen/GI: non tender, soft Extremities/Musculoskelatal: normal inspection, + pedal edema Neurologic/Psych: alert, oriented x 3 Family History Diabetes mellitus Social History Smokeless Tobacco Use: No Alcohol Use: none Drug Use: none Marital Status: Occupation: retired Laboratory Results Past 24 Hours 08/16/16 05:23 Red Blood Count 4.51, Mean Corpuscular Volume 80.3 #, Mean Corpuscular Hemoglobin 26.2, Mean Corpuscular Hemoglobin Concent 32.6, Mean Platelet Volume 9.3, Neutrophils (%) (Auto) 67.8, Lymphocytes (%) (Auto) 16.9, Monocytes (%) ( Auto) 11.7, Eosinophils (%) (Auto) 2.4, Basophils (%) (Auto) 0.7, Neutrophils # (Auto) 2.77, Lymphocytes # (Auto) 0.69, Monocytes # (Auto) 0.48, Eosinophils # ( Auto) 0.10, Basophils # (Auto) 0.03 08/16/16 05:23 Test 08/15/16 11:06 08/15/16 17:06 08/15/16 17:50 08/15/16 20:13 Bedside Glucose 200 mg/dl (70-99) 122 mg/dl (70-99) 153 mg/dl (70-99) Prothrombin Time 13.3 SECONDS (9.0-12.0) Prothromb Time International Ratio 1.2 (0.9-1.1) Test 08/16/16 05:23 08/16/16 07:27 White Blood Count 4.09 K/uL (4.8-10.8) Red Blood Count 4.51 M/uL (4.7-6.1) Hemoglobin 11.8 g/dL (14.0-18.0) Hematocrit 36.2 % (42-52) Mean Corpuscular Volume 80.3 fL (80-100) Mean Corpuscular Hemoglobin 26.2 pg (25-34) Mean Corpuscular Hemoglobin Concent 32.6 g/dl (32-36) Platelet Count 196 K/uL (130-400) Mean Platelet Volume 9.3 fL (7.4-10.4) Neutrophils (%) (Auto) 67.8 % Lymphocytes (%) (Auto) 16.9 % Monocytes (%) (Auto) 11.7 % Eosinophils (%) (Auto) 2.4 % Basophils (%) (Auto) 0.7 % Neutrophils # (Auto) 2.77 K/uL (1.4-6.5) Lymphocytes # (Auto) 0.69 K/uL (1.2-3.4) Monocytes # (Auto) 0.48 K/uL (0.11-0.59) Eosinophils # (Auto) 0.10 K/uL (0-0.5) Basophils # (Auto) 0.03 K/uL (0-0.2) RDW Standard Deviation 59.1 fL (36.4-46.3) RDW Coefficient of Variation 20.0 % (11.5-14.5) Immature Granulocyte % (Auto) 0.5 % Immature Granulocyte # (Auto) 0.02 K/uL (0.00-0.02) Polychromasia 1+ Anion Gap 10.0 mmol/L (3-11) Est Creatinine Clear Calc Drug Dose 18.7 ml/min Estimated GFR () 13.1 Estimated GFR (Non- 11.3 BUN/Creatinine Ratio 5.4 (10-20) Calcium Level 10.1 mg/dl (8.5-10.1) Phosphorus Level 4.5 mg/dl (2.5-4.9) Magnesium Level 3.4 mg/dl (1.8-2.4) Bedside Glucose 181 mg/dl (70-99) Allergies Coded Allergies: Atorvastatin (Unverified Allergy, Unknown, UNKNOWN, 08/01/16) Gabapentin (Unverified Allergy, Unknown, UNKNOWN, 08/01/16) Pioglitazone (Unverified Allergy, Unknown, UNKNOWN, 08/01/16) Simvastatin (Unverified Allergy, Unknown, UNKNOWN, 08/01/16) Medications Current Inpatient Medications Medications (Trade) Dose Ordered Sig/Elliott Route Start Time Stop Time Status Last Admin Dose Admin Acetaminophen (Tylenol Tab) 650 mg Q6H PRN PO 08/01/16 19:00 08/31/16 18:59 08/15/16 01:41 650 MG Ondansetron HCl (Zofran Inj) 4 mg Q6H PRN IV 08/01/16 19:00 08/31/16 18:59 Lorazepam (Ativan Tab) 1 mg Q6H PRN PO 08/01/16 19:00 08/31/16 18:59 08/15/16 01:41 1 MG Cyanocobalamin (Vitamin B-12 Tab) 1,000 mcg QAM PO 08/02/16 09:00 09/01/16 08:59 08/15/16 08:33 1,000 MCG Docusate Sodium (coLACE CAP) 100 mg BID PO 08/01/16 21:00 08/31/16 20:59 08/15/16 20:29 100 MG Loratadine (Claritin Tab) 10 mg QAM PO 08/02/16 09:00 09/01/16 08:59 08/15/16 08:34 10 MG Metoprolol Succinate (Toprol Xl Tab) 50 mg BID PO 08/01/16 21:00 08/31/16 20:59 08/16/16 07:48 50 MG Insulin Aspart (novoLOG ASPART) SLIDING SCALE G... ACHS SC 08/01/16 21:00 08/31/16 20:59 08/15/16 11:32 2 UNITS Glucose (Glucose 40% Gel) 15-30 GRAMS 15 GRAMS... UD PRN PO 08/01/16 19:45 08/31/16 19:44 Glucose (Glucose Chew Tab) 4-8 Tablets 4 Tabl... UD PRN PO 08/01/16 19:45 08/31/16 19:44 Dextrose (Dextrose 50% 50ML Syringe) 25-50ML OF 50% DW IV FOR... UD PRN IV 08/01/16 19:45 08/31/16 19:44 Glucagon (Glucagon Inj) 1 mg UD PRN SQ 08/01/16 19:45 08/31/16 19:44 Al Hydrox/Mg Hydrox/Simethicone (Maalox Max Susp) 15 ml Q4H PRN PO 08/01/16 20:00 08/31/16 19:59 08/11/16 09:34 15 ML Magnesium Hydroxide (Milk Of Magnesia Susp) 30 ml Q12H PRN PO 08/01/16 20:00 08/31/16 19:59 08/08/16 08:30 30 ML Polyethylene (Miralax Powder Packet) 17 gm DAILY PRN PO 08/01/16 20:00 08/31/16 19:59 08/07/16 17:21 17 GM Miscellaneous Information (Order Awaiting Action) 1 ea QS N/A 08/02/16 00:00 09/01/16 00:00 Sevelamer HCl (Renagel Tab) 800 mg TIDM PO 08/03/16 11:30 09/02/16 11:29 08/15/16 17:09 800 MG Furosemide (Lasix Tab) 80 mg BID17 PO 08/04/16 17:00 09/03/16 16:59 08/15/16 17:09 80 MG Hydralazine HCl (HydrALAZINE INJ) 10 mg Q4 PRN IV. 08/05/16 07:30 09/04/16 07:29 08/15/16 18:19 10 MG Vitamin B Complex/ Vit C/Folic Acid (Nephrocaps) 1 cap QAM PO 08/07/16 09:00 09/06/16 08:59 08/15/16 08:33 1 CAP Apixaban (Eliquis Tab) 5 mg BID PO 08/07/16 21:00 09/06/16 20:59 Future hold 08/12/16 20:22 5 MG Acetaminophen/ Hydrocodone Bitart ([place] 5/325 Tab) 1 tab Q4H PRN PO 08/08/16 11:00 08/22/16 10:59 08/16/16 07:49 1 TAB Sodium Biphosphate/ Sodium Phosphate (Fleet Enema) 132 ml DAILY PRN [place] 08/08/16 09:00 09/07/16 08:59 08/14/16 08:56 132 ML Albuterol/ Ipratropium (Duoneb) 3 ml QIDR PRN INH 08/09/16 12:00 09/08/16 11:59 Polyethylene (Miralax Powder Packet) 17 gm DAILY PO 08/10/16 08:00 09/09/16 07:59 08/13/16 10:29 17 GM Hydralazine HCl (Apresoline Tab) 20 mg Q8 PO 08/10/16 14:00 09/09/16 13:59 08/15/16 21:59 20 MG Insulin Glargine (Lantus Solostar Pen) 8 unit BID SC 08/16/16 08:00 09/15/16 07:59 08/16/16 08:49 8 UNIT Impression (1) Chronic kidney disease, stage IV (severe) (2) BARB (acute kidney injury) (3) Hypercalcemia (4) Stenosis, spinal, lumbar (5) Intractable back pain (6) Atrial fibrillation (7) Anemia Mr. Reginaldo Ferro is a 76-year-old male with ESRD due to hypertension, diabetes and obesity. His cassandra developer is Dr. Ivan Delcid in [place]. He was started on hemodialysis on 08/05/16. Renal ultrasound showed bilateral atrophic kidneys. Urinalysis documenting proteinuria. Urine microscopy is acellular. Chronic hypercalcemia with hyperparathyroidism noted. Reasonable control with Sensipar at home. Serum calcium improved with hydration and furosemide. Laboratory studies are also notable for acute on chronic anemia. Patient has a longstanding history of iron deficiency anemia. He was started on Procrit and venofer as an inpatient. 2 u PRBC transfusion on 08/15/16 in anticipation of OR today. SPEP consistent with nonselective protein loss and immunofixation showed multiple indistinct bands suggestive of reactive changes or oligoclonal process. Patient has lumbar stenosis and is scheduled for laminectomy tomorrow. He will likely require stay at [facility] following his surgery. Recommendations END STAGE RENAL DISEASE: -- HD MWF schedule. -- Continue Furosemide 80 mg BID to encourage negative fluid balance -- Continue Sevelamer as phosphate binder -- Continue Nephrocaps daily -- Will need AVF creation as outpatient ANEMIA: -- Patient has completed 1 g IV iron infusion -- 2 u PRBC 08/15/16 -- Will continue LESVIA w/ HD treatments LUMBAR STENOSIS: -- Surgery scheduled for today
[2016-08-16] MEDS ORDERED: HYDROmorphone INJ 0.5 MG/0.5 ML SYR IV STA (10:38)
[2016-08-16] MEDS ORDERED: BUPIVACAINE/EPINEPHRINE 0.5% MPF 1:200,000 30 ML VIAL ONE (12:24)
[2016-08-16] MEDS ORDERED: BACITRACIN 50000 UNIT VIAL ONE (12:25)
[2016-08-16] MEDS ORDERED: SODIUM CHLORIDE 0.9% PF 50 ML VIAL ONE (12:25)
[2016-08-16] MEDS ORDERED: CEFAZOLIN SOD 1000MG/55 ML D5W IV ONE (12:31)
--- NOTE | 2016-08-16 12:34 | History & Physical Bridge Note ---
H&P Re-Evaluation Bridge Note: I have examined the patient, reviewed the History & Physical and in the interval since the performance of the History & Physical I have noted the following changes of clinical significance: No changes noted
[2016-08-16] MEDS ORDERED: PROPOFOL IV EMULSION 10 MG/ML 20 ML VIAL IV ONE (12:38)
[2016-08-16] MEDS ORDERED: ONDANSETRON INJ 2 MG/ML 2 ML VIAL ONE (12:38)
[2016-08-16] MEDS ORDERED: LIDOCAINE HCL 2% 2 ML VIAL (20MG/ML) ONE (12:38)
[2016-08-16] MEDS ORDERED: NEOSTIGMINE METHYLSULFATE 5 MG/5 ML SYR ONE (12:38)
[2016-08-16] MEDS ORDERED: GLYCOPYRROLATE INJ 0.2 MG/ML VIAL ONE (12:38)
[2016-08-16] MEDS ORDERED: FENTANYL CITRATE INJ 50 MCG/1 ML 2 ML VIAL ONE (12:38)
[2016-08-16] MEDS ORDERED: DEXAMETHASONE SOD INJ 4 MG/ML VIAL ONE (12:38)
[2016-08-16] MEDS ORDERED: MIDAZOLAM HCL 1 MG/ML 2ML VIAL ONE (12:38)
[2016-08-16] MEDS ORDERED: ROCURONIUM BROMIDE 10 MG/ML 5 ML VIAL ONE ×2 (12:38→13:33)
[2016-08-16] MEDS ORDERED: ATROPINE SULFATE 0.1 MG/ML 5ML SYR IV PRN (13:00)
[2016-08-16] MEDS ORDERED: ONDANSETRON INJ 2 MG/ML 2 ML VIAL IV PRN ×2 (13:00→15:00)
[2016-08-16] MEDS ORDERED: EpHEDrine SULFATE INJ 50 MG/ML AMP IV PRN (13:00)
[2016-08-16] MEDS ORDERED: PHENYLEPHRINE HCL INJ 10 MG/ML VIAL ONE (14:15)
[2016-08-16] MEDS: SODIUM CHLORIDE 0.9% 1000ML 1,000 ML IV SCH ×2 (14:47→18:05)
--- NOTE | 2016-08-16 14:47 | [facility] Post Operative Brief Note ---
Immediate Operative Summary Operative Date Aug 16, 2016. Pre-Operative Diagnosis L4-S1 Spinal Stenosis, spondylolisthesis Post-Operative Diagnosis same as pre-operative Procedure(s) Performed L4-L5, L5-S1 Decompression; Posterior Lumbar Instrumented Fusion; Application of bone morphogenetic protein Surgeon Dr. Librado Juarez Corrugator Operator Helper Surgeon(s) Loren Rubin PA-C Estimated Blood Loss 3 ml Findings stenosis/spondy Specimens none
[2016-08-16] MEDS ORDERED: FLOSEAL HEMOSTATIC MATRIX 10ML TOP ONE (14:53)
[2016-08-16] MEDS ORDERED: DO NOT ADMINISTER PNEUMOCOCCAL VACCINE PRN ×2 (15:00)
[2016-08-16] MEDS ORDERED: FAMOTIDINE 20 MG TAB PO PRN (15:00)
[2016-08-16] MEDS ORDERED: ALUMINUM/MAGNESIUM SUSP 30 ML UDC PO PRN (15:00)
[2016-08-16] MEDS ORDERED: PROMETHAZINE HCL INJ 12.5 MG in SODIUM CHLORIDE 0.9% 50ML 50 ML IV PRN (15:00)
[2016-08-16] MEDS ORDERED: SOD PHOSPHATE/SOD BIPHOSPHATE ENEMA 132 ML BTL PR PRN (15:00)
[2016-08-16] MEDS ORDERED: hydrOXYzine HCL 25 MG TAB PO PRN (15:00)
[2016-08-16] MEDS ORDERED: METOCLOPRAMIDE HCL INJ 5 MG/ML 2 ML VIAL IV PRN (15:00)
[2016-08-16] MEDS ORDERED: DO NOT ADMINISTER FLU VACCINE PRN ×3 (15:00)
[2016-08-16] MEDS ORDERED: LORAZEPAM 0.5 MG TAB PO PRN (15:00)
[2016-08-16] MEDS ORDERED: ACETAMINOPHEN IV 100 ML IV PRN (15:00)
[2016-08-16] MEDS ORDERED: LORAZEPAM INJ 0.5 MG in SYRINGE 0 ML IV PRN (15:00)
[2016-08-16] MEDS ORDERED: MAGNESIUM HYDROXIDE SUSP 30 ML UDC PO PRN (15:00)
[2016-08-16] MEDS ORDERED: BISACODYL 10 MG SUPP PR PRN (15:00)
[2016-08-16] MEDS ORDERED: NALOXONE HCL 0.4 MG/1 ML VIAL/CARP IV PRN ×2 (15:00)
[2016-08-16] MEDS ORDERED: DC PCA PRN (15:00)
--- NOTE | 2016-08-16 15:02 | DIAGNOSTIC IMAGING REPORT ---
INTRAOPERATIVE RADIOGRAPHS CLINICAL HISTORY: L4-S1 spinal fusion. Fluoroscopy time: 25 seconds. FINDINGS: 2 spot fluoroscopic views of lumbar spine are presented. There has been laminectomy and posterior fusion from L4 -S1. Interpedicular screws are present at all levels. The orthopedic hardware appears intact. IMPRESSION: Intraoperative images from L4 -S1 spinal fusion as above. Electronically signed by: Joseph Gonzalez M.D. 08/16/2016 3:01 PM Dictated Date/Time: 08/16/2016 3:00 PM
[2016-08-16] MEDS ORDERED: LABETALOL HCL IV 5 MG/ML 20ML IV ONE (15:08)
--- NOTE | 2016-08-16 15:08 | OPERATIVE REPORT ---
DATE OF OPERATION: 08/16/2016 PREOPERATIVE DIAGNOSIS: Spinal stenosis, spondylolisthesis. POSTOPERATIVE DIAGNOSIS: Same. PROCEDURE PERFORMED: 1. Lumbar decompression, medial facetectomy, and foraminotomy L3-L4, L4-L5, L5-S1. 2. Posterior spinal fusion L4-5, L5-S1. 3. Placement posterior segmental instrumentation using Orthros rods and screws L4-L5, L5-S1. 4. Placement of locally harvested morcellized autograft in posterior gutters. 5. Placement of Infuse collagen sponge combined with Mastergraft in the posterior gutters L4-L5, L5-S1. SURGEON: Dr. Librado Juarez. ROBOTIC MAINTENANCE TECHNICIAN: Due to the complex nature of the procedure, the entire surgery was performed with the medical assistant per diem of Loren Rubin PA-C. The delinquent tax collector assistant, under direct supervision, was involved in the actual performance of all aspects of the surgical procedure including hemostasis, tissue retraction and incision, instrument management, patient positioning, and wound closure. ANESTHESIA: General. DISPOSITION: The patient awakened and taken to PACU in stable condition. HISTORY OF PATIENT'S PROBLEMS: This is a 76-year-old male who presents with above-mentioned diagnosis. After failing an extensive course of nonoperative care, elected to undergo the above-mentioned procedure. Risks, benefits, pros, cons, and alternatives were outlined in detail preoperatively. OPERATION AND FINDINGS: The patient was met with preoperatively, case discussed and all questions were addressed. At that point the patient was taken back to operative suite and after undergoing successful general endotracheal intubation via department of anesthesia was placed in prone position on the Gerhard table atop the Dewey frame. All bony prominences were padded and the eyes were inspected to ensure there was no external pressure placed upon them. At this point, lumbar spine was prepped and draped in normal sterile fashion. Sharp dissection with the assistance of Bovie cautery performed down to and exposing the lamina and transverse processes of L4, L5 and sacral ala bilaterally. From a caudal to cephalad fashion, complete laminectomy of L5, L4, partial laminectomy of L3 was performed addressing severe lateral recess foraminal disease. Pedicle screws were then placed in L4, L5 and S1 levels bilaterally with assistance of fluoroscopy and appropriate size umm locked in position. This included a crosslink. Transverse processes of L4, L5 and the sacral ala were then burred to subcortical bone. Infuse collagen sponge combined with Mastergraft and locally harvested morcellized autograft was placed in the posterior gutters. A 7 flat MATTY drain was inserted. Incision was closed with #1 Vicryl in a running fashion, 2-0 Vicryl subcutaneously, 4-0 Monocryl for final skin closure. Steri-Strips and sterile dressing placed. The patient was awakened and taken to PACU in stable condition. I attest to the content of the Intraoperative Record and any orders documented therein. Any exceptio ns are noted below.
[2016-08-16] MEDS ORDERED: NURSING VERBAL MED ORDER ONE ×2 (15:10→16:40)
[2016-08-16] MEDS: FENTANYL CITRATE INJ 50 MCG/1 ML 2 ML VIAL IV PRN ×4 (15:20→15:43)
[2016-08-16] MEDS: HYDROmorphone HCL 0.5MG/ML 50 ML CASSETTE IV PRN ×3 (15:30→23:12)
[2016-08-16] MEDS: HYDROmorphone INJ 1 MG/ML SYR IV PRN ×7 (15:48→16:40)
[2016-08-16] MEDS ORDERED: NovoLIN-R INSULIN PER UNIT CHARGE ONE (16:02)
[2016-08-16 16:03] LABS: MAGNESIUM 3.4 mg/dl (1.8-2.4); POTASSIUM 4.2 mmol/L (3.5-5.1)
[2016-08-16] MEDS ORDERED: INSULIN HUMAN REGULAR IV ONE (16:15)
[2016-08-16] MEDS ORDERED: MEPERIDINE HCL 50 MG/ML CARP ONE (16:44)
--- NOTE | 2016-08-16 16:45 | Progress Note ---
Subjective Date of Service: Aug 16, 2016. Subjective Pt evaluation today including: conversation w/ patient, physical exam, lab review, conversation w/ account consultant, review of inpatient medication list Pain: low back pain this AM prior to surgery PO Intake: NPO for surgery Voiding: no voiding problems patient did not sleep well last night due to pain, provided with Dilaudid IV this AM for some relief while awaiting surgery vitals acceptable, breathing well, no chest pain prior to surgery sugars acceptable, only given half of normal dose Lantus this AM and he received his metoprolol as scheduled Problem List Medical Problems: (1) BARB (acute kidney injury) Status: Acute (2) Hypercalcemia Status: Acute Review of Systems Constitutional: + fatigue, + weakness Musculoskeletal: + joint pain (severe low back pain) Neurologic: + balance problems, + weakness All Other Systems: Reviewed and Negative Medications Current Inpatient Medications Medications (Trade) Dose Ordered Sig/Elliott Route Start Time Stop Time Status Last Admin Dose Admin Lorazepam (Ativan Tab) 1 mg Q6H PRN PO 08/01/16 19:00 08/31/16 18:59 08/15/16 01:41 1 MG Cyanocobalamin (Vitamin B-12 Tab) 1,000 mcg QAM PO 08/02/16 09:00 09/01/16 08:59 08/15/16 08:33 1,000 MCG Docusate Sodium (coLACE CAP) 100 mg BID PO 08/01/16 21:00 08/31/16 20:59 08/15/16 20:29 100 MG Loratadine (Claritin Tab) 10 mg QAM PO 08/02/16 09:00 09/01/16 08:59 08/15/16 08:34 10 MG Metoprolol Succinate (Toprol Xl Tab) 50 mg BID PO 08/01/16 21:00 08/31/16 20:59 08/16/16 07:48 50 MG Insulin Aspart (novoLOG ASPART) SLIDING SCALE G... ACHS SC 08/01/16 21:00 08/31/16 20:59 08/15/16 11:32 2 UNITS Glucose (Glucose 40% Gel) 15-30 GRAMS 15 GRAMS... UD PRN PO 08/01/16 19:45 08/31/16 19:44 Glucose (Glucose Chew Tab) 4-8 Tablets 4 Tabl... UD PRN PO 08/01/16 19:45 08/31/16 19:44 Dextrose (Dextrose 50% 50ML Syringe) 25-50ML OF 50% DW IV FOR... UD PRN IV 08/01/16 19:45 08/31/16 19:44 Glucagon (Glucagon Inj) 1 mg UD PRN SQ 08/01/16 19:45 08/31/16 19:44 Polyethylene (Miralax Powder Packet) 17 gm DAILY PRN PO 08/01/16 20:00 08/31/16 19:59 08/07/16 17:21 17 GM Miscellaneous Information (Order Awaiting Action) 1 ea QS N/A 08/02/16 00:00 09/01/16 00:00 Sevelamer HCl (Renagel Tab) 800 mg TIDM PO 08/03/16 11:30 09/02/16 11:29 08/15/16 17:09 800 MG Furosemide (Lasix Tab) 80 mg BID17 PO 08/04/16 17:00 09/03/16 16:59 08/15/16 17:09 80 MG Hydralazine HCl (HydrALAZINE INJ) 10 mg Q4 PRN IV. 08/05/16 07:30 09/04/16 07:29 08/15/16 18:19 10 MG Vitamin B Complex/ Vit C/Folic Acid (Nephrocaps) 1 cap QAM PO 08/07/16 09:00 09/06/16 08:59 08/15/16 08:33 1 CAP Apixaban (Eliquis Tab) 5 mg BID PO 08/07/16 21:00 09/06/16 20:59 Future hold 08/12/16 20:22 5 MG Acetaminophen/ Hydrocodone Bitart ([place] 5/325 Tab) 1 tab Q4H PRN PO 08/08/16 11:00 08/22/16 10:59 08/16/16 07:49 1 TAB Albuterol/ Ipratropium (Duoneb) 3 ml QIDR PRN INH 08/09/16 12:00 09/08/16 11:59 Polyethylene (Miralax Powder Packet) 17 gm DAILY PO 08/10/16 08:00 09/09/16 07:59 08/13/16 10:29 17 GM Hydralazine HCl (Apresoline Tab) 20 mg Q8 PO 08/10/16 14:00 09/09/16 13:59 08/15/16 21:59 20 MG Insulin Glargine (Lantus Solostar Pen) 8 unit BID SC 08/16/16 08:00 09/15/16 07:59 08/16/16 08:49 8 UNIT Fentanyl Citrate (Fentanyl Inj) 25 mcg Q5M PRN IV 08/16/16 13:00 08/16/16 18:00 08/16/16 15:43 25 MCG Hydromorphone HCl (Dilaudid Inj) 0.25 mg Q5M PRN IV 08/16/16 13:00 08/16/16 18:00 08/16/16 16:15 0.25 MG Ondansetron HCl (Zofran Inj) 4 mg ONE PRN IV 08/16/16 13:00 08/16/16 18:00 Ephedrine Sulfate (EpHEDrine SULFATE INJ) 5 mg Q5M PRN IV 08/16/16 13:00 08/16/16 18:00 Atropine Sulfate 0.5 mg 0.5 mg Q1M PRN IV 08/16/16 13:00 08/16/16 18:00 Dexamethasone Sodium Phosphate 6 mg/Syringe 1.5 ml @ 1 mls/min Q8@0400,1200,2000 IV 08/16/16 20:00 08/17/16 12:02 Promethazine HCl/ Sodium Chloride (Phenergan Inj/ Nss 50ml) 50.5 ml @ 202 mls/hr Q6H PRN IV 08/16/16 15:00 09/15/16 14:59 Ondansetron HCl (Zofran Inj) 4 mg Q6H PRN IV 08/16/16 15:00 09/15/16 14:59 Metoclopramide HCl (Reglan Inj) 10 mg Q6H PRN IV 08/16/16 15:00 09/15/16 14:59 Lorazepam 0.5 mg 0.5 mg Q8H PRN PO 08/16/16 15:00 09/15/16 14:59 Lorazepam/Syringe (Ativan Inj/ Syringe) 0.25 ml @ 1 mls/min Q8H PRN IV 08/16/16 15:00 09/15/16 14:59 Pneumococcal Polysaccharide Vaccine 1 ea PRN PRN N/A 08/16/16 15:00 09/15/16 14:59 Influenza Virus Vacc Triv Types A&B 1 ea 1 ea PRN PRN N/A 08/16/16 15:00 09/15/16 14:59 Sodium Chloride (Nss 1000ml) 1,000 ml @ 75 mls/hr [id number] IV 08/16/16 14:47 09/15/16 14:46 Polyethylene (Miralax Powder Packet) 17 gm Q6 PO 08/18/16 06:00 09/17/16 05:59 Bisacodyl (Dulcolax Supp) 10 mg DAILY PRN [place] 08/16/16 15:00 09/15/16 14:59 Magnesium Hydroxide (Milk Of Magnesia Susp) 30 ml DAILY PRN PO 08/16/16 15:00 09/15/16 14:59 Hydromorphone HCl (Dilaudid Inj) 0.5 mg Q3H PRN IV 08/17/16 06:01 08/31/16 06:00 Oxycodone HCl 5-10mg prn moderate to sev... Q4H PRN PO 08/17/16 06:00 08/31/16 05:59 Cefazolin Sodium/ Dextrose (Ancef Iv/D5 50ml) 60 ml @ 100 mls/hr Q8@0400,1200,2000 IV 08/16/16 20:00 08/17/16 04:35 Acetaminophen 1000 mg 1,000 mg Q8H PRN PO 08/16/16 15:00 09/15/16 14:59 Acetaminophen (Ofirmev Iv) 100 ml @ 400 mls/hr Q8H PRN IV 08/16/16 15:00 09/15/16 14:59 Naloxone HCl (Narcan Inj) 0.1 mg Q5M PRN IV 08/16/16 15:00 09/15/16 14:59 Senna/Docusate Sodium (Senokot S Tab) 2 tab HS PO 08/16/16 21:00 09/15/16 20:59 Sodium Biphosphate/ Sodium Phosphate (Fleet Enema) 132 ml ONE PRN [place] 08/16/16 15:00 09/15/16 14:59 Hydroxyzine HCl (Vistaril Tab) 25 mg Q8H PRN PO 08/16/16 15:00 09/15/16 14:59 Al Hydroxide/Mg Hydroxide (Maalox Susp) 30 ml Q6H PRN PO 08/16/16 15:00 09/15/16 14:59 Famotidine (Pepcid Tab) 20 mg Q12 PRN PO 08/16/16 15:00 09/15/16 14:59 Diphenhydramine HCl (Benadryl Cap) 25 mg Q6H PRN PO 08/16/16 15:00 09/15/16 14:59 Miscellaneous Information (Discontinue VICE PRESIDENT DIGITAL STRATEGIST) 1 ea DIRECTED PRN N/A 08/16/16 15:00 08/17/16 06:00 Naloxone HCl (Narcan Inj) 0.1 mg Q5M PRN IV 08/16/16 15:00 09/15/16 14:59 Hydromorphone HCl 25 mg 25 mg PRN PRN IV 08/16/16 15:00 08/17/16 06:00 Sodium Chloride (Nss 1000ml) 1,000 ml @ 15 mls/hr Q24H IV 08/16/16 14:47 09/15/16 14:46 Hydromorphone HCl (Dilaudid Inj) 1 mg Q3H PRN IV 08/17/16 06:01 08/31/16 06:00 Objective Vital Signs Date Time Temp Pulse Resp B/P Pulse Ox O2 Delivery O2 Flow Rate FiO2 08/16/16 16:35 36.4 65 15 137/76 100 Nasal Cannula 4 08/16/16 16:25 74 19 127/73 100 Nasal Cannula 4 08/16/16 16:15 64 17 106/69 100 Nasal Cannula 4 08/16/16 16:05 65 24 126/67 100 Nasal Cannula 4 08/16/16 15:55 66 18 134/74 100 Nasal Cannula 4 08/16/16 15:45 72 24 138/74 100 Mask 10 08/16/16 15:35 73 20 170/98 100 Mask 10 08/16/16 15:25 72 20 178/105 100 Mask 10 08/16/16 15:15 67 21 158/87 100 Mask 10 08/16/16 15:06 37.0 67 16 172/81 100 Mask 10 08/16/16 08:00 Nasal Cannula 2.0 08/16/16 07:00 36.5 79 20 172/92 100 Nasal Cannula 4.0 08/16/16 00:31 37.0 74 20 169/78 100 Room Air 08/16/16 00:00 Room Air 2.0 Nasal Cannula CPAP Physical Exam General Appearance: no apparent distress, + obese Eyes: normal inspection, EOMI, sclerae normal ENT: normal ENT inspection, hearing grossly normal, pharynx normal Neck: supple, no adenopathy, no JVD, trachea midline Respiratory/Chest: chest non-tender, lungs clear, normal breath sounds, no respiratory distress, no accessory muscle use Cardiovascular: regular rate, rhythm, no edema, no gallop, no JVD, no murmur Abdomen: normal bowel sounds, non tender, soft, no organomegaly Extremities: normal inspection, no pedal edema, no calf tenderness, pelvis stable, + pertinent finding (low back tender insulation board to palpation, decreased ROM) Neurologic/Psychiatric: transitional living specialist II-XII nml as tested, no motor/sensory deficits, alert, normal mood/affect, oriented x 3 Skin: normal color, warm/dry, no rash Laboratory Results Last 24 Hours Test 08/15/16 17:06 08/15/16 17:50 08/15/16 20:13 08/16/16 05:23 Bedside Glucose 122 mg/dl 153 mg/dl Prothrombin Time 13.3 SECONDS Prothromb Time International Ratio 1.2 White Blood Count 4.09 K/uL Red Blood Count 4.51 M/uL Hemoglobin 11.8 g/dL Hematocrit 36.2 % Mean Corpuscular Volume 80.3 fL Mean Corpuscular Hemoglobin 26.2 pg Mean Corpuscular Hemoglobin Concent 32.6 g/dl Platelet Count 196 K/uL Mean Platelet Volume 9.3 fL Neutrophils (%) (Auto) 67.8 % Lymphocytes (%) (Auto) 16.9 % Monocytes (%) (Auto) 11.7 % Eosinophils (%) (Auto) 2.4 % Basophils (%) (Auto) 0.7 % Neutrophils # (Auto) 2.77 K/uL Lymphocytes # (Auto) 0.69 K/uL Monocytes # (Auto) 0.48 K/uL Eosinophils # (Auto) 0.10 K/uL Basophils # (Auto) 0.03 K/uL RDW Standard Deviation 59.1 fL RDW Coefficient of Variation 20.0 % Immature Granulocyte % (Auto) 0.5 % Immature Granulocyte # (Auto) 0.02 K/uL Polychromasia 1+ Sodium Level 137 mmol/L Potassium Level 4.4 mmol/L Chloride Level 101 mmol/L Carbon Dioxide Level 26 mmol/L Anion Gap 10.0 mmol/L Blood Urea Nitrogen 25 mg/dl Creatinine 4.60 mg/dl Est Creatinine Clear Calc Drug Dose 18.7 ml/min Estimated GFR () 13.1 Estimated GFR (Non- 11.3 BUN/Creatinine Ratio 5.4 Random Glucose 181 mg/dl Calcium Level 10.1 mg/dl Phosphorus Level 4.5 mg/dl Magnesium Level 3.4 mg/dl Test 08/16/16 07:27 08/16/16 11:16 08/16/16 15:38 08/16/16 16:00 Bedside Glucose 181 mg/dl 189 mg/dl 228 mg/dl Potassium Level 4.2 mmol/L Magnesium Level 3.4 mg/dl Assessment and Plan 76 y/o male with PMHx of Atrial Fibrillation (anticoagulated), HTN, CMAI on night CPAP, T2DM, Chronic Kidney Disease with Secondary Hyperparathyroidism, and Prostate CA who presents to the ED complaining of worsening lower back pain and ambulation difficulty 2 weeks on 08/01/2016 Back Pain with Ambulatory Dysfunction, spinal stenosis: lumbar decompression with posterior fusion on 08/16, no immediate complications - Pain management and PT/OT - should go to telemetry post op due to atrial fibrillation will defer to Dr. Juarez for pain control, activity level post op Possible Bronchitis upon admission: Resolved, no wheezing yesterday or today, no cough, breathing well T2DM: Stable, resume prior dose of Lantus once eating well, would be 15 units BID Acute on Chronic Kidney Disease stage 4 with Secondary Hyperparathyroidism: Baseline Unknown, stable/no new changes, continue dialysis --continue Furosemide 80 mg BID to encourage negative fluid balance, per records from distribution field technician -- had HD on 08/15, tolerated well, euvolemic currently and electrolytes stable --check labs in the AM -- HD orders per nephrology HTN, better control after hydralazine by mouth scheduled, - Cont metoprolol , hydralazine scheduled and hydralazine PRN Lower Extremity Edema, chronic diastolic CHF, stable Venous U/S - R/O DVT - unlikely given on Eliquis Echo - Ejection Fraction = >70 %. There is moderate concentric left ventricular hypertrophy. Grade I diastolic dysfunction, (abnormal relaxation pattern). There is mild mitral regurgitation. Atrial Fibrillation: Unknown Type: Rate Controlled - Metoprolol Succ 50 mg BID - Eliquis currently is on hold Anemia multifactorial from CKD, iron and b12 def - Cont EPO, B12 and IV iron tx , iron has completed for course CAMI on Night CPAP: - Set up CPAP per respiratory Constipation, cont bowel regimens include Colace, MiraLAX, and ordered a fleet enema, patient declined fleet enema, has no bowel movement again for 3 days, counseling him really need fleet enema -- moved bowels on 08/15 follow patient post op, should go to tele for closer monitoring for first 24 hours Continued [facility] stay due to: home environment unsafe for pt Discharge planning: rehab hospital
--- NOTE | 2016-08-16 16:58 | Anesthesiology Progress Note ---
Anesthesia Post Op Note Date & Time Aug 16, 2016 at 16:56 Vital Signs Pain Intensity: 4 Vital Signs Past 12 Hours Date Time Temp Pulse Resp B/P Pulse Ox O2 Delivery O2 Flow Rate FiO2 08/16/16 16:45 70 20 133/80 100 Nasal Cannula 4 08/16/16 16:35 36.4 65 15 137/76 100 Nasal Cannula 4 08/16/16 16:25 74 19 127/73 100 Nasal Cannula 4 08/16/16 16:15 64 17 106/69 100 Nasal Cannula 4 08/16/16 16:05 65 24 126/67 100 Nasal Cannula 4 08/16/16 15:55 66 18 134/74 100 Nasal Cannula 4 08/16/16 15:45 72 24 138/74 100 Mask 10 08/16/16 15:35 73 20 170/98 100 Mask 10 08/16/16 15:25 72 20 178/105 100 Mask 10 08/16/16 15:15 67 21 158/87 100 Mask 10 08/16/16 15:06 37.0 67 16 172/81 100 Mask 10 08/16/16 08:00 Nasal Cannula 2.0 08/16/16 07:00 36.5 79 20 172/92 100 Nasal Cannula 4.0 Notes Mental Status: alert / awake / arousable, participated in evaluation Pt Amnestic to Procedure: Yes Nausea / Vomiting: adequately controlled Pain: adequately controlled, improving with treatment Airway Patency, RR, SpO2: stable & adequate BP & HR: stable & adequate Hydration State: stable & adequate Anesthetic Complications: no major complications apparent The patient did well. His postop potassium was 4.2 and magnesium was 3.4. His BSG was 228 so he was given 5 units regular insulin IV. He has had some pain especially down the left leg which and has received Demerol and Dilaudid. He also has a CLIENT INTEGRATION MANAGER to help with the pain. Dr. Juarez is aware of his pain and does not want him to receive too much opioids.
[2016-08-16] MEDS ORDERED: MEPERIDINE HCL 50 MG/ML CARP IV ONE (17:00)
[2016-08-16] MEDS ORDERED: HYDROmorphone INJ 0.5 MG/0.5 ML SYR IV ONE (17:15)
[2016-08-16] MEDS: CEFAZOLIN IV 2,000 MG in DEXTROSE 5% 50ML 50 ML IV SCH (20:21)
[2016-08-16] MEDS: DEXAMETHASONE INJ 6 MG in SYRINGE 0 ML IV SCH (20:21)
[2016-08-16] MEDS: DOCUSATE SODIUM/SENNA 50/8.6MG TAB PO SCH (20:53)
[2016-08-16] MEDS: INSULIN GLARGINE SOLOSTAR 100 UNITS/ML 3 ML PEN SC SCH (20:59)
[2016-08-17] VITALS (26 sets, daily range): BP systolic 94–171; BP diastolic 60–88; PULSE 66–93; TEMP 36.3–37; O2SAT 98–100
[2016-08-17] MEDS: CEFAZOLIN IV 2,000 MG in DEXTROSE 5% 50ML 50 ML IV SCH (03:20)
[2016-08-17] MEDS: SODIUM CHLORIDE 0.9% 1000ML 1,000 ML IV SCH ×3 (03:20→17:17)
[2016-08-17] MEDS: DEXAMETHASONE INJ 6 MG in SYRINGE 0 ML IV SCH ×2 (03:20→11:59)
[2016-08-17] MEDS ORDERED: HYDROmorphone INJ 0.5 MG/0.5 ML SYR IV PRN (06:01)
[2016-08-17] MEDS: HydrALAZINE 10 MG TAB PO SCH ×3 (06:26→22:00)
[2016-08-17] MEDS: OXYCODONE HCL IR 5 MG TAB (IMMEDIATE RELEASE) PO PRN ×2 (06:37→20:12)
[2016-08-17 06:40] LABS: HEMATOCRIT 33.5 % (42-52); MEAN CELL VOLUME 82.7 fL (80-100); MEAN CORPUSCULAR HEMOGLOBIN 26.2 pg (25-34); MEAN CORPUSCULAR HGB CONC 31.6 g/dl (32-36); MEAN PLATELET VOLUME 9.6 fL (7.4-10.4); PLATELET COUNT 185 K/uL (130-400); RED BLOOD COUNT 4.05 M/uL (4.7-6.1); WHITE BLOOD COUNT 6.65 K/uL (4.8-10.8)
[2016-08-17 07:25] LABS: BUN/CREATININE RATIO 6.8 (10-20); CALCIUM 10.3 mg/dl (8.5-10.1); CREATININE 5.8 mg/dl (0.60-1.40); PHOSPHORUS 7.8 mg/dl (2.5-4.9)
[2016-08-17] MEDS: LORATADINE 10 MG TAB PO SCH (08:51)
[2016-08-17] MEDS: FUROSEMIDE 80 MG TAB PO SCH ×2 (08:51→17:38)
[2016-08-17] MEDS: SEVELAMER HYDROCH 800 MG TAB PO SCH ×3 (08:51→17:37)
[2016-08-17] MEDS: DOCUSATE SODIUM 100 MG CAP PO SCH ×2 (08:51→21:30)
[2016-08-17] MEDS: CYANOCOBALAMIN 500 MCG TAB (VIT B-12) PO SCH (08:52)
[2016-08-17] MEDS: POLYETHYLENE (MIRALAX) 17 GM PACK PO SCH (08:52)
[2016-08-17] MEDS: NEPHROCAPS PO SCH (08:52)
[2016-08-17] MEDS: METOPROLOL SUCC 50MG EXT REL TAB PO SCH ×2 (08:52→21:31)
[2016-08-17] MEDS: INSULIN ASPART 100 UNITS/ML 3 ML PEN SC SCH ×4 (08:52→21:33)
[2016-08-17] MEDS: INSULIN GLARGINE SOLOSTAR 100 UNITS/ML 3 ML PEN SC SCH ×2 (08:55→21:31)
[2016-08-17 09:07] LABS: BASO ABS # 0.06 K/uL (0-0.2); BASOPHIL % 0.9 % (0-2); COMPLETE YES; LYMPH ABS # 0.18 K/uL (1.2-3.4); LYMPHOCYTE % 2.7 %; NEUTROPHILS % 92.9 %; OVALOCYTES 1+
--- NOTE | 2016-08-17 11:45 | Progress Note ---
Subjective Date of Service: Aug 17, 2016. Subjective Pt evaluation today including: conversation w/ patient, conversation w/ family , physical exam, lab review, conversation w/ oracle distribution consultant, review of inpatient medication list Pain: back pain, slightly better than pre-op PO Intake: adequate Voiding: no voiding problems patient sitting up in bed, no distress, pain moderate, waiting to take narcotic prior to dialysis today eating well, breathing stable, encouraged him to use ISB no complications with surgery, went well overall reviewed labs today, Hb down slightly Problem List Medical Problems: (1) BARB (acute kidney injury) Status: Acute (2) Hypercalcemia Status: Acute Review of Systems Constitutional: + fatigue, + weakness Musculoskeletal: + joint pain (back) All Other Systems: Reviewed and Negative Medications Current Inpatient Medications Medications (Trade) Dose Ordered Sig/Elliott Route Start Time Stop Time Status Last Admin Dose Admin Lorazepam (Ativan Tab) 1 mg Q6H PRN PO 08/01/16 19:00 08/31/16 18:59 08/15/16 01:41 1 MG Cyanocobalamin (Vitamin B-12 Tab) 1,000 mcg QAM PO 08/02/16 09:00 09/01/16 08:59 08/17/16 08:52 1,000 MCG Docusate Sodium (coLACE CAP) 100 mg BID PO 08/01/16 21:00 08/31/16 20:59 08/16/16 20:54 100 MG Loratadine (Claritin Tab) 10 mg QAM PO 08/02/16 09:00 09/01/16 08:59 08/17/16 08:51 10 MG Metoprolol Succinate (Toprol Xl Tab) 50 mg BID PO 08/01/16 21:00 08/31/16 20:59 08/17/16 08:52 50 MG Insulin Aspart (novoLOG ASPART) SLIDING SCALE G... ACHS SC 08/01/16 21:00 08/31/16 20:59 08/17/16 08:52 8 UNITS Glucose (Glucose 40% Gel) 15-30 GRAMS 15 GRAMS... UD PRN PO 08/01/16 19:45 08/31/16 19:44 Glucose (Glucose Chew Tab) 4-8 Tablets 4 Tabl... UD PRN PO 08/01/16 19:45 08/31/16 19:44 Dextrose (Dextrose 50% 50ML Syringe) 25-50ML OF 50% DW IV FOR... UD PRN IV 08/01/16 19:45 08/31/16 19:44 Glucagon (Glucagon Inj) 1 mg UD PRN SQ 08/01/16 19:45 08/31/16 19:44 Polyethylene (Miralax Powder Packet) 17 gm DAILY PRN PO 08/01/16 20:00 08/31/16 19:59 08/07/16 17:21 17 GM Miscellaneous Information (Order Awaiting Action) 1 ea QS N/A 08/02/16 00:00 09/01/16 00:00 Sevelamer HCl (Renagel Tab) 800 mg TIDM PO 08/03/16 11:30 09/02/16 11:29 08/17/16 08:51 800 MG Furosemide (Lasix Tab) 80 mg BID17 PO 08/04/16 17:00 09/03/16 16:59 08/17/16 08:51 80 MG Hydralazine HCl (HydrALAZINE INJ) 10 mg Q4 PRN IV. 08/05/16 07:30 09/04/16 07:29 08/15/16 18:19 10 MG Vitamin B Complex/ Vit C/Folic Acid (Nephrocaps) 1 cap QAM PO 08/07/16 09:00 09/06/16 08:59 08/17/16 08:52 1 CAP Apixaban (Eliquis Tab) 5 mg BID PO 08/07/16 21:00 09/06/16 20:59 Future hold 08/12/16 20:22 5 MG Acetaminophen/ Hydrocodone Bitart ([place] 5/325 Tab) 1 tab Q4H PRN PO 08/08/16 11:00 08/22/16 10:59 Future Hold 08/16/16 07:49 1 TAB Albuterol/ Ipratropium (Duoneb) 3 ml QIDR PRN INH 08/09/16 12:00 09/08/16 11:59 Polyethylene (Miralax Powder Packet) 17 gm DAILY PO 08/10/16 08:00 09/09/16 07:59 08/13/16 10:29 17 GM Hydralazine HCl 20 mg 20 mg Q8 PO 3/15/17 14:00 09/09/16 13:59 08/17/16 06:26 20 MG Dexamethasone Sodium Phosphate 6 mg/Syringe 1.5 ml @ 1 mls/min Q8@0400,1200,2000 IV 08/16/16 20:00 08/17/16 12:02 08/17/16 03:20 1 MLS/MIN Promethazine HCl/ Sodium Chloride (Phenergan Inj/ Nss 50ml) 50.5 ml @ 202 mls/hr Q6H PRN IV 08/16/16 15:00 09/15/16 14:59 Ondansetron HCl (Zofran Inj) 4 mg Q6H PRN IV 08/16/16 15:00 09/15/16 14:59 Metoclopramide HCl (Reglan Inj) 10 mg Q6H PRN IV 08/16/16 15:00 09/15/16 14:59 Lorazepam 0.5 mg 0.5 mg Q8H PRN PO 08/16/16 15:00 09/15/16 14:59 Lorazepam/Syringe (Ativan Inj/ Syringe) 0.25 ml @ 1 mls/min Q8H PRN IV 08/16/16 15:00 09/15/16 14:59 08/16/16 19:09 1 MLS/MIN Pneumococcal Polysaccharide Vaccine 1 ea PRN PRN N/A 08/16/16 15:00 09/15/16 14:59 Influenza Virus Vacc Triv Types A&B 1 ea 1 ea PRN PRN N/A 08/16/16 15:00 09/15/16 14:59 Sodium Chloride (Nss 1000ml) 1,000 ml @ 75 mls/hr [id number] IV 08/16/16 14:47 09/15/16 14:46 08/17/16 03:20 75 MLS/HR Polyethylene (Miralax Powder Packet) 17 gm Q6 PO 08/18/16 06:00 09/17/16 05:59 Bisacodyl (Dulcolax Supp) 10 mg DAILY PRN [place] 08/16/16 15:00 09/15/16 14:59 Magnesium Hydroxide (Milk Of Magnesia Susp) 30 ml DAILY PRN PO 08/16/16 15:00 09/15/16 14:59 Hydromorphone HCl (Dilaudid Inj) 0.5 mg Q3H PRN IV 08/17/16 06:01 08/31/16 06:00 Oxycodone HCl (Roxicodone Immediate Rel Tab) 5-10mg prn moderate to sev... Q4H PRN PO 08/17/16 06:00 08/31/16 05:59 08/17/16 06:37 10 MG Acetaminophen 1000 mg 1,000 mg Q8H PRN PO 08/16/16 15:00 09/15/16 14:59 Acetaminophen (Ofirmev Iv) 100 ml @ 400 mls/hr Q8H PRN IV 08/16/16 15:00 09/15/16 14:59 Naloxone HCl (Narcan Inj) 0.1 mg Q5M PRN IV 08/16/16 15:00 09/15/16 14:59 Senna/Docusate Sodium (Senokot S Tab) 2 tab HS PO 08/16/16 21:00 09/15/16 20:59 08/16/16 20:53 2 TAB Sodium Biphosphate/ Sodium Phosphate (Fleet Enema) 132 ml ONE PRN [place] 08/16/16 15:00 09/15/16 14:59 Hydroxyzine HCl (Vistaril Tab) 25 mg Q8H PRN PO 08/16/16 15:00 09/15/16 14:59 Al Hydroxide/Mg Hydroxide (Maalox Susp) 30 ml Q6H PRN PO 08/16/16 15:00 09/15/16 14:59 Famotidine (Pepcid Tab) 20 mg Q12 PRN PO 08/16/16 15:00 09/15/16 14:59 Diphenhydramine HCl (Benadryl Cap) 25 mg Q6H PRN PO 08/16/16 15:00 09/15/16 14:59 Naloxone HCl 0.1 mg 0.1 mg Q5M PRN IV 08/16/16 15:00 09/15/16 14:59 Sodium Chloride (Nss 1000ml) 1,000 ml @ 15 mls/hr Q24H IV 08/16/16 14:47 09/15/16 14:46 Hydromorphone HCl (Dilaudid Inj) 1 mg Q3H PRN IV 08/17/16 06:01 08/31/16 06:00 Insulin Glargine (Lantus Solostar Pen) 15 unit BID SC 08/16/16 20:00 09/15/16 19:59 08/17/16 08:55 15 UNIT Objective Vital Signs Date Time Temp Pulse Resp B/P Pulse Ox O2 Delivery O2 Flow Rate FiO2 08/17/16 11:22 37.0 71 18 137/69 100 Nasal Cannula 4.0 08/17/16 08:00 Nasal Cannula 4.0 08/17/16 07:06 36.3 72 18 156/82 98 Nasal Cannula 4.0 08/17/16 06:24 73 153/78 08/17/16 03:21 36.6 75 16 128/70 99 Nasal Cannula 4.0 08/16/16 23:15 Nasal Cannula 4.0 CPAP 08/16/16 23:00 36.6 78 18 156/81 99 Nasal Cannula 4.0 08/16/16 21:59 167/78 08/16/16 20:46 36.3 80 18 137/77 98 Nasal Cannula 4.0 08/16/16 20:00 36.4 72 20 143/75 99 Nasal Cannula 4.0 08/16/16 18:57 36.3 80 20 154/79 98 Nasal Cannula 4.0 08/16/16 17:55 36.6 72 22 169/81 100 Nasal Cannula 2.0 08/16/16 17:25 36.4 71 20 151/77 100 Nasal Cannula 4.0 08/16/16 17:25 100 Nasal Cannula 4.0 08/16/16 17:25 100 Nasal Cannula 4.0 08/16/16 16:45 70 20 133/80 100 Nasal Cannula 4 08/16/16 16:35 36.4 65 15 137/76 100 Nasal Cannula 4 08/16/16 16:25 74 19 127/73 100 Nasal Cannula 4 08/16/16 16:15 64 17 106/69 100 Nasal Cannula 4 08/16/16 16:05 65 24 126/67 100 Nasal Cannula 4 08/16/16 15:55 66 18 134/74 100 Nasal Cannula 4 08/16/16 15:45 72 24 138/74 100 Mask 10 08/16/16 15:35 73 20 170/98 100 Mask 10 08/16/16 15:25 72 20 178/105 100 Mask 10 08/16/16 15:15 67 21 158/87 100 Mask 10 08/16/16 15:06 37.0 67 16 172/81 100 Mask 10 Physical Exam General Appearance: no apparent distress, + obese Eyes: normal inspection, EOMI, sclerae normal ENT: normal ENT inspection, hearing grossly normal, pharynx normal Neck: supple, no adenopathy, no JVD, trachea midline Respiratory/Chest: chest non-tender, lungs clear, no respiratory distress, no accessory muscle use, + decreased breath sounds (bases) Cardiovascular: no edema, no gallop, no JVD, no murmur, + irregularly irregular Abdomen: normal bowel sounds, non tender, soft, no organomegaly Extremities: no pedal edema, no calf tenderness, normal capillary refill, pelvis stable, + pertinent finding (back tender cylinder, decreased ROM with surgery yesterday) Neurologic/Psychiatric: pulling unit floorhand II-XII nml as tested, no motor/sensory deficits, alert, normal mood/affect, oriented x 3 Skin: normal color, warm/dry, no rash Lymphatic: no adenopathy Laboratory Results Last 24 Hours Test 08/16/16 15:38 08/16/16 16:00 08/16/16 16:39 08/16/16 20:41 Potassium Level 4.2 mmol/L Magnesium Level 3.4 mg/dl Bedside Glucose 228 mg/dl 205 mg/dl 200 mg/dl Test 08/17/16 05:53 08/17/16 08:04 White Blood Count 6.65 K/uL Red Blood Count 4.05 M/uL Hemoglobin 10.6 g/dL Hematocrit 33.5 % Mean Corpuscular Volume 82.7 fL Mean Corpuscular Hemoglobin 26.2 pg Mean Corpuscular Hemoglobin Concent 31.6 g/dl Platelet Count 185 K/uL Mean Platelet Volume 9.6 fL RDW Standard Deviation 60.9 fL RDW Coefficient of Variation 19.8 % Neutrophils % (Manual) 92.9 % Lymphocytes % (Manual) 2.7 % Monocytes % (Manual) 3.5 % Basophils % (Manual) 0.9 % Neutrophils # (Manual) 6.18 K/uL Total Absolute Neutrophils 6.18 K/uL Lymphocytes # (Manual) 0.18 K/uL Total Absolute Lymphocytes 0.18 K/uL Monocytes # (Manual) 0.23 K/uL Basophils # (Manual) 0.06 K/uL Ovalocytes 1+ Sodium Level 139 mmol/L Potassium Level 5.0 mmol/L Chloride Level 105 mmol/L Carbon Dioxide Level 21 mmol/L Anion Gap 13.0 mmol/L Blood Urea Nitrogen 39 mg/dl Creatinine 5.80 mg/dl Est Creatinine Clear Calc Drug Dose 14.7 ml/min Estimated GFR () 9.9 Estimated GFR (Non- 8.6 BUN/Creatinine Ratio 6.8 Random Glucose 259 mg/dl Calcium Level 10.3 mg/dl Phosphorus Level 7.8 mg/dl Albumin 3.0 gm/dl Bedside Glucose 273 mg/dl Assessment and Plan 76 y/o male with PMHx of Atrial Fibrillation (anticoagulated), HTN, CAMI on night CPAP, T2DM, Chronic Kidney Disease with Secondary Hyperparathyroidism, and Prostate CA who presents to the ED complaining of worsening lower back pain and ambulation difficulty 2 weeks on 08/01/2016 Back Pain with Ambulatory Dysfunction, spinal stenosis: lumbar decompression with posterior fusion on 08/16, POD # 1 - Pain management and PT/OT - will defer to Dr. Juarez for pain control, activity level post op - doing well on day 1, going for HD today, no issues overnight, pain controlled T2DM: Stable, resume Lantus 15 units BID, Novolog coverage, diabetic diet Acute on Chronic Kidney Disease stage 4 with Secondary Hyperparathyroidism: continue dialysis --continue Furosemide 80 mg BID to encourage negative fluid balance, per records from civil engineering professional -- had HD on 08/15, tolerated well, euvolemic currently and electrolytes stable, for HD today -- HD orders per nephrology HTN, better control after hydralazine by mouth scheduled, - Cont metoprolol , hydralazine scheduled and hydralazine PRN Lower Extremity Edema, chronic diastolic CHF, stable Venous U/S - R/O DVT - unlikely given on Eliquis Echo - Ejection Fraction = >70 %. There is moderate concentric left ventricular hypertrophy. Grade I diastolic dysfunction, (abnormal relaxation pattern). There is mild mitral regurgitation. Atrial Fibrillation: Unknown Type: Rate Controlled - Metoprolol Succ 50 mg BID - Eliquis currently is on hold, resume when okay with spine surgery Anemia multifactorial from CKD, iron and b12 def - Cont EPO, B12 and IV iron tx , iron has completed for course CAMI on Night CPAP: - Set up CPAP per respiratory Constipation, cont bowel regimens include Colace, MiraLAX, and ordered a fleet enema, patient declined fleet enema, has no bowel movement again for 3 days, counseling him really need fleet enema -- moved bowels on 08/15 and 08/16 Continued [facility] stay due to: home environment unsafe for pt Discharge planning: rehab hospital
[2016-08-17] MEDS: HYDROmorphone INJ 1 MG/ML SYR IV PRN ×2 (12:00→21:42)
--- NOTE | 2016-08-17 12:27 | Nephrology Progress Note ---
Nephrology Progress Note Date of Service Aug 17, 2016. Chief Complaint Acute on chronic kidney disease Subjective No acute events overnight. No post operative complications noted. Mr. Ferro reports early satisfaction with surgery. He remains hopeful. He denies shortness of breath. No fevers or chills. Review of Systems A complete review of systems was performed. Pertinent positives are noted above. All other systems are negative. Vital Signs Last 8 Hrs Date Time Temp Pulse Resp B/P Pulse Ox O2 Delivery O2 Flow Rate FiO2 08/17/16 11:56 70 100 08/17/16 11:22 37.0 71 18 137/69 100 Nasal Cannula 4.0 08/17/16 08:00 Nasal Cannula 4.0 08/17/16 07:06 36.3 72 18 156/82 98 Nasal Cannula 4.0 08/17/16 06:24 73 153/78 I & O 24-Hour Column 08/17/16 08:00 Intake Total 1325 ml Output Total 1860 ml Balance -535 ml Last Recorded Weight Weight (Kilograms): 120.700 Physical Exam General Appearance: WD/WN, no apparent distress, + obese Head: normocephalic, atraumatic Eyes: normal inspection, sclerae normal ENT: normal ENT inspection, pharynx normal Neck: supple, no JVD, + pertinent finding ([facility]) Respiratory/Chest: lungs clear, no respiratory distress, no accessory muscle use Cardiovascular: regular rate, rhythm, no gallop, no murmur Abdomen/GI: non tender, soft Extremities/Musculoskelatal: normal inspection, + pedal edema Neurologic/Psych: alert, oriented x 3 Family History Diabetes mellitus Social History Smokeless Tobacco Use: No Alcohol Use: none Drug Use: none Marital Status: Occupation: retired Laboratory Results Past 24 Hours 08/17/16 05:53 Red Blood Count 4.05, Mean Corpuscular Volume 82.7, Mean Corpuscular Hemoglobin 26.2, Mean Corpuscular Hemoglobin Concent 31.6, Mean Platelet Volume 9.6 08/16/16 15:38 08/17/16 05:53 Test 08/16/16 15:38 08/16/16 16:00 08/16/16 16:39 08/16/16 20:41 Magnesium Level 3.4 mg/dl (1.8-2.4) Bedside Glucose 228 mg/dl (70-99) 205 mg/dl (70-99) 200 mg/dl (70-99) Test 08/17/16 05:53 08/17/16 08:04 08/17/16 12:04 White Blood Count 6.65 K/uL (4.8-10.8) Red Blood Count 4.05 M/uL (4.7-6.1) Hemoglobin 10.6 g/dL (14.0-18.0) Hematocrit 33.5 % (42-52) Mean Corpuscular Volume 82.7 fL (80-100) Mean Corpuscular Hemoglobin 26.2 pg (25-34) Mean Corpuscular Hemoglobin Concent 31.6 g/dl (32-36) Platelet Count 185 K/uL (130-400) Mean Platelet Volume 9.6 fL (7.4-10.4) RDW Standard Deviation 60.9 fL (36.4-46.3) RDW Coefficient of Variation 19.8 % (11.5-14.5) Neutrophils % (Manual) 92.9 % Lymphocytes % (Manual) 2.7 % Monocytes % (Manual) 3.5 % Basophils % (Manual) 0.9 % (0-2) Neutrophils # (Manual) 6.18 K/uL (1.4-6.5) Total Absolute Neutrophils 6.18 K/uL (1.4-6.5) Lymphocytes # (Manual) 0.18 K/uL (1.2-3.4) Total Absolute Lymphocytes 0.18 K/uL (1.2-3.4) Monocytes # (Manual) 0.23 K/uL (0.11-0.59) Basophils # (Manual) 0.06 K/uL (0-0.2) Ovalocytes 1+ Anion Gap 13.0 mmol/L (3-11) Est Creatinine Clear Calc Drug Dose 14.7 ml/min Estimated GFR () 9.9 Estimated GFR (Non- 8.6 BUN/Creatinine Ratio 6.8 (10-20) Calcium Level 10.3 mg/dl (8.5-10.1) Phosphorus Level 7.8 mg/dl (2.5-4.9) Albumin 3.0 gm/dl (3.4-5.0) Bedside Glucose 273 mg/dl (70-99) 284 mg/dl (70-99) Allergies Coded Allergies: Atorvastatin (Unverified Allergy, Unknown, UNKNOWN, 08/01/16) Gabapentin (Unverified Allergy, Unknown, UNKNOWN, 08/01/16) Pioglitazone (Unverified Allergy, Unknown, UNKNOWN, 08/01/16) Simvastatin (Unverified Allergy, Unknown, UNKNOWN, 08/01/16) Medications Current Inpatient Medications Medications (Trade) Dose Ordered Sig/Elliott Route Start Time Stop Time Status Last Admin Dose Admin Lorazepam (Ativan Tab) 1 mg Q6H PRN PO 08/01/16 19:00 08/31/16 18:59 08/15/16 01:41 1 MG Cyanocobalamin (Vitamin B-12 Tab) 1,000 mcg QAM PO 08/02/16 09:00 09/01/16 08:59 08/17/16 08:52 1,000 MCG Docusate Sodium (coLACE CAP) 100 mg BID PO 08/01/16 21:00 08/31/16 20:59 08/16/16 20:54 100 MG Loratadine (Claritin Tab) 10 mg QAM PO 08/02/16 09:00 09/01/16 08:59 08/17/16 08:51 10 MG Metoprolol Succinate (Toprol Xl Tab) 50 mg BID PO 08/01/16 21:00 08/31/16 20:59 08/17/16 08:52 50 MG Insulin Aspart (novoLOG ASPART) SLIDING SCALE G... ACHS SC 08/01/16 21:00 08/31/16 20:59 08/17/16 08:52 8 UNITS Glucose (Glucose 40% Gel) 15-30 GRAMS 15 GRAMS... UD PRN PO 08/01/16 19:45 08/31/16 19:44 Glucose (Glucose Chew Tab) 4-8 Tablets 4 Tabl... UD PRN PO 08/01/16 19:45 08/31/16 19:44 Dextrose (Dextrose 50% 50ML Syringe) 25-50ML OF 50% DW IV FOR... UD PRN IV 08/01/16 19:45 08/31/16 19:44 Glucagon (Glucagon Inj) 1 mg UD PRN SQ 08/01/16 19:45 08/31/16 19:44 Polyethylene (Miralax Powder Packet) 17 gm DAILY PRN PO 08/01/16 20:00 08/31/16 19:59 08/07/16 17:21 17 GM Miscellaneous Information (Order Awaiting Action) 1 ea QS N/A 08/02/16 00:00 09/01/16 00:00 Sevelamer HCl (Renagel Tab) 800 mg TIDM PO 08/03/16 11:30 09/02/16 11:29 08/17/16 08:51 800 MG Furosemide (Lasix Tab) 80 mg BID17 PO 08/04/16 17:00 09/03/16 16:59 08/17/16 08:51 80 MG Hydralazine HCl (HydrALAZINE INJ) 10 mg Q4 PRN IV. 08/05/16 07:30 09/04/16 07:29 08/15/16 18:19 10 MG Vitamin B Complex/ Vit C/Folic Acid (Nephrocaps) 1 cap QAM PO 08/07/16 09:00 09/06/16 08:59 08/17/16 08:52 1 CAP Apixaban (Eliquis Tab) 5 mg BID PO 08/07/16 21:00 09/06/16 20:59 Future hold 08/12/16 20:22 5 MG Acetaminophen/ Hydrocodone Bitart ([place] 5/325 Tab) 1 tab Q4H PRN PO 08/08/16 11:00 08/22/16 10:59 Future Hold 08/16/16 07:49 1 TAB Albuterol/ Ipratropium (Duoneb) 3 ml QIDR PRN INH 08/09/16 12:00 09/08/16 11:59 Polyethylene (Miralax Powder Packet) 17 gm DAILY PO 08/10/16 08:00 09/09/16 07:59 08/13/16 10:29 17 GM Hydralazine HCl 20 mg 20 mg Q8 PO 08/10/16 14:00 09/09/16 13:59 08/17/16 06:26 20 MG Promethazine HCl/ Sodium Chloride (Phenergan Inj/ Nss 50ml) 50.5 ml @ 202 mls/hr Q6H PRN IV 08/16/16 15:00 09/15/16 14:59 Ondansetron HCl (Zofran Inj) 4 mg Q6H PRN IV 08/16/16 15:00 09/15/16 14:59 Metoclopramide HCl (Reglan Inj) 10 mg Q6H PRN IV 08/16/16 15:00 09/15/16 14:59 Lorazepam 0.5 mg 0.5 mg Q8H PRN PO 08/16/16 15:00 09/15/16 14:59 Lorazepam/Syringe (Ativan Inj/ Syringe) 0.25 ml @ 1 mls/min Q8H PRN IV 08/16/16 15:00 09/15/16 14:59 08/16/16 19:09 1 MLS/MIN Pneumococcal Polysaccharide Vaccine 1 ea PRN PRN N/A 08/16/16 15:00 09/15/16 14:59 Influenza Virus Vacc Triv Types A&B 1 ea 1 ea PRN PRN N/A 08/16/16 15:00 09/15/16 14:59 Sodium Chloride (Nss 1000ml) 1,000 ml @ 75 mls/hr [id number] IV 08/16/16 14:47 09/15/16 14:46 08/17/16 03:20 75 MLS/HR Polyethylene (Miralax Powder Packet) 17 gm Q6 PO 08/18/16 06:00 09/17/16 05:59 Bisacodyl (Dulcolax Supp) 10 mg DAILY PRN [place] 08/16/16 15:00 09/15/16 14:59 Magnesium Hydroxide (Milk Of Magnesia Susp) 30 ml DAILY PRN PO 08/16/16 15:00 09/15/16 14:59 Hydromorphone HCl (Dilaudid Inj) 0.5 mg Q3H PRN IV 08/17/16 06:01 08/31/16 06:00 Oxycodone HCl (Roxicodone Immediate Rel Tab) 5-10mg prn moderate to sev... Q4H PRN PO 08/17/16 06:00 08/31/16 05:59 08/17/16 06:37 10 MG Acetaminophen 1000 mg 1,000 mg Q8H PRN PO 08/16/16 15:00 09/15/16 14:59 Acetaminophen (Ofirmev Iv) 100 ml @ 400 mls/hr Q8H PRN IV 08/16/16 15:00 09/15/16 14:59 Naloxone HCl (Narcan Inj) 0.1 mg Q5M PRN IV 08/16/16 15:00 09/15/16 14:59 Senna/Docusate Sodium (Senokot S Tab) 2 tab HS PO 08/16/16 21:00 09/15/16 20:59 08/16/16 20:53 2 TAB Sodium Biphosphate/ Sodium Phosphate (Fleet Enema) 132 ml ONE PRN IN 08/16/16 15:00 09/15/16 14:59 Hydroxyzine HCl (Vistaril Tab) 25 mg Q8H PRN PO 08/16/16 15:00 09/15/16 14:59 Al Hydroxide/Mg Hydroxide (Maalox Susp) 30 ml Q6H PRN PO 08/16/16 15:00 09/15/16 14:59 Famotidine (Pepcid Tab) 20 mg Q12 PRN PO 08/16/16 15:00 09/15/16 14:59 Diphenhydramine HCl (Benadryl Cap) 25 mg Q6H PRN PO 08/16/16 15:00 09/15/16 14:59 Naloxone HCl 0.1 mg 0.1 mg Q5M PRN IV 08/16/16 15:00 09/15/16 14:59 Sodium Chloride (Nss 1000ml) 1,000 ml @ 15 mls/hr Q24H IV 08/16/16 14:47 09/15/16 14:46 Hydromorphone HCl (Dilaudid Inj) 1 mg Q3H PRN IV 08/17/16 06:01 08/31/16 06:00 08/17/16 12:00 1 MG Insulin Glargine (Lantus Solostar Pen) 15 unit BID SC 08/16/16 20:00 09/15/16 19:59 08/17/16 08:55 15 UNIT Impression (1) Chronic kidney disease, stage IV (severe) (2) BARB (acute kidney injury) (3) Hypercalcemia (4) Stenosis, spinal, lumbar Mr. Reginaldo Ferro is a 76-year-old male with ESRD due to hypertension, diabetes and obesity. His harvesting manager is Dr. Ivan Delcid in [place]. He was started on hemodialysis on 08/05/16. Renal ultrasound showed bilateral atrophic kidneys. Urinalysis documenting proteinuria. Urine microscopy is acellular. Chronic hypercalcemia with hyperparathyroidism noted. Reasonable control with Sensipar at home. Serum calcium improved with hydration and furosemide. Laboratory studies are also notable for acute on chronic anemia. Patient has a longstanding history of iron deficiency anemia. He was started on Procrit and venofer as an inpatient. 2 u PRBC transfusion on 08/15/16 in anticipation of OR today. SPEP consistent with nonselective protein loss and immunofixation showed multiple indistinct bands suggestive of reactive changes or oligoclonal process. Patient has lumbar stenosis and underwent decompressive surgery with laminectomy 08/16/16. He will likely require stay at [facility] following his surgery. Recommendations END STAGE RENAL DISEASE: -- HD MWF schedule. Orders for dialysis placed this morning. -- Continue Furosemide 80 mg BID to encourage negative fluid balance -- Continue Sevelamer as phosphate binder -- Continue Nephrocaps daily -- Will need AVF creation as outpatient ANEMIA: -- Patient has completed 1 g IV iron infusion -- 2 u PRBC 08/15/16 -- Will continue LESVIA w/ HD treatments LUMBAR STENOSIS: -- Decompression with laminectomy performed 08/17/16 without complications
[2016-08-17] MEDS ORDERED: EPOETIN ALFA 4000 UNITS/ML VIAL IV SCH (12:30)
--- NOTE | 2016-08-17 13:42 | Anesthesiology Progress Note ---
Anesthesia Post Op Note Date & Time Aug 17, 2016 at 13:41 Vital Signs Vital Signs Past 12 Hours Date Time Temp Pulse Resp B/P Pulse Ox O2 Delivery O2 Flow Rate FiO2 08/17/16 11:56 70 100 08/17/16 11:22 37.0 71 18 137/69 100 Nasal Cannula 4.0 08/17/16 08:00 Nasal Cannula 4.0 08/17/16 07:06 36.3 72 18 156/82 98 Nasal Cannula 4.0 08/17/16 06:24 73 153/78 08/17/16 03:21 36.6 75 16 128/70 99 Nasal Cannula 4.0 Notes Mental Status: alert / awake / arousable, participated in evaluation Pt Amnestic to Procedure: Yes Nausea / Vomiting: adequately controlled Pain: adequately controlled Airway Patency, RR, SpO2: stable & adequate BP & HR: stable & adequate Hydration State: stable & adequate Anesthetic Complications: no major complications apparent
--- NOTE | 2016-08-17 14:37 | PROGRESS NOTE ---
DATE: 08/17/2016 SUBJECTIVE: Postop day 1. Back pain controlled. Leg pain improved. Vials signs stable. Temperature 37.0. MATTY drained 30 mL today. Hematocrit 33.5. PHYSICAL EXAMINATION: He is sitting in bed, reasonable strength to testing, appears comfortable. ASSESSMENT: Status post lumbar decompression and fusion. PLAN: At this time, we will initiate physical therapy, begin with transfers and ambulation as tolerated.
[2016-08-17] MEDS: EPOETIN ALFA INJ 4,000 UNITS in SYRINGE 0 ML IV. SCH ×2 (16:33→19:20)
[2016-08-17] MEDS: DOCUSATE SODIUM/SENNA 50/8.6MG TAB PO SCH (21:30)
[2016-08-18] MEDS: HYDROmorphone INJ 1 MG/ML SYR IV PRN (00:57)
[2016-08-18 05:38] VITALS: BP 144/88; PULSE 68
[2016-08-18 05:39] LABS: HEMATOCRIT 31.9 % (42-52); MEAN CELL VOLUME 81.4 fL (80-100); MEAN PLATELET VOLUME 9.5 fL (7.4-10.4); PLATELET COUNT 171 K/uL (130-400); RED BLOOD COUNT 3.92 M/uL (4.7-6.1); WHITE BLOOD COUNT 7.39 K/uL (4.8-10.8)
[2016-08-18] MEDS: HydrALAZINE 10 MG TAB PO SCH ×3 (05:43→22:24)
[2016-08-18] MEDS: SODIUM CHLORIDE 0.9% 1000ML 1,000 ML IV SCH ×2 (05:44→07:06)
[2016-08-18] MEDS: POLYETHYLENE (MIRALAX) 17 GM PACK PO SCH ×5 (05:44→23:47)
[2016-08-18] MEDS ORDERED: NURSING VERBAL MED ORDER ONE (05:45)
[2016-08-18 06:40] LABS: BUN/CREATININE RATIO 6.8 (10-20); CALCIUM 9.6 mg/dl (8.5-10.1); CREATININE 4.3 mg/dl (0.60-1.40); PHOSPHORUS 5.5 mg/dl (2.5-4.9)
[2016-08-18 07:36] VITALS: BP 143/72; PULSE 70; TEMP 36.3; O2SAT 98
[2016-08-18] MEDS: OXYCODONE HCL IR 5 MG TAB (IMMEDIATE RELEASE) PO PRN ×3 (08:01→21:38)
[2016-08-18] MEDS: SEVELAMER HYDROCH 800 MG TAB PO SCH ×3 (08:50→17:49)
[2016-08-18] MEDS: FUROSEMIDE 80 MG TAB PO SCH ×2 (08:50→16:50)
[2016-08-18] MEDS: LORATADINE 10 MG TAB PO SCH (08:50)
[2016-08-18] MEDS: METOPROLOL SUCC 50MG EXT REL TAB PO SCH ×2 (08:51→21:33)
[2016-08-18] MEDS: NEPHROCAPS PO SCH (08:51)
[2016-08-18] MEDS: DOCUSATE SODIUM 100 MG CAP PO SCH ×2 (08:51→21:34)
[2016-08-18] MEDS: CYANOCOBALAMIN 500 MCG TAB (VIT B-12) PO SCH (08:52)
[2016-08-18] MEDS: INSULIN GLARGINE SOLOSTAR 100 UNITS/ML 3 ML PEN SC SCH ×2 (08:57→22:22)
[2016-08-18] MEDS: INSULIN ASPART 100 UNITS/ML 3 ML PEN SC SCH ×4 (08:57→21:38)
[2016-08-18 13:00] VITALS: BP 148/75; PULSE 80
[2016-08-18 14:52] VITALS: BP 133/73; PULSE 77; TEMP 36.4; O2SAT 99
--- NOTE | 2016-08-18 15:06 | Nephrology Progress Note ---
Nephrology Progress Note Date of Service Aug 18, 2016. Chief Complaint Acute on chronic kidney disease Subjective No acute events overnight. No complaints today. Sleeping when I initially went to evaluate patient. Mr. Ferro describes improvement since surgery. He states that he is motivated to move forward with physical therapy. He tolerated dialysis yesterday without complications, UF 2 kg. Review of Systems A complete review of systems was performed. Pertinent positives are noted above. All other systems are negative. Vital Signs Last 8 Hrs Date Time Temp Pulse Resp B/P Pulse Ox O2 Delivery O2 Flow Rate FiO2 08/18/16 14:52 36.4 77 18 133/73 99 Room Air 08/18/16 13:00 80 16 148/75 08/18/16 07:50 Nasal Cannula 2.0 08/18/16 07:36 36.3 70 16 143/72 98 CPAP I & O 24-Hour Column 08/18/16 08:00 Intake Total 100 ml Output Total 2375 ml Balance -2275 ml Last Recorded Weight Weight (Kilograms): 120.700 Physical Exam General Appearance: WD/WN, no apparent distress, + obese Head: normocephalic, atraumatic Eyes: normal inspection, sclerae normal ENT: normal ENT inspection, pharynx normal Neck: supple, no JVD, + pertinent finding (TDC intact) Respiratory/Chest: lungs clear, no respiratory distress, no accessory muscle use Cardiovascular: regular rate, rhythm, no gallop, no murmur Abdomen/GI: non tender, soft Extremities/Musculoskelatal: normal inspection, + pedal edema (improved) Neurologic/Psych: alert, oriented x 3 Family History Diabetes mellitus Social History Smokeless Tobacco Use: No Alcohol Use: none Drug Use: none Marital Status: Occupation: retired Laboratory Results Past 24 Hours 08/18/16 05:10 08/18/16 05:10 Test 08/17/16 16:49 08/17/16 20:50 08/18/16 05:10 08/18/16 08:16 Bedside Glucose 188 mg/dl (70-99) 209 mg/dl (70-99) 230 mg/dl (70-99) Red Blood Count 3.92 M/uL (4.7-6.1) Mean Corpuscular Volume 81.4 fL (80-100) Mean Corpuscular Hemoglobin 26.0 pg (25-34) Mean Corpuscular Hemoglobin Concent 32.0 g/dl (32-36) RDW Standard Deviation 59.2 fL (36.4-46.3) RDW Coefficient of Variation 19.7 % (11.5-14.5) Mean Platelet Volume 9.5 fL (7.4-10.4) Anion Gap 9.0 mmol/L (3-11) Est Creatinine Clear Calc Drug Dose 19.8 ml/min Estimated GFR () 14.3 Estimated GFR (Non- 12.3 BUN/Creatinine Ratio 6.8 (10-20) Calcium Level 9.6 mg/dl (8.5-10.1) Phosphorus Level 5.5 mg/dl (2.5-4.9) Albumin 2.9 gm/dl (3.4-5.0) Test 08/18/16 12:27 Bedside Glucose 288 mg/dl (70-99) Allergies Coded Allergies: Atorvastatin (Unverified Allergy, Unknown, UNKNOWN, 08/01/16) Gabapentin (Unverified Allergy, Unknown, UNKNOWN, 08/01/16) Pioglitazone (Unverified Allergy, Unknown, UNKNOWN, 08/01/16) Simvastatin (Unverified Allergy, Unknown, UNKNOWN, 08/01/16) Medications Current Inpatient Medications Medications (Trade) Dose Ordered Sig/Elliott Route Start Time Stop Time Status Last Admin Dose Admin Lorazepam (Ativan Tab) 1 mg Q6H PRN PO 08/01/16 19:00 08/31/16 18:59 08/15/16 01:41 1 MG Cyanocobalamin (Vitamin B-12 Tab) 1,000 mcg QAM PO 08/02/16 09:00 09/01/16 08:59 08/18/16 08:52 1,000 MCG Docusate Sodium (coLACE CAP) 100 mg BID PO 08/01/16 21:00 08/31/16 20:59 08/18/16 08:51 100 MG Loratadine (Claritin Tab) 10 mg QAM PO 08/02/16 09:00 09/01/16 08:59 08/18/16 08:50 10 MG Metoprolol Succinate (Toprol Xl Tab) 50 mg BID PO 08/01/16 21:00 08/31/16 20:59 08/18/16 08:51 50 MG Insulin Aspart (novoLOG ASPART) SLIDING SCALE G... ACHS SC 08/01/16 21:00 08/31/16 20:59 08/18/16 12:59 19 UNITS Glucose (Glucose 40% Gel) 15-30 GRAMS 15 GRAMS... UD PRN PO 08/01/16 19:45 08/31/16 19:44 Glucose (Glucose Chew Tab) 4-8 Tablets 4 Tabl... UD PRN PO 08/01/16 19:45 08/31/16 19:44 Dextrose (Dextrose 50% 50ML Syringe) 25-50ML OF 50% DW IV FOR... UD PRN IV 08/01/16 19:45 08/31/16 19:44 Glucagon (Glucagon Inj) 1 mg UD PRN SQ 08/01/16 19:45 08/31/16 19:44 Polyethylene (Miralax Powder Packet) 17 gm DAILY PRN PO 08/01/16 20:00 08/31/16 19:59 08/07/16 17:21 17 GM Miscellaneous Information (Order Awaiting Action) 1 ea QS N/A 08/02/16 00:00 09/01/16 00:00 Sevelamer HCl (Renagel Tab) 800 mg TIDM PO 08/03/16 11:30 09/02/16 11:29 08/18/16 12:55 800 MG Furosemide (Lasix Tab) 80 mg BID17 PO 08/04/16 17:00 09/03/16 16:59 08/18/16 08:50 80 MG Hydralazine HCl (HydrALAZINE INJ) 10 mg Q4 PRN IV. 08/05/16 07:30 09/04/16 07:29 08/15/16 18:19 10 MG Vitamin B Complex/ Vit C/Folic Acid (Nephrocaps) 1 cap QAM PO 08/07/16 09:00 09/06/16 08:59 08/18/16 08:51 1 CAP Apixaban (Eliquis Tab) 5 mg BID PO 08/07/16 21:00 09/06/16 20:59 Future hold 08/12/16 20:22 5 MG Acetaminophen/ Hydrocodone Bitart ([place]son 5/325 Tab) 1 tab Q4H PRN PO 08/08/16 11:00 08/22/16 10:59 Future Hold 08/16/16 07:49 1 TAB Albuterol/ Ipratropium (Duoneb) 3 ml QIDR PRN INH 08/09/16 12:00 09/08/16 11:59 Polyethylene (Miralax Powder Packet) 17 gm DAILY PO 08/10/16 08:00 09/09/16 07:59 08/18/16 08:51 17 GM Hydralazine HCl 20 mg 20 mg Q8 PO 08/10/16 14:00 09/09/16 13:59 08/18/16 12:56 20 MG Promethazine HCl/ Sodium Chloride (Phenergan Inj/ Nss 50ml) 50.5 ml @ 202 mls/hr Q6H PRN IV 08/16/16 15:00 09/15/16 14:59 Ondansetron HCl (Zofran Inj) 4 mg Q6H PRN IV 08/16/16 15:00 09/15/16 14:59 Metoclopramide HCl (Reglan Inj) 10 mg Q6H PRN IV 08/16/16 15:00 09/15/16 14:59 Lorazepam 0.5 mg 0.5 mg Q8H PRN PO 08/16/16 15:00 09/15/16 14:59 Lorazepam/Syringe (Ativan Inj/ Syringe) 0.25 ml @ 1 mls/min Q8H PRN IV 08/16/16 15:00 09/15/16 14:59 08/16/16 19:09 1 MLS/MIN Pneumococcal Polysaccharide Vaccine 1 ea PRN PRN N/A 08/16/16 15:00 09/15/16 14:59 Influenza Virus Vacc Triv Types A&B 1 ea PRN PRN N/A 08/16/16 15:00 09/15/16 14:59 Polyethylene (Miralax Powder Packet) 17 gm Q6 PO 08/18/16 06:00 09/17/16 05:59 08/18/16 12:57 17 GM Bisacodyl (Dulcolax Supp) 10 mg DAILY PRN [place] 08/16/16 15:00 09/15/16 14:59 Magnesium Hydroxide (Milk Of Magnesia Susp) 30 ml DAILY PRN PO 08/16/16 15:00 09/15/16 14:59 Hydromorphone HCl (Dilaudid Inj) 0.5 mg Q3H PRN IV 08/17/16 06:01 08/31/16 06:00 Oxycodone HCl (Roxicodone Immediate Rel Tab) 5-10mg prn moderate to sev... Q4H PRN PO 08/17/16 06:00 08/31/16 05:59 08/18/16 14:06 10 MG Acetaminophen 1000 mg 1,000 mg Q8H PRN PO 08/16/16 15:00 09/15/16 14:59 Acetaminophen (Ofirmev Iv) 100 ml @ 400 mls/hr Q8H PRN IV 08/16/16 15:00 09/15/16 14:59 Naloxone HCl (Narcan Inj) 0.1 mg Q5M PRN IV 08/16/16 15:00 09/15/16 14:59 Senna/Docusate Sodium (Senokot S Tab) 2 tab HS PO 08/16/16 21:00 09/15/16 20:59 08/17/16 21:30 2 TAB Sodium Biphosphate/ Sodium Phosphate (Fleet Enema) 132 ml ONE PRN [place] 08/16/16 15:00 09/15/16 14:59 Hydroxyzine HCl (Vistaril Tab) 25 mg Q8H PRN PO 08/16/16 15:00 09/15/16 14:59 Al Hydroxide/Mg Hydroxide (Maalox Susp) 30 ml Q6H PRN PO 08/16/16 15:00 09/15/16 14:59 Famotidine (Pepcid Tab) 20 mg Q12 PRN PO 08/16/16 15:00 09/15/16 14:59 Diphenhydramine HCl (Benadryl Cap) 25 mg Q6H PRN PO 08/16/16 15:00 09/15/16 14:59 Naloxone HCl 0.1 mg 0.1 mg Q5M PRN IV 08/16/16 15:00 09/15/16 14:59 Sodium Chloride (Nss 1000ml) 1,000 ml @ 15 mls/hr Q24H IV 08/16/16 14:47 09/15/16 14:46 Hydromorphone HCl (Dilaudid Inj) 1 mg Q3H PRN IV 08/17/16 06:01 08/31/16 06:00 08/18/16 00:57 1 MG Insulin Glargine (Lantus Solostar Pen) 15 unit BID SC 08/16/16 20:00 09/15/16 19:59 08/18/16 08:57 15 UNIT Impression (1) Chronic kidney disease, stage IV (severe) (2) BARB (acute kidney injury) (3) Hypercalcemia (4) Stenosis, spinal, lumbar Mr. Reginaldo Ferro is a 76-year-old male with ESRD due to hypertension, diabetes and obesity. His nursing coordinator is Dr. Ivan Delcid in [place]. He was started on hemodialysis on 08/05/16. Renal ultrasound showed bilateral atrophic kidneys. Urinalysis documenting proteinuria. Urine microscopy is acellular. Patient has a longstanding history of iron deficiency anemia. He was started on Procrit and venofer as an inpatient. 2 u PRBC transfusion on 08/15/16 prior to surgery. Patient has lumbar stenosis and underwent decompressive surgery with laminectomy 08/16/16. He is hopeful to be accepted to [facility] for rehabilitation pending discharge. Recommendations END STAGE RENAL DISEASE: -- HD MWF schedule -- Continue Furosemide 80 mg BID to encourage negative fluid balance -- Continue Sevelamer as phosphate binder -- Continue Nephrocaps daily -- AVF creation as outpatient ANEMIA: -- Patient has completed 1 g IV iron infusion -- 2 u PRBC 08/15/16 -- Continue Procrit w/ HD treatments LUMBAR STENOSIS: -- Decompression with laminectomy performed 08/17/16 without complications
--- NOTE | 2016-08-18 15:59 | Progress Note ---
Subjective Date of Service: Aug 18, 2016. Subjective Pt evaluation today including: conversation w/ patient, physical exam, lab review, conversation w/ database reporting consultant, review of inpatient medication list Pain: back pain, improved PO Intake: adequate Voiding: no voiding problems patient doing well overall, back pain is better since surgery tolerating diet, breathing well, off oxygen, no chest pain had a BM yesterday, no abdominal pain or nausea today increasing his activity level Problem List Medical Problems: (1) BARB (acute kidney injury) Status: Acute (2) Hypercalcemia Status: Acute Review of Systems Musculoskeletal: + joint pain (back pain) Neurologic: + balance problems, + weakness All Other Systems: Reviewed and Negative Medications Current Inpatient Medications Medications (Trade) Dose Ordered Sig/Elliott Route Start Time Stop Time Status Last Admin Dose Admin Lorazepam (Ativan Tab) 1 mg Q6H PRN PO 08/01/16 19:00 08/31/16 18:59 08/15/16 01:41 1 MG Cyanocobalamin (Vitamin B-12 Tab) 1,000 mcg QAM PO 08/02/16 09:00 09/01/16 08:59 08/18/16 08:52 1,000 MCG Docusate Sodium (coLACE CAP) 100 mg BID PO 08/01/16 21:00 08/31/16 20:59 08/18/16 08:51 100 MG Loratadine (Claritin Tab) 10 mg QAM PO 08/02/16 09:00 09/01/16 08:59 08/18/16 08:50 10 MG Metoprolol Succinate (Toprol Xl Tab) 50 mg BID PO 08/01/16 21:00 08/31/16 20:59 08/18/16 08:51 50 MG Insulin Aspart (novoLOG ASPART) SLIDING SCALE G... ACHS SC 08/01/16 21:00 08/31/16 20:59 08/18/16 12:59 19 UNITS Glucose (Glucose 40% Gel) 15-30 GRAMS 15 GRAMS... UD PRN PO 08/01/16 19:45 08/31/16 19:44 Glucose (Glucose Chew Tab) 4-8 Tablets 4 Tabl... UD PRN PO 08/01/16 19:45 08/31/16 19:44 Dextrose (Dextrose 50% 50ML Syringe) 25-50ML OF 50% DW IV FOR... UD PRN IV 08/01/16 19:45 08/31/16 19:44 Glucagon (Glucagon Inj) 1 mg UD PRN SQ 08/01/16 19:45 08/31/16 19:44 Polyethylene (Miralax Powder Packet) 17 gm DAILY PRN PO 08/01/16 20:00 08/31/16 19:59 08/07/16 17:21 17 GM Miscellaneous Information (Order Awaiting Action) 1 ea QS N/A 08/02/16 00:00 09/01/16 00:00 Sevelamer HCl (Renagel Tab) 800 mg TIDM PO 08/03/16 11:30 09/02/16 11:29 08/18/16 12:55 800 MG Furosemide (Lasix Tab) 80 mg BID17 PO 08/04/16 17:00 09/03/16 16:59 08/18/16 08:50 80 MG Hydralazine HCl (HydrALAZINE INJ) 10 mg Q4 PRN IV. 08/05/16 07:30 09/04/16 07:29 08/15/16 18:19 10 MG Vitamin B Complex/ Vit C/Folic Acid (Nephrocaps) 1 cap QAM PO 08/07/16 09:00 09/06/16 08:59 08/18/16 08:51 1 CAP Apixaban (Eliquis Tab) 5 mg BID PO 08/07/16 21:00 09/06/16 20:59 Future hold 08/12/16 20:22 5 MG Acetaminophen/ Hydrocodone Bitart ([place] 5/325 Tab) 1 tab Q4H PRN PO 08/08/16 11:00 08/22/16 10:59 Future Hold 08/16/16 07:49 1 TAB Albuterol/ Ipratropium (Duoneb) 3 ml QIDR PRN INH 08/09/16 12:00 09/08/16 11:59 Polyethylene (Miralax Powder Packet) 17 gm DAILY PO 08/10/16 08:00 09/09/16 07:59 08/18/16 08:51 17 GM Hydralazine HCl 20 mg 20 mg Q8 PO 08/10/16 14:00 09/09/16 13:59 3/23/17 12:56 20 MG Promethazine HCl/ Sodium Chloride (Phenergan Inj/ Nss 50ml) 50.5 ml @ 202 mls/hr Q6H PRN IV 08/16/16 15:00 09/15/16 14:59 Ondansetron HCl (Zofran Inj) 4 mg Q6H PRN IV 08/16/16 15:00 09/15/16 14:59 Metoclopramide HCl (Reglan Inj) 10 mg Q6H PRN IV 08/16/16 15:00 09/15/16 14:59 Lorazepam 0.5 mg 0.5 mg Q8H PRN PO 08/16/16 15:00 09/15/16 14:59 Lorazepam/Syringe (Ativan Inj/ Syringe) 0.25 ml @ 1 mls/min Q8H PRN IV 08/16/16 15:00 09/15/16 14:59 08/16/16 19:09 1 MLS/MIN Pneumococcal Polysaccharide Vaccine 1 ea PRN PRN N/A 08/16/16 15:00 09/15/16 14:59 Influenza Virus Vacc Triv Types A&B 1 ea PRN PRN N/A 08/16/16 15:00 09/15/16 14:59 Polyethylene (Miralax Powder Packet) 17 gm Q6 PO 08/18/16 06:00 09/17/16 05:59 08/18/16 12:57 17 GM Bisacodyl (Dulcolax Supp) 10 mg DAILY PRN [place] 08/16/16 15:00 09/15/16 14:59 Magnesium Hydroxide (Milk Of Magnesia Susp) 30 ml DAILY PRN PO 08/16/16 15:00 09/15/16 14:59 Hydromorphone HCl (Dilaudid Inj) 0.5 mg Q3H PRN IV 08/17/16 06:01 08/31/16 06:00 Oxycodone HCl (Roxicodone Immediate Rel Tab) 5-10mg prn moderate to sev... Q4H PRN PO 08/17/16 06:00 08/31/16 05:59 08/18/16 14:06 10 MG Acetaminophen 1000 mg 1,000 mg Q8H PRN PO 08/16/16 15:00 09/15/16 14:59 Acetaminophen (Ofirmev Iv) 100 ml @ 400 mls/hr Q8H PRN IV 08/16/16 15:00 09/15/16 14:59 Naloxone HCl (Narcan Inj) 0.1 mg Q5M PRN IV 08/16/16 15:00 09/15/16 14:59 Senna/Docusate Sodium (Senokot S Tab) 2 tab HS PO 08/16/16 21:00 09/15/16 20:59 08/17/16 21:30 2 TAB Sodium Biphosphate/ Sodium Phosphate (Fleet Enema) 132 ml ONE PRN [place] 08/16/16 15:00 09/15/16 14:59 Hydroxyzine HCl (Vistaril Tab) 25 mg Q8H PRN PO 08/16/16 15:00 09/15/16 14:59 Al Hydroxide/Mg Hydroxide (Maalox Susp) 30 ml Q6H PRN PO 08/16/16 15:00 09/15/16 14:59 Famotidine (Pepcid Tab) 20 mg Q12 PRN PO 08/16/16 15:00 09/15/16 14:59 Diphenhydramine HCl (Benadryl Cap) 25 mg Q6H PRN PO 08/16/16 15:00 09/15/16 14:59 Naloxone HCl 0.1 mg 0.1 mg Q5M PRN IV 08/16/16 15:00 09/15/16 14:59 Sodium Chloride (Nss 1000ml) 1,000 ml @ 15 mls/hr Q24H IV 08/16/16 14:47 09/15/16 14:46 Hydromorphone HCl (Dilaudid Inj) 1 mg Q3H PRN IV 08/17/16 06:01 08/31/16 06:00 08/18/16 00:57 1 MG Insulin Glargine (Lantus Solostar Pen) 15 unit BID SC 08/16/16 20:00 09/15/16 19:59 08/18/16 08:57 15 UNIT Objective Vital Signs Date Time Temp Pulse Resp B/P Pulse Ox O2 Delivery O2 Flow Rate FiO2 08/18/16 14:52 36.4 77 18 133/73 99 Room Air 08/18/16 13:00 80 16 148/75 08/18/16 07:50 Nasal Cannula 2.0 08/18/16 07:36 36.3 70 16 143/72 98 CPAP 08/18/16 05:38 68 144/88 08/17/16 23:15 BiPAP 08/17/16 23:10 36.8 83 18 130/67 99 CPAP 08/17/16 22:10 83 129/74 08/17/16 21:27 87 134/78 08/17/16 16:45 36.3 80 16 125/75 100 Nasal Cannula 2.5 08/17/16 16:45 100 Nasal Cannula 2.0 08/17/16 16:30 36.3 89 137/75 08/17/16 16:15 85 108/67 08/17/16 16:00 93 103/60 Physical Exam General Appearance: no apparent distress, + obese Eyes: normal inspection, EOMI, sclerae normal ENT: normal ENT inspection, hearing grossly normal, pharynx normal Neck: supple, no adenopathy, no JVD, trachea midline Respiratory/Chest: chest non-tender, lungs clear, normal breath sounds, no respiratory distress, no accessory muscle use Cardiovascular: regular rate, rhythm, no edema, no gallop, no JVD, no murmur Abdomen: normal bowel sounds, non tender, soft, no organomegaly Extremities: normal range of motion, non-tender, normal inspection, no pedal edema, no calf tenderness Neurologic/Psychiatric: 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 II-XII nml as tested, alert, normal mood/affect, oriented x 3, + motor weakness (generalized) Skin: normal color, warm/dry, no rash Laboratory Results Last 24 Hours Test 08/17/16 16:49 08/17/16 20:50 08/18/16 05:10 08/18/16 08:16 Bedside Glucose 188 mg/dl 209 mg/dl 230 mg/dl White Blood Count 7.39 K/uL Red Blood Count 3.92 M/uL Hemoglobin 10.2 g/dL Hematocrit 31.9 % Mean Corpuscular Volume 81.4 fL Mean Corpuscular Hemoglobin 26.0 pg Mean Corpuscular Hemoglobin Concent 32.0 g/dl RDW Standard Deviation 59.2 fL RDW Coefficient of Variation 19.7 % Platelet Count 171 K/uL Mean Platelet Volume 9.5 fL Sodium Level 136 mmol/L Potassium Level 4.0 mmol/L Chloride Level 97 mmol/L Carbon Dioxide Level 30 mmol/L Anion Gap 9.0 mmol/L Blood Urea Nitrogen 29 mg/dl Creatinine 4.30 mg/dl Est Creatinine Clear Calc Drug Dose 19.8 ml/min Estimated GFR () 14.3 Estimated GFR (Non- 12.3 BUN/Creatinine Ratio 6.8 Random Glucose 231 mg/dl Calcium Level 9.6 mg/dl Phosphorus Level 5.5 mg/dl Albumin 2.9 gm/dl Test 08/18/16 12:27 Bedside Glucose 288 mg/dl Assessment and Plan 76 y/o male with PMHx of Atrial Fibrillation (anticoagulated), HTN, CAMI on night CPAP, T2DM, Chronic Kidney Disease with Secondary Hyperparathyroidism, and Prostate CA who presents to the ED complaining of worsening lower back pain and ambulation difficulty 2 weeks on 08/01/2016 Back Pain with Ambulatory Dysfunction, spinal stenosis: lumbar decompression with posterior fusion on 08/16, POD # 2 - Pain management and PT/OT, increasing his activity today, anticipate him needing rehab - will defer to Dr. 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 There is moderate concentric left ventricular hypertrophy. Grade I diastolic dysfunction, (abnormal relaxation pattern). There is mild mitral regurgitation. Atrial Fibrillation: Unknown Type: Rate Controlled - Metoprolol Succ 50 mg BID - Eliquis currently is on hold, resume when okay with spine surgery, still holding today, hopeful to resume tomorrow Anemia multifactorial from CKD, iron and b12 def - Cont EPO, B12 and IV iron tx , iron has completed for course CAMI on Night CPAP: - Set up CPAP per respiratory Constipation, cont bowel regimens include Colace, MiraLAX, and ordered a fleet enema, patient declined fleet enema, has no bowel movement again for 3 days, counseling him really need fleet enema -- moved bowels on 08/15 and 08/16 plan for rehab on discharge, will defer timing to spine surgery, stable from medical perspective Continued [facility] stay due to: home environment unsafe for pt Discharge planning: rehab hospital
[2016-08-18] MEDS: DOCUSATE SODIUM/SENNA 50/8.6MG TAB PO SCH (21:33)
[2016-08-18 21:35] VITALS: BP 168/82; PULSE 82
[2016-08-18 23:45] VITALS: BP 174/79; PULSE 76; TEMP 36.4; O2SAT 96
[2016-08-18] MEDS: HydrALAZINE HCL 20 MG/ML VIAL IV. PRN (23:48)
[2016-08-19] VITALS (25 sets, daily range): BP systolic 100–170; BP diastolic 56–90; PULSE 50–86; TEMP 36.2–36.8; O2SAT 97–99
[2016-08-19] MEDS: OXYCODONE HCL IR 5 MG TAB (IMMEDIATE RELEASE) PO PRN ×4 (01:41→23:43)
[2016-08-19 06:07] LABS: MEAN CELL VOLUME 78.3 fL (80-100); MEAN CORPUSCULAR HEMOGLOBIN 26.4 pg (25-34); MEAN CORPUSCULAR HGB CONC 33.7 g/dl (32-36); MEAN PLATELET VOLUME 9.2 fL (7.4-10.4); PLATELET COUNT 152 K/uL (130-400); RED BLOOD COUNT 3.45 M/uL (4.7-6.1); WHITE BLOOD COUNT 5.66 K/uL (4.8-10.8)
[2016-08-19] MEDS: POLYETHYLENE (MIRALAX) 17 GM PACK PO SCH ×4 (06:09→19:00)
[2016-08-19] MEDS: HydrALAZINE 10 MG TAB PO SCH ×3 (06:09→21:48)
[2016-08-19 06:52] LABS: BUN/CREATININE RATIO 9.4 (10-20); CALCIUM 9.8 mg/dl (8.5-10.1); CREATININE 5.1 mg/dl (0.60-1.40); PHOSPHORUS 5.2 mg/dl (2.5-4.9); POTASSIUM 3.6 mmol/L (3.5-5.1)
[2016-08-19] MEDS ORDERED: NURSING VERBAL MED ORDER ONE ×3 (07:30→12:45)
[2016-08-19] MEDS: INSULIN ASPART 100 UNITS/ML 3 ML PEN SC SCH ×4 (08:58→21:47)
[2016-08-19] MEDS: DOCUSATE SODIUM 100 MG CAP PO SCH ×2 (08:59→19:59)
[2016-08-19] MEDS: LORATADINE 10 MG TAB PO SCH (08:59)
[2016-08-19] MEDS: NEPHROCAPS PO SCH (08:59)
[2016-08-19] MEDS: METOPROLOL SUCC 50MG EXT REL TAB PO SCH ×2 (08:59→19:59)
[2016-08-19] MEDS: INSULIN GLARGINE SOLOSTAR 100 UNITS/ML 3 ML PEN SC SCH ×2 (08:59→21:47)
[2016-08-19] MEDS: CYANOCOBALAMIN 500 MCG TAB (VIT B-12) PO SCH (08:59)
[2016-08-19] MEDS: SEVELAMER HYDROCH 800 MG TAB PO SCH ×3 (08:59→18:35)
[2016-08-19] MEDS: FUROSEMIDE 80 MG TAB PO SCH ×2 (08:59→17:15)
--- NOTE | 2016-08-19 10:09 | Nephrology Progress Note ---
Nephrology Progress Note Date of Service Aug 19, 2016. Chief Complaint Acute on chronic kidney disease Subjective No acute events overnight. No complaints this morning. Denies shortness of breath. No fevers or chills. Back pain showing early improvement. Appetite good. Review of Systems A complete review of systems was performed. Pertinent positives are noted above. All other systems are negative. Vital Signs Last 8 Hrs Date Time Temp Pulse Resp B/P Pulse Ox O2 Delivery O2 Flow Rate FiO2 08/19/16 08:13 36.3 80 20 148/80 97 Room Air 08/19/16 06:10 170/75 I & O 24-Hour Column 08/19/16 07:59 Intake Total 900 ml Output Total 610 ml Balance 290 ml Last Recorded Weight Weight (Kilograms): 120.700 Physical Exam General Appearance: WD/WN, no apparent distress Head: normocephalic, atraumatic Eyes: normal inspection, sclerae normal ENT: normal ENT inspection, pharynx normal Neck: supple, no JVD, + pertinent finding (HD permcath intact) Respiratory/Chest: lungs clear, no respiratory distress, no accessory muscle use Cardiovascular: regular rate, rhythm, no gallop Abdomen/GI: non tender, soft Extremities/Musculoskelatal: normal inspection, no pedal edema Neurologic/Psych: alert, normal mood/affect Family History Diabetes mellitus Social History Smokeless Tobacco Use: No Alcohol Use: none Drug Use: none Marital Status: Occupation: retired Laboratory Results Past 24 Hours 08/19/16 05:30 08/19/16 05:30 Test 08/18/16 12:27 08/18/16 16:52 08/18/16 20:49 08/19/16 05:30 Bedside Glucose 288 mg/dl (70-99) 217 mg/dl (70-99) 184 mg/dl (70-99) Red Blood Count 3.45 M/uL (4.7-6.1) Mean Corpuscular Volume 78.3 fL (80-100) Mean Corpuscular Hemoglobin 26.4 pg (25-34) Mean Corpuscular Hemoglobin Concent 33.7 g/dl (32-36) RDW Standard Deviation 56.7 fL (36.4-46.3) RDW Coefficient of Variation 19.4 % (11.5-14.5) Mean Platelet Volume 9.2 fL (7.4-10.4) Anion Gap 13.0 mmol/L (3-11) Est Creatinine Clear Calc Drug Dose 16.7 ml/min Estimated GFR () 11.6 Estimated GFR (Non- 10.0 BUN/Creatinine Ratio 9.4 (10-20) Calcium Level 9.8 mg/dl (8.5-10.1) Phosphorus Level 5.2 mg/dl (2.5-4.9) Albumin 2.3 gm/dl (3.4-5.0) Test 08/19/16 08:10 Bedside Glucose 237 mg/dl (70-99) Allergies Coded Allergies: Atorvastatin (Unverified Allergy, Unknown, UNKNOWN, 08/01/16) Gabapentin (Unverified Allergy, Unknown, UNKNOWN, 08/01/16) Pioglitazone (Unverified Allergy, Unknown, UNKNOWN, 08/01/16) Simvastatin (Unverified Allergy, Unknown, UNKNOWN, 08/01/16) Medications Current Inpatient Medications Medications (Trade) Dose Ordered Sig/Elliott Route Start Time Stop Time Status Last Admin Dose Admin Lorazepam (Ativan Tab) 1 mg Q6H PRN PO 08/01/16 19:00 08/31/16 18:59 08/15/16 01:41 1 MG Cyanocobalamin (Vitamin B-12 Tab) 1,000 mcg QAM PO 08/02/16 09:00 09/01/16 08:59 08/19/16 08:59 1,000 MCG Docusate Sodium (coLACE CAP) 100 mg BID PO 08/01/16 21:00 08/31/16 20:59 08/19/16 08:59 100 MG Loratadine (Claritin Tab) 10 mg QAM PO 08/02/16 09:00 09/01/16 08:59 08/19/16 08:59 10 MG Metoprolol Succinate (Toprol Xl Tab) 50 mg BID PO 08/01/16 21:00 08/31/16 20:59 08/19/16 08:59 50 MG Insulin Aspart (novoLOG ASPART) SLIDING SCALE G... ACHS SC 08/01/16 21:00 08/31/16 20:59 08/19/16 08:58 9 UNITS Glucose (Glucose 40% Gel) 15-30 GRAMS 15 GRAMS... UD PRN PO 08/01/16 19:45 08/31/16 19:44 Glucose (Glucose Chew Tab) 4-8 Tablets 4 Tabl... UD PRN PO 08/01/16 19:45 08/31/16 19:44 Dextrose (Dextrose 50% 50ML Syringe) 25-50ML OF 50% DW IV FOR... UD PRN IV 08/01/16 19:45 08/31/16 19:44 Glucagon (Glucagon Inj) 1 mg UD PRN SQ 08/01/16 19:45 08/31/16 19:44 Polyethylene (Miralax Powder Packet) 17 gm DAILY PRN PO 08/01/16 20:00 08/31/16 19:59 08/07/16 17:21 17 GM Miscellaneous Information (Order Awaiting Action) 1 ea QS N/A 08/02/16 00:00 09/01/16 00:00 Sevelamer HCl (Renagel Tab) 800 mg TIDM PO 08/03/16 11:30 09/02/16 11:29 08/19/16 08:59 800 MG Furosemide (Lasix Tab) 80 mg BID17 PO 08/04/16 17:00 09/03/16 16:59 08/19/16 08:59 80 MG Hydralazine HCl (HydrALAZINE INJ) 10 mg Q4 PRN IV. 08/05/16 07:30 09/04/16 07:29 08/18/16 23:48 10 MG Vitamin B Complex/ Vit C/Folic Acid (Nephrocaps) 1 cap QAM PO 08/07/16 09:00 09/06/16 08:59 08/19/16 08:59 1 CAP Apixaban (Eliquis Tab) 5 mg BID PO 08/07/16 21:00 09/06/16 20:59 Future hold 08/12/16 20:22 5 MG Acetaminophen/ Hydrocodone Bitart ([place] 5/325 Tab) 1 tab Q4H PRN PO 08/08/16 11:00 08/22/16 10:59 Future Hold 08/16/16 07:49 1 TAB Albuterol/ Ipratropium (Duoneb) 3 ml QIDR PRN INH 08/09/16 12:00 09/08/16 11:59 Polyethylene (Miralax Powder Packet) 17 gm DAILY PO 08/10/16 08:00 09/09/16 07:59 08/18/16 08:51 17 GM Hydralazine HCl 20 mg 20 mg Q8 PO 08/10/16 14:00 09/09/16 13:59 08/19/16 06:09 20 MG Promethazine HCl/ Sodium Chloride (Phenergan Inj/ Nss 50ml) 50.5 ml @ 202 mls/hr Q6H PRN IV 08/16/16 15:00 09/15/16 14:59 Ondansetron HCl (Zofran Inj) 4 mg Q6H PRN IV 08/16/16 15:00 09/15/16 14:59 Metoclopramide HCl (Reglan Inj) 10 mg Q6H PRN IV 08/16/16 15:00 09/15/16 14:59 Lorazepam 0.5 mg 0.5 mg Q8H PRN PO 08/16/16 15:00 09/15/16 14:59 Lorazepam/Syringe (Ativan Inj/ Syringe) 0.25 ml @ 1 mls/min Q8H PRN IV 08/16/16 15:00 09/15/16 14:59 08/16/16 19:09 1 MLS/MIN Pneumococcal Polysaccharide Vaccine 1 ea PRN PRN N/A 08/16/16 15:00 09/15/16 14:59 Influenza Virus Vacc Triv Types A&B 1 ea PRN PRN N/A 08/16/16 15:00 09/15/16 14:59 Polyethylene (Miralax Powder Packet) 17 gm Q6 PO 08/18/16 06:00 09/17/16 05:59 08/19/16 06:09 17 GM Bisacodyl (Dulcolax Supp) 10 mg DAILY PRN NV 08/16/16 15:00 09/15/16 14:59 Magnesium Hydroxide (Milk Of Magnesia Susp) 30 ml DAILY PRN PO 08/16/16 15:00 09/15/16 14:59 Hydromorphone HCl (Dilaudid Inj) 0.5 mg Q3H PRN IV 08/17/16 06:01 08/31/16 06:00 Oxycodone HCl (Roxicodone Immediate Rel Tab) 5-10mg prn moderate to sev... Q4H PRN PO 08/17/16 06:00 08/31/16 05:59 08/19/16 08:57 10 MG Acetaminophen 1000 mg 1,000 mg Q8H PRN PO 08/16/16 15:00 09/15/16 14:59 Acetaminophen (Ofirmev Iv) 100 ml @ 400 mls/hr Q8H PRN IV 08/16/16 15:00 09/15/16 14:59 Naloxone HCl (Narcan Inj) 0.1 mg Q5M PRN IV 08/16/16 15:00 09/15/16 14:59 Senna/Docusate Sodium (Senokot S Tab) 2 tab HS PO 08/16/16 21:00 09/15/16 20:59 08/18/16 21:33 2 TAB Sodium Biphosphate/ Sodium Phosphate (Fleet Enema) 132 ml ONE PRN NV 08/16/16 15:00 09/15/16 14:59 Hydroxyzine HCl (Vistaril Tab) 25 mg Q8H PRN PO 08/16/16 15:00 09/15/16 14:59 Al Hydroxide/Mg Hydroxide (Maalox Susp) 30 ml Q6H PRN PO 08/16/16 15:00 09/15/16 14:59 Famotidine (Pepcid Tab) 20 mg Q12 PRN PO 08/16/16 15:00 09/15/16 14:59 Diphenhydramine HCl (Benadryl Cap) 25 mg Q6H PRN PO 08/16/16 15:00 09/15/16 14:59 Hydromorphone HCl (Dilaudid Inj) 1 mg Q3H PRN IV 08/17/16 06:01 08/31/16 06:00 08/18/16 00:57 1 MG Insulin Glargine (Lantus Solostar Pen) 15 unit BID SC 08/16/16 20:00 09/15/16 19:59 08/19/16 08:59 15 UNIT Epoetin Teddy (Procrit Inj) 10,000 units MoWeFr@0900 IV 08/19/16 09:00 09/18/16 08:59 Miscellaneous Information (Nursing Verbal Med Order) 1 ea ONE ONCE N/A 08/19/16 10:15 08/19/16 10:16 UNV Impression (1) Chronic kidney disease, stage IV (severe) (2) BARB (acute kidney injury) (3) Hypercalcemia (4) Stenosis, spinal, lumbar Mr. Reginaldo Ferro is a 76-year-old male with ESRD due to hypertension, diabetes and obesity. His mold stamper is Dr. Ivan Delcid in [place]. He was started on hemodialysis on 08/05/16. Renal ultrasound showed bilateral atrophic kidneys. Urinalysis documenting proteinuria. Urine microscopy is acellular. Patient has a longstanding history of iron deficiency anemia. He was started on Procrit and venofer as an inpatient. 2 u PRBC transfusion on 08/15/16 prior to surgery. Patient has lumbar stenosis and underwent decompressive surgery with laminectomy 08/16/16. He is hopeful to be accepted to [facility] for rehabilitation pending discharge. Recommendations END STAGE RENAL DISEASE: -- HD MWF schedule, orders entered for dialysis today -- Continue Furosemide 80 mg BID to encourage negative fluid balance -- Continue Sevelamer as phosphate binder -- Continue Nephrocaps daily -- AVF creation as outpatient ANEMIA: -- Patient has completed 1 g IV iron infusion -- 2 u PRBC 08/15/16 -- Procrit QHD, hold for Hgb >11 LUMBAR STENOSIS: -- Decompression with laminectomy performed 08/17/16 without complications -- Disposition: possible rehab at [facility]
--- NOTE | 2016-08-19 13:04 | PROGRESS NOTE ---
DATE: 08/19/2016 Postop day #2. Back pain controlled. Leg pain improved. Vital signs stable. T-max 36.3. MATTY drained 30 mL. Hematocrit this a.m. 27.0. On exam, he appears much more comfortable. He has reasonable strength in lower extremities. Still very weak with transfers and standing. ASSESSMENT: Status post lumbar decompression and fusion. PLAN: At this time, he certainly can use a lift to get in and out of bed and therapy as tolerated. From an orthopedic standpoint, he is okay for discharge. The dressing and drain can be removed and changed at anytime.
[2016-08-19] MEDS: EPOETIN ALFA 10,000 UNITS/ML VIAL IV SCH (15:55)
--- NOTE | 2016-08-19 16:40 | Progress Note ---
Subjective Date of Service: Aug 19, 2016. Subjective Pt evaluation today including: conversation w/ patient, physical exam, lab review, conversation w/ [employer] product consultant, review of inpatient medication list Pain: just back pain from surgery, no leg pain today PO Intake: adequate Voiding: no voiding problems patient seen while receiving HD, tolerating well just some back pain today, no pain in legs which is improvement eating well, breathing well, moving bowels, making urine plan for rehab on Monday appreciate surgery note, drain can be pulled prior to d/c Problem List Medical Problems: (1) BARB (acute kidney injury) Status: Acute (2) Hypercalcemia Status: Acute Review of Systems Constitutional: + fatigue, + weakness Musculoskeletal: + joint pain (back, none in legs today) Neurologic: + balance problems, + weakness All Other Systems: Reviewed and Negative Medications Current Inpatient Medications Medications (Trade) Dose Ordered Sig/Elliott Route Start Time Stop Time Status Last Admin Dose Admin Lorazepam (Ativan Tab) 1 mg Q6H PRN PO 08/01/16 19:00 08/31/16 18:59 08/15/16 01:41 1 MG Cyanocobalamin (Vitamin B-12 Tab) 1,000 mcg QAM PO 08/02/16 09:00 09/01/16 08:59 08/19/16 08:59 1,000 MCG Docusate Sodium (coLACE CAP) 100 mg BID PO 08/01/16 21:00 08/31/16 20:59 08/19/16 08:59 100 MG Loratadine (Claritin Tab) 10 mg QAM PO 08/02/16 09:00 09/01/16 08:59 08/19/16 08:59 10 MG Metoprolol Succinate (Toprol Xl Tab) 50 mg BID PO 08/01/16 21:00 08/31/16 20:59 08/19/16 08:59 50 MG Insulin Aspart (novoLOG ASPART) SLIDING SCALE G... ACHS SC 08/01/16 21:00 08/31/16 20:59 08/19/16 12:15 7 UNITS Glucose (Glucose 40% Gel) 15-30 GRAMS 15 GRAMS... UD PRN PO 08/01/16 19:45 08/31/16 19:44 Glucose (Glucose Chew Tab) 4-8 Tablets 4 Tabl... UD PRN PO 08/01/16 19:45 08/31/16 19:44 Dextrose (Dextrose 50% 50ML Syringe) 25-50ML OF 50% DW IV FOR... UD PRN IV 08/01/16 19:45 08/31/16 19:44 Glucagon (Glucagon Inj) 1 mg UD PRN SQ 08/01/16 19:45 08/31/16 19:44 Polyethylene (Miralax Powder Packet) 17 gm DAILY PRN PO 08/01/16 20:00 08/31/16 19:59 08/07/16 17:21 17 GM Miscellaneous Information (Order Awaiting Action) 1 ea QS N/A 08/02/16 00:00 09/01/16 00:00 Sevelamer HCl (Renagel Tab) 800 mg TIDM PO 08/03/16 11:30 09/02/16 11:29 08/19/16 12:15 800 MG Furosemide (Lasix Tab) 80 mg BID17 PO 08/04/16 17:00 09/03/16 16:59 08/19/16 08:59 80 MG Hydralazine HCl (HydrALAZINE INJ) 10 mg Q4 PRN IV. 08/05/16 07:30 09/04/16 07:29 08/18/16 23:48 10 MG Vitamin B Complex/ Vit C/Folic Acid (Nephrocaps) 1 cap QAM PO 08/07/16 09:00 09/06/16 08:59 08/19/16 08:59 1 CAP Apixaban (Eliquis Tab) 5 mg BID PO 08/07/16 21:00 09/06/16 20:59 Future hold 08/12/16 20:22 5 MG Acetaminophen/ Hydrocodone Bitart ([place] 5/325 Tab) 1 tab Q4H PRN PO 08/08/16 11:00 08/22/16 10:59 Future Hold 08/16/16 07:49 1 TAB Albuterol/ Ipratropium (Duoneb) 3 ml QIDR PRN INH 08/09/16 12:00 09/08/16 11:59 Polyethylene (Miralax Powder Packet) 17 gm DAILY PO 08/10/16 08:00 09/09/16 07:59 08/18/16 08:51 17 GM Hydralazine HCl 20 mg 20 mg Q8 PO 08/10/16 14:00 09/09/16 13:59 08/19/16 06:09 20 MG Promethazine HCl/ Sodium Chloride (Phenergan Inj/ Nss 50ml) 50.5 ml @ 202 mls/hr Q6H PRN IV 08/16/16 15:00 09/15/16 14:59 Ondansetron HCl (Zofran Inj) 4 mg Q6H PRN IV 08/16/16 15:00 09/15/16 14:59 Metoclopramide HCl (Reglan Inj) 10 mg Q6H PRN IV 08/16/16 15:00 09/15/16 14:59 Lorazepam 0.5 mg 0.5 mg Q8H PRN PO 08/16/16 15:00 09/15/16 14:59 Lorazepam/Syringe (Ativan Inj/ Syringe) 0.25 ml @ 1 mls/min Q8H PRN IV 08/16/16 15:00 09/15/16 14:59 08/16/16 19:09 1 MLS/MIN Pneumococcal Polysaccharide Vaccine 1 ea PRN PRN N/A 08/16/16 15:00 09/15/16 14:59 Influenza Virus Vacc Triv Types A&B 1 ea PRN PRN N/A 08/16/16 15:00 09/15/16 14:59 Polyethylene (Miralax Powder Packet) 17 gm Q6 PO 08/18/16 06:00 09/17/16 05:59 08/19/16 06:09 17 GM Bisacodyl (Dulcolax Supp) 10 mg DAILY PRN AL 08/16/16 15:00 09/15/16 14:59 Magnesium Hydroxide (Milk Of Magnesia Susp) 30 ml DAILY PRN PO 08/16/16 15:00 09/15/16 14:59 Hydromorphone HCl (Dilaudid Inj) 0.5 mg Q3H PRN IV 08/17/16 06:01 08/31/16 06:00 Oxycodone HCl (Roxicodone Immediate Rel Tab) 5-10mg prn moderate to sev... Q4H PRN PO 08/17/16 06:00 08/31/16 05:59 08/19/16 12:37 10 MG Acetaminophen 1000 mg 1,000 mg Q8H PRN PO 08/16/16 15:00 09/15/16 14:59 Acetaminophen (Ofirmev Iv) 100 ml @ 400 mls/hr Q8H PRN IV 08/16/16 15:00 09/15/16 14:59 Naloxone HCl (Narcan Inj) 0.1 mg Q5M PRN IV 08/16/16 15:00 09/15/16 14:59 Senna/Docusate Sodium (Senokot S Tab) 2 tab HS PO 08/16/16 21:00 09/15/16 20:59 08/18/16 21:33 2 TAB Sodium Biphosphate/ Sodium Phosphate (Fleet Enema) 132 ml ONE PRN AL 08/16/16 15:00 09/15/16 14:59 08/19/16 10:15 132 ML Hydroxyzine HCl (Vistaril Tab) 25 mg Q8H PRN PO 08/16/16 15:00 09/15/16 14:59 Al Hydroxide/Mg Hydroxide (Maalox Susp) 30 ml Q6H PRN PO 08/16/16 15:00 09/15/16 14:59 Famotidine (Pepcid Tab) 20 mg Q12 PRN PO 08/16/16 15:00 09/15/16 14:59 Diphenhydramine HCl (Benadryl Cap) 25 mg Q6H PRN PO 08/16/16 15:00 09/15/16 14:59 Hydromorphone HCl (Dilaudid Inj) 1 mg Q3H PRN IV 08/17/16 06:01 08/31/16 06:00 08/18/16 00:57 1 MG Insulin Glargine (Lantus Solostar Pen) 15 unit BID SC 08/16/16 20:00 09/15/16 19:59 08/19/16 08:59 15 UNIT Epoetin Teddy (Procrit Inj) 10,000 units MoWeFr@0900 IV 08/19/16 09:00 09/18/16 08:59 08/19/16 15:55 10,000 UNITS Objective Vital Signs Date Time Temp Pulse Resp B/P Pulse Ox O2 Delivery O2 Flow Rate FiO2 08/19/16 16:23 66 105/71 08/19/16 16:15 64 100/67 08/19/16 16:00 69 117/76 08/19/16 15:45 74 114/72 08/19/16 15:30 59 111/65 08/19/16 15:15 50 116/60 08/19/16 15:00 74 104/66 08/19/16 14:45 73 111/71 08/19/16 14:30 75 117/71 08/19/16 14:15 83 113/68 08/19/16 14:00 75 114/70 08/19/16 13:45 73 117/70 08/19/16 13:30 74 136/76 08/19/16 13:15 81 107/56 08/19/16 13:00 75 129/70 08/19/16 12:51 74 152/76 08/19/16 12:45 36.2 81 152/74 08/19/16 12:40 36.2 86 20 122/72 99 Room Air 08/19/16 11:59 98 Room Air 08/19/16 09:00 Room Air 08/19/16 08:13 36.3 80 20 148/80 97 Room Air 08/19/16 06:10 170/75 08/19/16 01:11 71 146/73 08/18/16 23:50 CPAP 08/18/16 23:45 36.4 76 18 174/79 96 CPAP 08/18/16 21:35 82 168/82 Physical Exam General Appearance: no apparent distress, + obese ENT: normal ENT inspection, hearing grossly normal, pharynx normal Neck: supple, no adenopathy, no JVD, trachea midline Respiratory/Chest: chest non-tender, lungs clear, normal breath sounds, no respiratory distress, no accessory muscle use Cardiovascular: regular rate, rhythm, no edema, no gallop, no JVD, no murmur Abdomen: normal bowel sounds, non tender, soft, no organomegaly Extremities: normal range of motion, non-tender, normal inspection, no pedal edema, no calf tenderness 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, alert, normal mood/affect, oriented x 3, + abnormal gait, + motor weakness (generalized) Skin: normal color, warm/dry, no rash Lymphatic: no adenopathy Laboratory Results Last 24 Hours Test 08/18/16 16:52 08/18/16 20:49 08/19/16 05:30 08/19/16 08:10 Bedside Glucose 217 mg/dl 184 mg/dl 237 mg/dl White Blood Count 5.66 K/uL Red Blood Count 3.45 M/uL Hemoglobin 9.1 g/dL Hematocrit 27.0 % Mean Corpuscular Volume 78.3 fL Mean Corpuscular Hemoglobin 26.4 pg Mean Corpuscular Hemoglobin Concent 33.7 g/dl RDW Standard Deviation 56.7 fL RDW Coefficient of Variation 19.4 % Platelet Count 152 K/uL Mean Platelet Volume 9.2 fL Sodium Level 133 mmol/L Potassium Level 3.6 mmol/L Chloride Level 95 mmol/L Carbon Dioxide Level 25 mmol/L Anion Gap 13.0 mmol/L Blood Urea Nitrogen 48 mg/dl Creatinine 5.10 mg/dl Est Creatinine Clear Calc Drug Dose 16.7 ml/min Estimated GFR () 11.6 Estimated GFR (Non- 10.0 BUN/Creatinine Ratio 9.4 Random Glucose 180 mg/dl Calcium Level 9.8 mg/dl Phosphorus Level 5.2 mg/dl Albumin 2.3 gm/dl Assessment and Plan 76 y/o male with PMHx of Atrial Fibrillation (anticoagulated), HTN, CAMI on night CPAP, T2DM, Chronic Kidney Disease with Secondary Hyperparathyroidism, and Prostate CA who presents to the ED complaining of worsening lower back pain and ambulation difficulty 2 weeks on 08/01/2016 Back Pain with Ambulatory Dysfunction, spinal stenosis: lumbar decompression with posterior fusion on 08/16, POD # 3 - Pain management and PT/OT, increasing his activity today, anticipate him needing rehab, going on Monday - Dr. Juarez: drain can be pulled and dressing changed, cleared for d/c from his perspective T2DM: Stable, continue Lantus 15 units BID, Novolog coverage, diabetic diet Acute on Chronic Kidney Disease stage 4 with Secondary Hyperparathyroidism: continue dialysis --continue Furosemide 80 mg BID to encourage negative fluid balance, per records from destaticizer feeder -- had HD on 08/19, tolerated well, continue MWF schedule -- HD orders per nephrology HTN, better control after hydralazine by mouth scheduled, - Cont metoprolol , hydralazine scheduled and hydralazine PRN Lower Extremity Edema, chronic diastolic CHF, stable Venous U/S - R/O DVT - unlikely given on Eliquis Echo - Ejection Fraction = >70 %. There is moderate concentric left ventricular hypertrophy. Grade I diastolic dysfunction, (abnormal relaxation pattern). There is mild mitral regurgitation. Atrial Fibrillation: Unknown Type: Rate Controlled - Metoprolol Succ 50 mg BID - Eliquis currently is on hold, resume when okay with spine surgery, still holding today, will resume on d/c Anemia multifactorial from CKD, iron and b12 def - Cont EPO, B12 and IV iron tx , iron has completed for course CAMI on Night CPAP: - Set up CPAP per respiratory Constipation, cont bowel regimens include Colace, MiraLAX, and ordered a fleet enema, patient declined fleet enema, has no bowel movement again for 3 days, counseling him really need fleet enema -- moved bowels on 08/15 and 08/16 plan for rehab on discharge, going on Monday to [place] per CM Continued [facility] stay due to: home environment unsafe for pt Discharge planning: rehab hospital
[2016-08-19] MEDS: DOCUSATE SODIUM/SENNA 50/8.6MG TAB PO SCH (19:58)
[2016-08-20] VITALS (8 sets, daily range): BP systolic 114–138; BP diastolic 62–84; PULSE 63–90; TEMP 36.4–36.6; O2SAT 99–100
[2016-08-20] MEDS ORDERED: NURSING DECISION MEDICATION ORDER SCH (01:00)
[2016-08-20 06:18] LABS: HEMATOCRIT 30.5 % (42-52); MEAN CELL VOLUME 78.6 fL (80-100); MEAN CORPUSCULAR HEMOGLOBIN 25.8 pg (25-34); MEAN CORPUSCULAR HGB CONC 32.8 g/dl (32-36); MEAN PLATELET VOLUME 9.5 fL (7.4-10.4); PLATELET COUNT 181 K/uL (130-400); RED BLOOD COUNT 3.88 M/uL (4.7-6.1); WHITE BLOOD COUNT 5.12 K/uL (4.8-10.8)
[2016-08-20] MEDS: HydrALAZINE 10 MG TAB PO SCH ×3 (06:26→21:00)
[2016-08-20 06:57] LABS: BUN/CREATININE RATIO 8.3 (10-20); CALCIUM 9.2 mg/dl (8.5-10.1); CREATININE 3.6 mg/dl (0.60-1.40); PHOSPHORUS 3.2 mg/dl (2.5-4.9); POTASSIUM 3.7 mmol/L (3.5-5.1)
[2016-08-20] MEDS: POLYETHYLENE (MIRALAX) 17 GM PACK PO SCH (09:00)
[2016-08-20] MEDS: DOCUSATE SODIUM 100 MG CAP PO SCH ×2 (09:06→21:00)
[2016-08-20] MEDS: METOPROLOL SUCC 50MG EXT REL TAB PO SCH ×2 (09:06→20:59)
[2016-08-20] MEDS: SEVELAMER HYDROCH 800 MG TAB PO SCH ×3 (09:06→17:51)
[2016-08-20] MEDS: CYANOCOBALAMIN 500 MCG TAB (VIT B-12) PO SCH (09:06)
[2016-08-20] MEDS: LORATADINE 10 MG TAB PO SCH (09:06)
[2016-08-20] MEDS: FUROSEMIDE 80 MG TAB PO SCH ×2 (09:06→17:51)
[2016-08-20] MEDS: NEPHROCAPS PO SCH (09:06)
[2016-08-20] MEDS: INSULIN ASPART 100 UNITS/ML 3 ML PEN SC SCH ×4 (09:09→21:07)
[2016-08-20] MEDS: INSULIN GLARGINE SOLOSTAR 100 UNITS/ML 3 ML PEN SC SCH ×2 (09:10→21:07)
[2016-08-20] MEDS: OXYCODONE HCL IR 5 MG TAB (IMMEDIATE RELEASE) PO PRN ×2 (09:11→14:36)
--- NOTE | 2016-08-20 11:54 | Nephrology Progress Note ---
Nephrology Progress Note Date of Service Aug 20, 2016. Chief Complaint End stage renal disease Subjective No acute events overnight. Tolerated HD yesterday without complications; UF 2 kg. Mr. Ferro was seen sitting in a wheelchair in his room this morning. Martita was with him. He had not acute complaints or concerns. Back pain improved. He is anxious to leave the hospital. I discussed the plan of care with Dr. Lundy this morning. Review of Systems A complete review of systems was performed. Pertinent positives are noted above. All other systems are negative. Vital Signs Last 8 Hrs Date Time Temp Pulse Resp B/P Pulse Ox O2 Delivery O2 Flow Rate FiO2 08/20/16 07:55 99 Room Air 08/20/16 07:50 36.6 80 18 136/84 99 Room Air 08/20/16 06:30 138/77 I & O 24-Hour Column 08/20/16 08:00 Intake Total 340 ml Output Total 2850 ml Balance -2510 ml Last Recorded Weight Weight (Kilograms): 120.700 Physical Exam General Appearance: no apparent distress, + obese Head: normocephalic, atraumatic Eyes: normal inspection, sclerae normal ENT: normal ENT inspection, pharynx normal Neck: supple, no JVD, + pertinent finding ([facility] HD permcath) Respiratory/Chest: lungs clear, no respiratory distress, no accessory muscle use Cardiovascular: regular rate, rhythm, no gallop Abdomen/GI: non tender, soft Extremities/Musculoskelatal: normal inspection, no pedal edema Neurologic/Psych: alert, oriented x 3 Family History Diabetes mellitus Social History Smokeless Tobacco Use: No Alcohol Use: none Drug Use: none Marital Status: Occupation: retired Laboratory Results Past 24 Hours 08/20/16 05:27 08/20/16 05:27 Test 08/19/16 11:52 08/19/16 16:53 08/19/16 20:52 08/20/16 05:27 Bedside Glucose 260 mg/dl (70-99) 146 mg/dl (70-99) 213 mg/dl (70-99) Red Blood Count 3.88 M/uL (4.7-6.1) Mean Corpuscular Volume 78.6 fL (80-100) Mean Corpuscular Hemoglobin 25.8 pg (25-34) Mean Corpuscular Hemoglobin Concent 32.8 g/dl (32-36) RDW Standard Deviation 56.0 fL (36.4-46.3) RDW Coefficient of Variation 19.4 % (11.5-14.5) Mean Platelet Volume 9.5 fL (7.4-10.4) Anion Gap 11.0 mmol/L (3-11) Est Creatinine Clear Calc Drug Dose 23.7 ml/min Estimated GFR () 17.7 Estimated GFR (Non- 15.3 BUN/Creatinine Ratio 8.3 (10-20) Calcium Level 9.2 mg/dl (8.5-10.1) Phosphorus Level 3.2 mg/dl (2.5-4.9) Albumin 2.4 gm/dl (3.4-5.0) Test 08/20/16 07:56 Bedside Glucose 216 mg/dl (70-99) Allergies Coded Allergies: Atorvastatin (Unverified Allergy, Unknown, UNKNOWN, 08/01/16) Gabapentin (Unverified Allergy, Unknown, UNKNOWN, 08/01/16) Pioglitazone (Unverified Allergy, Unknown, UNKNOWN, 08/01/16) Simvastatin (Unverified Allergy, Unknown, UNKNOWN, 08/01/16) Medications Current Inpatient Medications Medications (Trade) Dose Ordered Sig/Elliott Route Start Time Stop Time Status Last Admin Dose Admin Lorazepam (Ativan Tab) 1 mg Q6H PRN PO 08/01/16 19:00 08/31/16 18:59 08/15/16 01:41 1 MG Cyanocobalamin (Vitamin B-12 Tab) 1,000 mcg QAM PO 08/02/16 09:00 09/01/16 08:59 08/20/16 09:06 1,000 MCG Docusate Sodium (coLACE CAP) 100 mg BID PO 08/01/16 21:00 08/31/16 20:59 08/20/16 09:06 100 MG Loratadine (Claritin Tab) 10 mg QAM PO 08/02/16 09:00 09/01/16 08:59 08/20/16 09:06 10 MG Metoprolol Succinate (Toprol Xl Tab) 50 mg BID PO 08/01/16 21:00 08/31/16 20:59 08/20/16 09:06 50 MG Insulin Aspart (novoLOG ASPART) SLIDING SCALE G... ACHS SC 08/01/16 21:00 08/31/16 20:59 08/20/16 09:09 7 UNITS Glucose (Glucose 40% Gel) 15-30 GRAMS 15 GRAMS... UD PRN PO 08/01/16 19:45 08/31/16 19:44 Glucose (Glucose Chew Tab) 4-8 Tablets 4 Tabl... UD PRN PO 08/01/16 19:45 08/31/16 19:44 Dextrose (Dextrose 50% 50ML Syringe) 25-50ML OF 50% DW IV FOR... UD PRN IV 08/01/16 19:45 08/31/16 19:44 Glucagon (Glucagon Inj) 1 mg UD PRN SQ 08/01/16 19:45 08/31/16 19:44 Polyethylene (Miralax Powder Packet) 17 gm DAILY PRN PO 08/01/16 20:00 08/31/16 19:59 08/07/16 17:21 17 GM Miscellaneous Information (Order Awaiting Action) 1 ea QS N/A 08/02/16 00:00 09/01/16 00:00 Sevelamer HCl (Renagel Tab) 800 mg TIDM PO 08/03/16 11:30 09/02/16 11:29 08/20/16 09:06 800 MG Furosemide (Lasix Tab) 80 mg BID17 PO 08/04/16 17:00 09/03/16 16:59 08/20/16 09:06 80 MG Hydralazine HCl (HydrALAZINE INJ) 10 mg Q4 PRN IV. 08/05/16 07:30 09/04/16 07:29 08/18/16 23:48 10 MG Vitamin B Complex/ Vit C/Folic Acid (Nephrocaps) 1 cap QAM PO 08/07/16 09:00 09/06/16 08:59 08/20/16 09:06 1 CAP Apixaban (Eliquis Tab) 5 mg BID PO 08/07/16 21:00 09/06/16 20:59 Future hold 08/12/16 20:22 5 MG Acetaminophen/ Hydrocodone Bitart ([place] 5/325 Tab) 1 tab Q4H PRN PO 08/08/16 11:00 08/22/16 10:59 Future Hold 08/16/16 07:49 1 TAB Albuterol/ Ipratropium (Duoneb) 3 ml QIDR PRN INH 08/09/16 12:00 09/08/16 11:59 Polyethylene (Miralax Powder Packet) 17 gm DAILY PO 08/10/16 08:00 09/09/16 07:59 08/18/16 08:51 17 GM Hydralazine HCl 20 mg 20 mg Q8 PO 08/10/16 14:00 09/09/16 13:59 08/20/16 06:26 20 MG Promethazine HCl/ Sodium Chloride (Phenergan Inj/ Nss 50ml) 50.5 ml @ 202 mls/hr Q6H PRN IV 08/16/16 15:00 09/15/16 14:59 Ondansetron HCl (Zofran Inj) 4 mg Q6H PRN IV 08/16/16 15:00 09/15/16 14:59 Metoclopramide HCl (Reglan Inj) 10 mg Q6H PRN IV 08/16/16 15:00 09/15/16 14:59 Lorazepam 0.5 mg 0.5 mg Q8H PRN PO 08/16/16 15:00 09/15/16 14:59 Lorazepam/Syringe (Ativan Inj/ Syringe) 0.25 ml @ 1 mls/min Q8H PRN IV 08/16/16 15:00 09/15/16 14:59 08/16/16 19:09 1 MLS/MIN Pneumococcal Polysaccharide Vaccine 1 ea PRN PRN N/A 08/16/16 15:00 09/15/16 14:59 Influenza Virus Vacc Triv Types A&B 1 ea PRN PRN N/A 08/16/16 15:00 09/15/16 14:59 Bisacodyl (Dulcolax Supp) 10 mg DAILY PRN IN 08/16/16 15:00 09/15/16 14:59 Magnesium Hydroxide (Milk Of Magnesia Susp) 30 ml DAILY PRN PO 08/16/16 15:00 09/15/16 14:59 Hydromorphone HCl (Dilaudid Inj) 0.5 mg Q3H PRN IV 08/17/16 06:01 08/31/16 06:00 Oxycodone HCl (Roxicodone Immediate Rel Tab) 5-10mg prn moderate to sev... Q4H PRN PO 08/17/16 06:00 08/31/16 05:59 08/20/16 09:11 10 MG Acetaminophen 1000 mg 1,000 mg Q8H PRN PO 08/16/16 15:00 09/15/16 14:59 Acetaminophen (Ofirmev Iv) 100 ml @ 400 mls/hr Q8H PRN IV 08/16/16 15:00 09/15/16 14:59 Naloxone HCl (Narcan Inj) 0.1 mg Q5M PRN IV 08/16/16 15:00 09/15/16 14:59 Senna/Docusate Sodium (Senokot S Tab) 2 tab HS PO 08/16/16 21:00 09/15/16 20:59 08/19/16 19:58 2 TAB Sodium Biphosphate/ Sodium Phosphate (Fleet Enema) 132 ml ONE PRN IN 08/16/16 15:00 09/15/16 14:59 08/19/16 10:15 132 ML Hydroxyzine HCl (Vistaril Tab) 25 mg Q8H PRN PO 08/16/16 15:00 09/15/16 14:59 Al Hydroxide/Mg Hydroxide (Maalox Susp) 30 ml Q6H PRN PO 08/16/16 15:00 09/15/16 14:59 Famotidine (Pepcid Tab) 20 mg Q12 PRN PO 08/16/16 15:00 09/15/16 14:59 Diphenhydramine HCl (Benadryl Cap) 25 mg Q6H PRN PO 08/16/16 15:00 09/15/16 14:59 Hydromorphone HCl (Dilaudid Inj) 1 mg Q3H PRN IV 08/17/16 06:01 08/31/16 06:00 08/18/16 00:57 1 MG Insulin Glargine (Lantus Solostar Pen) 15 unit BID SC 08/16/16 20:00 09/15/16 19:59 08/20/16 09:10 15 UNIT Epoetin Teddy (Procrit Inj) 10,000 units MoWeFr@0900 IV 08/19/16 09:00 09/18/16 08:59 08/19/16 15:55 10,000 UNITS Impression (1) Chronic kidney disease, stage IV (severe) (2) BARB (acute kidney injury) (3) Hypercalcemia (4) Stenosis, spinal, lumbar Mr. Reginaldo Ferro is a 76-year-old male with ESRD due to hypertension, diabetes and obesity. His asphalt layer is Dr. Ivan Delcid in [place]. He was started on hemodialysis on 08/05/16 for ESRD. Renal ultrasound showed bilateral atrophic kidneys. Urinalysis documenting proteinuria. Urine microscopy is acellular. Patient has a longstanding history of iron deficiency anemia. He was started on Procrit and venofer as an inpatient. 2 u PRBC transfusion on 08/15/16 prior to surgery. Patient has lumbar stenosis and underwent decompressive surgery with laminectomy 08/16/16. Recommendations END STAGE RENAL DISEASE: -- HD MWF -- Continue Furosemide 80 mg BID -- Continue Sevelamer as phosphate binder -- Continue Nephrocaps daily -- AVF creation as outpatient ANEMIA: -- Patient has completed 1 g IV iron infusion -- 2 u PRBC 08/15/16 -- Procrit QHD, hold for Hgb >11 LUMBAR STENOSIS: -- Decompression with laminectomy performed 08/17/16 without complications -- Disposition: rehab
[2016-08-20] MEDS: ACETAMINOPHEN 500 MG TAB PO PRN (12:19)
--- NOTE | 2016-08-20 14:32 | Progress Note ---
Subjective Date of Service: Aug 20, 2016. Subjective Pt evaluation today including: conversation w/ patient, physical exam, lab review, conversation w/ urban design consultant, review of inpatient medication list Pain: back pain, moderate PO Intake: adequate Voiding: no voiding problems resting in bed, says he is tired but overall feels well eating, no issues breathing, no chest pain discussed going to [facility] on Monday, he agrees with this plan Problem List Medical Problems: (1) BARB (acute kidney injury) Status: Acute (2) Hypercalcemia Status: Acute Review of Systems Constitutional: + fatigue, + weakness Musculoskeletal: + joint pain (back) All Other Systems: Reviewed and Negative Medications Current Inpatient Medications Medications (Trade) Dose Ordered Sig/Elliott Route Start Time Stop Time Status Last Admin Dose Admin Lorazepam (Ativan Tab) 1 mg Q6H PRN PO 08/01/16 19:00 08/31/16 18:59 08/15/16 01:41 1 MG Cyanocobalamin (Vitamin B-12 Tab) 1,000 mcg QAM PO 08/02/16 09:00 09/01/16 08:59 08/20/16 09:06 1,000 MCG Docusate Sodium (coLACE CAP) 100 mg BID PO 08/01/16 21:00 08/31/16 20:59 08/20/16 09:06 100 MG Loratadine (Claritin Tab) 10 mg QAM PO 08/02/16 09:00 09/01/16 08:59 08/20/16 09:06 10 MG Metoprolol Succinate (Toprol Xl Tab) 50 mg BID PO 08/01/16 21:00 08/31/16 20:59 08/20/16 09:06 50 MG Insulin Aspart (novoLOG ASPART) SLIDING SCALE G... ACHS SC 08/01/16 21:00 08/31/16 20:59 08/20/16 12:59 7 UNITS Glucose (Glucose 40% Gel) 15-30 GRAMS 15 GRAMS... UD PRN PO 08/01/16 19:45 08/31/16 19:44 Glucose (Glucose Chew Tab) 4-8 Tablets 4 Tabl... UD PRN PO 08/01/16 19:45 08/31/16 19:44 Dextrose (Dextrose 50% 50ML Syringe) 25-50ML OF 50% DW IV FOR... UD PRN IV 08/01/16 19:45 08/31/16 19:44 Glucagon (Glucagon Inj) 1 mg UD PRN SQ 08/01/16 19:45 08/31/16 19:44 Polyethylene (Miralax Powder Packet) 17 gm DAILY PRN PO 08/01/16 20:00 08/31/16 19:59 08/07/16 17:21 17 GM Miscellaneous Information (Order Awaiting Action) 1 ea QS N/A 08/02/16 00:00 09/01/16 00:00 Sevelamer HCl (Renagel Tab) 800 mg TIDM PO 08/03/16 11:30 09/02/16 11:29 08/20/16 12:18 800 MG Furosemide (Lasix Tab) 80 mg BID17 PO 08/04/16 17:00 09/03/16 16:59 08/20/16 09:06 80 MG Hydralazine HCl (HydrALAZINE INJ) 10 mg Q4 PRN IV. 08/05/16 07:30 09/04/16 07:29 08/18/16 23:48 10 MG Vitamin B Complex/ Vit C/Folic Acid (Nephrocaps) 1 cap QAM PO 08/07/16 09:00 09/06/16 08:59 08/20/16 09:06 1 CAP Apixaban (Eliquis Tab) 5 mg BID PO 08/07/16 21:00 09/06/16 20:59 Future hold 08/12/16 20:22 5 MG Acetaminophen/ Hydrocodone Bitart ([place] 5/325 Tab) 1 tab Q4H PRN PO 08/08/16 11:00 08/22/16 10:59 Future Hold 08/16/16 07:49 1 TAB Albuterol/ Ipratropium (Duoneb) 3 ml QIDR PRN INH 08/09/16 12:00 09/08/16 11:59 Polyethylene (Miralax Powder Packet) 17 gm DAILY PO 08/10/16 08:00 09/09/16 07:59 08/18/16 08:51 17 GM Hydralazine HCl 20 mg 20 mg Q8 PO 08/10/16 14:00 09/09/16 13:59 08/20/16 06:26 20 MG Promethazine HCl/ Sodium Chloride (Phenergan Inj/ Nss 50ml) 50.5 ml @ 202 mls/hr Q6H PRN IV 08/16/16 15:00 09/15/16 14:59 Ondansetron HCl (Zofran Inj) 4 mg Q6H PRN IV 08/16/16 15:00 09/15/16 14:59 Metoclopramide HCl (Reglan Inj) 10 mg Q6H PRN IV 08/16/16 15:00 09/15/16 14:59 Lorazepam 0.5 mg 0.5 mg Q8H PRN PO 08/16/16 15:00 09/15/16 14:59 Lorazepam/Syringe (Ativan Inj/ Syringe) 0.25 ml @ 1 mls/min Q8H PRN IV 08/16/16 15:00 09/15/16 14:59 08/16/16 19:09 1 MLS/MIN Pneumococcal Polysaccharide Vaccine 1 ea PRN PRN N/A 08/16/16 15:00 09/15/16 14:59 Influenza Virus Vacc Triv Types A&B 1 ea PRN PRN N/A 08/16/16 15:00 09/15/16 14:59 Bisacodyl (Dulcolax Supp) 10 mg DAILY PRN ID 08/16/16 15:00 09/15/16 14:59 Magnesium Hydroxide (Milk Of Magnesia Susp) 30 ml DAILY PRN PO 08/16/16 15:00 09/15/16 14:59 Hydromorphone HCl (Dilaudid Inj) 0.5 mg Q3H PRN IV 08/17/16 06:01 08/31/16 06:00 Oxycodone HCl (Roxicodone Immediate Rel Tab) 5-10mg prn moderate to sev... Q4H PRN PO 08/17/16 06:00 08/31/16 05:59 08/20/16 09:11 10 MG Acetaminophen 1000 mg 1,000 mg Q8H PRN PO 08/16/16 15:00 09/15/16 14:59 08/20/16 12:19 1,000 MG Acetaminophen (Ofirmev Iv) 100 ml @ 400 mls/hr Q8H PRN IV 08/16/16 15:00 09/15/16 14:59 Naloxone HCl (Narcan Inj) 0.1 mg Q5M PRN IV 08/16/16 15:00 09/15/16 14:59 Senna/Docusate Sodium (Senokot S Tab) 2 tab HS PO 08/16/16 21:00 09/15/16 20:59 08/19/16 19:58 2 TAB Sodium Biphosphate/ Sodium Phosphate (Fleet Enema) 132 ml ONE PRN ID 08/16/16 15:00 09/15/16 14:59 08/19/16 10:15 132 ML Hydroxyzine HCl (Vistaril Tab) 25 mg Q8H PRN PO 08/16/16 15:00 09/15/16 14:59 Al Hydroxide/Mg Hydroxide (Maalox Susp) 30 ml Q6H PRN PO 08/16/16 15:00 09/15/16 14:59 Famotidine (Pepcid Tab) 20 mg Q12 PRN PO 08/16/16 15:00 09/15/16 14:59 Diphenhydramine HCl (Benadryl Cap) 25 mg Q6H PRN PO 08/16/16 15:00 09/15/16 14:59 Hydromorphone HCl (Dilaudid Inj) 1 mg Q3H PRN IV 08/17/16 06:01 08/31/16 06:00 08/18/16 00:57 1 MG Insulin Glargine (Lantus Solostar Pen) 15 unit BID SC 08/16/16 20:00 09/15/16 19:59 08/20/16 09:10 15 UNIT Epoetin Teddy (Procrit Inj) 10,000 units MoWeFr@0900 IV 08/19/16 09:00 09/18/16 08:59 08/19/16 15:55 10,000 UNITS Objective Vital Signs Date Time Temp Pulse Resp B/P Pulse Ox O2 Delivery O2 Flow Rate FiO2 08/20/16 13:36 90 118/73 08/20/16 11:58 36.4 76 20 132/72 100 Room Air 08/20/16 09:00 Room Air 08/20/16 07:55 99 Room Air 08/20/16 07:50 36.6 80 18 136/84 99 Room Air 08/20/16 06:30 138/77 08/19/16 23:40 CPAP 08/19/16 23:22 36.7 78 18 148/82 97 CPAP 08/19/16 16:57 36.4 77 18 153/90 99 08/19/16 16:35 36.8 80 129/69 08/19/16 16:23 66 105/71 08/19/16 16:15 64 100/67 08/19/16 16:00 99 Room Air 08/19/16 16:00 69 117/76 08/19/16 15:45 74 114/72 08/19/16 15:30 59 111/65 08/19/16 15:15 50 116/60 08/19/16 15:00 74 104/66 08/19/16 14:45 73 111/71 08/19/16 14:30 75 117/71 Physical Exam General Appearance: no apparent distress, + obese Neck: supple, no adenopathy, no JVD, trachea midline Respiratory/Chest: chest non-tender, lungs clear, normal breath sounds, no respiratory distress, no accessory muscle use Cardiovascular: regular rate, rhythm, no edema, no gallop, no JVD, no murmur Abdomen: normal bowel sounds, non tender, soft, no organomegaly Extremities: no pedal edema, no calf tenderness, normal capillary refill, pelvis stable, + pertinent finding (lumbar spine tender, decreased ROM) Neurologic/Psychiatric: music writer II-XII nml as tested, alert, normal mood/affect, oriented x 3, + abnormal gait, + motor weakness Skin: normal color, warm/dry, no rash Lymphatic: no adenopathy Laboratory Results Last 24 Hours Test 08/19/16 16:53 08/19/16 20:52 08/20/16 05:27 08/20/16 07:56 Bedside Glucose 146 mg/dl 213 mg/dl 216 mg/dl White Blood Count 5.12 K/uL Red Blood Count 3.88 M/uL Hemoglobin 10.0 g/dL Hematocrit 30.5 % Mean Corpuscular Volume 78.6 fL Mean Corpuscular Hemoglobin 25.8 pg Mean Corpuscular Hemoglobin Concent 32.8 g/dl RDW Standard Deviation 56.0 fL RDW Coefficient of Variation 19.4 % Platelet Count 181 K/uL Mean Platelet Volume 9.5 fL Sodium Level 135 mmol/L Potassium Level 3.7 mmol/L Chloride Level 100 mmol/L Carbon Dioxide Level 24 mmol/L Anion Gap 11.0 mmol/L Blood Urea Nitrogen 30 mg/dl Creatinine 3.60 mg/dl Est Creatinine Clear Calc Drug Dose 23.7 ml/min Estimated GFR () 17.7 Estimated GFR (Non- 15.3 BUN/Creatinine Ratio 8.3 Random Glucose 188 mg/dl Calcium Level 9.2 mg/dl Phosphorus Level 3.2 mg/dl Albumin 2.4 gm/dl Test 08/20/16 12:14 Bedside Glucose 242 mg/dl Assessment and Plan 76 y/o male with PMHx of Atrial Fibrillation (anticoagulated), HTN, CAMI on night CPAP, T2DM, Chronic Kidney Disease with Secondary Hyperparathyroidism, and Prostate CA who presents to the ED complaining of worsening lower back pain and ambulation difficulty 2 weeks on 08/01/2016 Back Pain with Ambulatory Dysfunction, spinal stenosis: lumbar decompression with posterior fusion on 08/16, POD # 4 - Pain management and PT/OT, plan for rehab placement on Monday, doing well - Dr. Juarez: drain can be pulled and dressing changed, cleared for d/c from his perspective T2DM: Stable, continue Lantus 15 units BID, Novolog coverage, diabetic diet Acute on Chronic Kidney Disease stage 4 with Secondary Hyperparathyroidism: continue dialysis --continue Furosemide 80 mg BID to encourage negative fluid balance, per records from clinical rn manager -- had HD on 08/19, tolerated well, continue MWF schedule -- HD orders per nephrology -- after discharge from [facility] he will follow with his clinical rn manager in [facility] HTN, better control after hydralazine by mouth scheduled, - Cont metoprolol , hydralazine scheduled and hydralazine PRN Lower Extremity Edema, chronic diastolic CHF, stable Venous U/S - R/O DVT - unlikely given on Eliquis Echo - Ejection Fraction = >70 %. There is moderate concentric left ventricular hypertrophy. Grade I diastolic dysfunction, (abnormal relaxation pattern). There is mild mitral regurgitation. Atrial Fibrillation: Unknown Type: Rate Controlled - Metoprolol Succ 50 mg BID - Eliquis currently is on hold, resume when okay with spine surgery, still holding today, will resume on d/c Anemia multifactorial from CKD, iron and b12 def - Cont EPO, B12 and IV iron tx , iron has completed for course CAMI on Night CPAP: - Set up CPAP per respiratory Constipation, cont bowel regimens include Colace, MiraLAX, and ordered a fleet enema, patient declined fleet enema, has no bowel movement again for 3 days, counseling him really need fleet enema -- moved bowels on 08/19 plan for rehab on discharge, going on Monday to [place] per CM Continued [facility] stay due to: home environment unsafe for pt Discharge planning: rehab hospital
[2016-08-20] MEDS: APIXABAN 2.5 MG TAB PO SCH (21:01)
[2016-08-20] MEDS: DOCUSATE SODIUM/SENNA 50/8.6MG TAB PO SCH (21:01)
[2016-08-21 05:25] LABS: HEMATOCRIT 29.6 % (42-52); MEAN CELL VOLUME 80.4 fL (80-100); MEAN CORPUSCULAR HEMOGLOBIN 26.4 pg (25-34); MEAN CORPUSCULAR HGB CONC 32.8 g/dl (32-36); MEAN PLATELET VOLUME 9.3 fL (7.4-10.4); PLATELET COUNT 174 K/uL (130-400); RED BLOOD COUNT 3.68 M/uL (4.7-6.1); WHITE BLOOD COUNT 4.62 K/uL (4.8-10.8)
[2016-08-21 05:33] VITALS: BP 138/76; PULSE 74
[2016-08-21] MEDS: HydrALAZINE 10 MG TAB PO SCH ×3 (05:35→21:02)
[2016-08-21 05:54] LABS: BUN/CREATININE RATIO 9.5 (10-20); CALCIUM 9.1 mg/dl (8.5-10.1); CREATININE 4.8 mg/dl (0.60-1.40); PHOSPHORUS 4.6 mg/dl (2.5-4.9); POTASSIUM 3.9 mmol/L (3.5-5.1)
[2016-08-21 07:05] VITALS: BP 130/76; PULSE 73; TEMP 37; O2SAT 99
[2016-08-21] MEDS: METOPROLOL SUCC 50MG EXT REL TAB PO SCH ×2 (08:59→21:01)
[2016-08-21] MEDS: FUROSEMIDE 80 MG TAB PO SCH ×2 (08:59→17:42)
[2016-08-21] MEDS: NEPHROCAPS PO SCH (08:59)
[2016-08-21] MEDS: DOCUSATE SODIUM 100 MG CAP PO SCH ×2 (08:59→20:59)
[2016-08-21] MEDS: LORATADINE 10 MG TAB PO SCH (08:59)
[2016-08-21] MEDS: APIXABAN 2.5 MG TAB PO SCH ×2 (08:59→21:00)
[2016-08-21] MEDS: CYANOCOBALAMIN 500 MCG TAB (VIT B-12) PO SCH (08:59)
[2016-08-21] MEDS: POLYETHYLENE (MIRALAX) 17 GM PACK PO SCH (08:59)
[2016-08-21] MEDS: SEVELAMER HYDROCH 800 MG TAB PO SCH ×3 (08:59→17:42)
[2016-08-21] MEDS: INSULIN ASPART 100 UNITS/ML 3 ML PEN SC SCH ×4 (09:08→21:05)
[2016-08-21] MEDS: INSULIN GLARGINE SOLOSTAR 100 UNITS/ML 3 ML PEN SC SCH ×2 (09:09→21:04)
[2016-08-21] MEDS: OXYCODONE HCL IR 5 MG TAB (IMMEDIATE RELEASE) PO PRN ×2 (10:55→22:27)
--- NOTE | 2016-08-21 12:26 | Nephrology Progress Note ---
Nephrology Progress Note Date of Service Aug 21, 2016. Chief Complaint End stage renal disease Subjective No acute events overnight. Mr. Ferro feels well this morning. He has no complaints. He denies shortness of breath. His activity tolerance has improved. He is happy with the outcome of his surgery. Pain control is acceptable and he hopes to be discharged to rehab as soon as possible. Review of Systems A complete review of systems was performed. Pertinent positives are noted above. All other systems are negative. Vital Signs Last 8 Hrs Date Time Temp Pulse Resp B/P Pulse Ox O2 Delivery O2 Flow Rate FiO2 08/21/16 07:05 37.0 73 16 130/76 99 CPAP 08/21/16 05:33 74 138/76 I & O 24-Hour Column 08/21/16 07:59 Intake Total 400 ml Output Total 650 ml Balance -250 ml Last Recorded Weight Weight (Kilograms): 120.700 Physical Exam General Appearance: WD/WN, no apparent distress Head: normocephalic, atraumatic Eyes: normal inspection, sclerae normal ENT: normal ENT inspection, pharynx normal Neck: supple, no JVD, + pertinent finding ([facility] HD permcath) Respiratory/Chest: lungs clear, no respiratory distress, no accessory muscle use Cardiovascular: regular rate, rhythm, no gallop, no murmur Abdomen/GI: non tender, soft Extremities/Musculoskelatal: normal inspection, no pedal edema Neurologic/Psych: alert, oriented x 3 Family History Diabetes mellitus Social History Smokeless Tobacco Use: No Alcohol Use: none Drug Use: none Marital Status: Occupation: retired Laboratory Results Past 24 Hours 08/21/16 05:10 08/21/16 05:10 Test 08/20/16 16:37 08/20/16 20:39 08/21/16 05:10 08/21/16 07:53 Bedside Glucose 207 mg/dl (70-99) 207 mg/dl (70-99) 202 mg/dl (70-99) Red Blood Count 3.68 M/uL (4.7-6.1) Mean Corpuscular Volume 80.4 fL (80-100) Mean Corpuscular Hemoglobin 26.4 pg (25-34) Mean Corpuscular Hemoglobin Concent 32.8 g/dl (32-36) RDW Standard Deviation 57.5 fL (36.4-46.3) RDW Coefficient of Variation 19.3 % (11.5-14.5) Mean Platelet Volume 9.3 fL (7.4-10.4) Anion Gap 12.0 mmol/L (3-11) Est Creatinine Clear Calc Drug Dose 17.8 ml/min Estimated GFR () 12.5 Estimated GFR (Non- 10.8 BUN/Creatinine Ratio 9.5 (10-20) Calcium Level 9.1 mg/dl (8.5-10.1) Phosphorus Level 4.6 mg/dl (2.5-4.9) Albumin 2.2 gm/dl (3.4-5.0) Test 08/21/16 11:53 Bedside Glucose 254 mg/dl (70-99) Allergies Coded Allergies: Atorvastatin (Unverified Allergy, Unknown, UNKNOWN, 08/01/16) Gabapentin (Unverified Allergy, Unknown, UNKNOWN, 08/01/16) Pioglitazone (Unverified Allergy, Unknown, UNKNOWN, 08/01/16) Simvastatin (Unverified Allergy, Unknown, UNKNOWN, 08/01/16) Medications Current Inpatient Medications Medications (Trade) Dose Ordered Sig/Elliott Route Start Time Stop Time Status Last Admin Dose Admin Lorazepam (Ativan Tab) 1 mg Q6H PRN PO 08/01/16 19:00 08/31/16 18:59 08/15/16 01:41 1 MG Cyanocobalamin (Vitamin B-12 Tab) 1,000 mcg QAM PO 08/02/16 09:00 09/01/16 08:59 08/21/16 08:59 1,000 MCG Docusate Sodium (coLACE CAP) 100 mg BID PO 08/01/16 21:00 08/31/16 20:59 08/21/16 08:59 100 MG Loratadine (Claritin Tab) 10 mg QAM PO 08/02/16 09:00 09/01/16 08:59 08/21/16 08:59 10 MG Metoprolol Succinate (Toprol Xl Tab) 50 mg BID PO 08/01/16 21:00 08/31/16 20:59 08/21/16 08:59 50 MG Insulin Aspart (novoLOG ASPART) SLIDING SCALE G... ACHS SC 08/01/16 21:00 08/31/16 20:59 08/21/16 09:08 9 UNITS Glucose (Glucose 40% Gel) 15-30 GRAMS 15 GRAMS... UD PRN PO 08/01/16 19:45 08/31/16 19:44 Glucose (Glucose Chew Tab) 4-8 Tablets 4 Tabl... UD PRN PO 08/01/16 19:45 08/31/16 19:44 Dextrose (Dextrose 50% 50ML Syringe) 25-50ML OF 50% DW IV FOR... UD PRN IV 08/01/16 19:45 08/31/16 19:44 Glucagon (Glucagon Inj) 1 mg UD PRN SQ 08/01/16 19:45 08/31/16 19:44 Polyethylene (Miralax Powder Packet) 17 gm DAILY PRN PO 08/01/16 20:00 08/31/16 19:59 08/07/16 17:21 17 GM Miscellaneous Information (Order Awaiting Action) 1 ea QS N/A 08/02/16 00:00 09/01/16 00:00 Sevelamer HCl (Renagel Tab) 800 mg TIDM PO 08/03/16 11:30 09/02/16 11:29 08/21/16 08:59 800 MG Furosemide (Lasix Tab) 80 mg BID17 PO 08/04/16 17:00 09/03/16 16:59 08/21/16 08:59 80 MG Hydralazine HCl (HydrALAZINE INJ) 10 mg Q4 PRN IV. 08/05/16 07:30 09/04/16 07:29 08/18/16 23:48 10 MG Vitamin B Complex/ Vit C/Folic Acid (Nephrocaps) 1 cap QAM PO 08/07/16 09:00 09/06/16 08:59 08/21/16 08:59 1 CAP Acetaminophen/ Hydrocodone Bitart ([place] 5/325 Tab) 1 tab Q4H PRN PO 08/08/16 11:00 08/22/16 10:59 Future Hold 08/16/16 07:49 1 TAB Albuterol/ Ipratropium (Duoneb) 3 ml QIDR PRN INH 08/09/16 12:00 09/08/16 11:59 Polyethylene (Miralax Powder Packet) 17 gm DAILY PO 08/10/16 08:00 09/09/16 07:59 08/21/16 08:59 17 GM Hydralazine HCl 20 mg 20 mg Q8 PO 08/10/16 14:00 09/09/16 13:59 08/21/16 05:35 20 MG Promethazine HCl/ Sodium Chloride (Phenergan Inj/ Nss 50ml) 50.5 ml @ 202 mls/hr Q6H PRN IV 08/16/16 15:00 09/15/16 14:59 Ondansetron HCl (Zofran Inj) 4 mg Q6H PRN IV 08/16/16 15:00 09/15/16 14:59 Metoclopramide HCl (Reglan Inj) 10 mg Q6H PRN IV 08/16/16 15:00 09/15/16 14:59 Lorazepam 0.5 mg 0.5 mg Q8H PRN PO 08/16/16 15:00 09/15/16 14:59 Lorazepam/Syringe (Ativan Inj/ Syringe) 0.25 ml @ 1 mls/min Q8H PRN IV 08/16/16 15:00 09/15/16 14:59 08/16/16 19:09 1 MLS/MIN Pneumococcal Polysaccharide Vaccine 1 ea PRN PRN N/A 08/16/16 15:00 09/15/16 14:59 Influenza Virus Vacc Triv Types A&B 1 ea PRN PRN N/A 08/16/16 15:00 09/15/16 14:59 Bisacodyl (Dulcolax Supp) 10 mg DAILY PRN [place] 08/16/16 15:00 09/15/16 14:59 Magnesium Hydroxide (Milk Of Magnesia Susp) 30 ml DAILY PRN PO 08/16/16 15:00 09/15/16 14:59 Hydromorphone HCl (Dilaudid Inj) 0.5 mg Q3H PRN IV 08/17/16 06:01 08/31/16 06:00 Oxycodone HCl (Roxicodone Immediate Rel Tab) 5-10mg prn moderate to sev... Q4H PRN PO 08/17/16 06:00 08/31/16 05:59 08/21/16 10:55 10 MG Acetaminophen 1000 mg 1,000 mg Q8H PRN PO 08/16/16 15:00 09/15/16 14:59 08/20/16 12:19 1,000 MG Acetaminophen (Ofirmev Iv) 100 ml @ 400 mls/hr Q8H PRN IV 08/16/16 15:00 09/15/16 14:59 Naloxone HCl (Narcan Inj) 0.1 mg Q5M PRN IV 08/16/16 15:00 09/15/16 14:59 Senna/Docusate Sodium (Senokot S Tab) 2 tab HS PO 08/16/16 21:00 09/15/16 20:59 08/20/16 21:01 2 TAB Sodium Biphosphate/ Sodium Phosphate (Fleet Enema) 132 ml ONE PRN [place] 08/16/16 15:00 09/15/16 14:59 08/19/16 10:15 132 ML Hydroxyzine HCl (Vistaril Tab) 25 mg Q8H PRN PO 08/16/16 15:00 09/15/16 14:59 Al Hydroxide/Mg Hydroxide (Maalox Susp) 30 ml Q6H PRN PO 08/16/16 15:00 09/15/16 14:59 Famotidine (Pepcid Tab) 20 mg Q12 PRN PO 08/16/16 15:00 09/15/16 14:59 Diphenhydramine HCl (Benadryl Cap) 25 mg Q6H PRN PO 08/16/16 15:00 09/15/16 14:59 Hydromorphone HCl (Dilaudid Inj) 1 mg Q3H PRN IV 08/17/16 06:01 08/31/16 06:00 08/18/16 00:57 1 MG Insulin Glargine (Lantus Solostar Pen) 15 unit BID SC 08/16/16 20:00 09/15/16 19:59 08/21/16 09:09 15 UNIT Epoetin Teddy (Procrit Inj) 10,000 units MoWeFr@0900 IV 08/19/16 09:00 09/18/16 08:59 08/19/16 15:55 10,000 UNITS Apixaban (Eliquis Tab) 5 mg BID PO 08/20/16 21:00 09/19/16 20:59 08/21/16 08:59 5 MG Impression (1) Chronic kidney disease, stage IV (severe) (2) BARB (acute kidney injury) (3) Hypercalcemia (4) Stenosis, spinal, lumbar Mr. Reginaldo Ferro is a 76-year-old male with ESRD due to hypertension, diabetes and obesity. His family day care provider is Dr. Ivan Delcid in [place]. He was started on hemodialysis on 08/05/16 for ESRD. Patient has a longstanding history of iron deficiency anemia. He was started on Procrit and venofer as an inpatient. 2 u PRBC transfusion on 08/15/16 prior to surgery. Patient has lumbar stenosis and underwent decompressive surgery with laminectomy 08/16/16. Recommendations END STAGE RENAL DISEASE: -- HD MWF -- Continue Furosemide 80 mg BID -- Continue Sevelamer as phosphate binder -- Continue Nephrocaps daily -- AVF creation as outpatient ANEMIA: -- Patient has completed 1 g IV iron infusion -- 2 u PRBC 08/15/16 -- Procrit QHD, hold for Hgb >11 LUMBAR STENOSIS: -- Decompression with laminectomy performed 08/17/16 without complications -- Disposition: rehab possibly tomorrow
--- NOTE | 2016-08-21 13:50 | Progress Note ---
Subjective Date of Service: Aug 21, 2016. Subjective Pt evaluation today including: conversation w/ patient, conversation w/ family , physical exam, lab review, conversation w/ nursing consultant, review of inpatient medication list Pain: mild to moderate pain only PO Intake: adequate Voiding: no voiding problems again, patient feeling well, less pain today, increased activity he feels ready for rehab tomorrow d/w Dr. Hodgson, will write for HD in the morning so he can leave in the afternoon d/w Dr. Juarez, he is cleared for d/c from his perspective, can follow up in office in a few weeks Problem List Medical Problems: (1) BARB (acute kidney injury) Status: Acute (2) Hypercalcemia Status: Acute Review of Systems Constitutional: + fatigue, + weakness Abdomen: + constipation (few days since last BM) Musculoskeletal: + joint pain (back, less pain, no pain radiating to legs) All Other Systems: Reviewed and Negative Medications Current Inpatient Medications Medications (Trade) Dose Ordered Sig/Elliott Route Start Time Stop Time Status Last Admin Dose Admin Lorazepam (Ativan Tab) 1 mg Q6H PRN PO 08/01/16 19:00 08/31/16 18:59 08/15/16 01:41 1 MG Cyanocobalamin (Vitamin B-12 Tab) 1,000 mcg QAM PO 08/02/16 09:00 09/01/16 08:59 08/21/16 08:59 1,000 MCG Docusate Sodium (coLACE CAP) 100 mg BID PO 08/01/16 21:00 08/31/16 20:59 08/21/16 08:59 100 MG Loratadine (Claritin Tab) 10 mg QAM PO 08/02/16 09:00 09/01/16 08:59 08/21/16 08:59 10 MG Metoprolol Succinate (Toprol Xl Tab) 50 mg BID PO 08/01/16 21:00 08/31/16 20:59 08/21/16 08:59 50 MG Insulin Aspart (novoLOG ASPART) SLIDING SCALE G... ACHS SC 08/01/16 21:00 08/31/16 20:59 08/21/16 13:12 10 UNITS Glucose (Glucose 40% Gel) 15-30 GRAMS 15 GRAMS... UD PRN PO 08/01/16 19:45 08/31/16 19:44 Glucose (Glucose Chew Tab) 4-8 Tablets 4 Tabl... UD PRN PO 08/01/16 19:45 08/31/16 19:44 Dextrose (Dextrose 50% 50ML Syringe) 25-50ML OF 50% DW IV FOR... UD PRN IV 08/01/16 19:45 08/31/16 19:44 Glucagon (Glucagon Inj) 1 mg UD PRN SQ 08/01/16 19:45 08/31/16 19:44 Polyethylene (Miralax Powder Packet) 17 gm DAILY PRN PO 08/01/16 20:00 08/31/16 19:59 08/07/16 17:21 17 GM Miscellaneous Information (Order Awaiting Action) 1 ea QS N/A 08/02/16 00:00 09/01/16 00:00 Sevelamer HCl (Renagel Tab) 800 mg TIDM PO 08/03/16 11:30 09/02/16 11:29 08/21/16 12:44 800 MG Furosemide (Lasix Tab) 80 mg BID17 PO 08/04/16 17:00 09/03/16 16:59 08/21/16 08:59 80 MG Hydralazine HCl (HydrALAZINE INJ) 10 mg Q4 PRN IV. 08/05/16 07:30 09/04/16 07:29 08/18/16 23:48 10 MG Vitamin B Complex/ Vit C/Folic Acid (Nephrocaps) 1 cap QAM PO 08/07/16 09:00 09/06/16 08:59 08/21/16 08:59 1 CAP Acetaminophen/ Hydrocodone Bitart ([place] 5/325 Tab) 1 tab Q4H PRN PO 08/08/16 11:00 08/22/16 10:59 Future Hold 08/16/16 07:49 1 TAB Albuterol/ Ipratropium (Duoneb) 3 ml QIDR PRN INH 08/09/16 12:00 09/08/16 11:59 Polyethylene (Miralax Powder Packet) 17 gm DAILY PO 08/10/16 08:00 09/09/16 07:59 08/21/16 08:59 17 GM Hydralazine HCl 20 mg 20 mg Q8 PO 08/10/16 14:00 09/09/16 13:59 08/21/16 05:35 20 MG Promethazine HCl/ Sodium Chloride (Phenergan Inj/ Nss 50ml) 50.5 ml @ 202 mls/hr Q6H PRN IV 08/16/16 15:00 09/15/16 14:59 Ondansetron HCl (Zofran Inj) 4 mg Q6H PRN IV 08/16/16 15:00 09/15/16 14:59 Metoclopramide HCl (Reglan Inj) 10 mg Q6H PRN IV 08/16/16 15:00 09/15/16 14:59 Lorazepam 0.5 mg 0.5 mg Q8H PRN PO 08/16/16 15:00 09/15/16 14:59 Lorazepam/Syringe (Ativan Inj/ Syringe) 0.25 ml @ 1 mls/min Q8H PRN IV 08/16/16 15:00 09/15/16 14:59 08/16/16 19:09 1 MLS/MIN Pneumococcal Polysaccharide Vaccine 1 ea PRN PRN N/A 08/16/16 15:00 09/15/16 14:59 Influenza Virus Vacc Triv Types A&B 1 ea PRN PRN N/A 08/16/16 15:00 09/15/16 14:59 Bisacodyl (Dulcolax Supp) 10 mg DAILY PRN [place] 08/16/16 15:00 09/15/16 14:59 Magnesium Hydroxide (Milk Of Magnesia Susp) 30 ml DAILY PRN PO 08/16/16 15:00 09/15/16 14:59 Hydromorphone HCl (Dilaudid Inj) 0.5 mg Q3H PRN IV 08/17/16 06:01 08/31/16 06:00 Oxycodone HCl (Roxicodone Immediate Rel Tab) 5-10mg prn moderate to sev... Q4H PRN PO 08/17/16 06:00 08/31/16 05:59 08/21/16 10:55 10 MG Acetaminophen 1000 mg 1,000 mg Q8H PRN PO 08/16/16 15:00 09/15/16 14:59 08/20/16 12:19 1,000 MG Acetaminophen (Ofirmev Iv) 100 ml @ 400 mls/hr Q8H PRN IV 08/16/16 15:00 09/15/16 14:59 Naloxone HCl (Narcan Inj) 0.1 mg Q5M PRN IV 08/16/16 15:00 09/15/16 14:59 Senna/Docusate Sodium (Senokot S Tab) 2 tab HS PO 08/16/16 21:00 09/15/16 20:59 08/20/16 21:01 2 TAB Sodium Biphosphate/ Sodium Phosphate (Fleet Enema) 132 ml ONE PRN [place] 08/16/16 15:00 09/15/16 14:59 08/19/16 10:15 132 ML Hydroxyzine HCl (Vistaril Tab) 25 mg Q8H PRN PO 08/16/16 15:00 09/15/16 14:59 Al Hydroxide/Mg Hydroxide (Maalox Susp) 30 ml Q6H PRN PO 08/16/16 15:00 09/15/16 14:59 Famotidine (Pepcid Tab) 20 mg Q12 PRN PO 08/16/16 15:00 09/15/16 14:59 Diphenhydramine HCl (Benadryl Cap) 25 mg Q6H PRN PO 08/16/16 15:00 09/15/16 14:59 Hydromorphone HCl (Dilaudid Inj) 1 mg Q3H PRN IV 08/17/16 06:01 08/31/16 06:00 08/18/16 00:57 1 MG Insulin Glargine (Lantus Solostar Pen) 15 unit BID SC 08/16/16 20:00 09/15/16 19:59 08/21/16 09:09 15 UNIT Epoetin Teddy (Procrit Inj) 10,000 units MoWeFr@0900 IV 08/19/16 09:00 09/18/16 08:59 08/19/16 15:55 10,000 UNITS Apixaban (Eliquis Tab) 5 mg BID PO 08/20/16 21:00 09/19/16 20:59 08/21/16 08:59 5 MG Objective Vital Signs Date Time Temp Pulse Resp B/P Pulse Ox O2 Delivery O2 Flow Rate FiO2 08/21/16 07:05 37.0 73 16 130/76 99 CPAP 08/21/16 05:33 74 138/76 08/20/16 23:02 36.4 72 24 130/74 99 CPAP 08/20/16 20:58 79 121/72 08/20/16 20:00 Room Air 08/20/16 15:34 36.4 63 17 114/62 99 Room Air Physical Exam General Appearance: WD/WN, no apparent distress Eyes: EOMI, sclerae normal, + pertinent finding (left eye patch) ENT: normal ENT inspection, hearing grossly normal, pharynx normal Neck: supple, no adenopathy, no JVD, trachea midline Respiratory/Chest: chest non-tender, lungs clear, normal breath sounds, no respiratory distress, no accessory muscle use Cardiovascular: regular rate, rhythm, no edema, no gallop, no JVD, no murmur Abdomen: normal bowel sounds, non tender, soft, no organomegaly Extremities: normal range of motion, non-tender, normal inspection, no pedal edema, no calf tenderness, pelvis stable Neurologic/Psychiatric: community living specialist II-XII nml as tested, alert, normal mood/affect, oriented x 3, + motor weakness (generalized but improving) Laboratory Results Last 24 Hours Test 08/20/16 16:37 08/20/16 20:39 08/21/16 05:10 08/21/16 07:53 Bedside Glucose 207 mg/dl 207 mg/dl 202 mg/dl White Blood Count 4.62 K/uL Red Blood Count 3.68 M/uL Hemoglobin 9.7 g/dL Hematocrit 29.6 % Mean Corpuscular Volume 80.4 fL Mean Corpuscular Hemoglobin 26.4 pg Mean Corpuscular Hemoglobin Concent 32.8 g/dl RDW Standard Deviation 57.5 fL RDW Coefficient of Variation 19.3 % Platelet Count 174 K/uL Mean Platelet Volume 9.3 fL Sodium Level 136 mmol/L Potassium Level 3.9 mmol/L Chloride Level 100 mmol/L Carbon Dioxide Level 24 mmol/L Anion Gap 12.0 mmol/L Blood Urea Nitrogen 46 mg/dl Creatinine 4.80 mg/dl Est Creatinine Clear Calc Drug Dose 17.8 ml/min Estimated GFR () 12.5 Estimated GFR (Non- 10.8 BUN/Creatinine Ratio 9.5 Random Glucose 194 mg/dl Calcium Level 9.1 mg/dl Phosphorus Level 4.6 mg/dl Albumin 2.2 gm/dl Test 08/21/16 11:53 Bedside Glucose 254 mg/dl Assessment and Plan 76 y/o male with PMHx of Atrial Fibrillation (anticoagulated), HTN, CAMI on night CPAP, T2DM, Chronic Kidney Disease with Secondary Hyperparathyroidism, and Prostate CA who presents to the ED complaining of worsening lower back pain and ambulation difficulty 2 weeks on 08/01/2016 Back Pain with Ambulatory Dysfunction, spinal stenosis: lumbar decompression with posterior fusion on 08/16, POD # 5 - Pain management and PT/OT, plan for rehab placement on Monday, doing well - Dr. Juarez: drain pulled and dressing changed, cleared for d/c from his perspective - can follow up in office in a few weeks with Dr. 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 he will follow with his carbon sequestration plant operator in [facility] HTN, better control after hydralazine by mouth scheduled, - Cont metoprolol , hydralazine scheduled and hydralazine PRN - continue Hydralazine PO on discharge Lower Extremity Edema, chronic diastolic CHF, stable Venous U/S - R/O DVT - unlikely given on Eliquis Echo - Ejection Fraction = >70 %. There is moderate concentric left ventricular hypertrophy. Grade I diastolic dysfunction, (abnormal relaxation pattern). There is mild mitral regurgitation. Atrial Fibrillation: Unknown Type: Rate Controlled - Metoprolol Succ 50 mg BID - Eliquis resumed Anemia multifactorial from CKD, iron and b12 def - Cont EPO, B12 and IV iron tx , iron has completed for course CAMI on Night CPAP: - Set up CPAP per respiratory Constipation, cont bowel regimens include Colace, MiraLAX, order enema today if needed plan for rehab on discharge, going on Monday to [place] per , HD in the morning Continued [facility] stay due to: home environment unsafe for pt Discharge planning: rehab hospital
[2016-08-21] MEDS ORDERED: SOD PHOSPHATE/SOD BIPHOSPHATE ENEMA 132 ML BTL PR PRN (14:00)
[2016-08-21 14:14] VITALS: BP 129/80; PULSE 81
[2016-08-21 15:39] VITALS: BP 121/69; PULSE 96; TEMP 36.4; O2SAT 88
[2016-08-21 20:57] VITALS: BP 146/79; PULSE 83
[2016-08-21] MEDS: DOCUSATE SODIUM/SENNA 50/8.6MG TAB PO SCH (21:00)
[2016-08-21 22:54] VITALS: BP 124/73; PULSE 75; TEMP 36.8; O2SAT 96
[2016-08-22] VITALS (19 sets, daily range): BP systolic 94–148; BP diastolic 53–93; PULSE 61–88; TEMP 36.3–37.4; O2SAT 95–100
[2016-08-22] MEDS: HydrALAZINE 10 MG TAB PO SCH ×3 (05:34→21:37)
[2016-08-22] MEDS: SEVELAMER HYDROCH 800 MG TAB PO SCH ×3 (07:30→17:55)
[2016-08-22] MEDS: NEPHROCAPS PO SCH (07:31)
[2016-08-22] MEDS: INSULIN GLARGINE SOLOSTAR 100 UNITS/ML 3 ML PEN SC SCH ×2 (07:35→21:43)
[2016-08-22] MEDS: OXYCODONE HCL IR 5 MG TAB (IMMEDIATE RELEASE) PO PRN ×3 (08:13→16:58)
[2016-08-22] MEDS: INSULIN ASPART 100 UNITS/ML 3 ML PEN SC SCH ×4 (08:17→21:42)
[2016-08-22] MEDS: POLYETHYLENE (MIRALAX) 17 GM PACK PO SCH ×2 (09:00→17:00)
[2016-08-22] MEDS: LORATADINE 10 MG TAB PO SCH ×2 (09:00→17:04)
[2016-08-22] MEDS: FUROSEMIDE 80 MG TAB PO SCH ×2 (09:00→17:01)
--- NOTE | 2016-08-22 09:38 | Family Medicine Progress Note ---
Progress Note Date of Service Aug 22, 2016. Subjective Pt evaluation today including: conversation w/ patient, physical exam, chart review, lab review, review of studies, conversation w/ [employer] security consultant, review of inpatient medication list Pain: 4/10 Pt seen and examined at bedside. No acute events overnight. BM overnight without issue. Presently, reports aching pain of the lower back which is nonradiating but tends to worsen with dialysis and develop leg cramping so would like predmedicated prior to egress for HD. Tolerating basic movements in bed at present but nonambulatory. Reports no fever, FORTUNE, sensory changes, nausea/ vomiting, abd pain, CP/SOB. Constitutional: No chills, No fatigue, No fever Respiratory: No cough, No shortness of breath, No wheezing Cardiovascular: No chest pain, No edema, No palpitations Abdomen: No nausea, No pain, No vomiting Musculoskeletal: + joint pain, + muscle pain Medications Current Inpatient Medications Medications (Trade) Dose Ordered Sig/Elliott Route Start Time Stop Time Status Last Admin Dose Admin Lorazepam (Ativan Tab) 1 mg Q6H PRN PO 08/01/16 19:00 08/31/16 18:59 08/15/16 01:41 1 MG Cyanocobalamin (Vitamin B-12 Tab) 1,000 mcg QAM PO 08/02/16 09:00 09/01/16 08:59 08/21/16 08:59 1,000 MCG Docusate Sodium (coLACE CAP) 100 mg BID PO 08/01/16 21:00 08/31/16 20:59 08/21/16 20:59 100 MG Loratadine (Claritin Tab) 10 mg QAM PO 08/02/16 09:00 09/01/16 08:59 08/21/16 08:59 10 MG Metoprolol Succinate (Toprol Xl Tab) 50 mg BID PO 08/01/16 21:00 08/31/16 20:59 08/21/16 21:01 50 MG Insulin Aspart (novoLOG ASPART) SLIDING SCALE G... ACHS SC 08/01/16 21:00 08/31/16 20:59 08/22/16 08:17 17 UNITS Glucose (Glucose 40% Gel) 15-30 GRAMS 15 GRAMS... UD PRN PO 08/01/16 19:45 08/31/16 19:44 Glucose (Glucose Chew Tab) 4-8 Tablets 4 Tabl... UD PRN PO 08/01/16 19:45 08/31/16 19:44 Dextrose (Dextrose 50% 50ML Syringe) 25-50ML OF 50% DW IV FOR... UD PRN IV 08/01/16 19:45 08/31/16 19:44 Glucagon (Glucagon Inj) 1 mg UD PRN SQ 08/01/16 19:45 08/31/16 19:44 Polyethylene (Miralax Powder Packet) 17 gm DAILY PRN PO 08/01/16 20:00 08/31/16 19:59 08/07/16 17:21 17 GM Miscellaneous Information (Order Awaiting Action) 1 ea QS N/A 08/02/16 00:00 09/01/16 00:00 Sevelamer HCl (Renagel Tab) 800 mg TIDM PO 08/03/16 11:30 09/02/16 11:29 08/22/16 07:30 800 MG Furosemide (Lasix Tab) 80 mg BID17 PO 08/04/16 17:00 09/03/16 16:59 08/21/16 17:42 80 MG Hydralazine HCl (HydrALAZINE INJ) 10 mg Q4 PRN IV. 08/05/16 07:30 09/04/16 07:29 08/18/16 23:48 10 MG Vitamin B Complex/ Vit C/Folic Acid (Nephrocaps) 1 cap QAM PO 08/07/16 09:00 09/06/16 08:59 08/22/16 07:31 1 CAP Acetaminophen/ Hydrocodone Bitart ([place] 5/325 Tab) 1 tab Q4H PRN PO 08/08/16 11:00 08/22/16 10:59 Future Hold 08/16/16 07:49 1 TAB Albuterol/ Ipratropium (Duoneb) 3 ml QIDR PRN INH 08/09/16 12:00 09/08/16 11:59 Polyethylene (Miralax Powder Packet) 17 gm DAILY PO 08/10/16 08:00 09/09/16 07:59 08/21/16 08:59 17 GM Hydralazine HCl 20 mg 20 mg Q8 PO 08/10/16 14:00 09/09/16 13:59 08/21/16 21:02 20 MG Promethazine HCl/ Sodium Chloride (Phenergan Inj/ Nss 50ml) 50.5 ml @ 202 mls/hr Q6H PRN IV 08/16/16 15:00 09/15/16 14:59 Ondansetron HCl (Zofran Inj) 4 mg Q6H PRN IV 08/16/16 15:00 09/15/16 14:59 Metoclopramide HCl (Reglan Inj) 10 mg Q6H PRN IV 08/16/16 15:00 09/15/16 14:59 Lorazepam 0.5 mg 0.5 mg Q8H PRN PO 08/16/16 15:00 09/15/16 14:59 Lorazepam/Syringe (Ativan Inj/ Syringe) 0.25 ml @ 1 mls/min Q8H PRN IV 08/16/16 15:00 09/15/16 14:59 08/16/16 19:09 1 MLS/MIN Pneumococcal Polysaccharide Vaccine 1 ea PRN PRN N/A 08/16/16 15:00 09/15/16 14:59 Influenza Virus Vacc Triv Types A&B 1 ea PRN PRN N/A 08/16/16 15:00 09/15/16 14:59 Bisacodyl (Dulcolax Supp) 10 mg DAILY PRN [place] 08/16/16 15:00 09/15/16 14:59 Magnesium Hydroxide (Milk Of Magnesia Susp) 30 ml DAILY PRN PO 08/16/16 15:00 09/15/16 14:59 Hydromorphone HCl (Dilaudid Inj) 0.5 mg Q3H PRN IV 08/17/16 06:01 08/31/16 06:00 Oxycodone HCl (Roxicodone Immediate Rel Tab) 5-10mg prn moderate to sev... Q4H PRN PO 08/17/16 06:00 08/31/16 05:59 08/22/16 08:13 10 MG Acetaminophen 1000 mg 1,000 mg Q8H PRN PO 08/16/16 15:00 09/15/16 14:59 08/20/16 12:19 1,000 MG Acetaminophen (Ofirmev Iv) 100 ml @ 400 mls/hr Q8H PRN IV 08/16/16 15:00 09/15/16 14:59 Naloxone HCl (Narcan Inj) 0.1 mg Q5M PRN IV 08/16/16 15:00 09/15/16 14:59 Senna/Docusate Sodium (Senokot S Tab) 2 tab HS PO 08/16/16 21:00 09/15/16 20:59 08/21/16 21:00 2 TAB Sodium Biphosphate/ Sodium Phosphate (Fleet Enema) 132 ml ONE PRN [place] 08/16/16 15:00 09/15/16 14:59 08/19/16 10:15 132 ML Hydroxyzine HCl (Vistaril Tab) 25 mg Q8H PRN PO 08/16/16 15:00 09/15/16 14:59 Al Hydroxide/Mg Hydroxide (Maalox Susp) 30 ml Q6H PRN PO 08/16/16 15:00 09/15/16 14:59 Famotidine (Pepcid Tab) 20 mg Q12 PRN PO 08/16/16 15:00 09/15/16 14:59 Diphenhydramine HCl (Benadryl Cap) 25 mg Q6H PRN PO 08/16/16 15:00 09/15/16 14:59 Hydromorphone HCl (Dilaudid Inj) 1 mg Q3H PRN IV 08/17/16 06:01 08/31/16 06:00 08/18/16 00:57 1 MG Insulin Glargine (Lantus Solostar Pen) 15 unit BID SC 08/16/16 20:00 09/15/16 19:59 08/22/16 07:35 15 UNIT Epoetin Teddy (Procrit Inj) 10,000 units MoWeFr@0900 IV 08/19/16 09:00 09/18/16 08:59 08/19/16 15:55 10,000 UNITS Apixaban (Eliquis Tab) 5 mg BID PO 08/20/16 21:00 09/19/16 20:59 08/21/16 21:00 5 MG Sodium Biphosphate/ Sodium Phosphate (Fleet Enema) 132 ml DAILY PRN [place] 08/21/16 14:00 09/20/16 13:59 08/21/16 14:40 132 ML Objective Vital Signs Date Time Temp Pulse Resp B/P Pulse Ox O2 Delivery O2 Flow Rate FiO2 08/22/16 08:50 Room Air 08/22/16 08:11 100 Room Air 08/22/16 07:43 36.3 78 20 138/64 100 Room Air 08/22/16 06:34 36.6 88 24 133/80 95 Room Air 08/21/16 22:54 36.8 75 20 124/73 96 Room Air 08/21/16 20:57 83 146/79 08/21/16 19:25 Room Air 08/21/16 15:45 Room Air 08/21/16 15:39 36.4 96 16 121/69 88 Room Air 08/21/16 14:14 81 129/80 Physical Exam General Appearance: no apparent distress, + obese Eyes: EOMI, sclerae normal Respiratory/Chest: chest non-tender, lungs clear, normal breath sounds, no respiratory distress Cardiovascular: regular rate, rhythm, no edema, no gallop, no murmur Abdomen: normal bowel sounds, non tender, soft Neurologic/Psychiatric: obiee report developer II-XII nml as tested, alert, normal mood/affect, oriented x 3, + motor weakness (generalized, improved per pt) Assessment and Plan 76 y/o male h/o a-fib (on AC), HTN, CAMI (CPAP), DMII, CKD w/ hyperparathyroidism and prostate CA w/ spinal stenosis s/p decompression Spinal stenosis s/p lumbar decompression w/ fusion POD #6 - pain controlled at present regimen w/ PRNs - PT/OT - looking forward to rehab and doing therapy to get stronger - f/u OP w/ Dr. Juarez DMII - stable. Lantus 15U BID w/ ISS --> NPH on discharge CKD IV w/ 2ndary Hyperparathyroidism on HD M/W/F - continue lasix 80mg, to follow w/ nephrology in [place] HTN - continue metoprolol, hydralazine dCHF - stable Echo - Ejection Fraction = >70 %. There is moderate concentric left ventricular hypertrophy. Grade I diastolic dysfunction, (abnormal relaxation pattern). There is mild mitral regurgitation. Atrial Fibrillation: Unknown Type: Rate Controlled - continue metoprolol and eliquis Anemia - multifactorial from CKD, iron and b12 def s/p IV iron - Cont EPO, B12 CAMI on Night CPAP Constipation, cont bowel regimens include Colace, MiraLAX. BM O/N Plan for D/C s/p HD to [facility]
--- NOTE | 2016-08-22 10:02 | Nephrology Progress Note ---
Nephrology Progress Note Date of Service Aug 22, 2016. Chief Complaint Follow up evaluation of this patient w/ ESRD on HD admitted for evaluation of intractable back pain Subjective Mr. Ferro was seen & examined in his hospital room this morning. He has ESRD due to DM and HTN. He was started on HD 08/05/16. His last dialysis treatment was 08/19/16. He currently denies angina, dyspnea or uremic symptoms. He understands the need for AVF creation following discharge from the hospital. He has expressed an interest in learning about PD. He will request education when he starts outpatient HD in [place] The patient was admitted with intractable low back pain. He was found to have lumbar stenosis. He had decompressive laminectomy 08/16/16. His reports that his discomfort has resolved. He is anxious to begin outpatient physical therapy. Mr. Ferro has anemia. He has completed 1 g IV iron infusion. He has been receiving LESVIA w/ HD treatments. He denies overt blood loss this morning. Review of Systems Constitutional: No fever Cardiovascular: No chest pain Respiratory: No dyspnea at rest Abdomen: No nausea, No pain, No vomiting Extremities: No leg edema A complete review of systems was performed. Pertinent positives are noted above. All other systems are negative. Vital Signs Last 8 Hrs Date Time Temp Pulse Resp B/P Pulse Ox O2 Delivery O2 Flow Rate FiO2 08/22/16 08:50 Room Air 08/22/16 08:11 100 Room Air 08/22/16 07:43 36.3 78 20 138/64 100 Room Air 08/22/16 06:34 36.6 88 24 133/80 95 Room Air I & O 24-Hour Column 08/22/16 08:00 Intake Total 300 ml Output Total 1450 ml Balance -1150 ml Last Recorded Weight Weight (Kilograms): 120.700 Physical Exam General Appearance: no apparent distress Head: normocephalic, atraumatic Eyes: PERRL, EOMI Neck: no adenopathy, no JVD, + pertinent finding (IJ THC with clean dry dressing in place) Respiratory/Chest: lungs clear, no respiratory distress Cardiovascular: regular rate, rhythm Abdomen/GI: normal bowel sounds, non tender, soft Extremities/Musculoskelatal: no calf tenderness, no pedal edema Neurologic/Psych: alert, oriented x 3 Family History Diabetes mellitus Social History Smokeless Tobacco Use: No Alcohol Use: none Drug Use: none Marital Status: Occupation: retired Laboratory Results Past 24 Hours Test 08/21/16 11:53 08/21/16 16:53 08/21/16 20:56 08/22/16 07:23 Bedside Glucose 254 mg/dl (70-99) 237 mg/dl (70-99) 231 mg/dl (70-99) 300 mg/dl (70-99) Allergies Coded Allergies: Atorvastatin (Unverified Allergy, Unknown, UNKNOWN, 08/01/16) Gabapentin (Unverified Allergy, Unknown, UNKNOWN, 08/01/16) Pioglitazone (Unverified Allergy, Unknown, UNKNOWN, 08/01/16) Simvastatin (Unverified Allergy, Unknown, UNKNOWN, 08/01/16) Medications Current Inpatient Medications Medications (Trade) Dose Ordered Sig/Elliott Route Start Time Stop Time Status Last Admin Dose Admin Lorazepam (Ativan Tab) 1 mg Q6H PRN PO 08/01/16 19:00 08/31/16 18:59 08/15/16 01:41 1 MG Cyanocobalamin (Vitamin B-12 Tab) 1,000 mcg QAM PO 08/02/16 09:00 09/01/16 08:59 08/21/16 08:59 1,000 MCG Docusate Sodium (coLACE CAP) 100 mg BID PO 08/01/16 21:00 08/31/16 20:59 08/21/16 20:59 100 MG Loratadine (Claritin Tab) 10 mg QAM PO 08/02/16 09:00 09/01/16 08:59 08/21/16 08:59 10 MG Metoprolol Succinate (Toprol Xl Tab) 50 mg BID PO 08/01/16 21:00 08/31/16 20:59 08/21/16 21:01 50 MG Insulin Aspart (novoLOG ASPART) SLIDING SCALE G... ACHS SC 08/01/16 21:00 08/31/16 20:59 08/22/16 08:17 17 UNITS Glucose (Glucose 40% Gel) 15-30 GRAMS 15 GRAMS... UD PRN PO 08/01/16 19:45 08/31/16 19:44 Glucose (Glucose Chew Tab) 4-8 Tablets 4 Tabl... UD PRN PO 08/01/16 19:45 08/31/16 19:44 Dextrose (Dextrose 50% 50ML Syringe) 25-50ML OF 50% DW IV FOR... UD PRN IV 08/01/16 19:45 08/31/16 19:44 Glucagon (Glucagon Inj) 1 mg UD PRN SQ 08/01/16 19:45 08/31/16 19:44 Polyethylene (Miralax Powder Packet) 17 gm DAILY PRN PO 08/01/16 20:00 08/31/16 19:59 08/07/16 17:21 17 GM Miscellaneous Information (Order Awaiting Action) 1 ea QS N/A 08/02/16 00:00 09/01/16 00:00 Sevelamer HCl (Renagel Tab) 800 mg TIDM PO 08/03/16 11:30 09/02/16 11:29 08/22/16 07:30 800 MG Furosemide (Lasix Tab) 80 mg BID17 PO 08/04/16 17:00 09/03/16 16:59 08/21/16 17:42 80 MG Hydralazine HCl (HydrALAZINE INJ) 10 mg Q4 PRN IV. 08/05/16 07:30 09/04/16 07:29 08/18/16 23:48 10 MG Vitamin B Complex/ Vit C/Folic Acid (Nephrocaps) 1 cap QAM PO 08/07/16 09:00 09/06/16 08:59 08/22/16 07:31 1 CAP Acetaminophen/ Hydrocodone Bitart ([place] 5/325 Tab) 1 tab Q4H PRN PO 08/08/16 11:00 08/22/16 10:59 Future Hold 08/16/16 07:49 1 TAB Albuterol/ Ipratropium (Duoneb) 3 ml QIDR PRN INH 08/09/16 12:00 09/08/16 11:59 Polyethylene (Miralax Powder Packet) 17 gm DAILY PO 08/10/16 08:00 09/09/16 07:59 08/21/16 08:59 17 GM Hydralazine HCl 20 mg 20 mg Q8 PO 08/10/16 14:00 09/09/16 13:59 08/21/16 21:02 20 MG Promethazine HCl/ Sodium Chloride (Phenergan Inj/ Nss 50ml) 50.5 ml @ 202 mls/hr Q6H PRN IV 08/16/16 15:00 09/15/16 14:59 Ondansetron HCl (Zofran Inj) 4 mg Q6H PRN IV 08/16/16 15:00 09/15/16 14:59 Metoclopramide HCl (Reglan Inj) 10 mg Q6H PRN IV 08/16/16 15:00 09/15/16 14:59 Lorazepam 0.5 mg 0.5 mg Q8H PRN PO 08/16/16 15:00 09/15/16 14:59 Lorazepam/Syringe (Ativan Inj/ Syringe) 0.25 ml @ 1 mls/min Q8H PRN IV 08/16/16 15:00 09/15/16 14:59 08/16/16 19:09 1 MLS/MIN Pneumococcal Polysaccharide Vaccine 1 ea PRN PRN N/A 08/16/16 15:00 09/15/16 14:59 Influenza Virus Vacc Triv Types A&B 1 ea PRN PRN N/A 08/16/16 15:00 09/15/16 14:59 Bisacodyl (Dulcolax Supp) 10 mg DAILY PRN [place] 08/16/16 15:00 09/15/16 14:59 Magnesium Hydroxide (Milk Of Magnesia Susp) 30 ml DAILY PRN PO 08/16/16 15:00 09/15/16 14:59 Hydromorphone HCl (Dilaudid Inj) 0.5 mg Q3H PRN IV 08/17/16 06:01 08/31/16 06:00 Oxycodone HCl (Roxicodone Immediate Rel Tab) 5-10mg prn moderate to sev... Q4H PRN PO 08/17/16 06:00 08/31/16 05:59 08/22/16 08:13 10 MG Acetaminophen 1000 mg 1,000 mg Q8H PRN PO 08/16/16 15:00 09/15/16 14:59 08/20/16 12:19 1,000 MG Acetaminophen (Ofirmev Iv) 100 ml @ 400 mls/hr Q8H PRN IV 08/16/16 15:00 09/15/16 14:59 Naloxone HCl (Narcan Inj) 0.1 mg Q5M PRN IV 08/16/16 15:00 09/15/16 14:59 Senna/Docusate Sodium (Senokot S Tab) 2 tab HS PO 08/16/16 21:00 09/15/16 20:59 08/21/16 21:00 2 TAB Sodium Biphosphate/ Sodium Phosphate (Fleet Enema) 132 ml ONE PRN [place] 08/16/16 15:00 09/15/16 14:59 08/19/16 10:15 132 ML Hydroxyzine HCl (Vistaril Tab) 25 mg Q8H PRN PO 08/16/16 15:00 09/15/16 14:59 Al Hydroxide/Mg Hydroxide (Maalox Susp) 30 ml Q6H PRN PO 08/16/16 15:00 09/15/16 14:59 Famotidine (Pepcid Tab) 20 mg Q12 PRN PO 08/16/16 15:00 09/15/16 14:59 Diphenhydramine HCl (Benadryl Cap) 25 mg Q6H PRN PO 08/16/16 15:00 09/15/16 14:59 Hydromorphone HCl (Dilaudid Inj) 1 mg Q3H PRN IV 08/17/16 06:01 08/31/16 06:00 08/18/16 00:57 1 MG Insulin Glargine (Lantus Solostar Pen) 15 unit BID SC 08/16/16 20:00 09/15/16 19:59 08/22/16 07:35 15 UNIT Epoetin Teddy (Procrit Inj) 10,000 units MoWeFr@0900 IV 08/19/16 09:00 09/18/16 08:59 08/19/16 15:55 10,000 UNITS Apixaban (Eliquis Tab) 5 mg BID PO 08/20/16 21:00 09/19/16 20:59 08/21/16 21:00 5 MG Sodium Biphosphate/ Sodium Phosphate (Fleet Enema) 132 ml DAILY PRN [place] 08/21/16 14:00 09/20/16 13:59 08/21/16 14:40 132 ML Impression (1) Chronic kidney disease, stage IV (severe) (2) BARB (acute kidney injury) (3) Hypercalcemia (4) Stenosis, spinal, lumbar Mr. Reginaldo Ferro is a 76-year-old male with ESRD due to hypertension, diabetes and obesity. 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 He was started on hemodialysis on 08/05/16 for ESRD. Patient has a longstanding history of iron deficiency anemia. He was started on Procrit and Venofer as an inpatient. 2 u PRBC transfusion on 08/15/16 prior to surgery. Patient has lumbar stenosis and underwent decompressive surgery with laminectomy 08/16/16. Recommendations END STAGE RENAL DISEASE: -- Patient scheduled for HD this morning. Orders in EMR reviewed and HD RN notified. -- Continue Furosemide 80 mg BID -- Continue Sevelamer as phosphate binder -- Continue Nephrocaps daily -- AVF creation as outpatient ANEMIA: -- Patient has completed 1 g IV iron infusion -- 2 u PRBC 08/15/16 -- Procrit QHD, hold for Hgb >11 LUMBAR STENOSIS: -- Decompression with laminectomy performed 08/16/16 without complications -- Disposition: transfer to [place] rehab possibly this afternoon
[2016-08-22] MEDS: DOCUSATE SODIUM 100 MG CAP PO SCH ×2 (11:32→21:35)
[2016-08-22] MEDS: CYANOCOBALAMIN 500 MCG TAB (VIT B-12) PO SCH (11:33)
[2016-08-22] MEDS ORDERED: PHARMACY GLYCEMIC MGMT CONSULT PRN (13:02)
[2016-08-22] MEDS ORDERED: INSULIN GLARGINE SOLOSTAR 100 UNITS/ML 3 ML PEN SC ONE (13:15)
--- NOTE | 2016-08-22 14:48 | Pharmacy Progress Note ---
Glycemic Control Intl Consult Date of Service Aug 22, 2016. Scope Glycemic Pharmacist (re-)consulted by Dr Butcher on 08/22/16 for glycemic control and to write orders per [facility] inpatient glycemic control protocol Objective Weight (Kilograms): 120.700 Accuchecks BSG (last 24hrs): Test 08/21/16 16:53 08/21/16 20:56 08/22/16 07:23 08/22/16 11:16 Bedside Glucose 237 mg/dl (70-99) 231 mg/dl (70-99) 300 mg/dl (70-99) 328 mg/dl (70-99) HbA1c Test 08/02/16 05:42 Hemoglobin A1c 6.0 % (4.5-5.6) H Recent Pertinent Medications Outpatient Anti-diabetic Regimen: * NPH 42 units SQ AM + 78 units SQ PM * NovoLog 10 units SQ BIDM The patient is currently receiving: * Basal insulin: Lantus 15 units every 12 hours * Correctional Insulin: Novolog Correction per scale ACHS Goal Range: Low 120 mg/dL - High 160 mg/dL Correction Factor: 20 mg/dL/unit * Prandial insulin: Per carb ratio of 1 unit per 6 grams CHO consumed Assessment & Plan ASSESSMENT: * Pharmacy re-consulted for glycemic control d/t hyperglycemia today. Pharmacy was initially consulted on 08/02/[address] Gamble but had signed off of the case on 08/12/16 when BSGs stabilized and controlled on regimen of ~ 55units/day. * 76yo T2DM male with ESRD - started HD which will be continued as an outpatient * Pt is currently receiving SQ basal bolus insulin regimen with Lantus + NovoLog , average total daily dose is ~ 55 units/day * BSGs ranging 231-328mg/dl over the past 24hrs * Expect BSGs to be labile with ESRD and hyperglycemia secondary to dialysates. * Current regimen was adequately controlling BSGs until today. Current regimen is significantly less than outpatient dosing of 140 units/day. CHO intake is erratic per documentation - possible that patient is snacking between meals and CHO not being covered. * Will slightly increase insulin regimen and continue to titrate based on BSG trends. PLAN FOR INPATIENT GLYCEMIC CONTROL: * Increase Basal insulin with LANTUS 20 units SQ BID * Tighten NOVOLOG per scale ACHS or Q6hrs while NPO. Additional checks + coverage at 0000 & 0400 for RTC coverage of sustained hyperglycemia. * Goal Range: Low 120 mg/dL - High 160 mg/dL * Correction Factor: 15 mg/dL/unit * Nutritional / Prandial insulin per carb ratio of 1 unit per 5 grams CHO consumed * Please note that the plan above was derived based on current level of insulin resistance and hospital stress. These recommendations are appropriate for inpatient admission only. Plan of care upon discharge will need to be reassessed to avoid potential outpatient hypo/hyperglycemia. Thank you.
[2016-08-22] MEDS: METOPROLOL SUCC 50MG EXT REL TAB PO SCH ×2 (17:02→21:36)
[2016-08-22] MEDS: APIXABAN 2.5 MG TAB PO SCH ×2 (17:03→21:38)
[2016-08-22] MEDS: EPOETIN ALFA 10,000 UNITS/ML VIAL IV SCH (18:06)
[2016-08-22] MEDS: DOCUSATE SODIUM/SENNA 50/8.6MG TAB PO SCH (21:36)
[2016-08-23] MEDS: INSULIN ASPART 100 UNITS/ML 3 ML PEN SC SCH ×5 (00:43→18:22)
[2016-08-23] MEDS: OXYCODONE HCL IR 5 MG TAB (IMMEDIATE RELEASE) PO PRN ×4 (00:44→13:57)
[2016-08-23 05:46] LABS: HEMATOCRIT 30.1 % (42-52); MEAN CELL VOLUME 79.8 fL (80-100); MEAN CORPUSCULAR HGB CONC 32.6 g/dl (32-36); MEAN PLATELET VOLUME 9.5 fL (7.4-10.4); PLATELET COUNT 233 K/uL (130-400); RED BLOOD COUNT 3.77 M/uL (4.7-6.1); WHITE BLOOD COUNT 5.31 K/uL (4.8-10.8)
[2016-08-23 05:47] VITALS: BP 99/94; PULSE 73
[2016-08-23] MEDS: HydrALAZINE 10 MG TAB PO SCH ×2 (05:48→13:39)
[2016-08-23 06:10] LABS: BUN/CREATININE RATIO 9.3 (10-20); CALCIUM 9.4 mg/dl (8.5-10.1); POTASSIUM 3.8 mmol/L (3.5-5.1)
[2016-08-23 08:03] VITALS: BP 115/70; PULSE 68; TEMP 36.5; O2SAT 100
--- NOTE | 2016-08-23 08:16 | Nephrology Progress Note ---
Nephrology Progress Note Date of Service Aug 23, 2016. Chief Complaint Follow up evaluation of this patient w/ ESRD on HD admitted for evaluation of intractable back pain Subjective Mr. Ferro was seen & examined in his hospital room this morning. He has ESRD due to DM and HTN. He was started on HD 08/05/16. His last dialysis treatment was 08/22/16. He dialyzed for 3.5 hrs w/ 2 L UF removal. UF was limited due to leg cramping. IJ THC functioned well. Mr. Ferro currently denies angina, dyspnea or uremic symptoms. He understands the need for AVF creation following discharge from the hospital. He has expressed an interest in learning about PD. He will request education when he starts outpatient HD in [place] The patient was admitted with intractable low back pain. He was found to have lumbar stenosis. He had decompressive laminectomy 08/16/16. His reports that his discomfort has resolved. He is anxious to begin outpatient physical therapy. Mr. Ferro has anemia. He has completed 1 g IV iron infusion. He has been receiving LESVIA w/ HD treatments. He denies overt blood loss this morning. Review of Systems Constitutional: No fever Cardiovascular: No chest pain Respiratory: No dyspnea at rest Abdomen: No nausea, No pain, No vomiting Extremities: No leg edema Integumentary: No rash A complete review of systems was performed. Pertinent positives are noted above. All other systems are negative. Vital Signs Last 8 Hrs Date Time Temp Pulse Resp B/P Pulse Ox O2 Delivery O2 Flow Rate FiO2 08/23/16 08:03 36.5 68 18 115/70 100 Room Air 08/23/16 05:47 73 99/94 I & O 24-Hour Column 08/23/16 07:59 Intake Total 950 ml Output Total 2475 ml Balance -1525 ml Last Recorded Weight Weight (Kilograms): 120.700 Physical Exam General Appearance: no apparent distress Head: normocephalic, atraumatic Eyes: PERRL, EOMI Neck: no adenopathy Respiratory/Chest: lungs clear, no respiratory distress Cardiovascular: regular rate, rhythm, no murmur Abdomen/GI: normal bowel sounds, non tender, soft Extremities/Musculoskelatal: no calf tenderness, no pedal edema Neurologic/Psych: alert, oriented x 3 Family History Diabetes mellitus Social History Smokeless Tobacco Use: No Alcohol Use: none Drug Use: none Marital Status: Occupation: retired Laboratory Results Past 24 Hours 08/23/16 05:00 08/23/16 05:00 Test 08/22/16 11:16 08/22/16 15:05 08/22/16 17:03 08/22/16 21:06 Bedside Glucose 328 mg/dl (70-99) 179 mg/dl (70-99) 198 mg/dl (70-99) 269 mg/dl (70-99) Test 08/22/16 23:48 08/23/16 04:19 08/23/16 05:00 08/23/16 08:05 Bedside Glucose 257 mg/dl (70-99) 220 mg/dl (70-99) 199 mg/dl (70-99) Red Blood Count 3.77 M/uL (4.7-6.1) Mean Corpuscular Volume 79.8 fL (80-100) Mean Corpuscular Hemoglobin 26.0 pg (25-34) Mean Corpuscular Hemoglobin Concent 32.6 g/dl (32-36) RDW Standard Deviation 56.1 fL (36.4-46.3) RDW Coefficient of Variation 19.2 % (11.5-14.5) Mean Platelet Volume 9.5 fL (7.4-10.4) Anion Gap 12.0 mmol/L (3-11) Est Creatinine Clear Calc Drug Dose 21.3 ml/min Estimated GFR () 15.6 Estimated GFR (Non- 13.4 BUN/Creatinine Ratio 9.3 (10-20) Calcium Level 9.4 mg/dl (8.5-10.1) Allergies Coded Allergies: Atorvastatin (Unverified Allergy, Unknown, UNKNOWN, 08/01/16) Gabapentin (Unverified Allergy, Unknown, UNKNOWN, 08/01/16) Pioglitazone (Unverified Allergy, Unknown, UNKNOWN, 08/01/16) Simvastatin (Unverified Allergy, Unknown, UNKNOWN, 08/01/16) Medications Current Inpatient Medications Medications (Trade) Dose Ordered Sig/Elliott Route Start Time Stop Time Status Last Admin Dose Admin Lorazepam (Ativan Tab) 1 mg Q6H PRN PO 08/01/16 19:00 08/31/16 18:59 08/15/16 01:41 1 MG Cyanocobalamin (Vitamin B-12 Tab) 1,000 mcg QAM PO 08/02/16 09:00 09/01/16 08:59 08/22/16 11:33 1,000 MCG Docusate Sodium (coLACE CAP) 100 mg BID PO 08/01/16 21:00 08/31/16 20:59 08/22/16 21:35 100 MG Loratadine (Claritin Tab) 10 mg QAM PO 08/02/16 09:00 09/01/16 08:59 08/22/16 17:04 10 MG Metoprolol Succinate (Toprol Xl Tab) 50 mg BID PO 08/01/16 21:00 08/31/16 20:59 08/22/16 21:36 50 MG Insulin Aspart (novoLOG ASPART) SLIDING SCALE G... ACHS SC 08/01/16 21:00 08/31/16 20:59 08/22/16 21:42 8 UNITS Glucose (Glucose 40% Gel) 15-30 GRAMS 15 GRAMS... UD PRN PO 08/01/16 19:45 08/31/16 19:44 Glucose (Glucose Chew Tab) 4-8 Tablets 4 Tabl... UD PRN PO 08/01/16 19:45 08/31/16 19:44 Dextrose (Dextrose 50% 50ML Syringe) 25-50ML OF 50% DW IV FOR... UD PRN IV 08/01/16 19:45 08/31/16 19:44 Glucagon (Glucagon Inj) 1 mg UD PRN SQ 08/01/16 19:45 08/31/16 19:44 Polyethylene (Miralax Powder Packet) 17 gm DAILY PRN PO 08/01/16 20:00 08/31/16 19:59 08/07/16 17:21 17 GM Miscellaneous Information (Order Awaiting Action) 1 ea QS N/A 08/02/16 00:00 09/01/16 00:00 Sevelamer HCl (Renagel Tab) 800 mg TIDM PO 08/03/16 11:30 09/02/16 11:29 08/22/16 17:55 800 MG Furosemide (Lasix Tab) 80 mg BID17 PO 08/04/16 17:00 09/03/16 16:59 08/22/16 17:01 80 MG Hydralazine HCl (HydrALAZINE INJ) 10 mg Q4 PRN IV. 08/05/16 07:30 09/04/16 07:29 08/18/16 23:48 10 MG Vitamin B Complex/ Vit C/Folic Acid (Nephrocaps) 1 cap QAM PO 08/07/16 09:00 09/06/16 08:59 08/22/16 07:31 1 CAP Albuterol/ Ipratropium (Duoneb) 3 ml QIDR PRN INH 08/09/16 12:00 09/08/16 11:59 Polyethylene (Miralax Powder Packet) 17 gm DAILY PO 08/10/16 08:00 09/09/16 07:59 08/21/16 08:59 17 GM Hydralazine HCl 20 mg 20 mg Q8 PO 08/10/16 14:00 09/09/16 13:59 08/22/16 17:02 20 MG Promethazine HCl/ Sodium Chloride (Phenergan Inj/ Nss 50ml) 50.5 ml @ 202 mls/hr Q6H PRN IV 08/16/16 15:00 09/15/16 14:59 Ondansetron HCl (Zofran Inj) 4 mg Q6H PRN IV 08/16/16 15:00 09/15/16 14:59 Metoclopramide HCl (Reglan Inj) 10 mg Q6H PRN IV 08/16/16 15:00 09/15/16 14:59 Lorazepam 0.5 mg 0.5 mg Q8H PRN PO 08/16/16 15:00 09/15/16 14:59 Lorazepam/Syringe (Ativan Inj/ Syringe) 0.25 ml @ 1 mls/min Q8H PRN IV 08/16/16 15:00 09/15/16 14:59 08/16/16 19:09 1 MLS/MIN Pneumococcal Polysaccharide Vaccine 1 ea PRN PRN N/A 08/16/16 15:00 09/15/16 14:59 Influenza Virus Vacc Triv Types A&B 1 ea PRN PRN N/A 08/16/16 15:00 09/15/16 14:59 Bisacodyl (Dulcolax Supp) 10 mg DAILY PRN ND 08/16/16 15:00 09/15/16 14:59 Magnesium Hydroxide (Milk Of Magnesia Susp) 30 ml DAILY PRN PO 08/16/16 15:00 09/15/16 14:59 Hydromorphone HCl (Dilaudid Inj) 0.5 mg Q3H PRN IV 08/17/16 06:01 08/31/16 06:00 Oxycodone HCl (Roxicodone Immediate Rel Tab) 5-10mg prn moderate to sev... Q4H PRN PO 08/17/16 06:00 08/31/16 05:59 08/23/16 04:40 10 MG Acetaminophen 1000 mg 1,000 mg Q8H PRN PO 08/16/16 15:00 09/15/16 14:59 08/20/16 12:19 1,000 MG Acetaminophen (Ofirmev Iv) 100 ml @ 400 mls/hr Q8H PRN IV 08/16/16 15:00 09/15/16 14:59 Naloxone HCl (Narcan Inj) 0.1 mg Q5M PRN IV 08/16/16 15:00 09/15/16 14:59 Senna/Docusate Sodium (Senokot S Tab) 2 tab HS PO 08/16/16 21:00 09/15/16 20:59 08/22/16 21:36 2 TAB Sodium Biphosphate/ Sodium Phosphate (Fleet Enema) 132 ml ONE PRN ND 08/16/16 15:00 09/15/16 14:59 08/19/16 10:15 132 ML Hydroxyzine HCl (Vistaril Tab) 25 mg Q8H PRN PO 08/16/16 15:00 09/15/16 14:59 Al Hydroxide/Mg Hydroxide (Maalox Susp) 30 ml Q6H PRN PO 08/16/16 15:00 09/15/16 14:59 Famotidine (Pepcid Tab) 20 mg Q12 PRN PO 08/16/16 15:00 09/15/16 14:59 Diphenhydramine HCl (Benadryl Cap) 25 mg Q6H PRN PO 08/16/16 15:00 09/15/16 14:59 Hydromorphone HCl (Dilaudid Inj) 1 mg Q3H PRN IV 08/17/16 06:01 08/31/16 06:00 08/18/16 00:57 1 MG Epoetin Teddy (Procrit Inj) 10,000 units MoWeFr@0900 IV 08/19/16 09:00 09/18/16 08:59 08/19/16 15:55 10,000 UNITS Apixaban (Eliquis Tab) 5 mg BID PO 08/20/16 21:00 09/19/16 20:59 08/22/16 21:38 5 MG Sodium Biphosphate/ Sodium Phosphate (Fleet Enema) 132 ml DAILY PRN ND 08/21/16 14:00 09/20/16 13:59 08/21/16 14:40 132 ML Miscellaneous Information (Consult Glycemic Management Pharmacy) 1 ea UD PRN N/A 08/22/16 13:02 09/21/16 13:01 Insulin Glargine (Lantus Solostar Pen) 20 unit BID SC 08/22/16 21:00 09/21/16 20:59 08/22/16 21:43 20 UNIT Impression (1) Chronic kidney disease, stage IV (severe) (2) BARB (acute kidney injury) (3) Hypercalcemia (4) Stenosis, spinal, lumbar Mr. Reginaldo Ferro is a 76-year-old male with ESRD due to hypertension, diabetes and obesity. His planning feeder is Dr. Ivan Delcid in [place]. He was started on hemodialysis on 08/05/16 for ESRD. Patient has a longstanding history of iron deficiency anemia. He was started on Procrit and Venofer as an inpatient. 2 u PRBC transfusion on 08/15/16 prior to surgery. Patient has lumbar stenosis and underwent decompressive surgery with laminectomy 08/16/16. Recommendations END STAGE RENAL DISEASE: -- Will provide HD tomorrow am if patient is still hospitalized. -- Continue Furosemide 80 mg BID -- Continue Sevelamer as phosphate binder -- Continue Nephrocaps daily -- AVF creation as outpatient ANEMIA: -- Patient has completed 1 g IV iron infusion -- 2 u PRBC 08/15/16 -- Procrit QHD, hold for Hgb >11 LUMBAR STENOSIS: -- Decompression with laminectomy performed 08/16/16 without complications OTHER: -- Disposition: transfer to [place] rehab possibly this afternoon. Follow up with Dr. Delcid (Primary Collector in [place], [place])
[2016-08-23] MEDS: SEVELAMER HYDROCH 800 MG TAB PO SCH ×4 (09:44→18:19)
[2016-08-23] MEDS: FUROSEMIDE 80 MG TAB PO SCH ×2 (09:45→18:19)
[2016-08-23] MEDS: NEPHROCAPS PO SCH (09:45)
[2016-08-23] MEDS: CYANOCOBALAMIN 500 MCG TAB (VIT B-12) PO SCH (09:45)
[2016-08-23] MEDS: DOCUSATE SODIUM 100 MG CAP PO SCH (09:45)
[2016-08-23] MEDS: INSULIN GLARGINE SOLOSTAR 100 UNITS/ML 3 ML PEN SC SCH (09:55)
--- NOTE | 2016-08-23 10:09 | Discharge Instructions ---
Discharge Instructions Date of Service Aug 23, 2016. Admission Reason for Admission: Intractable Back Pain Discharge Discharge Diagnosis / Problem: CKD stage IV on HD Discharge Goals Goal(s): Decrease discomfort, Improve function, Improve disease control, Prevent Disease Progression Activity Recommendations Activity Limitations: per Instructions/Follow-up section . Instructions / Follow-Up Instructions / Follow-Up During your admission you were diagnosed with worsening of your chronic kidney problems which needed dialysis - a right IJ permacath was inserted by Dr. Brito for access and you received your first treatment on August 05. Going forward, you will receive dialysis 3 days per week at the in-facility dialysis center. You should continue the sevelmer and procrit per nephrologies recommendations as outpatient. You will have your electrolytes carefully monitored by nephrology during dialysis. You have ordered here oxycodone IR 5-10mg q4PRN for pain - you should continue that for a short course as needed. In regards to your atrial fibrillation, you are on eliquis to prevent clots, which you should continue. You are also on metoprolol, which controls your heart rate, which you should also continue. For your blood pressure, you are on metoprolol and hydralazine and you are also taking furosemide - your blood pressure should be monitored, and you should adhere strictly to a renal diet which would include low sodium intake. Your diabetes has been managed in the hospital with a long acting insulin twice daily and a short acting insulin with meals. On discharge, we will send you on this regimen instead of your twice daily NPH - your sugars should be monitored with meals, fasting and at bedtime and the regimen adjusted accordingly by your primary care provider. You should continue your CPAP at night for CAMI. Current Hospital Diet Patient's current hospital diet: Diabetes Type 2 Diet, Renal Diet Discharge Diet Recommended Diet: Renal Diet Procedures Procedures Performed: L4-L5, L5-S1 Decompression; Posterior Lumbar Instrumented Fusion; Application of bone morphogenetic protein Pending Studies Studies pending at discharge: no Laboratory Results Hemoglobin A1c Test 08/02/16 05:42 Range/Units Estimated Average Glucose 126 mg/dl Hemoglobin A1c 6.0 H 4.5-5.6 % Medical Emergencies . Who to Call and When: Medical Emergencies: If at any time you feel your situation is an emergency, please call 911 immediately. . Non-Emergent Contact Non-Emergency issues call your: Primary Care Provider, [employer] Call Non-Emergent contact if: you have a fever, temperature is above 100.5, your pain is not controlled, your pain is worsening, your pain is concerning you , you have any medication questions . . "Provider Documentation" section prepared by Sterling Butcher. VTE Core Measure Inpt VTE Proph given/why not?: Treatment not indicated
[2016-08-23 11:07] VITALS: BP 115/70; PULSE 68; TEMP 36.5; O2SAT 100
[2016-08-23] MEDS: APIXABAN 2.5 MG TAB PO SCH (12:14)
[2016-08-23] MEDS: ACETAMINOPHEN 500 MG TAB PO PRN (12:15)
[2016-08-23] MEDS: METOPROLOL SUCC 50MG EXT REL TAB PO SCH (12:15)
[2016-08-23] MEDS: LORAZEPAM 1 MG TAB PO PRN (12:16)
--- NOTE | 2016-08-23 12:23 | Pharmacy Progress Note ---
Glycemic Control: Progress Nt Date of Service Aug 23, 2016. Scope Glycemic Pharmacist re-consulted by Dr Butcher on 08/22/16 for glycemic control and to write orders per [facility] inpatient glycemic control protocol. Objective Accuchecks BSG (last 24hrs): Test 08/22/16 15:05 08/22/16 17:03 08/22/16 21:06 08/22/16 23:48 Bedside Glucose 179 mg/dl (70-99) 198 mg/dl (70-99) 269 mg/dl (70-99) 257 mg/dl (70-99) Test 08/23/16 04:19 08/23/16 05:00 08/23/16 08:05 08/23/16 11:55 Bedside Glucose 220 mg/dl (70-99) 199 mg/dl (70-99) 257 mg/dl (70-99) Random Glucose 211 mg/dl (70-99) Laboratory Data (last 24hrs) Test 08/23/16 05:00 Anion Gap 12.0 mmol/L BUN/Creatinine Ratio 9.3 Blood Urea Nitrogen 37 mg/dl Creatinine 4.00 mg/dl Potassium Level 3.8 mmol/L Sodium Level 135 mmol/L White Blood Count 5.31 K/uL HbA1c: Test 08/02/16 05:42 Hemoglobin A1c 6.0 % (4.5-5.6) H * However, this result is likely somewhat unreliable in ESRD patients d/t interactions between the A1c analyzing technique and high levels of urea in ESRD , reduced RBC life span, iron deficiency anemia, and EPO administration. HbA1c > 7.5% in ESRD patient may overestimate the extent of hyperglycemia in ESRD patients. Recent Pertinent Medications Outpatient Anti-diabetic Regimen: * NPH 42 units SQ AM + 78 units SQ PM * NovoLog 10 units SQ BIDM The patient is currently receiving: * Basal insulin: Lantus 20 units every 12 hours * Correctional Insulin: Novolog Correction per scale ACHS Goal Range: Low 120 mg/dL - High 160 mg/dL Correction Factor: 15 mg/dL/unit * Prandial insulin: Per carb ratio of 1 unit per 5 grams CHO consumed Assessment & Plan ASSESSMENT: * Pharmacy re-consulted for glycemic control d/t severe hyperglycemia yesterday. Pharmacy was initially consulted on 08/02/[address] Gamble but had signed off of the case on 08/12/16 when BSGs stabilized and controlled on regimen of ~ 55units/day. * 76yo T2DM male with ESRD - started HD which will be continued as an outpatient. ESRD/HD makes BSG control erratic and labile. * Difficult for pharmacy to effectively manage BSGs as patient is snacking on high CHO foods between meals. Nursing is not covering these snacks. * Pt did not eat dinner yesterday evening but instead had chocolate ice cream after the time that dinner insulin coverage was given. Hyperglycemia resulting from CHO consumed w/o insulin coverage. * Insulin regimen increased yesterday to combat acute severe hyperglycemia, but recommend resuming previous regimen and adequately covering all meals and snacks consumed to prevent rebound hyperglycemia. PLAN FOR INPATIENT GLYCEMIC CONTROL: * Continue Basal insulin with LANTUS 20 units SQ BID * Continue NOVOLOG per scale ACHS or Q6hrs while NPO * Goal Range: Low 120 mg/dL - High 160 mg/dL * Correction Factor: 15 mg/dL/unit * Nutritional / Prandial insulin per carb ratio of 1 unit per 5 grams CHO consumed * Please note that the plan above was derived based on current level of insulin resistance and hospital stress. These recommendations are appropriate for inpatient admission only. Plan of care upon discharge will need to be reassessed to avoid potential outpatient hypo/hyperglycemia. Thank you.
[2016-08-23 13:39] VITALS: BP 110/70; PULSE 75
[2016-08-23 15:45] VITALS: BP 118/73; PULSE 81; TEMP 36.7; O2SAT 100
--- NOTE | 2016-08-23 17:27 | Discharge Summary ---
Discharge Summary Date of Service Aug 23, 2016. Discharge Summary Admission Date: Aug 01, 2016 at 19:59 Discharge Date: Aug 23, 2016 Discharge Disposition: intermediate facility Principal Diagnosis: CKD IV on ESRD with permacath Secondary Diagnoses/Problems: Spinal stenosis s/p lumbar decompression w/ fusion DMII HTN dCHF Atrial Fibrillation: Unknown Type Chronic anemia CAMI on Night CPAP Procedures: Lumbar decompression, R IJ permacath Consultations: Vascular surgery, nephrology Medication Reconciliation Continued Medications: Acetaminophen Tab (Tylenol) 325 Mg Tab 650 MG PO Q6H PRN for RN, TAB Apixaban (Eliquis) 5 Mg Tab 5 MG PO BID, TAB Bisacodyl (Bisacodyl) 5 Mg Tab 2 TAB PO UD, #2 TAB Calcitriol (Rocaltrol Cap) 0.25 Mcg Cap 0.5 MCG PO QAM, CAP Cholecalciferol (Vitamin D3) 2,000 Unit Cap 1 CAP PO TID for 90 Days, #270 CAP 3 Refills Cinacalcet (Sensipar) 30 Mg Tab 30 MG PO QAM, TAB Cyanocobalamin (Vitamin B12 500MCG) 500 Mcg Tab 1000 MCG PO QAM, TAB Docusate Sodium (Colace) 100 Mg Cap 1 CAP PO BID for 30 Days, #60 CAP Febuxostat (Uloric) 40 Mg Tab 1 TAB PO HS for 90 Days, TAB 3 Refills Fish Oil ([place]-3) 1 Ea Cap 1 CAP PO QAM, CAP Furosemide (Lasix) 20 Mg Tab 20 MG PO NOON, TAB Hydrocodone/Acetaminophen 10MG/325MG ([place] 10MG/325MG) Tab 1 TAB PO Q4H PRN for Pain, TAB PRN PAIN Insulin Aspart (Novolog Flexpen) 100 Units/Ml Inj 10 UNITS SC QAM PRN for PRN Insulin Human NPH (Humulin N) 1,000 Units/10 Ml Inj 42 UNITS INJ QAM Insulin Human NPH (Humulin N) 1,000 Units/10 Ml Inj 78 UNITS SC HS Loratadine (Claritin) 10 Mg Tab 10 MG PO QAM, TAB Metoprolol Succinate (Toprol Xl) 50 Mg Tabcr 50 MG PO BID, #30 TAB Polyethylene Glycol 3350 (Miralax) 1 Pow Pow 17 GM PO BID, #255 GM Rosuvastatin Calcium (Crestor) 5 Mg Tab 5 MG PO HS, TAB Sodium Bicarbonate (Sodium Bicarbonate) 650 Mg Tab 1300 MG PO QID PRN for 00 Vitamin E (Alph-E) 400 Unit Cap 400 UNITS PO QAM Admission Information HPI (per Admitting provider): Pt seen and examined at bedside. Reports intermittent cramping of the b/l LE which is very uncomfortable but improves with repositioning and oral hydration. Pain is well controlled on present oral regimen. Reports no FORTUNE, lightheadedness , vision/hearing changes, n/v/d/c, abd pain. Maradiaga in place and tolerated well per pt. 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 Ferro was found to have spinal stenosis requiring lumbar decompression and fusion surgery which is presently POD #7 which has improved his pain. PT/OT has recommended rehabilitation to improve his strength and capability following such a long period of deconditioning. He should follow up with Dr. Juarez. While being evaluated, he was noted to have progression of his CKD stage IV necessitating implementation of inpatient dialysis. A right IJ permacath was placed by Dr Brito and he has been getting 3x/weekly sessions of dialysis. Following these, he complains frequently of cramping which improves with hydration and repositioning. His electrolytes have been stable and should be monitored regularly at follow up. He should follow up with nephrology for dialysis after discharge - these appointments have been set. His blood pressure has been well controlled and he has been discharged on a regimen found to be effective. His diabetes inpatient was controlled with lantus and a with meals insulin dosing which we recommend to continue in the outpatient and to adjust as needed. His congestive heart failure has been stable this admission, and his recent echocardiogram results are noted below. His atrial fibrillation is stable on metoprolol and eliquis. His chronic anemia, likely multifactorial from CKD and deficiencies rec'd a course of IV iron and has been on B12 and EPO supplementations and should be continued at nephrology's discretion For CAMI, he should remain on CPAP During his admission, he suffered from intermittent constipation and treated with Colace, MiraLAX Echo - Ejection Fraction = >70 %. There is moderate concentric left ventricular hypertrophy. Grade I diastolic dysfunction, (abnormal relaxation pattern). There is mild mitral regurgitation. Total time spent on discharge = 40 minutes This includes examination of the patient, discharge planning, medication reconciliation, and communication with other providers. Discharge Instructions See accompanying discharge instructions for further detail.
[2016-08-24] MEDS ORDERED: HEPARIN SOD (PORCINE) 1000 UNIT/ML 10 ML VIAL IV SCH (06:00)
[2016-08-24] MEDS ORDERED: EPOETIN ALFA 10,000 UNITS/ML VIAL IV. ONE (08:00)
== END 2016-08-23 20:02 | DRG 459 ==
LOC: ENRESERVTM → CANRESERV → ENRESERVDT → C.EDB 16:21 → C.2E 19:59 → EDBEDREQSVC 20:15 → EDBEDREQ 08-09 10:36 → C.4E 08-09 12:14 → C.3E 08-16 17:27
PROVIDERS: ADMIT Orthopaedic Surgery Orthopaedic Surgery of the Spine; ATTEND Family Medicine
PROC: 02HV33Z Insertion of Infusion Device into Superior Vena Cava, Percutaneous Approach (ICD-10-PCS; principal; 2016-08-05 11:30)
PROC: 0JH63XZ Insertion of Tunneled Vascular Access Device into Chest Subcutaneous Tissue and Fascia, Percutaneous Approach (ICD-10-PCS; principal; 2016-08-05 11:30)
PROC: 0SG00Z1 (ICD-10-PCS; 2016-08-16)
PROC: 0SG30Z1 (ICD-10-PCS; 2016-08-16)
PROC: 3E0V0GB Introduction of Recombinant Bone Morphogenetic Protein into Bones, Open Approach (ICD-10-PCS; 2016-08-16)
DX: M48.06 Spinal stenosis, lumbar region (principal); N18.6 End stage renal disease; I13.2 Hypertensive heart and chronic kidney disease with heart failure and with stage 5 chronic kidney disease, or end stage renal disease; N25.81 Secondary hyperparathyroidism of renal origin; I50.32 Chronic diastolic (congestive) heart failure; N17.9 Acute kidney failure, unspecified; R07.9 Chest pain, unspecified; Z79.01 Long term (current) use of anticoagulants; G47.33 Obstructive sleep apnea (adult) (pediatric); E11.22 Type 2 diabetes mellitus with diabetic chronic kidney disease; Z85.46 Personal history of malignant neoplasm of prostate; R26.9 Unspecified abnormalities of gait and mobility; Z83.3 Family history of diabetes mellitus; Z88.8 Allergy status to other drugs, medicaments and biological substances; Z68.33 Body mass index [BMI] 33.0-33.9, adult; E83.52 Hypercalcemia; Z79.899 Other long term (current) drug therapy; Z79.4 Long term (current) use of insulin; E78.00 Pure hypercholesterolemia, unspecified; E66.01 Morbid (severe) obesity due to excess calories; M48.07 Spinal stenosis, lumbosacral region; E83.39 Other disorders of phosphorus metabolism; D63.1 Anemia in chronic kidney disease; K75.9 Inflammatory liver disease, unspecified; E53.8 Deficiency of other specified B group vitamins; K59.00 Constipation, unspecified; H91.93 Unspecified hearing loss, bilateral; Z91.14 Patient's other noncompliance with medication regimen; I34.0 Nonrheumatic mitral (valve) insufficiency; F41.9 Anxiety disorder, unspecified; I48.91 Unspecified atrial fibrillation; E11.65 Type 2 diabetes mellitus with hyperglycemia